=== PATIENT | female | born 1970 | race Caucasian/White ===

== ENCOUNTER 2020-10-28 11:47 | Emergency (ER) | payer BC, SELFPAY ==
[2020-10-28] VITALS (7 sets, daily range): BP systolic 128–194; BP diastolic 73–100; PULSE 72–96; RESP 16–22; TEMP 37.6; O2SAT 97–100
--- NOTE | ~2020-10-28 | XR_ITS ---
XR chest 2V DATE: 10/28/2020 13:37 INDICATION: Right-sided chest pain. Nausea. TECHNIQUE: PA and lateral views COMPARISON: 07/07/2019 AP chest FINDINGS: Normal heart size. No hilar or mediastinal enlargement. No pulmonary infiltrate or consolidation, pleural effusion or pulmonary vascular congestion or pneumo thorax. Right-sided ventricular atrial shunt. Included skeletal structures are unremarkable. IMPRESSION: No active cardiopulmonary disease Reviewed, dictated and finalized at location A.
[2020-10-28 12:19] LABS: Basophils Percent Auto 0.2 % (0.2-1.2); Eosinophils Absolute Auto 0.1 K/mm3 (0-0.3); Eosinophils Percent Auto 0.6 % (0-4.4); Hematocrit 46.3 % (37.0-47.0); Hemoglobin 15.3 g/dL (12.0-15.0); Immature Granulocyte Absolute 0.03 K/mm3 (0.00-0.031); Immature Granulocyte Percent A 0.2 % (0-0.5); Lymphocytes Absolute Auto 1.46 K/mm3 (0.9-3.2); Lymphocytes Percent Auto 11.8 % (18.3-44.2); Mean Corpuscular Hemoglobin 31.7 pg (26-34); Mean Corpuscular Volume 96.1 fl (80-100); Mean Platelet Volume 9.7 fl (7.4-10.4); Monocytes Absolute Auto 0.7 K/mm3 (0.1-0.6); Monocytes Percent Auto 5.6 % (2.6-8.5); Neutrophils Absolute Auto 10.1 K/mm3 (1.3-6.7); Neutrophils Percent Auto 81.6 % (45.5-73.1); Platelet Count Result 298 k/mm3 (150-375); Red Blood Count 4.82 M/mm3 (4.2-5.4); Red Cell Distribution Width 12.8 % (11.5-14.5); White Blood Count 12.4 K/mm3 (4.5-10.0)
--- NOTE | 2020-10-28 13:02 | ED.ABDPAIN ---
HPI - Abdominal Pain General Chief Complaint: Abdominal Pain Stated Complaint: rt flank pain Time Seen by Provider: 10/28/20 12:17 Source: patient Mode of arrival: ambulatory Limitations: no limitations History of Present Illness HPI narrative: 50-year-old female History of hypertension, hysterectomy, and a shunt She complains of pain in her right side which began this morning Pain is located more laterally versus anteriorly or posteriorly She cannot think of anything that made the pain worse, she had a small breakfast and does not really think that is what triggered things off She reports it feels better if she lies on her right side She has a little nausea but has not vomited and has no diarrhea or constipation She thought that her urine was a little dark a couple days ago, but does not have blood in it, and has no dysuria or urinary frequency She has allergies and a bit of a chronic cough which is not changed Related Data Allergies Allergy/AdvReac Type Severity Reaction Status Date / Time ibuprofen Allergy Severe shunt Verified 10/17/20 14:23 Sulfa (Sulfonamide Allergy Intermediate general Verified 10/17/20 14:23 Antibiotics) pain KETOROLAC TROMETHAMINE Allergy Intermediate JOINT PAIN Uncoded 10/17/20 14:23 Review of Systems Review of Systems: All systems reviewed & are unremarkable except as noted in HPI and below Constitutional: Constitutional: Reports no additional constitutional complaints, Denies chills, Denies fever(s) and Denies headache(s) ENT: Denies headache(s), Reports nasal congestion and Denies sore throat Cardiovascular: Cardiovascular: Denies chest pain and Denies dyspnea Respiratory: Respiratory: Reports cough and Denies dyspnea Gastrointestinal: Gastrointestinal: Denies diarrhea, Reports nausea and Denies vomiting Genitourinary: Genitourinary: Denies urinary frequency, Denies nocturia, Denies dysuria and Reports flank pain Musculoskeletal: Musculoskeletal: Denies deformity, Reports arthralgias and Denies numbness Integumentary/Breasts: Skin/Breast: Denies rash and Denies wounds Neurologic: Denies headache(s), Denies focal weakness and Denies numbness Psychiatric: Psychiatric: Reports no additional psychiatric complaints Endocrine: Endocrine: Reports no additional endocrine complaints Hematologic/Lymphatic: Hematologic/Lymphatic: Reports no additional hematologic/lymphatic complaints Allergic/Immunologic: Allergic/Immunologic: Reports no additional allergic/immunologic complaints PMFSH Past Medical History Medical History Anemia Anxiety Asthma Depression HTN (hypertension) Migraine Surgical History Surgical History H/O dilation and curettage H/O tubal ligation H/O: hysterectomy Family History Family History Father Hypertension Mother Hypertension Sibling Hypertension Social History Social History Smoking packs per day: 1.5 Smoking cigarettes per day: 30.0 Years smoked: 7 Smoking pack-years: 10.50 Smoking status: Former smoker Second hand tobacco smoke exposure: No Smoking end date: 07/27/92 Alcohol intake: current Substance use: current Substance use type: marijuana Gender identity (if verbalized by the patient): Female Exam Const: General: cooperative, no acute distress and alert Orientation/consciousness: patient oriented x3 (alert) HENMT: Head: normal to inspection, normocephalic and atraumatic Ears: external ears normal General nose exam: no epistaxis Eyes: Conjunctivae: conjunctivae normal EOM: EOMs intact bilaterally Neck: Neck: normal visual inspection, supple and no JVD Resp: Effort & Inspection: normal respiratory effort and not labored Auscultation: clear to auscultation bilaterally and other
[2020-10-28 13:06] LABS: Alanine Aminotransferase 24 U/L (4-35); Albumin Level 4.6 g/dL (3.5-5.1); Alkaline Phosphatase 66 U/L (38-126); Anion Gap 4 mmol/L (8-16); Aspartate Amino Transferase 28 U/L (14-36); Bilirubin,Total 0.5 mg/dL (0.2-1.3); Blood Urea Nitrogen 10 mg/dL (7-17); Calcium 9.2 mg/dL (8.4-10.2); Carbon Dioxide 31 mmol/L (22-30); Chloride 104 mmol/L (98-107); Estimated Glomerular Filt Rate > 60; Glucose 90 mg/dL (65-105); Lipase 35 U/L (23-300); Potassium 3.8 mmol/L (3.4-5.0); Sodium 139 mmol/L (137-145)
[2020-10-28 14:08] LABS: Add Urine Microscopic? NO; Appearance Urine Clear (Clear); Bilirubin Urine Negative (Negative); Blood Urine Negative (Negative); Color Urine Straw (Yellow); Glucose Urine UA Negative (Negative); Ketones Urine Negative (Negative); Leukocyte Esterase Ur Negative LEU/UL (Negative); Nitrate Urine Negative (Negative); Protein Urine Negative (Negative); Specific Grav Ur 1.009 (1.001-1.035); Urobilinogen Urine Negative mg/dL (<2.0)
--- NOTE | 2020-10-28 14:13 | ECG_ITS ---
Measurements Intervals [place] Rate: 81 P: 48 [place]: 175 QRS: 45 QRSD: 98 T: 52 QT: 374 QTc: 435 Interpretive Statements SINUS RHYTHM DELAYED PRECORDIAL R/S TRANSITION BORDERLINE ECG Electronically Signed On 10-28-2020 17:18:01 CDT by Pravin Orozco D.O.
--- NOTE | 2020-10-28 14:14 | PC.NURSE ---
called lab, Paige, added on Trop I Baseline [id number]
[2020-10-28] MEDS: HYDROcodone/acetaminophen (*CRX) 5-325 MG TABLET 1 TAB PO (14:25)
[2020-10-28 14:31] LABS: D Dimer 0.33 ug/mL (<0.48)
[2020-10-28 14:39] LABS: Troponin I < 0.012 ng/mL (0.000-0.034)
== END 2020-10-28 16:11 | disposition home or self-care (01) ==
PROVIDERS: Family Medicine; Emergency Provider Emergency Medicine; PCP Physician Assistant
DX: R10.11 Right upper quadrant pain (principal); I10 Essential (primary) hypertension; J45.909 Unspecified asthma, uncomplicated; F41.9 Anxiety disorder, unspecified; F32.9 Major depressive disorder, single episode, unspecified; Z87.891 Personal history of nicotine dependence; Z86.2 Personal history of diseases of the blood and blood-forming organs and certain disorders involving the immune mechanism; R94.31 Abnormal electrocardiogram [ECG] [EKG]
CPT/HCPCS: 36415; 71046; 80053; 81003; 81025; 83690; 84484; 85025; 85380; 93005; 99284; A9270

== ENCOUNTER 2020-10-29 07:33 | Outpatient (CLI) | payer BC, SELFPAY ==
--- NOTE | ~2020-10-29 | US_ITS ---
EXAMINATION: US right upper quadrant DATE: 10/29/2020 08:02 INDICATION: Right upper quadrant abdominal pain. TECHNIQUE: Multiple grayscale and Doppler ultrasound images of the abdomen were obtained. COMPARISON: Ultrasound 07/07/2019 FINDINGS: The visualized portions of the head of the pancreas are normal. The liver is normal without focal lesion. There is normal flow in main portal vein. The gallbladder is normal in size. No gallst ones or gallbladder wall thickening. There was no sonographic Aldridge sign. The common duct is normal and measures 4 mm. IMPRESSION: 1. Normal right upper quadrant ultrasound. Reviewed, dictated and finalized at location A.
== END 2020-10-29 07:34 | disposition home or self-care (01) ==
LOC: ANHIMG 07:37
PROVIDERS: PCP Physician Assistant; Visit Provider Physician Assistant
DX: R10.31 Right lower quadrant pain (principal)
CPT/HCPCS: 76705

== ENCOUNTER 2020-11-02 09:58 | Outpatient (CLI) | payer BC, SELFPAY ==
--- NOTE | ~2020-11-02 | NM_ITS ---
EXAMINATION: NM hepatobiliary w pharm DATE: 11/02/2020 12:38 INDICATION: Right upper quadrant abdominal pain. COMPARISON: Ultrasound 10/29/2020 TECHNIQUE: 4.8 mCi Tc-99m mebrofenin (Choletec) was administered intravenously. Scintigraphic images of the abdomen were obtained for one hour. Then, 2.0 mcg sincalide (Kinevac) IV was administered, an d imaging was continued for 30 minutes. FINDINGS: There is normal clearance of radiotracer from the blood pool. There is homogeneous tracer u ptake by the liver. Activity progresses to the bowel and gallbladder. Gallbladder ejection fraction (GBEF) was 93%. Note that most patients with gallbladder dysfunction have GBEF < 35%, which overlaps with the broad normal range of 10-90%. IMPRESSION: 1. Normal hepatobiliary scintigraphy. Reviewed, dictated and finalized at location A.
== END 2020-11-02 09:59 | disposition home or self-care (01) ==
PROVIDERS: PCP Physician Assistant; Visit Provider Physician Assistant
DX: R10.11 Right upper quadrant pain (principal)
CPT/HCPCS: 78227; A9537; J2805

== ENCOUNTER 2021-03-25 13:23 | Outpatient (CLI) | payer BC, SELFPAY ==
--- NOTE | 2021-03-25 13:31 | ECHO_ITS ---
Patient Info Name: Malissa Weeks Age: 50 years : 1970 Gender: Female Ht: 65 in Wt: 230 lbs BSA: 2.24 m2 HR: 80 bpm BP: 151 / 95 mmHg Heart Rhythm: Sinus Rhythm Technical Quality: Fair Exam Date: 03/25/2021 2:15 PM Exam Location: [facility] Patient Status: Outpatient Admit Date: 03/25/2021 Staff Ordering Physician: Malik España PA-C [employer]: Anat Lainez RDCS Attending Provider: Malik España PA-C Referring Physician: Patria AGUIRRE; Exam Type: CA echo doppler color flow Study Info Indications I42.9 - Cardiomyopathy, unspecified Complete two-dimensional, color flow and Doppler transthoracic echocardiogram is performed. Summary 1. Complete two-dimensional, color flow and Doppler transthoracic echocardiogram is performed. 2. Left ventricular chamber dimension is normal. 3. Left ventricular systolic function is normal, estimated at 60-65%. 4. The left ventricular diastolic function is grade I diastolic dysfunction. 5. E/e' 8 is minimally elevated. 6. Left atrial chamber dimension is mildly enlarged. 7. No pulmonary hypertension, estimated pulmonary arterial systolic pressure is 23 mmHg. Left Ventricle E/e' 8 is minimally elevated. Left ventricular chamber dimension is normal. Left ventricular systolic function is normal, estimated at 60-65%. The left ventricular diastolic function is grade I diastolic dysfunction. Right Ventricle Right ventricular chamber dimension is normal. Right ventricular systolic function is normal. Left Atria Left atrial chamber dimension is mildly enlarged. Right Atria Right atrial chamber dimension is normal. Aortic Valve The aortic valve is trileaflet. There is no aortic valve stenosis. There is no aortic valve regurgitation. Pulmonic Valve There is no pulmonic regurgitation. Mitral Valve There is no mitral valve stenosis. There is no mitral valve regurgitation. Tricuspid Valve There is no tricuspid valve regurgitation. No pulmonary hypertension, estimated pulmonary arterial systolic pressure is 23 mmHg. Pericardium/Pleural There is no pericardial effusion. Inferior Vena Cava Normal inferior vena cava with >50% collapse upon inspiration consistent with normal right atrial pressure, 5 mmHg. Aorta The aortic root size at the sinus of Valsalva is normal. Left Ventricular Outflow Tract Name Value Normal LVOT 2D LVOT Diameter 2.1 cm LVOT Doppler LVOT Peak Gradient 4 mmHg LVOT Mean Gradient 2 mmHg LVOT VTI 22 cm LVOT VTI/AV VTI Ratio 0.9 LVOT Stroke Volume 77 ml LVOT CO 5.5 l/min LVOT CI 2.4 l/min/m2 Pulmonic Valve Name Value Normal RVOT Doppler
== END 2021-03-25 13:24 | disposition home or self-care (01) ==
PROVIDERS: PCP Physician Assistant; Visit Provider Physician Assistant
DX: I51.7 Cardiomegaly (principal)
CPT/HCPCS: 93306

== ENCOUNTER 2021-06-27 15:57 | Emergency (ER) | payer BC, SELFPAY ==
[2021-06-27 16:14] VITALS: BP 129/86; PULSE 86; RESP 16; TEMP 36.8; O2SAT 97
--- NOTE | 2021-06-27 17:01 | ED.WOUNDLAC ---
HPI - Wound/Laceration General Chief Complaint: Wound/Laceration Stated Complaint: cat scratch Time Seen by Provider: 06/27/21 17:01 Source: patient and RN notes reviewed Mode of arrival: ambulatory Limitations: no limitations History of Present Illness HPI narrative: 51-year-old female presents with concern for wound on her right anterior lower leg. Reports she was either bitten or scratched by a cat a week ago. Reports over the last several days it has become red, raised, tender and is draining purulent drainage. She denies fever, body aches, chills, sweats. She reports healing scabs on the back of her legs from a cat scratch with no concerns. Related Data Home Medications Medication Instructions Recorded Confirmed aripiprazole mg 06/27/21 bupropion HCl mg PO 06/27/21 Allergies Allergy/AdvReac Type Severity Reaction Status Date / Time ibuprofen Allergy Severe shunt Verified 06/27/21 16:18 Sulfa (Sulfonamide Allergy Intermediate general Verified 06/27/21 16:18 Antibiotics) pain KETOROLAC TROMETHAMINE Allergy Intermediate JOINT PAIN Uncoded 06/27/21 16:18 Review of Systems Review of Systems: CONSTITUTIONAL: Denies malaise, chills, sweats, or fever. SKIN: Reports tender, red, raised wound with purulent drainage on the anterior aspect of the right lower leg MUSCULOSKELETAL: Denies muscle skeletal pain or myalgia. All systems reviewed & are unremarkable except as noted in HPI and below PMFSH Past Medical History Medical History Anemia Anxiety Asthma Depression HTN (hypertension) Marijuana use Migraine Surgical History Surgical History H/O dilation and curettage H/O tubal ligation H/O: hysterectomy Family History Family History Father Hypertension Depression Heart disease Alcohol abuse Mother Hypertension Depression Alcohol abuse Sibling Hypertension Alcohol abuse Depression Grandparent Alcohol abuse Hypertension Heart disease Son Alcohol abuse Depression Heart disease Social History Social History Smoking packs per day: 1.5 Smoking cigarettes per day: 30.0 Years smoked: 7 Smoking pack-years: 10.50 Smoking status: Former smoker Second hand tobacco smoke exposure: No Smoking end date: 07/27/92 Alcohol intake: current Substance use: current Substance use type: marijuana Gender identity (if verbalized by the patient): Female Comments At time of signature, agree with nursing past medical, surgical, social and family history. There is no relevant family history pertinent to the presenting complaint Exam Narrative: GENERAL: Well-appearing, well-nourished, and in no acute distress. HEAD: Normocephalic, atraumatic. EYES: PERRLA, conjunctivae clear ENT: Mucous membranes moist. NECK: Supple. No lymphadenopathy CHEST: Clear to auscultation. No respiratory distress. HEART: Regular rate and rhythm. SKIN: Warm, dry. Approximately 8 cm in diameter erythematous slightly raised, indurated area with serous drainage noted from a central scab, no fluctuation noted NEURO: Alert and oriented x3. PSYCH: Normal mood and affect Course Course Emergency Course: Patient is aware of diagnosis, understands and agrees to treatment plan. Anticipatory guidance given. Patient agrees to follow-up as directed and is aware of reasons to seek care at the emergency department. Portions of this record may have been created with voice recognition software Vital Signs Vital signs: Vital Signs Temperature 98.3 F 06/27/21 16:14 Pulse Rate 86 06/27/21 16:14 Respiratory Rate 16 06/27/21 16:14 Blood Pressure 129/86 06/27/21 16:14 Pulse Oximetry 97 06/27/21 16:14 Temperature 98.3 F 06/27/21 16:14 Pulse Rate 86 06/27/21 16:14
== END 2021-06-27 17:10 | disposition home or self-care (01) ==
PROVIDERS: Emergency Provider Nurse Practitioner; PCP Physician Assistant
DX: S81.851A Open bite, right lower leg, initial encounter (principal); I10 Essential (primary) hypertension; Z87.891 Personal history of nicotine dependence; W55.01XA Bitten by cat, initial encounter
CPT/HCPCS: 99213; G0463

== ENCOUNTER 2021-12-09 15:24 | Emergency (ER) | payer BC, SELFPAY ==
--- NOTE | ~2021-12-09 | XR_ITS ---
EXAMINATION: XR facial bones min 3V DATE: 12/09/2021 16:02 INDICATION: Pain of the nose, mouth, and chin. Fall over one week ago. TECHNIQUE: 4 views of the facial bones were obtained. COMPARISON: Head CT 07/07/2019 FINDINGS: There is a right-sided ventriculoperitoneal shunt. No break of the radiopaque portions. The re is leftward deviation of the nasal septum. No fracture. There is mucosal thickening in left maxill de sinus. IMPRESSION: 1. No fracture. 2. Ventriculoperitoneal shunt without break in the radiopaque portions. Reviewed, dictated and finalized at location B.
--- NOTE | 2021-12-09 15:31 | ED.FALL ---
HPI - Fall General Chief Complaint: Fall Stated Complaint: fall Time Seen by Provider: 12/09/21 15:47 Source: patient, RN notes reviewed and old records reviewed Mode of arrival: ambulatory Limitations: no limitations History of Present Illness HPI Narrative: 51 year of female who presents to [facility] care with complaints of experiencing fall on sidewalk on December 01 while walking dog. She states that she tripped on uneven sidewalk and face planted on sidewalk with abrasions noted to area below left side of nose, and on chin, with laceration to her left bottom and top lip and 3 chipped teeth with no loss of consciousness.. Patient reports that she has already seen her dentist and is scheduled for further repair of her teeth. Patient concerned of possible fracture to face since she seems to be snoring more has deviated septum already. 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 MD complaint: fall Onset (ago): week(s) Fall from: standing Place fall occurred: other (outdoors walking dog) Loss of consciousness: none Prolonged down time: no Symptoms prior to fall: none Context: other (tripped on uneven sidewalk) Location of injury: face, mouth and other (abrasions to left 5th finger and dorsal right wrist.) Associated symptoms (after fall): headache and other (facial pain) Related Data Home Medications Medication Instructions Recorded Confirmed aripiprazole 2 mg PO DAILY 06/27/21 12/09/21 atomoxetine 100 mg PO DIRECTED 12/09/21 12/09/21 bupropion HCl 300 mg PO DIRECTED 12/09/21 12/09/21 duloxetine 60 mg PO DIRECTED 12/09/21 12/09/21 Allergies Allergy/AdvReac Type Severity Reaction Status Date / Time ibuprofen Allergy Severe shunt Verified 10/10/21 09:06 Sulfa (Sulfonamide Allergy Intermediate general Verified 10/10/21 09:06 Antibiotics) pain KETOROLAC TROMETHAMINE Allergy Intermediate JOINT PAIN Uncoded 10/10/21 09:06 Review of Systems Review of Systems: CONSTITUTIONAL: Denies fever, chills, or sweats. EYES: Denies visual changes, redness, or discharge. ENT: Denies rhinorrhea, congestion, sore throat, or otalgia. CARDIOVASCULAR: Denies chest pain, palpitations, or edema. RESPIRATORY: Denies cough or dyspnea. GASTROINTESTINAL: Denies abdominal pain, nausea, vomiting, or diarrhea. GENITOURINARY: Denies dysuria or hematuria. SKIN: Denies rash or itching, positive for abrasions to face, left 5th finger and right wrist, lacerations to upper and lower left sides lips, chipped three teeth. MUSCULOSKELETAL: Denies back pain, joint pain, or myalgia. NEUROLOGIC: Positive temporal headache, no numbness, or weakness. PSYCHIATRIC: Positive for history of anxiety or depression. All systems reviewed & are unremarkable except as noted in HPI and below [facility] Past Medical History Medical History (Updated 12/09/21 @ 16:33 by Emerald Mantilla NP) ADHD (attention deficit hyperactivity disorder) Anemia Anxiety Asthma Chiari malformation surgical decompression and shunt Depression HTN (hypertension) Marijuana use Migraine Surgical History Surgical History H/O dilation and curettage H/O tubal ligation H/O: hysterectomy Family History Family History Father Hypertension Depression Heart disease Alcohol abuse Mother Hypertension Depression Alcohol abuse Sibling Hypertension Alcohol abuse Depression Grandparent Alcohol abuse Hypertension Heart disease Son Alcohol abuse Depression Heart disease Social History Social History Smoking packs per day: 1.5 Smoking cigarettes per day: 30.0 Years smoked: 7 Smoking pack-years: 10.50 Smoking status: Former smoker Second hand tobacco smoke exposure: No S
[2021-12-09 15:34] VITALS: BP 125/86; PULSE 80; RESP 16; TEMP 36.4; O2SAT 99
== END 2021-12-09 16:42 | disposition home or self-care (01) ==
PROVIDERS: Emergency Provider Registered Nurse; PCP Physician Assistant
DX: R51.9 Headache, unspecified (principal); K13.79 Other lesions of oral mucosa; Z87.891 Personal history of nicotine dependence; J45.909 Unspecified asthma, uncomplicated; I10 Essential (primary) hypertension; F41.9 Anxiety disorder, unspecified; F90.9 Attention-deficit hyperactivity disorder, unspecified type; F12.90 Cannabis use, unspecified, uncomplicated
CPT/HCPCS: 70150; 99213; G0463

== ENCOUNTER 2022-02-10 11:47 | Inpatient (IN) | payer BC, SELFPAY ==
[2022-02-10] VITALS (8 sets, daily range): BP systolic 122–178; BP diastolic 71–120; PULSE 82–140; RESP 16–26; TEMP 36.9–37; O2SAT 80–100
--- NOTE | ~2022-02-10 | XR_ITS ---
XR chest 2V DATE: 02/10/2022 12:24 INDICATION: Chest pain, cough TECHNIQUE: AP and lateral views COMPARISON: 10/28/2020 PA and lateral chest FINDINGS: Heart size is normal. No hilar or mediastinal enlargement. No pulmonary infiltrate or conso lidation, pleural effusion or pulmonary vascular congestion or pneumothorax. Right sided ventricular shunt catheter terminates in the superior vena cava. IMPRESSION: No active cardiopulmonary disease or significant change since October 28, 2020 Reviewed, dictated and finalized at location B.
--- NOTE | ~2022-02-10 | US_ITS ---
EXAMINATION: US abdomen limited DATE: 02/12/2022 14:33 INDICATION: Elevated LFTs TECHNIQUE: Multiple grayscale and Doppler ultrasound images of limited portions of the the abdomen we re obtained. COMPARISON: CT abdomen and pelvis 02/10/2022 FINDINGS: Visualized portions of the pancreas are normal. Increased liver parenchymal echogenicity. N o surface nodularity. Normal hepatopetal flow in the main portal vein. The gallbladder is normal with no abnormal wall thickening, pericholecystic fluid or stones. The normal common bile duct measures 2 mm. There was no sonographic Aldridge sign. IMPRESSION: 1. Echogenic liver as can be seen with steatosis, fibrosis and hepatitis. 2. Otherwise normal sonographic findings. Reviewed, dictated and finalized at location K.
--- NOTE | ~2022-02-10 | CT_ITS ---
EXAMINATION: CTA chest PE protocol DATE: 02/10/2022 15:09 INDICATION: Shortness of breath TECHNIQUE: Computed tomography angiography (CTA) of the chest was performed with 100 mL Omnipaque-350 intravenous contrast timed to evaluate the pulmonary arteries. Coronal maximum intensity projection 3D-reconstructions were created by the technologist. Automated exposure control and iterative reconst ruction technique were employed. Exam dose: 430.54 mGy-cm total exam DLP. COMPARISON: 02/10/2022 AP and lateral chest FINDINGS: There is diagnostic contrast enhancement of the pulmonary arteries and no evidence of centr al pulmonary embolism. There is suboptimal demonstration of the peripheral pulmonary arteries due to motion, but there is embolism identified within a subsegmental artery in the lower posterior medial r ight lower lobe. No thoracic aortic aneurysm or dissection. No hilar or mediastinal mass lesion or lymphadenopathy. Trace pericardial fluid. Heart size is within normal limits. No pleural effusion. Normal morphology of the adrenal glands. Soft tissue thickening of the wall of the lower esophagus, which may be due to esophagitis. No suspicious osteolytic or osteosclerotic lesions. IMPRESSION: Limited focal minimal infiltrate involving lower lobe posteromedial subsegmental pulmona ry artery Reviewed, dictated and finalized at Location A. Reviewed, dictated and finalized at location B. IMPRESSION: Limited focal minimal infiltrate involving lower lobe posteromedia l subsegmental pulmonary artery
--- NOTE | ~2022-02-10 | CT_ITS ---
EXAMINATION: CT abdomen pelvis w con DATE: 02/10/2022 13:44 INDICATION: Upper abdominal pain. Vomiting. TECHNIQUE: Computed tomography (CT) of the abdomen and pelvis was performed with 100 mL Omnipaque 300 intravenous contrast. Automated exposure control and iterative reconstruction technique were employe d. The dose-length product was 1191.80 mGy-cm. COMPARISON: None. FINDINGS: The visualized portions of the lung bases are clear without pneumonia or pleural effusion. The heart size is normal. No pericardial effusion. The liver, gallbladder, spleen, pancreas, adrenal glands, and kidneys are normal. There are no dilated loops of bowel. The appendix is normal. There is wall thickening of the distal esophagus. There are no pathologically enlarged lymph nodes. There is no free intraperitoneal fluid. There are bilateral tubal ligation clips. There is mild thoracolumbar spondylosis. IMPRESSION: 1. Wall thickening of the esophagus, consistent with esophagitis. Reviewed, dictated and finalized at location A.
--- NOTE | ~2022-02-10 | CT_ITS ---
EXAMINATION: CT brain wo con DATE: 02/10/2022 13:44 INDICATION: Head trauma TECHNIQUE: Computed tomography (CT) of the head was performed without intravenous contrast. Sagittal and coronal reconstructions were performed. The mA was adjusted according to patient size. Iterative reconstruction technique was employed. The dose-length product was 605.33 mGy-cm. COMPARISON: head CT dated 07/07/2019 FINDINGS: No fracture. Significant decrease in size of a now 3.4 x 2.5 x 0.5 cm seroma at the site of a prior m idline occipital craniectomy for treatment of a prior Chiari I malformation. Previously this measured at least 6.1 x 3.1 x 3.9 cm . Right frontal ventricular shunt in unchanged position extending into t he anterior horn of the right lateral ventricle with distal tip near the foramen of Grimm. The third and left and right lateral ventricles remain slitlike. Fourth ventricle is normal. No acute intracra nial hemorrhage, acute infarction or abnormal extra axial fluid collection. No mass/mass effect. The orbits, paranasal sinuses and mastoid air cells are normal. IMPRESSION: 1. No fracture or acute intracranial process. 2. Unchanged right frontal ventricular drainage catheter with tip near the foramen of Grimm with no change in third and left and right lateral ventricles. 3. Significant decrease in size of a small seroma at the site of a midline occipital craniectomy pres umably treatment for a Chiari I malformation. Reviewed, dictated and finalized at location A. IMPRESSION: 1. No fracture or acute intracranial process. 2. Unchanged right frontal ventricular drainage catheter with tip near the fora men of Grimm with no change in third and left and right lateral ventricles. 3. Significant decrease in size of a small seroma at the site of a midline occi pital craniectomy presumably treatment for a Chiari I malformation.
--- NOTE | ~2022-02-10 | US_ITS ---
EXAMINATION: US venous doppler [facility] DATE: 02/11/2022 09:26 INDICATION: Pulmonary embolus. Upper abdominal pain. TECHNIQUE: Grayscale ultrasound images without and with compression and Doppler ultrasound images of the bilateral lower extremity veins were obtained. COMPARISON: None. FINDINGS: The visualized portions of right common femoral vein, profunda (deep) femoral vein, femoral vein, pop liteal vein, peroneal veins, posterior tibial veins, and greater saphenous vein outflow are patent. The visualized portions of left common femoral vein, profunda femoral vein, femoral vein, popliteal v ein, peroneal veins, posterior tibial veins, and greater saphenous vein outflow are patent. IMPRESSION: 1. No deep venous thrombosis. Reviewed, dictated and finalized at location A.
--- NOTE | 2022-02-10 11:55 | ECG_ITS ---
Measurements Intervals [place] Rate: 134 P: 54 [place]: 150 QRS: 66 QRSD: 87 T: 40 QT: 300 QTc: 449 Interpretive Statements SINUS TACHYCARDIA DELAYED PRECORDIAL R/S TRANSITION BASELINE ARTIFACT- I, II, III, AVR, AVL, AVF, V1 ABNORMAL ECG Electronically Signed On 02-10-2022 18:36:33 CDT by Pravin Orozco D.O.
[2022-02-10 12:14] LABS: Basophils Absolute Auto 0.1 K/mm3 (0.0-0.1); Basophils Percent Auto 0.3 % (0.2-1.2); Eosinophils Absolute Auto 9.6 K/mm3 (0-0.3); Eosinophils Percent Auto 42.1 % (0-4.4); Hemoglobin 16.8 g/dL (12.0-15.0); Immature Granulocyte Absolute 0.06 K/mm3 (0.00-0.031); Immature Granulocyte Percent A 0.3 % (0-0.5); Lymphocytes Absolute Auto 1.12 K/mm3 (0.9-3.2); Lymphocytes Percent Auto 4.9 % (18.3-44.2); Mean Corpuscular HGB Conc 32.9 g/dl (32-36); Mean Corpuscular Hemoglobin 32.6 pg (26-34); Mean Corpuscular Volume 98.8 fl (80-100); Mean Platelet Volume 9.5 fl (7.4-10.4); Monocytes Absolute Auto 1.1 K/mm3 (0.1-0.6); Neutrophils Absolute Auto 10.8 K/mm3 (1.3-6.7); Neutrophils Percent Auto 47.4 % (45.5-73.1); Platelet Count Result 423 k/mm3 (150-375); Red Blood Count 5.16 M/mm3 (4.2-5.4); Red Cell Distribution Width 14.6 % (11.5-14.5); White Blood Count 22.7 K/mm3 (4.5-10.0)
--- NOTE | 2022-02-10 12:17 | PC.NURSE ---
pt states all of her symptoms started after she fell and hit her head about 4 days ago.
[2022-02-10 12:23] LABS: Alanine Aminotransferase 62 U/L (6-35); Albumin Level 5.3 g/dL (3.5-5.1); Alkaline Phosphatase 83 U/L (38-126); Anion Gap 12 mmol/L (8-16); Aspartate Amino Transferase 60 U/L (14-36); Bilirubin,Total 0.8 mg/dL (0.2-1.3); Blood Urea Nitrogen 19 mg/dL (7-17); Calcium 10.3 mg/dL (8.4-10.2); Carbon Dioxide 37 mmol/L (22-30); Chloride 85 mmol/L (98-107); Estimated CRCL calculation 65 ml/min; Estimated Glomerular Filt Rate 59; Glucose 140 mg/dL (65-110); Lipase 154 U/L (23-300); Potassium 3.6 mmol/L (3.4-5.0); Sodium 134 mmol/L (137-145)
[2022-02-10 12:33] LABS: INR 0.9; Prothrombin Time 11.8 Seconds (11.1-14.7)
[2022-02-10 12:34] LABS: Partial Thromboplastin Time 26.8 SECONDS (22.3-36.8); Troponin I 0.032 ng/mL (0.000-0.034)
--- NOTE | 2022-02-10 13:06 | ED.GENADULT ---
HPI - General Adult General Chief complaint: Nausea/Vomiting/Diarrhea Stated complaint: n/v and cold chills - hit head Time Seen by Provider: 02/10/22 13:06 Source: patient, family and RN notes reviewed Mode of arrival: ambulatory Limitations: no limitations History of Present Illness HPI narrative: Patient is 51 years old white female dropped off by her mother to the ED, complaining of nausea, vomiting for the last 4 days patient unable to keep anything down for the last 4 days. Diarrhea for 2 days, resolved in the last 2 days because she is not eating. Patient also coughing with body aches and sore throat. Patient fell and struck her head on the wall 4 days ago concerned about concussion. Related Data Home Medications Medication Instructions Recorded Confirmed aripiprazole 2 mg tablet 2 mg PO DAILY 06/27/21 12/09/21 atomoxetine 100 mg capsule 100 mg PO DIRECTED 12/09/21 12/09/21 bupropion HCl 300 mg 24 hr tablet, 300 mg PO DIRECTED 12/09/21 12/09/21 extended release duloxetine 60 mg capsule,delayed 60 mg PO DIRECTED 12/09/21 12/09/21 release Allergies Allergy/AdvReac Type Severity Reaction Status Date / Time ibuprofen Allergy Severe shunt Verified 01/02/22 11:27 Sulfa (Sulfonamide Allergy Intermediate general Verified 01/02/22 11:27 Antibiotics) pain KETOROLAC TROMETHAMINE Allergy Intermediate JOINT PAIN Uncoded 01/02/22 11:27 Review of Systems Review of Systems: All systems reviewed & are unremarkable except as noted in HPI and below PMFSH Past Medical History Medical History ADHD (attention deficit hyperactivity disorder) Anemia Anxiety Asthma Chiari malformation surgical decompression and shunt Depression HTN (hypertension) Marijuana use Migraine Surgical History Surgical History H/O dilation and curettage H/O tubal ligation H/O: hysterectomy Family History Family History Father Hypertension Depression Heart disease Alcohol abuse Mother Hypertension Depression Alcohol abuse Sibling Hypertension Alcohol abuse Depression Grandparent Alcohol abuse Hypertension Heart disease Son Alcohol abuse Depression Heart disease Social History Social History Smoking packs per day: 1.5 Smoking cigarettes per day: 30.0 Years smoked: 7 Smoking pack-years: 10.50 Smoking status: Former smoker Second hand tobacco smoke exposure: No Smoking end date: 07/27/92 Alcohol intake: current Substance use: current Substance use type: marijuana Gender identity (if verbalized by the patient): Female Exam Narrative: General appearance: Well-developed, well-nourished, restless, anxious, in tears, holding a vomiting bag and hands with a strong severe dry heaves Skin: Normal color Head: Normocephalic, nontraumatic Eyes: Clear conjunctiva ENT: Oropharyngeal erythema Neck: Supple, nontender Chest and respiratory: Airway patent, no respiratory distress, no accessory muscle use Heart: Tachycardia Abdomen: Soft, moderate tenderness epigastric area no organomegaly, quiet bowel sounds Vascular: Normal peripheral pulses, normal capillary refill. Musculoskeletal: Normal range of motion, nontender back Neurologic: Alert and oriented ?3, CABIN CLEANER is normal as tested, no gross motor deficit Course Vital Signs Vital signs: Vital Signs Temperature 36.9 C 02/10/22 11:51 Pulse Rate 140 H 02/10/22 11:51 Respiratory Rate 18 02/10/22 11:51 Blood Pressure 122/93 H 02/10/22 11:51
[2022-02-10 13:27] LABS: Alveolar/Arterial O2 Gradient 40.7 mmHg; Base Excess ABG 12.6 mEq/l (+/-2.0); Fractional Inspired Oxygen 21 %; HCO3 ABG 34.6 mEq/l (22.0-26.0); PCO2 ABG 35.3 mmHg (35.0-45.0); PO2 ABG 66.8 mmHg (80.0-100.0); PO2 FiO2 Ratio Arterial Blood 3.18 %; Total Hemoglobin 15.9 g/dL (12.0-18.0)
[2022-02-10 13:31] LABS: Device ROOM AIR; Modified Allen's Test Pass; Site Drawn LEFT RADIAL; pH ABG 7.609 (7.350-7.450)
[2022-02-10] MEDS: SODIUM CHLORIDE 0.9% IV 1,000 ML 999 ML IV CONT (13:44)
[2022-02-10] MEDS: diphenhydrAMINE HCl INJ 50 MG/ML VIAL IV PUSH (13:45)
[2022-02-10] MEDS: METOCLOPRAMIDE HCL INJ 10 MG/2 ML VIAL IV PUSH (13:47)
[2022-02-10] MEDS: LORazepam INJ (*CRX) 2 MG/ML VIAL 1 MG IV PUSH (13:50)
[2022-02-10 14:04] LABS: SARS-CoV-2 RNA PCR Negative
[2022-02-10 14:11] LABS: D Dimer 2.16 ug/mL (<0.48)
[2022-02-10 15:46] LABS: Troponin I 0.024 ng/mL (0.000-0.034)
[2022-02-10] MEDS: ENOXAPARIN 80 MG/0.8 ML SYRINGE 90 MG SUB-Q (16:02)
[2022-02-10] MEDS: LABETALOL HCL INJ 100 MG/20 ML VIAL 20 MG IV PUSH (16:16)
--- NOTE | 2022-02-10 17:13 | PC.NURSE ---
This patient, Malissa Weeks, was admitted to [facility] Surg Room 321-01 at 1714. Patient/family oriented to hospital policies and general routines including ID bracelet, bed and alarms, visiting hours, pain management, procedures, bathroom and other care routines, personal items, smoking policy, room service/diet, and visiting hours. Information on how to activate the Rapid Response Team has been discussed. Patient/Family are encouraged to report perceived risks to care and to ask questions if they do not understand what they are told or what they should do.
--- NOTE | 2022-02-10 17:15 | PM.IMHP ---
H&P: HPI History of Present Illness Date/Time: 02/10/22 17:15 <Charu Sargent PA-C - Last Filed: 02/10/22 23:02> Chief Complaint: Multiple complaints. <Charu Sargent PA-C - Last Filed: 02/10/22 23:02> Narrative: This is a 51-year-old female with hypertension and anxiety who presented to the emergency department for evaluation of multiple complaints. She has not felt well since Thursday with multiple symptoms including intractable nausea and vomiting to the point she is now having dry heaves, diarrhea, hot and cold sweats, decreased urine output, lightheadedness/dizziness and generalized weakness. One of her friends had similar symptoms last week and her mother had COVID last week and she was worried that she may to have COVID and thus she came in for evaluation. SARS-CoV-2 by PCR was negative but she did have several laboratory abnormalities including some electrolyte derangements and evidence of significant dehydration and she is being admitted in this setting. CT of the abdomen and pelvis showed no acute findings but did remark on some wall thickening of the esophagus which is likely related to esophagitis. With further questioning she reported that she drank about a pint of Bacardi rum on evening which she has not done for quite a while. Late that night or early Thursday morning she got up to use the restroom at which time she lost her balance and fell into the coffee table, sustaining an abrasion to the bridge of her nose. She denies other injuries in the fall and states there was no loss of consciousness. Chest CTA was done due to an elevated D-dimer and she was found to have a small subsegmental PE which seems to be an incidental finding. She has not had shortness of breath, chest pain, pleuritic pain, or palpitations and she has not had any significant lower extremity edema or calf pain. At the time my evaluation she is feeling a bit better with IV fluids. She denies documented fever, sinus congestion, sore throat, hematemesis, melena, hematochezia, and dysuria. <Charu Sargent PA-C - Last Filed: 02/10/22 23:02> Review of Systems Review of Systems: Twelve systems were reviewed and are negative except for as per HPI. <Charu Sargent PA-C - Last Filed: 02/10/22 23:02> [facility] Past Medical History Medical History: Medical History (Updated 02/10/22 @ 17:01 by Charu Sargent PA-C) Anemia Anxiety Asthma Attention deficit hyperactivity disorder Chiari malformation Status post surgical decompression and shunt insertion. Depression Hypertension Marijuana use Migraine <Charu Sargent PA-C - Last Filed: 02/10/22 23:02> Surgical History Surgical History: Surgical History (Updated 02/10/22 @ 22:45 by Charu Sargent PA-C) History of craniotomy Surgical decompression and shunt placement for Chiari malformation. History of dilatation and curettage History of tubal ligation <Charu Sargent PA-C - Last Filed: 02/10/22 23:02> Family History Family History: Family History Father Hypertension Depression Heart disease Alcohol abuse Mother Hypertension Depression Alcohol abuse Sibling Hypertension Alcohol abuse Depression Grandparent Alcohol abuse Hypertension Heart disease Son Alcohol abuse Depression Heart disease <Charu Sargent PA-C - Last Filed: 02/10/22 23:02> Social History Social History: Social History (Updated 02/10/22 @ 22:46 by Charu Sargent PA-C) Social History: Surrogate medical decision maker: Marta Dorie, mother. Code status: Full code. Smoking packs per day: 1 Smoking cigarettes per day: 20.0 Years smoked: 3 Smoking pack-years: 3.00 Smoking status: Former smoker Second hand tobacco smoke exposure: Yes (smokes weed) Smoking end date: 02/06/22 Alcohol intake: current Alcohol use details: Drink heavily in the past. [place]
[2022-02-10] MEDS: SODIUM CHLORIDE 0.9% IV 1,000 ML 150 ML IV CONT (17:37)
[2022-02-10] MEDS: PANTOPRAZOLE SODIUM IV 40 MG VIAL IV PUSH (17:40)
--- NOTE | 2022-02-10 17:55 | PC.NURSE ---
pt psych medication qelbree 200 mg Er capsules, vilazodone 40 mg , rexulti 1 mg all in am dailyl
--- NOTE | 2022-02-10 18:15 | PC.NURSE ---
pt states she takes Viibryd daily, unsure dosage.
--- NOTE | 2022-02-10 18:16 | PC.NURSE ---
MD Eduardo concepcion psych, called office for current medication list [phone], office closed at this time. Message left. Pt unsure medications, states they were changed and hasn't picked up medications.
[2022-02-10 18:24] LABS: Troponin I 0.021 ng/mL (0.000-0.034)
[2022-02-10 22:24] LABS: Blood Urea Nitrogen 17 mg/dL (7-17); Calcium 7.9 mg/dL (8.4-10.2); Carbon Dioxide > 40 mmol/L (22-30); Chloride 90 mmol/L (98-107); Estimated CRCL calculation 72 ml/min; Estimated Glomerular Filt Rate > 60; Glucose 116 mg/dL (65-110); Magnesium 1.6 mg/dL (1.6-2.3); Potassium 2.8 mmol/L (3.4-5.0); Sodium 132 mmol/L (137-145)
[2022-02-10 22:34] LABS: CRP 13.2 mg/dL (<1.0)
[2022-02-10] MEDS: POTASSIUM CHLORIDE 20 MEQ TABLET 40 MEQ PO (23:31)
[2022-02-10] MEDS: MAGNESIUM SULF 2 GM/WATER 50ML 2 GM/50 ML BAG IVPB (23:31)
[2022-02-10 23:48] LABS: Hepatitis B Surface Antigen Negative (Negative)
[2022-02-10 23:53] LABS: HAV RESULT Negative (Negative); Hepatitis B Core IgM Result Negative (Negative)
[2022-02-11] VITALS (15 sets, daily range): BP systolic 120–159; BP diastolic 69–99; PULSE 69–92; RESP 18–20; TEMP 36.1–36.7; O2SAT 97–100
[2022-02-11 00:05] LABS: Hepatitis C Virus Antibody Negative (Negative)
[2022-02-11] MEDS: POTASSIUM CHLORIDE INJ 40 MEQ in SODIUM CHLORIDE 0.9% IV 500 ML 130 MEQ IVPB (01:12)
[2022-02-11] MEDS: SODIUM CHLORIDE 0.9% IV 1,000 ML 100 ML IV CONT ×3 (01:14→20:53)
[2022-02-11 06:29] LABS: Basophils Percent Auto 0.2 % (0.2-1.2); Hematocrit 36.9 % (37.0-47.0); Immature Granulocyte Absolute 0.04 K/mm3 (0.00-0.031); Immature Granulocyte Percent A 0.4 % (0-0.5); Lymphocytes Absolute Auto 1.59 K/mm3 (0.9-3.2); Lymphocytes Percent Auto 17.7 % (18.3-44.2); Mean Corpuscular HGB Conc 32.5 g/dl (32-36); Mean Corpuscular Hemoglobin 32.5 pg (26-34); Mean Platelet Volume 9.6 fl (7.4-10.4); Monocytes Absolute Auto 0.7 K/mm3 (0.1-0.6); Monocytes Percent Auto 7.6 % (2.6-8.5); Neutrophils Absolute Auto 6.6 K/mm3 (1.3-6.7); Neutrophils Percent Auto 74.1 % (45.5-73.1); Platelet Count Result 246 k/mm3 (150-375); Red Blood Count 3.69 M/mm3 (4.2-5.4); Red Cell Distribution Width 14.6 % (11.5-14.5)
[2022-02-11 06:43] LABS: Alanine Aminotransferase 23 U/L (6-35); Albumin Level 3.4 g/dL (3.5-5.1); Alkaline Phosphatase 47 U/L (38-126); Anion Gap 0 mmol/L (8-16); Aspartate Amino Transferase 32 U/L (14-36); Bilirubin,Total 0.7 mg/dL (0.2-1.3); Blood Urea Nitrogen 12 mg/dL (7-17); Calcium 7.6 mg/dL (8.4-10.2); Carbon Dioxide 35 mmol/L (22-30); Chloride 97 mmol/L (98-107); Estimated CRCL calculation 93 ml/min; Estimated Glomerular Filt Rate > 60; Glucose 85 mg/dL (65-110); Magnesium 2.2 mg/dL (1.6-2.3); Potassium 3.9 mmol/L (3.4-5.0); Sodium 132 mmol/L (137-145)
--- NOTE | 2022-02-11 06:49 | PC.NURSE ---
Pt called to nurse station that she needed her nurse. When I arrived she reported having some sort of seiure. She said she was shaking and seeing starbursts for a few seconds. I tried to call the hospitalist at [phone], and did not get an answer. VM said to retry in 15 minutes.
--- NOTE | 2022-02-11 07:48 | PM.IMPN ---
Progress Note: A&P Assessment and Plan (1) Intractable nausea and vomiting: Code(s): R11.2 - Nausea with vomiting, unspecified Status: Acute Assessment and Plan: WBC 22,000 on admission and is resolved this morning. CT of the abdomen and pelvis shows findings consistent with esophagitis and she has been started on IV pantoprazole 40 mg b.i.d. Clinically improved this morning. -Continue hydration (2) Esophagitis: Code(s): K20.90 - Esophagitis, unspecified without bleeding Status: Acute Assessment and Plan: Plan is as detailed above. (3) Dehydration: Code(s): E86.0 - Dehydration Status: Acute Assessment and Plan: Continue IV fluid rehydration. (4) Single subsegmental pulmonary embolism without acute cor pulmonale: Code(s): I26.93 - Single subsegmental pulmonary embolism without acute cor pulmonale Status: Acute Assessment and Plan: Incidental finding. No hx venous thromboembolism, denies recent travel, family history clotting disorders, and she gives no history to suggest underlying malignancy. LE venous doppler negative for DVT. -Continue enoxaparin for today -Will transition to apixaban for discharge (5) Hypertension: Code(s): I10 - Essential (primary) hypertension Status: Acute Assessment and Plan: Blood pressures were reviewed and they have been running high though she admits that she admits she has not taken any of her medications for the last 4 days due to intractable vomiting. Continue home medications. Will monitor. (6) Elevated LFTs: Code(s): R79.89 - Other specified abnormal findings of blood chemistry Status: Acute Assessment and Plan: AST and ALT are mildly elevated. Her abdominal exam is benign and CT of the abdomen and pelvis showed no acute findings aside from possible esophagitis. HAV, HBV, HCV negative. Is overweight and likely has some hepatic steatosis. -Liver US Subjective Date/time seen: 02/11/22 07:48 Patient says she feels better. Says she has nausea because of postnasal drainage. Says she has sore throat from vomiting so much. Says she had an episode she woke up shaking all over. Says she has not been diagnosed with a seizure disorder. Review of Systems ENT: Denies nasal discharge Gastrointestinal: Gastrointestinal: Reports nausea and Denies vomiting Exam Narrative: GENERAL: NAD, cooperative HEENT: Normocephalic, atraumatic, anicteric NECK: Supple CV: Normal S1, S2, RRR, No MRG RESP: CTAB, Normal work of breathing. EXTREMITIES: Warm and well perfused, no clubbing, cyanosis, or edema. SKIN: warm, dry and intact. NEURO:CN 2-12 grossly Objective Data Vital Signs Vital Signs: Vital Signs - 24 hr 02/10/22 11:51 02/10/22 13:00 02/10/22 14:18 Temperature 98.4 F Pulse Rate 140 H 126 H 114 H Respiratory Rate 18 16 26 H Blood Pressure 122/93 H 175/120 H 154/99 H Pulse Oximetry 95 99 98 Oxygen Delivery Room Air Oxygen Flow Rate 02/10/22 15:48 02/10/22 15:56 02/10/22 15:56 Temperature Pulse Rate 110 H Respiratory Rate 24 H Blood Pressure 178/99 H Pulse Oximetry 94 80 L 99 Oxygen Delivery Room Air Nasal Cannula Oxygen Flow Rate 2 02/10/22 16:42 02/11/22 01:35 02/10/22 20:25 Temperature 98.0 F 98.6 F Pulse Rate 88 79 90 Respiratory Rate 22 H 18 18 Blood Pressure 141/99 H 120/72 124/71 Pulse Oximetry 100 98 100 Oxygen Delivery Oxygen Flow Rate 02/10/22 20:00 02/11/22 00:00 02/11/22 04:00 Temperature Pulse Rate 82 77 83 Respiratory Rate Blood Pressure Pulse Oximetry Oxygen Delivery Oxygen Flow Rate 02/11/22 05:35 Temperature 97.6 F Pulse Rate 87 Respiratory Rate 18 Blood Pressure 141/82 H Pulse Oximetry 100 Oxygen Delivery Oxygen Flow Rate Intake/Output Intake/Output: Intake & Output 02/08/22 02/09/22 02/10/22 02/11/22 23:59 23:59 23:59
--- NOTE | 2022-02-11 08:04 | PC.NURSE ---
pt reporting unwitnessed sz this morning, pt has psych hx unsure of medication. Positive for hallucination visual and audible, MD Soriano informed, 1 mg ativan ordered.
[2022-02-11] MEDS: LOSARTAN POTASSIUM 100 MG TABLET PO (08:09)
[2022-02-11] MEDS: LORazepam (*CRX) 1 MG TABLET PO (08:09)
[2022-02-11] MEDS: amLODIPine BESYLATE 5 MG TABLET PO (08:09)
[2022-02-11] MEDS: ENOXAPARIN 100 MG/ML SYRINGE 85 MG SUB-Q ×2 (08:10→17:23)
--- NOTE | 2022-02-11 09:26 | PC.NURSE ---
MD Eduardo Soto office called, office to fax medication list
--- NOTE | 2022-02-11 09:56 | PC.NURSE ---
NF medication qelbree 200 mg Er capsules, vilazodone 40 mg , rexulti 1 mg all in am daily, pt informed to bring in from home
[2022-02-11] MEDS: PANTOPRAZOLE SODIUM IV 40 MG VIAL IV PUSH ×2 (10:19→21:25)
[2022-02-11] MEDS: PHENYLEPHRINE 1% NA SPR (*BKC) 15 ML BTL 1 SPRAY NASAL ×2 (12:18→15:52)
[2022-02-11] MEDS: FLUTICASONE PROPIONATE 0.05% NA SPR 16 GM BTL (*BKC) 1 SPRAY NASAL ×2 (12:18→15:52)
--- NOTE | 2022-02-11 14:31 | PHAR ---
Home medications seen in pharmacy Rexulti 1mg, Vilazodone 40mg tablets, Qelbree ER 200mg capsules
[2022-02-11 15:18] LABS: Appearance Urine Cloudy (Clear); Bilirubin Urine Negative (Negative); Color Urine Yellow (Yellow); Glucose Urine UA Negative (Negative); Ketones Urine Negative (Negative); Leukocyte Esterase Ur Negative LEU/UL (Negative); Nitrate Urine Positive (Negative); Protein Urine Trace mg/dL (Negative); Specific Grav Ur 1.015 (1.001-1.035)
[2022-02-11 15:29] LABS: Bacteria Urine Trace /hpf; Mucus Urine Rare /lpf; RBC Urine 0-2 /hpf (0-2); Squamous Epithelial Cell Urine Moderate /hpf (Few); WBC Urine 0-3 /hpf
[2022-02-11 15:37] LABS: Add Urine Microscopic? YES; Blood Urine Trace-Intact (Negative)
--- NOTE | 2022-02-11 15:38 | PC.NURSE ---
UA sent to lab for analysis
[2022-02-11] MEDS: BENZOCAINE/MENTHOL (*BKC) 18 EA LOZENGE 1 LOZENGE PO (18:31)
[2022-02-12] VITALS (8 sets, daily range): BP systolic 131–155; BP diastolic 90–97; PULSE 66–98; RESP 18–20; TEMP 35.8–36.2; O2SAT 98–100
[2022-02-12] MEDS: SODIUM CHLORIDE 0.9% IV 1,000 ML 100 ML IV CONT (05:50)
[2022-02-12 07:17] LABS: Alanine Aminotransferase 26 U/L (6-35); Albumin Level 3.4 g/dL (3.5-5.1); Alkaline Phosphatase 47 U/L (38-126); Anion Gap 3 mmol/L (8-16); Aspartate Amino Transferase 38 U/L (14-36); Bilirubin,Total 0.8 mg/dL (0.2-1.3); Blood Urea Nitrogen 5 mg/dL (7-17); Calcium 7.9 mg/dL (8.4-10.2); Carbon Dioxide 32 mmol/L (22-30); Chloride 100 mmol/L (98-107); Estimated CRCL calculation 127 ml/min; Estimated Glomerular Filt Rate > 60; Glucose 84 mg/dL (65-110); Potassium 3.5 mmol/L (3.4-5.0); Sodium 135 mmol/L (137-145)
--- NOTE | 2022-02-12 07:46 | PM.DS ---
DS: Admitting Diagnosis Discharge Date 02/12/22 Admitting Diagnosis Dehydration DS: Discharge Diagnosis Discharge Diagnosis (1) Intractable nausea and vomiting: Code(s): R11.2 - Nausea with vomiting, unspecified Status: Acute Assessment and Plan: Suspected viral illness though her white blood cell count is quite elevated at 22,000 which may be a stress response. Her symptoms have improved with IV fluid rehydration and antiemetics, which will be continued overnight. CT of the abdomen and pelvis shows findings consistent with esophagitis. This illness has resolved as the patient reports feeling much better and the leukocytosis resolved. (2) Esophagitis: Code(s): K20.90 - Esophagitis, unspecified without bleeding Status: Acute Assessment and Plan: Patient will need to follow up with primary care physician as she may need repeat imaging to ensure resolution versus referral to Gastroenterology. This was discussed with the patient. All questions were answered and the patient verbalized understanding of the plan. (3) Dehydration: Code(s): E86.0 - Dehydration Status: Acute Assessment and Plan: This resolved with hydration. (4) Single subsegmental pulmonary embolism without acute cor pulmonale: Code(s): I26.93 - Single subsegmental pulmonary embolism without acute cor pulmonale Status: Acute Assessment and Plan: Incidental finding. No hx venous thromboembolism, denies recent travel, family history clotting disorders, and she gives no history to suggest underlying malignancy. LE venous doppler negative for DVT.?She has no history of venous thromboembolism, denies recent travel, family history clotting disorders, and she gives no history to suggest underlying malignancy. -Patient discharged with apixaban -Patient will need to follow outpatient with PCP for hypercoagulability and if necessary cancer workup. (5) Hypertension: Code(s): I10 - Essential (primary) hypertension Status: Acute Assessment and Plan: Blood pressures were reviewed and they have been running high though she admits that she admits she has not taken any of her medications for the last 4 days due to intractable vomiting. Now that she is tolerating p.o., we will resume her antihypertensives, aside from diuretics given her electrolyte abnormalities, and monitor closely. (6) Elevated LFTs: Code(s): R79.89 - Other specified abnormal findings of blood chemistry Status: Acute Assessment and Plan: AST and ALT are mildly elevated. Her abdominal exam is benign and CT of the abdomen and pelvis showed no acute findings aside from possible esophagitis. HAV, HBV, HCV negative.? Is overweight and likely has some hepatic steatosis.? Liver ultrasound showed echogenic liver as can be seen with steatosis, fibrosis and hepatitis. This morning patient reporting significant family history of alcohol abuse and that she too has had difficulty with alcohol abuse throughout her life. -Patient will need to follow up outpatient. DS: Summary Hospital Course Reason for hospitalization: Dehydration Hospital Course: 51F with a past medical history of Chiari malformation s/p [employer] shunt, hypertension, anxiety, alcohol abuse who presented to the emergency department with nausea, vomiting and abdominal pain. Patient had CT abdomen pelvis, which was otherwise normal except thickening of her esophagus suggestive of esophagitis. Patient noted to have an elevated d dimer in the emergency room. CTA showed a small subsegmental pulmonary embolism. Therapeutic enoxaparin was stared. Patient was started on intravenous fluids and pantoprazole twice a day. Patient improved with intravenous fluid hydration. Also the patient had mildly elevated liver function test, so a liver ultrasound was ordered. Liver ultrasound showed echogenic liver as can be seen with steatosis, fibrosis a
--- NOTE | 2022-02-12 07:49 | PC.NURSE ---
pt npo for testing US abd.
[2022-02-12] MEDS: APIXABAN 5 MG TABLET 10 MG PO (07:51)
[2022-02-12] MEDS: amLODIPine BESYLATE 5 MG TABLET PO (07:53)
[2022-02-12] MEDS: PHENYLEPHRINE 1% NA SPR (*BKC) 15 ML BTL 1 SPRAY NASAL (07:54)
[2022-02-12] MEDS: FLUTICASONE PROPIONATE 0.05% NA SPR 16 GM BTL (*BKC) 1 SPRAY NASAL (07:54)
[2022-02-12] MEDS: PANTOPRAZOLE SODIUM IV 40 MG VIAL IV PUSH (07:54)
[2022-02-12] MEDS: LOSARTAN POTASSIUM 100 MG TABLET PO (07:54)
--- NOTE | 2022-02-12 13:59 | PC.NURSE ---
pt weaned to ra this shift
--- NOTE | 2022-02-12 15:42 | PC.NURSE ---
IV removed, home medication returned, and discharge paperwork explained.
== END 2022-02-12 16:15 | disposition home or self-care (01) | DRG 391 ==
LOC: ANHED 16:17 → ANH3MEDSUR 02-12 09:22
PROVIDERS: Emergency Medicine; Physician Assistant; Admitting Provider Family Medicine; Emergency Provider Emergency Medicine; PCP Physician Assistant; Visit Provider Family Medicine
DX: K20.90 Esophagitis, unspecified without bleeding (principal); I26.93 Single subsegmental thrombotic pulmonary embolism without acute cor pulmonale; E86.0 Dehydration; D72.829 Elevated white blood cell count, unspecified; K76.0 Fatty (change of) liver, not elsewhere classified; Z20.822 Contact with and (suspected) exposure to COVID-19; I10 Essential (primary) hypertension; F90.9 Attention-deficit hyperactivity disorder, unspecified type; D64.9 Anemia, unspecified; F41.9 Anxiety disorder, unspecified; F32.A Depression, unspecified; Z87.798 Personal history of other (corrected) congenital malformations; Z87.891 Personal history of nicotine dependence
CPT/HCPCS: 36415; 36600; 70450; 71046; 71275; 74177; 76705; 80048; 80053; 80074; 80076; 81001; 82805; 83690; 83735; 84443; 84484; 85025; 85380; 85610; 85730; 86140; 87081; 87880; 93005; 93970; 96361; 96365; 96372; 96375; 99285; A9270; C9113; C9803; G0378; J0131; J1200; J1650; J2060; J2765; J3475; J3480; J7030; J7040; Q9967; U0003; U0005

== ENCOUNTER 2023-04-01 08:53 | Emergency (ER) | payer BC, SELFPAY ==
[2023-04-01 09:01] VITALS: BP 152/115; PULSE 90; RESP 16; TEMP 36.6; O2SAT 99
--- NOTE | 2023-04-01 09:02 | ED.BACK ---
HPI - Back Pain/Injury General Chief Complaint: Back Pain/Injury Stated Complaint: BACK PAIN DOWN LEGS Time Seen by Provider: 04/01/23 09:40 Source: patient and RN notes reviewed Mode of arrival: ambulatory Limitations: no limitations History of Present Illness HPI Narrative: 52-year-old female presents concern for acute low back pain. She reports pain for about a week that is worsened over last 3 days. She reports stinging zapping burning pain that radiates down both legs to her ankles. She reports she has also had urinary incontinence. She reports pain is severe, she called her doctor who was post color and pain medicines, they did not so she presented for care. She reports she has been taking Tylenol without relief. She denies perianal anesthesia, loss of bowel function, reports loose stool. She reports at the end of November she had a fall but did not have this pain at that time MD elicited complaint: back pain Related Data Home Medications Medication Instructions Recorded Confirmed brexpiprazole 1 mg tablet (Rexulti) 1 mg PO DAILY 02/10/22 04/01/23 vilazodone 40 mg tablet 40 mg PO DAILY 02/10/22 04/01/23 Allergies Allergy/AdvReac Type Severity Reaction Status Date / Time ibuprofen Allergy Severe shunt Verified 04/01/23 09:22 ketorolac Allergy Intermediate Joint Pain Verified 04/01/23 09:22 Sulfa (Sulfonamide Allergy Intermediate general Verified 04/01/23 09:22 Antibiotics) pain Review of Systems Review of Systems: CONSTITUTIONAL: Denies malaise, chills, sweats, or fever. CARDIOVASCULAR: Denies chest pain, palpitations, or edema. RESPIRATORY: Denies cough or dyspnea. GASTROINTESTINAL: Denies abdominal pain, vomiting, diarrhea, loss of bowel function. Reports nausea GENITOURINARY: Denies dysuria, hematuria, frequency. Reports urinary incontinence SKIN: Denies rash or itching. MUSCULOSKELETAL: Reports bilateral low back pain that radiates to both legs down her ankles NEUROLOGIC: Denies numbness, weakness, or headache. All systems reviewed & are unremarkable except as noted in HPI and below PMFSH Past Medical History Medical History Anemia Anxiety Asthma Attention deficit hyperactivity disorder Chiari malformation Status post surgical decompression and shunt insertion. Depression Hypertension Marijuana use Migraine Surgical History Surgical History History of craniotomy Surgical decompression and shunt placement for Chiari malformation. History of dilatation and curettage History of tubal ligation Family History Family History Father Hypertension Depression Heart disease Alcohol abuse Mother Hypertension Depression Alcohol abuse Sibling Hypertension Alcohol abuse Depression Grandparent Alcohol abuse Hypertension Heart disease Son Alcohol abuse Depression Heart disease Social History Social History Social History: Surrogate medical decision maker: Marta Oshea, mother. Code status: Full code. Smoking packs per day: 1 Smoking cigarettes per day: 20.0 Years smoked: 3 Smoking pack-years: 3.00 Smoking status: Former smoker Second hand tobacco smoke exposure: Yes (smokes weed) Smoking end date: 02/06/22 Alcohol intake: current Alcohol use details: Drink heavily in the past. Substance use: current Substance use type: marijuana Comments At time of signature, agree with nursing past medical, surgical, social and family history. There is no relevant family history pertinent to the presenting complaint Exam Narrative: GENERAL: Well-appearing, well-nourished, and in no acute distress. HEAD: Normocephalic, atraumatic. EYES: PERRLA and EOMI. NECK: Supple. No lymphadenopathy. CHEST: Clear to auscultation. No respirat
--- NOTE | 2023-04-01 09:54 | PC.NURSE ---
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 PT THEN ADVISES RN THAT SHE MAY HAVE HAD A MINOR INJURY, REPORTING SHE WAS WRESTLING AROUND WITH HER FRIEND 2 DAYS AGO, STATING SHE WAS CLOTHES-LINED AND TAKEN TO THE GROUND GENTLY . PT TO BE TRANSFERRED TO [facility] PER POV.
== END 2023-04-01 09:50 | disposition short-term general hospital (02) ==
PROVIDERS: Emergency Provider Nurse Practitioner; PCP Physician Assistant
DX: M54.50 Low back pain, unspecified (principal); Z87.891 Personal history of nicotine dependence; F12.90 Cannabis use, unspecified, uncomplicated; J45.909 Unspecified asthma, uncomplicated; I10 Essential (primary) hypertension; F32.A Depression, unspecified; F41.9 Anxiety disorder, unspecified; Z98.2 Presence of cerebrospinal fluid drainage device
CPT/HCPCS: 99212; G0463

== ENCOUNTER 2023-04-01 10:10 | Emergency (ER) | payer BC, SELFPAY ==
--- NOTE | ~2023-04-01 | CT_ITS ---
EXAMINATION: CT pelvis wo con, CT lumbar spine wo con DATE: 04/01/2023 13:42 INDICATION: Low back and pelvic pain TECHNIQUE: 1. Computed tomography (CT) of the lumbar spine was performed without intravenous contrast. Automated exposure control and iterative reconstruction technique were employed. The dose-length product was 1 290.75 mGy-cm. 2. CT of the pelvis was performed without intravenous contrast. Automated exposure control and iterat clayton reconstruction technique were employed. The dose-length product was 770.45 mGy-cm. COMPARISON: None FINDINGS: Lumbar spine: 4 degree lower lumbar dextrocurvature. Sagittal alignment is normal. Vertebral body heights are tawny l. No fracture. Mild disc height loss at L3-L4 and L4-L5. Paravertebral soft tissues are unremarkable . Normal appendix. The following disc levels are specifically discussed: T11-T12: The disc does not extend beyond the endplate margin. There is moderate bilateral facet joint osteoarthritis. There is no neural foraminal stenosis. There is no central canal stenosis. T12-L1: The disc does not extend beyond the endplate margin. There is mild left and severe right face t joint osteoarthritis. There is no neural foraminal stenosis. There is no central canal stenosis. L1-L2: The disc does not extend beyond the endplate margin. There is severe bilateral facet joint ost eoarthritis. There is no neural foraminal stenosis. There is no central canal stenosis. L2-L3: Disc is bulging. There is severe bilateral facet joint osteoarthritis. There is mild right and mild to moderate left neural foraminal stenosis. There is mild central canal stenosis. L3-L4: Disc is bulging. There is severe bilateral facet joint osteoarthritis. There is mild to modera te bilateral neural foraminal stenosis. There is moderate central canal stenosis. L4-L5: Disc is bulging. There is severe bilateral facet joint osteoarthritis. There is moderate right and mild to moderate left neural foraminal stenosis. There is mild central canal stenosis. L5-S1: Disc is bulging. There is severe bilateral facet joint osteoarthritis. There is mild bilateral neural foraminal stenosis. There is mild central canal stenosis. Pelvis: Bone alignment is normal. No fracture or suspected osteonecrosis. Mild to moderate bilateral sacroili ac osteoarthritis. Mild bilateral hip osteoarthritis without hip joint effusion. There is decreased f emoral head neck offset on the right, borderline on the left. Musculature of the pelvis and proximal thighs appears normal and symmetric. Bladder and anteverted uterus are unremarkable. Bilateral tubal ligation clips. There are a couple approximately 1.5 cm right adnexal cysts. No pathologically enlarg ed pelvic or inguinal lymphadenopathy. IMPRESSION: 1. Mild lumbar spondylosis with multilevel severe facet osteoarthritis. 2. Mild to moderate bilateral sacroiliac and mild bilateral hip osteoarthritis.. Reviewed, dictated and finalized at location A. IMPRESSION: 1. Mild lumbar spondylosis with multilevel severe facet osteoarthritis. 2. Mild to moderate bilateral sacroiliac and mild bilateral hip osteoarthritis. .
[2023-04-01 10:56] VITALS: BP 148/88; PULSE 97; RESP 17; TEMP 36.3; O2SAT 96
[2023-04-01 11:54] VITALS: BP 146/93; PULSE 106; RESP 22; TEMP 36.2; O2SAT 98
--- NOTE | 2023-04-01 13:26 | ED.BACK ---
HPI - Back Pain/Injury General Chief Complaint: Back Pain/Injury Stated Complaint: back pain Time Seen by Provider: 04/01/23 12:04 History of Present Illness HPI Narrative: 52-year-old female history of chronic back pain presented to the emergency department for evaluation of lower back and pelvic pain. Patient does have history of chronic pain. Patient was told to stop taking her meloxicam is been taking Tylenol for pain control but states this has not been adequate. Patient initially presented to [facility] outpatient services and was deferred to the emergency department for CT evaluation. Upon arrival to ED patient is tearful due to her pain complaining of lower back and pelvic pain/hip pain. Related Data Home Medications Medication Instructions Recorded Confirmed brexpiprazole 1 mg tablet (Rexulti) 1 mg PO DAILY 02/10/22 04/01/23 vilazodone 40 mg tablet 40 mg PO DAILY 02/10/22 04/01/23 Allergies Allergy/AdvReac Type Severity Reaction Status Date / Time ibuprofen Allergy Severe shunt Verified 04/01/23 09:22 ketorolac Allergy Intermediate Joint Pain Verified 04/01/23 09:22 Sulfa (Sulfonamide Allergy Intermediate general Verified 04/01/23 09:22 Antibiotics) pain Review of Systems Review of Systems: All systems reviewed & are unremarkable except as noted in HPI and below PMFSH Past Medical History Medical History Anemia Anxiety Asthma Attention deficit hyperactivity disorder Chiari malformation Status post surgical decompression and shunt insertion. Depression Hypertension Marijuana use Migraine Surgical History Surgical History History of craniotomy Surgical decompression and shunt placement for Chiari malformation. History of dilatation and curettage History of tubal ligation Family History Family History Father Hypertension Depression Heart disease Alcohol abuse Mother Hypertension Depression Alcohol abuse Sibling Hypertension Alcohol abuse Depression Grandparent Alcohol abuse Hypertension Heart disease Son Alcohol abuse Depression Heart disease Social History Social History Social History: Surrogate medical decision maker: Marta Oshea, mother. Code status: Full code. Smoking packs per day: 1 Smoking cigarettes per day: 20.0 Years smoked: 3 Smoking pack-years: 3.00 Smoking status: Former smoker Second hand tobacco smoke exposure: Yes (smokes weed) Smoking end date: 02/06/22 Alcohol intake: current Alcohol use details: Drink heavily in the past. Substance use: current Substance use type: marijuana Exam Narrative: APPEARANCE: Well appearing, no pain, no distress, well-nourished. HEAD: normocephalic, atraumatic. EYES: PERRLA/EOMI, conjunctivae clear. NOSE: Normal no drainage NECK: Supple. No adenopathy, no masses. RESPIRATORY: Airway patent, respirations nonlabored. Clear to auscultation bilaterally, no rales, rhonchi, wheezing. CARDIOVASCULAR: Regular rate and rhythm without murmurs rubs or gallops. ABDOMINAL: Soft, nontender, nondistended, normal bowel sounds MUSCULOSKELETAL: Tenderness to midline lumbar spine and bilateral hips. NEURO: Alert. Cranial nerves II through XII intact. Good gait. Good coordination SKIN: Warm, dry. Normal Color Course Course Emergency Course: 52-year-old female presented to ED for evaluation of acute on chronic back and pelvic pain. CTs were negative for acute fracture or dislocations. Patient was updated results of the imaging. Patient was provided a small prescription for additional pain control. Patient was encouraged of close follow-up with her primary care physician for additional pain control. Patient was also educated on reasons to return to the emergency
[2023-04-01] MEDS: HYDROmorphone HCL INJ (*CRX) 1 MG/ML SYR IM (13:52)
[2023-04-01 14:26] VITALS: BP 160/92; PULSE 87; RESP 17; TEMP 36.9; O2SAT 99
== END 2023-04-01 14:25 | disposition home or self-care (01) ==
PROVIDERS: Emergency Provider Emergency Medicine; PCP Physician Assistant
DX: M54.50 Low back pain, unspecified (principal); G89.29 Other chronic pain; J45.909 Unspecified asthma, uncomplicated; I10 Essential (primary) hypertension; F41.9 Anxiety disorder, unspecified; F90.9 Attention-deficit hyperactivity disorder, unspecified type; Z98.2 Presence of cerebrospinal fluid drainage device; Z86.2 Personal history of diseases of the blood and blood-forming organs and certain disorders involving the immune mechanism; Z87.891 Personal history of nicotine dependence; Z79.01 Long term (current) use of anticoagulants; M47.816 Spondylosis without myelopathy or radiculopathy, lumbar region; M46.1 Sacroiliitis, not elsewhere classified; M16.0 Bilateral primary osteoarthritis of hip
CPT/HCPCS: 72131; 72192; 96372; 99284; J1170

== ENCOUNTER 2023-09-03 11:53 | Emergency (ER) | payer OTHER, SELFPAY ==
[2023-09-03 12:16] VITALS: BP 139/101; PULSE 82; RESP 16; TEMP 36.8; O2SAT 99
--- NOTE | 2023-09-03 12:17 | ED.GENADULT ---
HPI - General Adult General Chief complaint: Skin/Abscess/Foreign Body Stated complaint: Rash on face;Headache Source: patient, RN notes reviewed and old records reviewed Mode of arrival: ambulatory Limitations: no limitations History of Present Illness HPI narrative: 53-year-old female presents to [facility] with complaints of burning, itchy rash to face this started 2-3 days ago. Patient denies any product changes. Patient states son to get Hernandez's recently. Patient has not taken anything for symptoms. MD complaint: rash Onset (ago): day(s) (2-3) Related Data Home Medications Medication Instructions Recorded Confirmed brexpiprazole 1 mg tablet (Rexulti) 1 mg PO DAILY 02/10/22 09/03/23 vilazodone 40 mg tablet 40 mg PO DAILY 02/10/22 04/01/23 Allergies Allergy/AdvReac Type Severity Reaction Status Date / Time ibuprofen Allergy Severe shunt Verified 09/03/23 12:09 ketorolac Allergy Intermediate Joint Pain Verified 09/03/23 12:09 Sulfa (Sulfonamide Allergy Intermediate general Verified 09/03/23 12:09 Antibiotics) pain Review of Systems Constitutional: Constitutional: Reports no additional constitutional complaints, Denies body ache(s), Denies chills, Denies fatigue, Denies fever(s) and Denies headache(s) Eyes: Eyes: Reports no additional eye complaints and Denies blurry vision ENT: Reports system reviewed and no additional complaints, except as documented, Denies vertigo, Denies dizziness, Denies ear discharge, Denies otalgia, Denies facial pain, Denies headache(s), Denies nasal congestion, Denies nasal discharge, Denies sinus pain, Denies sinus pressure and Denies sore throat Cardiovascular: Cardiovascular: Reports no additional cardiovascular complaints, Denies chest pain, Denies chest pain at rest, Denies rapid heart rate and Denies dyspnea Respiratory: Respiratory: Reports no additional respiratory complaints, Denies chest congestion, Denies cough, Denies pain on inspiration, Denies pain with cough and Denies dyspnea Gastrointestinal: Gastrointestinal: Denies abdominal pain, Denies diarrhea, Denies nausea and Denies vomiting Integumentary/Breasts: Skin/Breast: Reports rash Neurologic: Reports system reviewed and no additional complaints, except as documented, Denies vertigo, Denies dizziness and Denies headache(s) Endocrine: Endocrine: Denies fatigue PMFSH Past Medical History Medical History Anemia Anxiety Asthma Attention deficit hyperactivity disorder Chiari malformation Status post surgical decompression and shunt insertion. Depression Hypertension Marijuana use Migraine Surgical History Surgical History History of craniotomy Surgical decompression and shunt placement for Chiari malformation. History of dilatation and curettage History of tubal ligation Family History Family History Father Hypertension Depression Heart disease Alcohol abuse Mother Hypertension Depression Alcohol abuse Sibling Hypertension Alcohol abuse Depression Grandparent Alcohol abuse Hypertension Heart disease Son Alcohol abuse Depression Heart disease Social History Social History Social History: Surrogate medical decision maker: Marta Oshea, mother. Code status: Full code. Smoking packs per day: 1 Smoking cigarettes per day: 20.0 Years smoked: 3 Smoking pack-years: 3.00 Smoking status: Former smoker Second hand tobacco smoke exposure: Yes (smokes weed) Smoking end date: 02/06/22 Alcohol intake: current Alcohol use details: Drink heavily in the past. Substance use: current Substance use type: marijuana Comments At the time of my signature, I reviewed and agree with the nursing past medical, surgical, social, and family history.
== END 2023-09-03 12:31 | disposition home or self-care (01) ==
PROVIDERS: Emergency Provider Registered Nurse; PCP Physician Assistant
DX: L30.9 Dermatitis, unspecified (principal); I10 Essential (primary) hypertension; Z87.891 Personal history of nicotine dependence
CPT/HCPCS: 99213; G0463

== ENCOUNTER 2023-11-05 15:29 | Emergency (ER) | payer OTHER, SELFPAY ==
--- NOTE | ~2023-11-05 | CT_ITS ---
EXAMINATION: CTA chest PE protocol DATE: 11/05/2023 17:31 CDT INDICATION: Shortness of breath TECHNIQUE: Computed tomographic angiography (CTA) of the chest was performed with 100 mL Omnipaque-35 0 intravenous contrast. The dose-length product was 657.56 mGy-cm. Maximum intensity projection 3D-re constructions of the aorta and other arteries were constructed by the technologist on a separate work station. Automated exposure control and iterative reconstruction technique were employed. COMPARISON: None. FINDINGS: Borderline heart size. No significant pleural or pericardial effusion. Study is technically adequate without evidence for pulmonary embolism. No significant vascular abnormality. No lymphadeno luis antonio. No endobronchial lesions. No focal airspace disease. No pneumothorax. There is a 2 mm left low er lobe nodule, likely benign. Mild thoracic spondylosis. IMPRESSION: 1. No evidence for pulmonary embolism. No acute cardiopulmonary disease. Reviewed, dictated and finalized at location A.
--- NOTE | ~2023-11-05 | XR_ITS ---
EXAMINATION: XR chest 2V DATE: 11/05/2023 16:12 INDICATION: Chest pain. TECHNIQUE: Frontal and lateral views of the chest were obtained. COMPARISON: None. FINDINGS: There is no pneumonia, pleural effusion, or pneumothorax. The heart size is normal. There i s a right ventriculoatrial shunt with tip at superior cavoatrial junction. IMPRESSION: 1. No acute cardiopulmonary disease. Reviewed, dictated and finalized at location A.
--- NOTE | 2023-11-05 15:30 | ECG_ITS ---
SEE SCANNED COPY FOR CONFIRMED REPORT MTDD
[2023-11-05 15:37] VITALS: BP 150/110; PULSE 87; RESP 16; TEMP 36.5; O2SAT 100
[2023-11-05 15:56] LABS: Basophils Percent Auto 0.4 % (0.2-1.2); Eosinophils Absolute Auto 0.1 K/mm3 (0-0.3); Eosinophils Percent Auto 1.4 % (0-4.4); Hematocrit 42.7 % (37.0-47.0); Immature Granulocyte Absolute 0.01 K/mm3 (0.00-0.031); Immature Granulocyte Percent A 0.2 % (0-0.5); Lymphocytes Absolute Auto 1.39 K/mm3 (0.9-3.2); Lymphocytes Percent Auto 28.7 % (18.3-44.2); Mean Corpuscular HGB Conc 32.8 g/dl (32-36); Mean Corpuscular Hemoglobin 30.5 pg (26-34); Mean Platelet Volume 9.6 fl (7.4-10.4); Monocytes Absolute Auto 0.3 K/mm3 (0.1-0.6); Neutrophils Percent Auto 62.3 % (45.5-73.1); Platelet Count Result 316 k/mm3 (150-375); Red Blood Count 4.59 M/mm3 (4.2-5.4); Red Cell Distribution Width 12.8 % (11.5-14.5); White Blood Count 4.9 K/mm3 (4.5-10.0)
[2023-11-05 16:08] LABS: Alanine Aminotransferase 17 U/L (6-35); Albumin Level 4.6 g/dL (3.5-5.1); Alkaline Phosphatase 76 U/L (38-126); Anion Gap 6 mmol/L (4-12); Aspartate Amino Transferase 21 U/L (14-36); Bilirubin,Total 0.6 mg/dL (0.2-1.3); Blood Urea Nitrogen 11 mg/dL (7-17); Calcium 9.7 mg/dL (8.4-10.2); Carbon Dioxide 27 mmol/L (22-30); Chloride 104 mmol/L (98-107); Estimated CRCL calculation 105 ml/min; Estimated Glomerular Filt Rate > 60; Glucose 91 mg/dL (65-110); Lipase 40 U/L (23-300); Potassium 4.1 mmol/L (3.4-5.0); Sodium 137 mmol/L (137-145)
[2023-11-05 16:14] LABS: INR 0.9; Prothrombin Time 12.5 Seconds (11.1-14.7)
[2023-11-05 16:15] LABS: Partial Thromboplastin Time 28.3 Seconds (22.3-36.8)
[2023-11-05 16:19] LABS: Troponin I < 0.012 ng/mL (0.000-0.034)
--- NOTE | 2023-11-05 16:51 | ED.CHESTPAIN ---
HPI - Chest Pain General Chief Complaint: Chest Pain Stated Complaint: chest pain Time Seen by Provider: 11/05/23 16:37 Source: patient Mode of arrival: ambulatory Limitations: no limitations History of Present Illness HPI narrative: 53-year-old female presenting for chest pain ongoing for the last 2 days now. Also feels some shortness of breath with exertion. Has a history of hypertension and takes medicine for it but denies any other heart problems. Related Data Home Medications Medication Instructions Recorded Confirmed brexpiprazole 1 mg tablet (Rexulti) 1 mg PO DAILY 02/10/22 09/03/23 Allergies Allergy/AdvReac Type Severity Reaction Status Date / Time ibuprofen Allergy Severe shunt Verified 09/03/23 12:09 ketorolac Allergy Intermediate Joint Pain Verified 09/03/23 12:09 Sulfa (Sulfonamide Allergy Intermediate general Verified 09/03/23 12:09 Antibiotics) pain Review of Systems Review of Systems: All systems reviewed & are unremarkable except as noted in HPI and below PMFSH Past Medical History Medical History Anemia Anxiety Asthma Attention deficit hyperactivity disorder Chiari malformation Status post surgical decompression and shunt insertion. Depression Hypertension Marijuana use Migraine Surgical History Surgical History History of craniotomy Surgical decompression and shunt placement for Chiari malformation. History of dilatation and curettage History of tubal ligation Family History Family History Father Hypertension Depression Heart disease Alcohol abuse Mother Hypertension Depression Alcohol abuse Sibling Hypertension Alcohol abuse Depression Grandparent Alcohol abuse Hypertension Heart disease Son Alcohol abuse Depression Heart disease Social History Social History Social History: Surrogate medical decision maker: Marta Oshea, mother. Code status: Full code. Smoking packs per day: 1 Smoking cigarettes per day: 20.0 Years smoked: 3 Smoking pack-years: 3.00 Smoking status: Former smoker Second hand tobacco smoke exposure: Yes (smokes weed) Smoking end date: 02/06/22 Alcohol intake: current Alcohol use details: Drink heavily in the past. Substance use: current Substance use type: marijuana Exam Narrative: Constitutional: Generally well appearing, no acute distress, anxious Head: Atraumatic, no deformities. Eyes: Pupils equal, round, and reactive to light. Neck: Supple, no tracheal deviation, no JVD. ENMT: Mucous membranes moist Cardiovascular: S1, S2 auscultated. No murmurs, rubs, or gallops. No S3/S4. Normal Distal pulses. No peripheral edema. Respiratory: Lung sounds equal. No wheezes, rales, or rhonchi. Gastrointestinal: Abdomen was soft and non-tender. Non-distended. No rebound or guarding. Genitourinary: Deferred Musculoskeletal: Normal muscle tone and bulk. No obvious deformities or tenderness over extremities. Skin: No rashes. Neurological: Strength 5/5 in extremities. Cranial nerves I-XII grossly intact. Distal sensation intact. Mental Status: Awake, alert and oriented x3. Follows commands Course Vital Signs Vital signs: Vital Signs Temperature 36.5 C 11/05/23 15:37 Pulse Rate 87 11/05/23 15:37 Respiratory Rate 16 11/05/23 15:37 Blood Pressure 150/110 H 11/05/23 15:37 Pulse Oximetry 100 11/05/23 15:37 Oxygen Delivery Room Air 11/05/23 15:37 Temperature 36.5 C 11/05/23 15:37 Pulse Rate 87 11/05/23 15:37 Respiratory Rate 16 11/05/23 15:37 Blood Pressure 150/110 H 11/05/23 15:37 Pulse Oximetry 100 11/05/23 15:37 Oxygen Delivery Room Air 11/05/23 15:37 MDM - Chest Pain MDM Narrative Medical decision making narrative: 53-year-
[2023-11-05 16:57] VITALS: PULSE 77; RESP 17; O2SAT 92
--- NOTE | 2023-11-05 17:01 | PC.NURSE ---
Evonne in main lab called regarding add on BNP.
[2023-11-05 17:24] VITALS: PULSE 76; RESP 20; O2SAT 100
[2023-11-05 17:30] LABS: NT Pro B Type Natriuretic Pept 623 pg/mL (19.9-100)
[2023-11-05 17:31] VITALS: BP 179/95; PULSE 72; RESP 12; O2SAT 95
[2023-11-05 17:45] VITALS: PULSE 75; RESP 20; O2SAT 95
== END 2023-11-05 18:45 | disposition home or self-care (01) ==
PROVIDERS: Emergency Medicine; Emergency Provider Emergency Medicine; PCP Physician Assistant
DX: R07.9 Chest pain, unspecified (principal); I10 Essential (primary) hypertension; J45.909 Unspecified asthma, uncomplicated; F41.9 Anxiety disorder, unspecified; F32.A Depression, unspecified; Z98.2 Presence of cerebrospinal fluid drainage device; Z86.2 Personal history of diseases of the blood and blood-forming organs and certain disorders involving the immune mechanism; Z87.891 Personal history of nicotine dependence; Z79.01 Long term (current) use of anticoagulants; R94.31 Abnormal electrocardiogram [ECG] [EKG]
CPT/HCPCS: 36415; 71046; 71275; 80053; 83690; 83880; 84484; 85025; 85610; 85730; 93005; 99284; Q9967

== ENCOUNTER 2024-04-11 10:14 | Emergency (ER) | payer OTHER, SELFPAY ==
--- NOTE | ~2024-04-11 | XR_ITS ---
3 VIEWS LUMBAR SPINE Ordering provider: Guille Melendez MD History: . left sciatica, RADIATES DOWN LT LEG . Comparison: January 16, 2017 FINDINGS: VERTEBRAL BODIES: No visible fracture or subluxation. Degenerative changes of the spine. DISK SPACES: Normal. Multilevel degenerative disc disease. SOFT TISSUES: Normal. IMPRESSION: No acute osseous abnormality lumbar spine. Reviewed, dictated and finalized at location A.
[2024-04-11 10:32] VITALS: BP 132/85; PULSE 62; RESP 17; TEMP 36.7; O2SAT 95
[2024-04-11] MEDS: diazePAM INJ (*CRX) 10 MG/2 ML SYRINGE 5 MG IV PUSH (12:37)
[2024-04-11] MEDS: SODIUM CHLORIDE 0.9% IV 1,000 ML 999 ML IV CONT (12:37)
[2024-04-11] MEDS: CELECOXIB 200 MG CAPSULE PO (12:37)
--- NOTE | 2024-04-11 13:17 | ED.LOWEXIN ---
HPI - Extremity Injury (Lower) General Chief Complaint: Extremity Injury, Lower Stated Complaint: SCIATICA Time Seen by Provider: 04/11/24 11:56 History of Present Illness HPI Narrative: Patient is a 53-year-old female who presents ER with left-sided sciatic over the last week. She has not been taking her Celebrex last 2 days. No recent trauma. Denies fevers or chills or sweats. She does have follow-up scheduled with her PCP. She is able to urinate and defecate without issues. No saddle anesthesia. No lower extremity a numbness or weakness just pain with weight-bearing and bending. Related Data Home Medications Medication Instructions Recorded Confirmed dextroamphetamine-amphetamine 20 20 mg PO BID 12/01/23 12/01/23 mg tablet (Adderall) ketoconazole 2 % topical cream 1 applic topical DAILY 12/01/23 12/01/23 sertraline 100 mg tablet 100 mg PO DAILY 12/01/23 12/01/23 tacrolimus 0.1 % topical ointment 1 applic topical BID 12/01/23 12/01/23 Allergies Allergy/AdvReac Type Severity Reaction Status Date / Time ibuprofen Allergy Severe shunt Verified 04/11/24 11:08 ketorolac Allergy Intermediate Joint Pain Verified 04/11/24 11:08 Sulfa (Sulfonamide Allergy Intermediate general Verified 04/11/24 11:08 Antibiotics) pain Review of Systems Constitutional: Constitutional: Reports no additional constitutional complaints Cardiovascular: Cardiovascular: Reports no additional cardiovascular complaints Respiratory: Respiratory: Reports no additional respiratory complaints Musculoskeletal: Musculoskeletal: Reports back pain, Denies arthralgias, Denies joint swelling and Denies muscle cramps Integumentary/Breasts: Skin/Breast: Reports system reviewed and no additional complaints, except as docu PMFSH Past Medical History Medical History Anemia Anxiety Asthma Attention deficit hyperactivity disorder Chiari malformation Status post surgical decompression and shunt insertion. Depression Hypertension Marijuana use Migraine Surgical History Surgical History History of craniotomy Surgical decompression and shunt placement for Chiari malformation. History of dilatation and curettage History of tubal ligation Family History Family History Father Hypertension Depression Heart disease Alcohol abuse Mother Hypertension Depression Alcohol abuse Sibling Hypertension Alcohol abuse Depression Grandparent Alcohol abuse Hypertension Heart disease Son Alcohol abuse Depression Heart disease Social History Social History Social History: Surrogate medical decision maker: Marta Oshea, mother. Code status: Full code. Smoking packs per day: 1 Smoking cigarettes per day: 20.0 Years smoked: 3 Smoking pack-years: 3.00 Smoking status: Former smoker Second hand tobacco smoke exposure: Yes (smokes weed) Smoking end date: 02/06/22 Alcohol intake: current Alcohol use details: Drink heavily in the past. Substance use: current Substance use type: marijuana Exam Narrative: GENERAL: Well-appearing, well-nourished, and in no acute distress. HEAD: Normocephalic, atraumatic. ENT: Mucous membranes moist. EXTREMITIES: Normal range of motion. No edema. Back: Only area of significant tenderness is the left sacroiliac region there is no palpable spasm. SKIN: Warm, dry, no rash. NEURO: No focal deficits. Alert and oriented x3. PSYCH: Normal mood and affect. Course Course Emergency Course: Patient informed of imaging results. Will treat conservatively with Flexeril and Medrol Dosepak for home. Vital Signs Vital signs: Vital Signs Temperature 98.0 F 04/11/24 10:32 Pulse Rate 62 04/11/24 10:32 Respiratory Rate 17 04/11/24 10:32 Blood Pr
[2024-04-11 14:46] VITALS: BP 133/78; PULSE 76; RESP 18; O2SAT 99
== END 2024-04-11 14:47 | disposition home or self-care (01) ==
PROVIDERS: Emergency Provider Emergency Medicine; PCP Internal Medicine
DX: M54.32 Sciatica, left side (principal); I10 Essential (primary) hypertension; F41.9 Anxiety disorder, unspecified; F32.A Depression, unspecified; F90.9 Attention-deficit hyperactivity disorder, unspecified type; Z86.2 Personal history of diseases of the blood and blood-forming organs and certain disorders involving the immune mechanism; Z87.891 Personal history of nicotine dependence; Z79.899 Other long term (current) drug therapy
CPT/HCPCS: 72100; 96361; 96374; 99284; A9270; J3360; J7030

== ENCOUNTER 2024-04-17 08:40 | Emergency (ER) | payer OTHER, SELFPAY ==
[2024-04-17 08:44] VITALS: BP 124/83; PULSE 90; RESP 17; TEMP 36.6; O2SAT 98
--- NOTE | 2024-04-17 09:21 | ED.GENADULT ---
HPI - General Adult General Chief complaint: Back Pain/Injury Stated complaint: back pain Time Seen by Provider: 04/17/24 08:55 History of Present Illness HPI narrative: This is a 53-year-old female presenting ED chief complaint sciatica. Patient has a pain in her left lower back that radiates the back foot. Now she has started developed pain in right that she up which is likely a compensation injury. She has had this many times in past. She was seen her earlier in week was treated with muscle relaxers and steroids and has had improvement. She was given tramadol from her primary care physician which has been more helpful. She has appointments here primary care physician tomorrow morning. She is requesting Neurontin which is help with her neuropathy in the past. Patient does not have any weakness to her legs, saddle anesthesia, urinary retention or bowel incontinence. No history of cancer fevers IV drug abuse or trauma. Related Data Home Medications Medication Instructions Recorded Confirmed dextroamphetamine-amphetamine 20 20 mg PO BID 12/01/23 04/12/24 mg tablet (Adderall) ketoconazole 2 % topical cream 1 applic topical DAILY 12/01/23 04/12/24 sertraline 100 mg tablet 100 mg PO DAILY 12/01/23 04/12/24 tacrolimus 0.1 % topical ointment 1 applic topical BID 12/01/23 04/12/24 Allergies Allergy/AdvReac Type Severity Reaction Status Date / Time ibuprofen Allergy Severe shunt Verified 04/12/24 07:36 ketorolac Allergy Intermediate Joint Pain Verified 04/12/24 07:36 Sulfa (Sulfonamide Allergy Intermediate general Verified 04/12/24 07:36 Antibiotics) pain PMFSH Past Medical History Medical History Anemia Anxiety Asthma Attention deficit hyperactivity disorder Chiari malformation Status post surgical decompression and shunt insertion. Depression Hypertension Marijuana use Migraine Surgical History Surgical History History of craniotomy Surgical decompression and shunt placement for Chiari malformation. History of dilatation and curettage History of tubal ligation Family History Family History Father Hypertension Depression Heart disease Alcohol abuse Mother Hypertension Depression Alcohol abuse Sibling Hypertension Alcohol abuse Depression Grandparent Alcohol abuse Hypertension Heart disease Son Alcohol abuse Depression Heart disease Social History Social History Social History: Surrogate medical decision maker: Marta Oshea, mother. Code status: Full code. Smoking packs per day: 1 Smoking cigarettes per day: 20.0 Years smoked: 3 Smoking pack-years: 3.00 Smoking status: Former smoker Second hand tobacco smoke exposure: Yes (smokes weed) Smoking end date: 02/06/22 Alcohol intake: current Alcohol use details: Drink heavily in the past. Substance use: current Substance use type: marijuana Exam Narrative: APPEARANCE: No apparent distress. Head: atraumatic. EYES: EOMI, NOSE: Atraumatic NECK: Trachea midline RESPIRATORY: No increased rate of breathing CARDIOVASCULAR: RRR, ABDOMINAL: Non-distended MUSCULOSKELETAl: No obvious deformities, straight leg positive on the left, negative the right NEURO: Alert. Cranial nerves 2-12 grossly intact. Sensation light touch, motor function cerebellar function intact for 4 extremities. Gait exam was normal. SKIN:: Warm, dry. Normal color PSYCHIATRIC: Normal affect Course Vital Signs Vital signs: Vital Signs Temperature 97.8 F 04/17/24 08:44 Pulse Rate 90 04/17/24 08:44 Respiratory Rate 17 04/17/24 08:44 Blood Pressure 124/83 04/17/24 08:44 Pulse Oximetry 98 04/17/24 08:44 Oxygen Delivery Room Air 04/17/24 08:44 Temperature 97.8 F 04/17/24 08:44 Pulse
[2024-04-17] MEDS: LIDOCAINE 5% PATCH 1 PATCH TRANSDERM (10:07)
[2024-04-17] MEDS: diazePAM INJ (*CRX) 10 MG/2 ML SYRINGE 5 MG IM (10:07)
[2024-04-17] MEDS: GABAPENTIN 300 MG CAPSULE 600 MG PO (10:07)
[2024-04-17] MEDS: ACETAMINOPHEN 500 MG TABLET 1000 MG PO (10:07)
== END 2024-04-17 10:43 | disposition home or self-care (01) ==
PROVIDERS: Emergency Provider Emergency Medicine; PCP Internal Medicine
DX: M54.42 Lumbago with sciatica, left side (principal); J45.909 Unspecified asthma, uncomplicated; F41.8 Other specified anxiety disorders; I10 Essential (primary) hypertension; Z87.891 Personal history of nicotine dependence
CPT/HCPCS: 96372; 99283; A9270; J3360

== ENCOUNTER 2024-07-12 06:53 | Outpatient (CLI) | payer OTHER, SELFPAY ==
--- NOTE | ~2024-07-12 | CT_ITS ---
EXAMINATION: CT lumbar spine wo con DATE: 07/12/2024 07:09 INDICATION: Radiculopathy, lumbar region. TECHNIQUE: Computed tomography (CT) of the lumbar spine was performed without intravenous contrast. A utomated exposure control and iterative reconstruction technique were employed. The dose-length produ ct was 1181.60 mGy-cm. COMPARISON: CT lumbar spine 04/01/23 FINDINGS: Alignment is normal. Vertebral body heights are normal. There is mildly decreased disc heig ht at L4-L5. The following disc levels are specifically discussed: L1-L2: The disc does not extend beyond the endplate margin. There is severe bilateral facet joint ost eoarthritis. There is no neural foraminal stenosis. There is no central canal stenosis. L2-L3: The disc is bulging. There is severe bilateral facet joint osteoarthritis. There is mild bilat eral neural foraminal stenosis. There is mild central canal stenosis. L3-L4: The disc is bulging. There is severe bilateral facet joint osteoarthritis. There is mild bilat eral neural foraminal stenosis. There is mild central canal stenosis. L4-L5: The disc is bulging. There is severe bilateral facet joint osteoarthritis. There is moderate b ilateral neural foraminal stenosis. There is moderate central canal stenosis. L5-S1: The disc is bulging. There is severe bilateral facet joint osteoarthritis. There is mild bilat eral neural foraminal stenosis. There is mild central canal stenosis. IMPRESSION: 1. Moderate lumbar spondylosis, stable from 04/01/2023. Reviewed, dictated and finalized at location A. SPECIALIST
== END 2024-07-12 06:54 | disposition home or self-care (01) ==
PROVIDERS: PCP Internal Medicine; Visit Provider Internal Medicine
DX: M47.816 Spondylosis without myelopathy or radiculopathy, lumbar region (principal)
CPT/HCPCS: 72131

== ENCOUNTER 2024-09-04 14:26 | Emergency (ER) | payer OTHER, SELFPAY ==
--- NOTE | ~2024-09-04 | CT_ITS ---
History: Migraine headache with right lower jaw swelling PROCEDURE: CT head without contrast. COMPARISON: 02/10/2022 TECHNIQUE: Axial imaging of the head performed from the skull base to the vertex without IV contrast. Sagittal a nd coronal reformations obtained. DLP: 605 mGy-cm FINDINGS: The ventricles are normal in size, shape and position. Right frontal ventricular drainage catheter with its tip near the foramen of [place]ro. There is no mass, mass effect or midline shift. There is no abnormal extra-axial fluid collection or intracranial hemorrhage. Visualized paranasal sinuses are clear. The mastoid air cells are well aerated. No acute displaced fractures within the overlying cranium. Impression: No acute intracranial hemorrhage or suspicious mass effect. Reviewed, dictated and finalized at location A. HANDLER Impression: No acute intracranial hemorrhage or suspicious mass effect.
--- NOTE | ~2024-09-04 | CT_ITS ---
CT soft tissue neck w con Ordering provider: Susana Nelson PA-C History: 54 years Female with . right mandibular pain and swelling. Comparison: None. Technique: CT soft tissues neck was performed with contrast. . The dose-length product was 464.32 mGy -cm. Findings: LOWER HEAD: The visualized brain parenchyma, optic globes/orbits and mastoids are unremarkable The v isualized paranasal sinuses are well aerated. SALIVARY GLANDS: Symmetric. THYROID: Unremarkable. SUPRAHYOID DEEP SPACES: Unremarkable. CAROTID ARTERIES: Unremarkable JUGULAR VEINS: Patent TONSILS: Symmetric ORAL CAVITY: Partially obscured by dental amalgam. PHARYNX, LARYNX AND TRACHEA: Patent and normal. No prevertebral soft tissue swelling. SUPERFICIAL SOFT TISSUES: Multiple enlarged lymph nodes within the cervical chains bilaterally. Asymm etry projecting over the soft tissues of the right mandible with induration, hyperemia and inflammato ry change. No rim-enhancing fluid collection is identified. THORACIC INLET/VISUALIZED UPPER CHEST: Unremarkable SKELETAL: No acute or subacute fracture. Age advanced degenerative disease IMPRESSION: Induration and hyperemia of the soft tissues overlying the right mandible, without a rim-enhancing fl uid collection, as detailed above. Multiple bilateral enlarged lymph nodes within the cervical chains, likely reactive. Reviewed, dictated and finalized at location A. Y SEPARATOR ENROBING IMPRESSION: Induration and hyperemia of the soft tissues overlying the right mandible, with out a rim-enhancing fluid collection, as detailed above. Multiple bilateral enlarged lymph nodes within the cervical chains, likely reac tive.
--- OUTSIDE RECORDS SUMMARY | 2024-09-04 14:29 | XMS_ITS | Clinical Summary ---
Author Organization [facility] Address [address] [place] [id number] Care Team Providers Care Paver Installer Name Role Phone Dex Mitchell MD Primary Care Provider Allergies Active Allergy Reactions Criticality Noted Date Comments Bee Pollen Other (See comments) Low 01/13/2018 Seasonal itchy eyes, runny nose, sneezing Codeine Other (See comments) Low 02/24/2018 extra pain makes me fill like I'm going out of my head Ketorolac Other (See comments) Reaction: pain, Oxycodone-Acetaminoph en Vision changes Medium 03/02/2018 Hallucinations Sulfa (Sulfonamide Antibiotics) Other (See comments),Nausea And Vomiting Low 05/07/2017 Reaction: Unknown, , , Reaction: pain, Medications multivitamin tablet tablet take 1 tablet by oral route every day with food 0 09/29/2012 Active naproxen sodium (ALEVE) 220 mg capsule take 1 by Oral route every day 0 09/29/2012 Active omeprazole OTC (PriLOSEC OTC) 20 mg EC tablet as needed 0 09/29/2012 Act clayton amLODIPine (NORVASC) 2.5 mg tablet take 1 tablet by oral route every day 30 4 11/24/2013 Active SUMAtriptan (IMITREX) 100 mg tablet take 1 tablet (100MG) by ORAL route once with fluids as early as possible after the onset of a migraine attack;may repeat after 2 hours if headache returns, not to exceed 200mg in 24hrs 9 4 09/29/2012 Active FLUoxetine (PROzac) 20 mg capsule take 1 capsule by oral route every day in the morning 0 0 01/23/2015 Active hydrOXYzine (VISTARIL) 25 mg capsule take 1 capsule by oral route 2 times every day 0 0 01/23/2015 Active losartan-hydroc hlorothiazide (HYZAAR) 100-25 mg per tablet TAKE 1 TABLET BY MOUTH EVERY DAY 30 2 02/14/2013 Active Active Problems Problem Noted Date Diagnosed Date Obstructive sleep apnea syndrome 01/23/2015 Overview (10/31/2016): Obstructive sleep apnea syndrome Asthma 09/29/2012 Overview (10/29/2016): ASTHMA NOS Anxiety 09/29/2012 Overview (10/30/2016): Anxiety Migraine 09/29/2012 Overview (10/30/2016): Migraines Adiposity 09/29/2012 Overview (10/30/2016): Obesity Hypertension 09/29/2012 Overview (10/31/2016): HYPERTENSION NOS Encounters Date Type Department Care Team Description 06/16/2024 6:15 PM KENNEL WORKER Office Visit [facility] [address] [phone] Yahaira Milton NP Closed fracture of tooth, initial encounter (Primary Dx); Pain, dental from Last 3 Months Immunizations Name Administration Dates Next Due Hep A / Hep B 07/27/2013 Influenza, Trivalent, IM (MDV) 05/01/2012 Tdap 07/27/2011 Surgical History Surgery Date Site/Laterality Comments OTHER SURGICAL HISTORY 1989 D&C TUBAL LIGATION 2007 Bilateral tubal ligation OTHER SURGICAL HISTORY 1993 erythromalelgia/neuropathy: nerve biopsy Medical History Medical History Date Comments Hx Other Medical erythromalelgia /neuropathy Hypertension Hypertension Hx Other Medical Headache, migra ine Tension headache Headache, tensi on Hx Other Medical Drug alcohol ab use Hx Other Medical Erythromelalgia Family History Medical History Relation Name Comments Hypertension Father 2 Hypertension; Other Father 2 Alcoholism, HTN , paralyzed, pneumonia; Hypertension Mother 2 Hypertension; Other Mother 2 HTN, gallstones , alcoholism; Hypertension Other Hypertension; Other Other Headaches, migr aines; Relation Name Status Comments Father 1 Alive Father 2 Mother 1 Alive Mother 2 Other Social History Tobacco Use Types Packs/Day Years Used Date Smoking Tobacco: Never Alcohol Use Standard Drinks/Week Comments Yes 0 (1 standard drink = 0.6 oz pur e alcohol) Comments Unknown Sex and Gender Information Value Date Recorded Sex Assigned at Not on file Legal Sex Female 11:04 AM KENNEL WORKER Gender Identity Not on file Sexual Orientation Not on file Obstetrics History Last Filed Vital Signs Vital Sign Reading Time Taken Comments Blood Pressure 164/98 06/16/2024 6:21 PM KENNEL WORKER Pulse 100 06/16/2024 6:25 PM KENNEL WORKER Temperature 36.6 C (97.9 F) 06/16/2024 6:21 PM KENNEL WORKER Respiratory Rate 20 06/16/2024 6:21 PM KENNEL WORKER Oxygen Saturation 99% 06/16/2024 6:21 PM KENNEL WORKER Inhaled Oxygen Concentration - - Weight 90.7 kg (200 lb) 06/16/2024 6:21 PM KENNEL WORKER Height 165.1 cm (5' 5 ) 06/16/2024 6:21 PM KENNEL WORKER Body Mass Index 33.28 06/16/2024 6:21 PM KENNEL WORKER Plan of Treatment Health Maintenance Due Date Last Done Comments Breast Cancer Screening-Mammogram 1972 Cervical Cancer Screening 1972 Colon Cancer Screening-Colonoscopy 1972 Depression Screening 1972 Pneumococcal vaccine <65 (1 of 2 - PCV) 1978 Regular Well Visit/Exam 18-64 1990 DTaP/Tdap/Td Vaccine (2 - Td or Tdap) 07/27/202107/2011 Zoster Vaccine (1 of 2) 2022 Influenza Vaccine (#1) 2024 05/01/2012 Hepatitis C Screening Completed 09/29/2012 Hepatitis B Screening Completed 07/27/2013 Procedures Procedure Name Priority Date/Time Associated Diagnosis Comments SERUM HEPATITIS C AB Routine 09/29/2012 3:29 PM KENNEL WORKER from Last 3 Months or Most Recently Relevant to Health Maintenance Results * Serum Hepatitis C ab (09/29/2012 3:29 PM KENNEL WORKER) HCV ab Non-Reacti ve Non-Reacti ve HISTORICAL RESULTS Serum 09/29/2012 3:29 PM KENNEL WORKER Dex Mitchell MD LAB BLOOD ORDERABLES Final Result HISTORICAL RESULTS from Last 3 Months or Most Recently Relevant to Health Maintenance Insurance [facility] Care Teams Paver Installer Relationship Specialty Start Date End Date Dex Mitchell MD PCP - General 01/23/15
--- OUTSIDE RECORDS SUMMARY | 2024-09-04 14:29 | XMS_ITS | Clinical Summary ---
Author Organization [facility] [employer] Address [address] [place] [address] Care Team Providers Care Fixed Assets Accountant Name Role Phone Malik España PA-C Primary Care Provide r Source Comments [facility] [employer],non-owned Affiliates and Associated Physician Practices is amultiple site organization consisting of ambulatory clinics and hospital sitesin [place], [place], [place] and [place]. This disclosure is being madepursuant to the Care Everywhere program and may not contain all information available regarding this patient. Last updated 18.[facility] [employer] Allergies Active Allergy Reactions Criticality Noted Date Comments Codeine Other 02/24/2018 extra pain makes me fill like I'm going out of my head Ketorolac Tromethamine Nausea and/or Vomiting Low 05/07/2017 also cause physical pain commonly known as toradol Oxycodone-Acetaminophen Vision Changes Medium 03/02/20 18 Hallucinations Pollen Extract Other 01/13/2018 Seasonal itchy eyes, runny nose, sneezing Sulfa Drugs Nausea and/or Vomiting Low 05/07/2017 Medications * Be aware that medications may not be up to date on this document. Alwaysverify current medications with the patient. Medication Sig Dispensed Refills Start Date End Date Status citalopram (CELEXA) 40 MG tablet Take 40 mg by mouth once daily Active LORazepam (ATIVAN) 0.5 MG tablet Take 0.5 mg by mouth 2 times daily as needed Active nystatin (MYCOSTATIN) 057544 UNIT/GM creamIndications:unde r breast prn Apply to affected area as needed under breast prn rash Reasons: under breast prn Active amLODIPine (NORVASC) 5 MG tablet Take 1 (one) tablet by mouth once daily Active calcium carbonate (TUMS EXTRA STRENGTH 750) 750 MG chew tablet Take 1 (one) tablet by mouth as needed for Heartburn (acid reflux) Active losartan-hydroCHLOROt hiazide (HYZAAR) 100-25 MG tablet Take 1 (one) tablet by mouth once daily Active vilazodone (Viibryd) 40 MG tablet Take 1 (one) tablet by mouth once daily 03/03/2023 Active celecoxib (CeleBREX) 200 MG capsule Take 1 (one) capsule by mouth once daily 04/03/2023 Active Auvelity 45-105 MG TBCR 02/04/2023 Active Rexulti 1 MG tablet 02/04/2023 Activ e Eliquis 5 MG tablet Take 1 (one) tablet by mouth 2 times daily 01/25/2023 Active HYDROcodone-acetamino phen (Carson) 5-325 MG tablet Take 1 (one) tablet by mouth every 12 hours as needed FOR PAIN 04/01/2023 Active Active Problems Problem Noted Date Diagnosed Date Dizziness 02/21/2021 SPONGE MAKER (ventriculoperitoneal) shunt status 8 Nausea & vomiting 03/24/2018 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 Syncope and collapse 03/20/2018 S/P ventriculoperitoneal shunt 03/03/2018 Overview (02/21/2021): 03/01/18 SPONGE MAKER shunt placed, Strata II @ 1.5 03/20/18 Strata II valve set to 1.0 03/22/18 Distal revision, strata II @ 1.0 04/12/18 revised to V-atrial shunt 04/13/18 strata II adjusted to 1.5 JU 04/16/18 stata II adjusted to 1.0 02/21/21 1.0 lesley 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 Acute intractable headache 02/24/2018 Headache, unspecified headache type 01/23/2018 Arnold-Chiari malformation 01/19/2018 Resolved Problems Problem Noted Date Diagnosed Date Resolved Date S/P SPONGE MAKER shunt 03/20/2018 04/16/2018 Family History Relation Name Status Comments Father Mother Alive Social History Tobacco Use Types Packs/Day Years Used Date Smoking Tobacco: Former Cigarettes S tarted: 1994 Smokeless Tobacco: Never Tobacco Cessation:Counseling Given: No Alcohol Use Standard Drinks/Week Comments No 0 (1 standard drink = 0.6 oz pur e alcohol) Sex and Gender Information Value Date Recorded Sex Assigned at Not on file Gender Identity Not on file Sexual Orientation Not on file Last Filed Vital Signs Vital Sign Reading Time Taken Comments Blood Pressure 139/93 04/09/2023 10:07 AM CDT Pulse 70 04/09/2023 10:07 AM CDT Temperature 36.9 C (98.4 F) 04/09/2023 10:07 AM CDT Respiratory Rate 18 04/09/2023 10:07 AM CDT Oxygen Saturation 95% 04/09/2023 10:07 AM CDT Inhaled Oxygen Concentration 28% 03/22/2018 1 0:00 AM CDT Weight 95.3 kg (210 lb) 04/09/2023 10:07 AM CDT Height 165.1 cm (5' 5 ) 04/09/2023 10:07 AM CDT Body Mass Index 34.95 04/09/2023 10:07 AM CDT Plan of Treatment Health Maintenance Due Date Last Done Comments COLOGUARD (AGES 45-75) - COLON CA SCREENING 1972 COLON MONITORING 1972 COLONOSCOPY - COLON CA SCREENING 1972 CT COLONOGRAPHY - COLON CA SCREENING 1972 Colorectal Cancer Screening 1972 FIT - COLON CA SCREENING 1972 FLEX SIG - COLON CA SCREENING 1972 LIPID TESTING 1972 MAMMOGRAM 1972 PAP SMEAR 1972 DTAP/TDAP/TD VACCINES (1 - Tdap) 1991 HEPATITIS B VACCINE (1 of 3 - 19+ 3-dose series) 1991 PNEUMOCOCCAL VACCINE 50+ (1 of 1 - PCV) 2022 ZOSTER VACCINE (1 of 2) 2022 SCREENING FOR DIABETES 02/22/2024 , 04/15/2018, 04/13/2018, Additional history exists COVID-19 VACCINE (3 - season) 2024 11/06/2020, 10/16/2020 INFLUENZA VACCINE (#1) 2024 05/01/2012 DEPRESSION SCREENING 07/27/2024 HEPATITIS C SCREENING Completed 04/08/2018 HIV SCREENING Completed 04/08/2018 HIB VACCINE Aged Out No longer eligi ble based on patient's age to complete this topic HPV VACCINE Aged Out No longer eligi ble based on patient's age to complete this topic MENINGOCOCCAL (Group B) VACCINE Aged Out No longer eligible based on patient's age to complete this topic MENINGOCOCCAL VACCINE Aged Out No freddie avery eligible based on patient's age to complete this topic PNEUMOCOCCAL VACCINE Aged Out No long er eligible based on patient's age to complete this topic Medical Devices Implanted Type Area Assistant Chief Train Dispatcher Device Identifier Shelf Expiration Date Model / Serial / Lot Graft Tissue Intgr Bvn Pricrd Rsrb Dura Implanted:Qty: 1 on 01/19/2018 by Pooja Alanis MD at [facility] N/A: Brain Integra [employer] Robi 12/24/2021 [id number] / / [id number] Slnt Dura Duraseal Pg Trilysine Amine 5 Implanted:Qty: 1 on 01/19/2018 by Pooja Alanis MD at [facility] N/A: Brain [employer] Robi 12/24/2018 [id number] / / [id number] Slnt Dura Duraseal Pg Trilysine Amine 5 Implanted:Qty: 1 on 02/24/2018 by Pooja Alanis MD at [facility] N/A: Other (See Descriptio n) Inte[employer] Robi 12/24/2018 [id number] / / [id number] Description:suboccipital spa ce Clip Srg Std Rt Ang Implanted:Qty: 1 on 03/01/2018 by Pooja Alanis MD at [facility] [employer] Medical 09/23/2022 [id number] / / [id number] Valve Shnt Strt2 Reg Csf Prgm Flw Cntrl Implanted:Qty: 1 on 03/01/2018 by Pooja Alanis MD at [facility] [employer] Ps Medical 07/26/2020 [id number] / / [id number] Kit Yeni Ba Bctsl Hkm Cath Shnt Strl Implanted:Qty: 1 on 03/01/2018 by Pooja Alanis MD at [facility] [employer] 10/24/2018 [id number] / / [id number] Cath Drn 120cm Prtnl Cdmn Bctsl Ba Yeni Implanted:Qty: 1 on 04/12/2018 by John Howard MD at [facility] 07/26/2018 [id number] / / [id number] Procedures Procedure Name Priority Date/Time Associated Diagnosis Comments BASIC METABOLIC PANEL (CALCIUM TOTAL) STAT 02/21/2021 9:40 AM CDT HEPATITIS C AB SCREEN RFLX NAAT QUANT STAT 04/08/2018 3:24 PM CDT HIV-1 HIV-2 ANTIGEN/ANTIBODY STAT 04/08/2018 3:24 PM CDT from Last 3 Months or Most Recently Relevant to Health Maintenance Results * (ABNORMAL) BASIC METABOLIC PANEL (CALCIUM TOTAL) (02/21/2021 9:40 AM CDT) BUN 11 7 - 26 mg/dL 02/21/2021 10:18 AM [facility] Creatinine 0.76 0.56 - 0.96 mg/dL 02/21/2021 10:18 AM [facility] Sodium 140 136 - 145 mmol/L 02/21/2021 10:18 AM [facility] Potassium 4.7(H) 3.5 - 4.5 mmol/L 02/21/2021 10:18 AM [facility] Chloride 103 98 - 107 mmol/L 02/21/2021 10:18 AM [facility] CO2 28 22 - 29 mmol/L 02/21/2021 10:18 AM [facility] Glucose 92 70 - 115 mg/dL 02/21/2021 10:18 AM [facility] Calcium 9.9 8.4 - 10.2 mg/dL 02/21/2021 10:18 AM [facility] Anion Gap 14 8 - 18 02/21/2021 10:18 AM [facility] BUN/Creatinine Ratio 14 7 - 23 02/21/2021 10:18 AM [facility] Osmolality Calculated 289 270 - 300 mOsm/kg 02/21/2021 10:18 AM CDT [facility] eGFR by CKD-EPI >90 >=90 mL/min/1.7 3 m2 02/21/2021 10:18 AM CDT [facility] Blood BLOOD SPECIMEN / Unknown Venipuncture / Unknown 02/21/2021 9:40 AM CDT 02/21/2021 9:53 AM CDT Acosta Ma MD LAB - CHEMISTRY ORDE [facility] [address] [place] [address], [facility] [phone] * HIV-1 HIV-2 ANTIGEN/ANTIBODY (04/08/2018 3:24 PM CDT) HIV Antigen/Antibod y 1 & 2 Non-reacti ve Non-react clayton 04/08/2018 4:14 PM CDT [facility] Comment: Neither HIV-1 p24 Antigen nor HIV-1/HIV-2 Antibodies are detected. Blood BLOOD SPECIMEN / Unknown Venipuncture / Unknown 04/08/2018 3:24 PM CDT 04/08/2018 3:30 PM CDT Simon Saldana MD LAB - HEMATOLOGY ORDERABLES Performing Organization Address City/[facility]/ZIP Co de Phone Number [facility] [address] [place] [address], [facility] [phone] * HEPATITIS C AB SCREEN RFLX NAAT QUANT (04/08/2018 3:24 PM CDT) Hepatitis C Antibody Non-react clayton Non-reac tive 04/08/2018 4:21 PM CDT [facility] Comment: Hepatitis C Antibody screen indicates no serologic evidence of past or current infection with Hepatitis C Virus. Patients with unexplained liver disease who are immunocompromised or suspected of having acute Hepatitis C infection may benefit from Nucleic Acid Test (TERESA) for Hepatitis C Viral RNA to confirm Hepatitis C status. Blood BLOOD SPECIMEN / Unknown Venipuncture / Unknown 04/08/2018 3:24 PM CDT 04/08/2018 3:30 PM CDT Simon Saldana MD LAB - CHEMISTRY ORDERABLES [place] [id number] [address] [phone] from Last 3 Months or Most Recently Relevant to Health Maintenance Advance Directives Documents on File Type Date Recorded Patient Budget Clerk Expl anation Adv Directive/Living Will/POA 01/25/2018 8:39 AM * Full Code (Latest Code Status on File) Date Activated Date Inactivated Comments 04/14/2018 2:21 PM 04/17/2018 1:08 PM * Full Code Date Activated Date Inactivated Comments 04/09/2018 12:31 AM 04/12/2018 5:44 PM * Full Code Date Activated Date Inactivated Comments 04/08/2018 10:20 PM 04/09/2018 12:31 AM * Full Code Date Activated Date Inactivated Comments 04/08/2018 8:56 PM 04/08/2018 10:20 PM * Full Code Date Activated Date Inactivated Comments 03/20/2018 8:56 AM 03/24/2018 6:24 PM Care Teams Fixed Assets Accountant Relationship Specialty Start Date End Date Malik España PA-C [address] [place] [address] PCP - General Physician Fan Blade Aligner 01/14/18
--- OUTSIDE RECORDS SUMMARY | 2024-09-04 14:29 | XMS_ITS | Referral Summary ---
Author Organization [facility] Address [address] [facility] [place] [address] Care Team Providers Care Instructor Correspondence [employer] Name Role Phone Malik España PA-C Primary Care Provide r Source Comments [facility],non-owned Affiliates and Associated Physician Practices is amultiple site organization consisting of ambulatory clinics and hospital sitesin [place], [place], [place] and [place]. This disclosure is being madepursuant to the Care Everywhere program and may not contain all information available regarding this patient. Last updated 18.[facility] Allergies Active Allergy Reactions Criticality Noted Date [...] times daily as needed Active nystatin (MYCOSTATIN) 895297 UNIT/GM creamIndications:unde r breast prn Apply to [...] 2 times daily 01/25/2023 Active HYDROcodone-acetamino phen ([place]) 5-325 MG tablet Take 1 (one) tablet by mouth every 12 hours as needed FOR PAIN 04/01/2023 Active Active Problems Problem Noted Date Diagnosed Date Dizziness 02/21/2021 EQUIPMENT SERVICES ASSOCIATE (ventriculoperitoneal) shunt status 8 Nausea & vomiting 03/24/2018 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 Syncope and collapse 03/20/2018 S/P ventriculoperitoneal shunt 03/03/2018 Overview (02/21/2021): 03/01/18 EQUIPMENT SERVICES ASSOCIATE shunt placed, Strata II @ 1.5 03/20/18 Strata II valve set to 1.0 03/22/18 Distal revision, strata II @ 1.0 04/12/18 revised to V-atrial shunt 04/13/18 strata II adjusted to 1.5 04/16/18 stata II adjusted to 1.0 02/21/21 1.0 lesley 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 No 04/17/2018 Is person blind or have serious difficulty seein g? No 04/17/2018 Does person have serious dif ficulty walking/climbing stairs? No 04/17/2018 Does person have difficulty dressing/bathing? No 04/17/2018 Does person have difficulty doing errands alone? No 04/17/2018 Cognitive Status Response Date of Assessm ent Does person have difficulty concentrating/remembering/making decisions? No 04/17/2018 Plan of Treatment Not on file Medical Devices Implanted Type Area Speech Language Pathologist Assistant Device Identifier Shelf Expiration Date Model / Serial / Lot Graft Tissue Intgr Bvn Pricrd Rsrb Dura Implanted:Qty: 1 on 01/19/2018 by Pooja Alanis MD at [facility] N/A: Brain Inte[employer] Robi 12/24/2021 [id number] / / [id number] Slnt Dura Duraseal Pg Trilysine Amine 5 Implanted:Qty: 1 on 01/19/2018 by Pooja Alanis MD at [facility] N/A: Brain [employer] Robi 12/24/2018 [id number] / / [id number] Slnt Dura Duraseal Pg Trilysine Amine 5 Implanted:Qty: 1 on 02/24/2018 by Pooja Alanis MD at [facility] N/A: Other (See Descriptio n) [employer] Robi 12/24/2018 [id number] / / [id number] Description:suboccipital spa ce Clip Srg Std Rt Ang Implanted:Qty: 1 on 03/01/2018 by Pooja Alanis MD at [facility] [employer] 09/23/2022 [id number] / / [id number] Valve Shnt Strt2 Reg Csf Prgm Flw Cntrl Implanted:Qty: 1 on 03/01/2018 by Pooja Alanis MD at [facility] [employer] 07/26/2020 [id number] / / [id number] Kit Yeni Ba Bctsl Hkm Cath Shnt Strl Implanted:Qty: 1 on 03/01/2018 by Pooja Alanis MD at [facility] [employer] 10/24/2018 [id number] / / [id number] Cath Drn 120cm Prtnl Cdmn Bctsl Ba Yeni Implanted:Qty: 1 on 04/12/2018 [facility] 07/26/2018 [id number] / / [id number] Procedures Procedure Name Priority Date/Time Associated Diagnosis [...] 7 - 26 mg/dL 02/21/2021 10:18 AM CDT [facility] Creatinine 0.76 0.56 - 0.96 mg/dL 02/21/2021 10:18 AM [facility] Sodium 140 136 - 145 mmol/L 02/21/2021 10:18 AM [facility] Potassium 4.7(H) 3.5 - 4.5 mmol/L 02/21/2021 10:18 AM [facility] Chloride 103 98 - 107 mmol/L 02/21/2021 10:18 AM [facility] CO2 28 22 - 29 mmol/L 02/21/2021 10:18 AM [facility] Glucose 92 70 - 115 mg/dL 02/21/2021 10:18 AM [facility] Calcium 9.9 8.4 - 10.2 mg/dL 02/21/2021 10:18 AM [facility] Anion Gap 14 8 - 18 02/21/2021 10:18 AM [facility] BUN/Creatinine Ratio 14 7 - 23 02/21/2021 10:18 AM [facility] Osmolality Calculated 289 270 - 300 mOsm/kg 02/21/2021 10:18 AM [facility] eGFR by CKD-EPI >90 >=90 mL/min/1.7 3 m2 02/21/2021 10:18 AM [facility] Blood BLOOD SPECIMEN / Unknown Venipuncture / Unknown 02/21/2021 9:40 AM CDT 02/21/2021 9:53 AM T Acosta Ma MD LAB - CHEMISTRY [facility] Organization Address City/State/[facility] Co de Phone Number [facility] [address] [place] [address], [facility] [phone] * HIV-1 HIV-2 ANTIGEN/ANTIBODY (04/08/2018 3:24 PM CDT) HIV Antigen/Antibod y 1 & 2 Non-reacti ve Non-react [place] 04/08/2018 4:14 PM [facility] Comment: Neither HIV-1 p24 Antigen nor HIV-1/HIV-2 Antibodies are detected. Blood BLOOD SPECIMEN / Unknown Venipuncture / Unknown 04/08/2018 3:24 PM CDT 04/08/2018 3:30 PM CDT Simon Saldana MD LAB - HEMATOLOGY ORDERABLES [address] [phone] * HEPATITIS C AB SCREEN RFLX NAAT QUANT (04/08/2018 3:24 PM CDT) Hepatitis C Antibody Non-react [place] Non-reac tive 04/08/2018 4:21 PM CDT [facility] Comment: Hepatitis C Antibody screen indicates [...] Simon Saldana MD LAB - CHEMISTRY ORDERABLES [address] [phone] from Last 3 Months or Most Recently Relevant to Health Maintenance Advance Directives Documents on File Type Date Recorded Patient Filler In Expl anation Adv Directive/Living Will/POA 01/25/2018 8:39 [...] 8:56 AM 03/24/2018 6:24 PM Care Teams Instructor Correspondence School Relationship Specialty Start Date End Date Malik España PA-C [address] [place], [place] [id number] PCP - General Physician Manufacturer 01/14/18
--- OUTSIDE RECORDS SUMMARY | 2024-09-04 14:29 | XMS_ITS | Referral Summary ---
Author Organization [address] [address] Care Team Providers Care Bottling Line Operator Name Role Phone Dex Mitchell MD Primary Care Provider [phone] Encounters Date Type Department Care Team Description 06/16/2024 6:15 PM MANAGER METAL Office Visit [facility] at [address] [address] Yahaira Milton NP Closed fracture of tooth, initial encounter (Primary Dx); Pain, dental from Last 3 Months Allergies Active Allergy Reactions Criticality Noted Date [...] Obesity Hypertension 09/29/2012 Overview (10/31/2016): HYPERTENSION NOS Immunizations Name Administration Dates Next Due Hep A / Hep B 07/27/2013 Influenza, Trivalent, IM (MDV) 05/01/2012 Tdap 07/27/2011 Social History Tobacco Use Types Packs/Day Years Used Date Smoking Tobacco: Never Alcohol Use Standard Drinks/Week Comments Yes 0 (1 standard drink = 0.6 oz pur e alcohol) Comments Unknown Sex and Gender Information Value Date Recorded Sex Assigned at Not on file Legal Sex Female 11:04 AM MANAGER METAL Gender Identity Not on file Sexual Orientation Not on file Last Filed Vital Signs Vital Sign Reading Time Taken Comments Blood Pressure 164/98 06/16/2024 6:21 PM MANAGER METAL Pulse 100 06/16/2024 6:25 PM MANAGER METAL Temperature 36.6 C (97.9 F) 06/16/2024 6:21 PM MANAGER METAL Respiratory Rate 20 06/16/2024 6:21 PM MANAGER METAL Oxygen Saturation 99% 06/16/2024 6:21 PM MANAGER METAL Inhaled Oxygen Concentration - - Weight 90.7 kg (200 lb) 06/16/2024 6:21 PM MANAGER METAL Height 165.1 cm (5' 5 ) 06/16/2024 6:21 PM MANAGER METAL Body Mass Index 33.28 06/16/2024 6:21 PM MANAGER METAL Plan of Treatment Not on file Procedures Procedure Name Priority Date/Time Associated Diagnosis Comments SERUM HEPATITIS C AB Routine 09/29/2012 3:29 PM MANAGER METAL from Last 3 Months or Most Recently Relevant to Health Maintenance Results * Serum Hepatitis C ab (09/29/2012 3:29 PM MANAGER METAL) HCV ab Non-Reacti ve Non-Reacti ve HISTORICAL RESULTS Serum 09/29/2012 3:29 PM MANAGER METAL us Dex Mitchell MD LAB BLOOD ORDERABLES Final Result Performing Organization Address City/State/[facility] Co de Phone Number HISTORICAL RESULTS from Last 3 Months or Most Recently Relevant to Health Maintenance [place] [place] [address] [place] [address] Care Teams Bottling Line Operator Relationship Specialty Start Date End Date Dex Mitchell MD PCP - General 01/23/15
--- OUTSIDE RECORDS SUMMARY | 2024-09-04 14:29 | XMS_ITS | Patient Health Summary ---
Author Organization [facility] [employer] Address [address] [place] [address] Care Team Providers Care Office Analyst Name Role Phone Malik España PA-C Primary Care Provide r Note from [facility],non-owned Affiliates and Associated Physician Practices is amultiple site organization consisting of ambulatory clinics and hospital sitesin [place], [place], [place] and [place]. This disclosure is being madepursuant to the Care Everywhere program and may not contain all information available regarding this patient. Last updated 18.[facility] Allergies * Codeine(Other) * Ketorolac Tromethamine(Nausea and/or Vomiting) -Low Criticality * Oxycodone-Acetaminophen(Vision Changes) -Medium Criticality * Pollen Extract(Other) * Sulfa Drugs(Nausea and/or Vomiting) -Low Criticality * Ketorolac,Inactive Medications * Be aware that medications may not be up to date on this document. Alwaysverify current medications with the patient. * citalopram (CELEXA) 40 MG tablet Take 40 mg by mouth once daily * LORazepam (ATIVAN) 0.5 MG tablet Take 0.5 mg by mouth 2 times daily as needed * nystatin (MYCOSTATIN) [id number] UNIT/GM cream Apply to affected area as needed under breast prn rash Reasons: under breast prn * amLODIPine (NORVASC) 5 MG tablet Take 1 (one) tablet by mouth once daily * calcium carbonate (TUMS EXTRA STRENGTH 750) 750 MG chew tablet Take 1 (one) tablet by mouth as needed for Heartburn (acid reflux) * losartan-hydroCHLOROthiazide (HYZAAR) 100-25 MG tablet Take 1 (one) tablet by mouth once daily * vilazodone (Viibryd) 40 MG tablet(Started 03/03/2023) Take 1 (one) tablet by mouth once daily * celecoxib (CeleBREX) 200 MG capsule(Started 04/03/2023) Take 1 (one) capsule by mouth once daily * Auvelity 45-105 MG TBCR(Started 02/04/2023) * Rexulti 1 MG tablet(Started 02/04/2023) * Eliquis 5 MG tablet(Started 01/25/2023) Take 1 (one) tablet by mouth 2 times daily * HYDROcodone-acetaminophen ([place]) 5-325 MG tablet(Started 04/01/2023) Take 1 (one) tablet by mouth every 12 hours as needed FOR PAIN Active Problems Problem Noted Date Diagnosed Date Dizziness 02/21/2021 FELLER HAND (ventriculoperitoneal) shunt status 8 Nausea & vomiting 03/24/2018 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 Syncope and collapse 03/20/2018 S/P ventriculoperitoneal shunt 03/03/2018 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 Acute intractable headache 02/24/2018 Headache, unspecified headache type 01/23/2018 Arnold-Chiari malformation 01/19/2018 Resolved Problems Problem Noted Date Diagnosed Date Resolved Date S/P FELLER HAND shunt 03/20/2018 04/16/2018 Social History Tobacco Use [...] Mass Index 34.95 04/09/2023 10:07 AM CDT Medical Devices Implanted Type 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 Superintendent Oil Field Drilling Device Identifier Shelf Expiration Date Model / Serial / Lot Graft Tissue Intgr Bvn Pricrd Rsrb Dura Implanted:Qty: 1 on 01/19/2018 by Pooja Alanis MD at [facility] N/A: Brain Integra [employer] Robi 12/24/2021 [id number] / / [id number] Slnt Dura Duraseal Pg Trilysine Amine 5 Implanted:Qty: 1 on 01/19/2018 by Pooja Alanis MD at [facility] N/A: Brain [employer] Robi 12/24/2018 [id number] / / [id number] Slnt Dura Duraseal Pg Trilysine Amine 5 Implanted:Qty: 1 on 02/24/2018 by Pooja Alanis MD at [facility] N/A: Other (See Descriptio n) [employer] Robi 12/24/2018 [id number] / / [id number] Description:suboccipital spa ce Clip Srg Std Rt Ang Implanted:Qty: 1 on 03/01/2018 by Pooja Alanis MD at [facility] [employer] Ps Medical 09/23/2022 [id number] / / [id number] Valve Shnt Strt2 Reg Csf Prgm Flw Cntrl Implanted:Qty: 1 on 03/01/2018 by Pooja Alanis MD at [facility] [employer] 07/26/2020 [id number] / / [id number] Kit Yeni Ba Bctsl Hkm Cath Shnt Strl Implanted:Qty: 1 on 03/01/2018 by Pooja Alanis MD at [facility] [employer] 10/24/2018 [id number] / / [id number] Cath Drn 120cm Prtnl Cdmn Bctsl Ba Yeni Implanted:Qty: 1 on 04/12/2018 by John Howard MD at [facility] [employer] 07/26/2018 [id number] / / [id number] Procedures * CARDIAC EKG ORDER(Performed 02/23/2021) * XR SHUNT SERIES(Performed 02/21/2021) Performed for Dizziness, Near syncope, Non-intractable vomiting with nausea, unspecified vomiting type * XR CHEST 1VW PORTABLE(Performed 02/21/2021) Performed for Near syncope * TROPONIN I(Performed 02/21/2021) * HCG URINE QUALITATIVE(Performed 02/21/2021) * BASIC METABOLIC PANEL (CALCIUM TOTAL)(Performed 02/21/2021) * CBC W AUTO DIFFERENTIAL(Performed 02/21/2021) * EKG 12-LEAD(Performed 02/21/2021) Performed for Dizziness * MRI BRAIN WO CONTRAST(Performed 02/21/2021) Performed for Chiari I malformation (HCC), S/P FELLER HAND shunt * MRI BRAIN WO CONTRAST(Performed 02/23/2020) Performed for Chiari malformation type I (HCC) * CARDIAC EKG ORDER(Performed 11/25/2018) * MRI BRAIN WO CONTRAST(Performed 11/18/2018) Performed for FELLER HAND (ventriculoperitoneal) shunt status, Chiari malformation type I (HCC) * XR SHUNT SERIES(Performed 11/18/2018) Performed for FELLER HAND (ventriculoperitoneal) shunt status * CARDIAC PROCEDURE ORDER(Performed 06/12/2018) * CARDIAC EKG ORDER(Performed 05/21/2018) * BASIC METABOLIC PANEL (CALCIUM TOTAL)(Performed 04/15/2018) * GRAM STAIN (LAB ORDERED)(Performed 04/14/2018) * CULTURE CSF+GRAM STAIN(Performed 04/14/2018) * CULTURE CSF+GRAM STAIN (BEAKER)(Performed 04/14/2018) * OT EVAL AND TREAT(Performed 04/14/2018) * CT HEAD WO CONTRAST(Performed 04/13/2018) Performed for FELLER HAND (ventriculoperitoneal) shunt status * BASIC METABOLIC PANEL (CALCIUM TOTAL)(Performed 04/13/2018) * OT EVAL AND TREAT(Performed 04/13/2018) * XR CHEST 1VW(Performed 04/12/2018) Performed for FELLER HAND (ventriculoperitoneal) shunt status * XR SKULL 3VW OR LESS(Performed 04/12/2018) Performed for FELLER HAND (ventriculoperitoneal) shunt status * FL KEN SURGERY(Performed 04/12/2018) Performed for FELLER HAND (ventriculoperitoneal) shunt status * INSERTION VENTRICULO-ATRIAL SHUNT(Performed 04/12/2018) Performed for Diagnosis unknown * REVISION / REPLACEMENT VENTRICULO PERITONEAL SHUNT(Performed 04/12/2018) Performed for Diagnosis unknown * ENDOTRACHEAL TUBE NOTE(Performed 04/12/2018) * TYPE + SCREEN PANEL(Performed 04/12/2018) * BASIC METABOLIC PANEL (CALCIUM TOTAL)(Performed 04/12/2018) * BASIC METABOLIC PANEL (CALCIUM TOTAL)(Performed 04/11/2018) * BASIC METABOLIC PANEL (CALCIUM TOTAL)(Performed 04/10/2018) * C-REACTIVE PROTEIN(Performed 04/09/2018) * ERYTHROCYTE SEDIMENTATION RATE(Performed 04/09/2018) * CBC W/O DIFFERENTIAL(Performed 04/09/2018) * CULTURE BLOOD(Performed 04/08/2018) * PTT SLH(Performed 04/08/2018) * PT-INR SLH(Performed 04/08/2018) * CBC W AUTO DIFFERENTIAL(Performed 04/08/2018) * BASIC METABOLIC PANEL (CALCIUM TOTAL)(Performed 04/08/2018) * CULTURE BLOOD(Performed 04/08/2018) * CULTURE CATH TIP(Performed 04/08/2018) * DIFFERENTIAL MANUAL FLUID(Performed 04/08/2018) * CELL COUNT W DIFFERENTIAL CSF(Performed 04/08/2018) * PROTEIN CSF(Performed 04/08/2018) * GLUCOSE CSF(Performed 04/08/2018) * GRAM STAIN (LAB ORDERED)(Performed 04/08/2018) * CULTURE CSF+GRAM STAIN(Performed 04/08/2018) * CULTURE CSF+GRAM STAIN (BEAKER)(Performed 04/08/2018) * COMPREHENSIVE METABOLIC PANEL(Performed 04/08/2018) * PT-INR SLH(Performed 04/08/2018) * PTT SLH(Performed 04/08/2018) * CBC W AUTO DIFFERENTIAL(Performed 04/08/2018) * TYPE + SCREEN PANEL(Performed 04/08/2018) * HEPATITIS C AB SCREEN RFLX NAAT QUANT(Performed 04/08/2018) * HIV-1 HIV-2 ANTIGEN/ANTIBODY(Performed 04/08/2018) * CT HEAD WO CONTRAST(Performed 04/08/2018) Performed for FELLER HAND (ventriculoperitoneal) shunt status * XR SHUNT SERIES(Performed 04/08/2018) Performed for FELLER HAND (ventriculoperitoneal) shunt status * CARDIAC EKG ORDER(Performed 03/27/2018) * ENDOTRACHEAL TUBE NOTE(Performed 03/26/2018) * RENAL FUNCTION PANEL(Performed 03/24/2018) * MAGNESIUM BLOOD(Performed 03/24/2018) * RENAL FUNCTION PANEL(Performed 03/24/2018) * CBC W/O DIFFERENTIAL(Performed 03/24/2018) * RENAL FUNCTION PANEL(Performed 03/23/2018) * RENAL FUNCTION PANEL(Performed 03/23/2018) * CBC W/O DIFFERENTIAL(Performed 03/23/2018) * RENAL FUNCTION PANEL(Performed 03/22/2018) * ECHO COMPLETE(Performed 03/22/2018) Performed for Syncope, unspecified syncope type * XR SHUNT SERIES(Performed 03/22/2018) Performed for S/P FELLER HAND shunt * LAPAROSCOPY DIAGNOSTIC(Performed 03/22/2018) Performed for Obstructed ventriculoperitoneal shunt, initial encounter (HCC) * TYPE + SCREEN PANEL(Performed 03/22/2018) * RENAL FUNCTION PANEL(Performed 03/22/2018) * CBC W/O DIFFERENTIAL(Performed 03/22/2018) * RENAL FUNCTION PANEL(Performed 03/21/2018) * US RETROPERITONEAL COMPLETE(Performed 03/21/2018) Performed for [place] (acute kidney injury) ([facility]) * EKG 12-LEAD(Performed 03/21/2018) Performed for Syncope and collapse * URINALYSIS REFLEX TO MICROSCOPIC NO CULTURE(Performed 03/21/2018) * EOSINOPHIL URINE SMEAR(Performed 03/21/2018) * UREA NITROGEN URINE RANDOM(Performed 03/21/2018) * SODIUM URINE RANDOM(Performed 03/21/2018) * CREATININE URINE RANDOM(Performed 03/21/2018) * PROTEIN URINE RANDOM QUANTITATIVE(Performed 03/21/2018) * TSH(Performed 03/21/2018) * PHOSPHORUS BLOOD(Performed 03/21/2018) * MAGNESIUM BLOOD(Performed 03/21/2018) * COMPREHENSIVE METABOLIC PANEL(Performed 03/21/2018) * CBC W/O DIFFERENTIAL(Performed 03/21/2018) * CT ABDOMEN WO CONTRAST(Performed 03/20/2018) Performed for S/P FELLER HAND shunt * CULTURE WOUND+GRAM STAIN(Performed 03/20/2018) * CULTURE CSF+GRAM STAIN(Performed 03/20/2018) * DIFFERENTIAL MANUAL FLUID(Performed 03/20/2018) * CELL COUNT W DIFFERENTIAL CSF(Performed 03/20/2018) * PROTEIN CSF(Performed 03/20/2018) * GLUCOSE CSF(Performed 03/20/2018) * GRAM STAIN (LAB ORDERED)(Performed 03/20/2018) * CULTURE CSF+GRAM STAIN (BEAKER)(Performed 03/20/2018) * CT CERVICAL SPINE WO CONTRAST(Performed 03/20/2018) Performed for Syncope and collapse, Headache, unspecified headache type * CT HEAD WO CONTRAST(Performed 03/20/2018) Performed for Syncope and collapse * XR SHUNT SERIES(Performed 03/20/2018) Performed for Syncope and collapse * URINE DRUG SCREEN IMMUNOASSAY(Performed 03/20/2018) * URINALYSIS REFLEX TO MICROSCOPIC NO CULTURE(Performed 03/20/2018) * HCG URINE QUALITATIVE - POINT OF CARE(Performed 03/20/2018) * PT-INR SLH(Performed 03/20/2018) * COMPREHENSIVE METABOLIC PANEL(Performed 03/20/2018) * CBC W AUTO DIFFERENTIAL(Performed 03/20/2018) * XR CHEST 1VW PORTABLE(Performed 03/20/2018) Performed for Syncope and collapse * CT HEAD WO CONTRAST(Performed 03/02/2018) Performed for Arnold-Chiari malformation (HCC) * XR SHUNT SERIES(Performed 03/01/2018) Performed for Arnold-Chiari malformation (HCC) * INSERTION VENTRICULO-PERITONEAL SHUNT(Performed 03/01/2018) Performed for Diagnosis unknown * ENDOTRACHEAL TUBE NOTE(Performed 03/01/2018) * CT GUIDED STEREO LOCALIZATION(Performed 03/01/2018) Performed for Arnold-Chiari malformation (HCC), Postprocedural pseudomeningocele * TYPE + SCREEN PANEL(Performed 02/28/2018) * PT-INR SLH(Performed 02/28/2018) * BASIC METABOLIC PANEL (CALCIUM TOTAL)(Performed 02/28/2018) * CBC W AUTO DIFFERENTIAL(Performed 02/28/2018) * CT HEAD WO CONTRAST(Performed 02/26/2018) Performed for Postprocedural pseudomeningocele, Arnold-Chiari malformation (HCC) * PT EVAL AND TREAT(Performed 02/25/2018) * OT EVAL AND TREAT(Performed 02/25/2018) * PUNCTURE SPINAL / PLACEMENT DRAIN (THERAPEUTIC)(Performed 02/24/2018) Performed for Chiari I malformation (HCC) * CRANIOTOMY POSTERIOR FOSSA FOR ARNOLD-CHIARI MALFORMATION(Performed 02/24/2018) Performed for Chiari I malformation (HCC) * ENDOTRACHEAL TUBE NOTE(Performed 02/24/2018) * PTT SLH(Performed 02/24/2018) Performed for Arnold-Chiari malformation (HCC) * PT-INR SLH(Performed 02/24/2018) Performed for Arnold-Chiari malformation (HCC) * TYPE + SCREEN PANEL(Performed 02/24/2018) * CT HEAD WO CONTRAST(Performed 02/24/2018) Performed for Acute intractable headache, unspecified headache type * ERYTHROCYTE SEDIMENTATION RATE(Performed 02/24/2018) * C-REACTIVE PROTEIN(Performed 02/24/2018) * COMPREHENSIVE METABOLIC PANEL(Performed 02/24/2018) * CBC W AUTO DIFFERENTIAL(Performed 02/24/2018) * CARDIAC EKG ORDER(Performed 01/25/2018) * CARDIAC EKG ORDER(Performed 01/25/2018) * POTASSIUM BLOOD(Performed 01/24/2018) Performed for Hypokalemia * BASIC METABOLIC PANEL (CALCIUM TOTAL)(Performed 01/24/2018) Performed for Headache, unspecified headache type * CBC W AUTO DIFFERENTIAL(Performed 01/24/2018) Performed for Headache, unspecified headache type * COMPREHENSIVE METABOLIC PANEL(Performed 01/23/2018) * XR CHEST 2VW(Performed 01/23/2018) Performed for SOB (shortness of breath) * EKG 12-LEAD(Performed 01/23/2018) Performed for SOB (shortness of breath) * TROPONIN I(Performed 01/23/2018) * CBC W AUTO DIFFERENTIAL(Performed 01/23/2018) * CT HEAD WO CONTRAST(Performed 01/23/2018) Performed for Headache, unspecified headache type * COMPREHENSIVE METABOLIC PANEL(Performed 01/21/2018) * PT EVAL AND TREAT(Performed 01/20/2018) * OT EVAL AND TREAT(Performed 01/20/2018) * CT HEAD WO CONTRAST(Performed 01/20/2018) Performed for Arnold-Chiari malformation (HCC) * CBC W AUTO DIFFERENTIAL(Performed 01/20/2018) * COMPREHENSIVE METABOLIC PANEL(Performed 01/20/2018) * CRANIOTOMY POSTERIOR FOSSA FOR ARNOLD-CHIARI MALFORMATION(Performed 01/19/2018) Performed for Chiari malformation type II (HCC) * ENDOTRACHEAL TUBE NOTE(Performed 01/19/2018) * TYPE + SCREEN PANEL(Performed 01/19/2018) * XR CHEST 2VW(Performed 01/13/2018) Performed for Pre-op testing * TYPE + SCREEN PANEL(Performed 01/13/2018) Performed for Preop examination * PTT SLH(Performed 01/13/2018) Performed for Preop examination * PT-INR SLH(Performed 01/13/2018) Performed for Preop examination * BASIC METABOLIC PANEL (CALCIUM TOTAL)(Performed 01/13/2018) Performed for Chiari malformation type I (HCC), Pre-op testing * CBC W AUTO DIFFERENTIAL(Performed 01/13/2018) Performed for Pre-op testing * MRI CERVICAL SPINE WO CONTRAST(Performed 06/04/2017) Results * CARDIAC EKG ORDER (02/23/2021 1:43 PM CDT) Only the most recent of6 resultswithin the time period is included. Narrative 02/23/2021 1:43 PM CDT Ordered by an unspecified provider. Scanned Document CARDIAC SERVICES ORD ERABLES * XR SHUNT SERIES (02/21/2021 12:03 PM CDT) Only the most recent of6 resultswithin the time period is included. Anatomical Region Laterality Modality Abdomen, Pelvis Radiographic Celina ging 02/21/2021 12:1 6 PM CDT Impressions 02/21/2021 12:24 PM CDT IMPRESSION: Intact shunt. This report was electronically signed by KAMI STRONG M.D. on 02/21/2021 12:24 PM . Narrative 02/21/2021 12:24 PM CDT Exam: XR SHUNT SERIES Date: 02/21/2021 12:03 PM History: R42: Dizziness R55: Near syncope R11.2: Non-intractable vomiting with nausea, unspecified vomiting type Evaluate shunt integrity. COMPARISON: 03/22/2018 FINDINGS: A right frontoparietal approach shunt has its intracranial tip terminating in the region of the right lateral ventricle. The shunt exits through a kacey hole and courses through the right neck. The distal tip of the shunt overlies the region of the cavoatrial junction. No shunt discontinuity is seen. A radiolucent valve is again noted at the proximal portion just external to the calvarium. Procedure Note Kami Strong MD - 02/21/2021 Exam: XR SHUNT SERIES Date: 02/21/2021 12:03 PM History: R42: Dizziness R55: Near syncope R11.2: Non-intractable vomiting with nausea, unspecified vomiting type Evaluate shunt integrity. COMPARISON: 03/22/2018 FINDINGS: A right frontoparietal approach shunt has its intracranial tipterminating in the region of the right lateral ventricle. The shunt exits through a kacey hole and courses through the right neck. The distal tip of theshunt overlies the region of the cavoatrial junction. No shunt discontinuityis seen. A radiolucent valve is again noted at the proximal portion just external to the calvarium. IMPRESSION: Intact shunt. This report was electronically signed by KAMI STRONG M.D. on 02/21/2021 12:24 PM . Blanca Galvin [employer] TREASURER-SENIOR OPERATIONS ANALYST DIAGNOSTIC I MAGING ORDERABLES * XR CHEST 1VW PORTABLE (02/21/2021 11:31 AM CDT) Only the most recent of2 resultswithin the time period is included. Anatomical Region Laterality Modality Chest Radiographic Celina ging 02/21/2021 10:5 5 AM CDT Impressions 02/21/2021 11:10 AM CDT FINDINGS/IMPRESSION: The tip of the right IJ central venous catheter is in the superior vena cava. There is no focal consolidation, pleural effusion, or pneumothorax. The cardiomediastinal silhouette is normal. The visible bony thorax is intact. Dictated by Samia Santana MD (vice president pharmacy). IDr. KAMI M.D. have personally reviewed and interpreted this examination/study. This report was electronically signed by KAMI STRONG M.D. on 02/21/2021 11:10 AM . Narrative 02/21/2021 11:10 AM CDT EXAMINATION: XR CHEST 1VW PORTABLE HISTORY: R55: Near syncope COMPARISON: Chest x-ray dated 04/12/2018 Procedure Note Kami Strong MD - 02/21/2021 EXAMINATION: XR CHEST 1VW PORTABLE HISTORY: R55: Near syncope COMPARISON: Chest x-ray dated 04/12/2018 FINDINGS/IMPRESSION: The tip of the right IJ central venous catheter is in the superior vena cava. There is no focal consolidation, pleural effusion, or pneumothorax. The cardiomediastinal silhouette is normal. The visible bony thorax isintact. Dictated by Samia Santana MD (vice president pharmacy). I, Dr. KAMI STRONG M.D. have personally reviewed and interpreted this examination/study. This report was electronically signed by KAMI STRONG M.D. on 02/21/2021 11:10 AM . Blanca [facility]AUHAN DIAGNOSTIC I MAGING ORDERABLES * TROPONIN I (02/21/2021 11:10 AM CDT) Only the most recent of2 resultswithin the time period is included. [facility] Troponin I <0.010 <0.032 ng/mL 02/21/2021 12:07 PM CDT [facility] Blood BLOOD SPECIMEN / Unknown Venipuncture / Unknown 02/21/2021 11:10 AM CDT 02/21/2021 11:35 AM CDT Blanca [facility] LAB - CHEMIS TRY ORDERABLES [address] [address], [facility] [phone] * HCG URINE QUALITATIVE (02/21/2021 9:46 AM CDT) [facility] Test Urine Negative Negative 02/21/2021 10:42 AM CDT [facility] Urine URINE / Unknown Collection / Unknown 02/21/2021 9:46 AM CDT 02/21/2021 9:56 AM CDT Acosta Ma MD LAB - URINALYSIS ORD ERABLES [address] [address], [facility] [phone] * (ABNORMAL) CBC W AUTO DIFFERENTIAL (02/21/2021 9:40 AM CDT) Only the most recent of10 resultswithin the time period is included. WBC 8.3 3.5 - 10.5 10 3/uL 02/21/2021 10:03 AM [facility] RBC 4.84 3.80 - 5.20 10 6/uL 02/21/2021 10:03 AM [facility] Hemoglobin 15.3 12.0 - 15.6 g/dL 02/21/2021 10:03 AM [facility] Hematocrit 46.5(H) 35.0 - 45.0 % 02/21/2021 10:03 AM [facility] MCV 96.1 80.7 - 98.3 fL 02/21/2021 10:03 AM [facility] MCH 31.6 26.7 - 34.0 pg 02/21/2021 10:03 AM [facility] MCHC 32.9 30.8 - 35.9 g/dL 02/21/2021 10:03 AM [facility] Platelet Count 338 150 - 400 10 3/uL 02/21/2021 10:03 AM [facility] RDW-SD 47.7 36.0 - 50.0 fL 02/21/2021 10:03 AM [facility] RDW-CV 13.5 11.2 - 14.8 % 02/21/2021 10:03 AM [facility] MPV 9.2(L) 9.4 - 12.9 fL 02/21/2021 10:03 AM [facility] nRBC Absolute 0.00 0 10 3/uL 02/21/2021 10:03 AM [facility] nRBC Auto 0.0 0 /100 WBC 02/21/2021 10:03 AM [facility] Neutrophils % 77.1(H) 35.0 - 70.0 % 02/21/2021 10:03 AM [facility] Lymphocytes % 15.6(L) 20.0 - 43.0 % 02/21/2021 10:03 AM [facility] Monocytes % 5.4 5.0 - 13.0 % 02/21/2021 10:03 AM [facility] Eosinophils % 1.2 0.0 - 6.0 % 02/21/2021 10:03 AM [facility] Basophil % 0.5 0.0 - 2.0 % 02/21/2021 10:03 AM [facility] Neutrophils Absolute 6.4 1.6 - 7.0 10 3/uL 02/21/2021 10:03 AM [facility] Lymphocyte Absolute 1.3 1.1 - 3.9 10 3/uL 02/21/2021 10:03 AM [facility] Monocytes Absolute 0.45 0.26 - 1.07 10 3/uL 02/21/2021 10:03 AM [facility] Eosinophils Absolute 0.10 0.00 - 0.47 10 3/uL 02/21/2021 10:03 AM [facility] Basophils Absolute 0.04 0.00 - 0.08 10 3/uL 02/21/2021 10:03 AM [facility] Immature Granulocytes % 0.2 0.0 - 1.0 % 02/21/2021 10:03 AM [facility] Immature Granulocytes Absolute 0.02 02/21/2021 10:03 AM [facility] Blood BLOOD SPECIMEN / Unknown Venipuncture / Unknown 02/21/2021 9:40 AM CDT 02/21/2021 9:53 AM CDT Acosta Ma MD LAB - HEMATOLOGY ORD ERABLES [address] [address] [phone] * (ABNORMAL) BASIC METABOLIC PANEL (CALCIUM TOTAL) (02/21/2021 9:40 AM CDT) Only the most recent of10 resultswithin the time period is included. BUN 11 7 - 26 mg/dL 02/21/2021 10:18 AM [facility] Creatinine 0.76 0.56 - 0.96 mg/dL 02/21/2021 10:18 AM [facility] Sodium 140 136 - 145 mmol/L 02/21/2021 10:18 AM [facility] Potassium 4.7(H) 3.5 - 4.5 mmol/L 02/21/2021 10:18 AM [facility] Chloride 103 98 - 107 mmol/L 02/21/2021 10:18 AM [facility] CO2 28 22 - 29 mmol/L 02/21/2021 10:18 AM [facility] Glucose 92 70 - 115 mg/dL 02/21/2021 10:18 AM [facility] Calcium 9.9 8.4 - 10.2 mg/dL 02/21/2021 10:18 AM [facility] Anion Gap 14 8 - 18 02/21/2021 10:18 AM [facility] BUN/Creatinine Ratio 14 7 - 23 02/21/2021 10:18 AM [facility] Osmolality Calculated 289 270 - 300 mOsm/kg 02/21/2021 10:18 AM [facility] eGFR by CKD-EPI >90 >=90 mL/min/1.7 3 m2 02/21/2021 10:18 AM [facility] Blood BLOOD SPECIMEN / Unknown Venipuncture / Unknown 02/21/2021 9:40 AM CDT 02/21/2021 9:53 AM CDT Acosta Ma MD LAB - CHEMISTRY [facility] Organization Address City/State/ZIP Co de Phone Number [facility] [address] [place] [phone], [facility] [phone] * EKG 12-LEAD (02/21/2021 8:56 AM CDT) Only the most recent of3 resultswithin the time period is included. Ventricular Rate 100 BPM [facility] MUSE Atrial Rate 100 BPM [facility]USE P-R Interval 172 ms [facility] QRS Duration ms 76 ms [facility] Q-T Interval ms 328 ms [facility]USE QTC Calculation (Bezet) 423 ms [facility]USE Calculated P Apex 63 degrees [facility] MUSE Calculated R Apex 52 degrees [facility] MUSE Calculated T Apex 61 degrees [facility] MUSE Interpretation EKG NORMAL SINUS RHYTHM RIGHT ATRIAL ENLARGEMENT CANNOT RULE OUT ANTERIOR INFARCT (CITED ON OR BEFORE 21-MAR-2018) ABNORMAL ECG WHEN COMPARED WITH ECG OF 21-MAR-2018 13:23, T WAVE INVERSION NO LONGER EVIDENT IN INFERIOR LEADS RIGHT ATRIAL ENLARGEMENT IS NOW PRESENT Confirmed by fellow Maude Moyer ([id number]) on 02/22/2021 3:15:12 PM Confirmed by Logan Patel ([id number]) on 02/23/2021 12:26:46 PM [facility] MUSE 02/21/2021 8:56 AM CDT 02/23/2021 12:26 PM CDT Acosta Ma MD ECG ORDERABLES [facility] MUSE * MRI BRAIN WO CONTRAST (02/21/2021 8:40 AM CDT) Only the most recent of3 resultswithin the time period is included. Anatomical Region Laterality Modality Head Magnetic Resonan ce 02/22/2021 5:35 PM CDT Impressions 02/22/2021 5:46 PM CDT IMPRESSION: Since prior MRI of the brain from 02/23/2020: 1.Stable position of the right frontal approach ventricular catheter with decompressed ventricles. 2.Expected interval evolution of the postoperative findings of suboccipital craniectomy and resection of the posterior arch of C1 for Chiari I decompression. 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 This report was electronically signed by HARVEY DUDLEY on 02/22/2021 5:46 PM . Narrative 02/22/2021 5:46 PM CDT MRI BRAIN WO CONTRAST DATE: 02/21/2021 8:41 AM EXAMINATION: Magnetic resonance imaging (MRI) of the brain without contrast HISTORY: G93.5: Chiari I malformation. Z98.2: S/P FELLER HAND shunt TECHNIQUE: MRI of the brain was performed without contrast according to standard protocol. COMPARISON: MRI of the brain from 02/23/2020. FINDINGS: Redemonstration of a right frontal approach ventricular catheter terminating along the midline near the foramen of Monro. Artifacts from the reservoir limits local evaluation of portions of the underlying left cerebral hemisphere. The ventricles are decompressed. No evidence of acute or chronic hemorrhage is identified. No evidence of acute cerebral infarction is seen. The ventricles are of stable size, shape, and morphology. There is a small cavum septum pellucidum. No mass effect or midline shift is seen. Redemonstration of postoperative findings of suboccipital craniectomy and partial resection of the posterior arch of C1 for Chiari decompression. Redemonstration of crowding at the level of the foramen magnum and cerebellar tonsillar ectopia compatible with Chiari I malformation, grossly unchanged from prior. 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 The corpus callosum and sella appear are grossly stable. The brainstem, and craniocervical junction are otherwise grossly stable in appearance. Other than mild paranasal sinus disease, the visualized portions of the orbits, paranasal sinuses, and mastoids appear normal. Normal flow voids are demonstrated in the carotid arteries and basilar artery. The calvarium and visualized cervical spine appear normal. Procedure Note Harvey Dudley MD - 02/22/2021 MRI BRAIN WO CONTRAST DATE: 02/21/2021 8:41 AM EXAMINATION: Magnetic resonance imaging (MRI) of the brain withoutcontrast HISTORY: G93.5: Chiari I malformation. Z98.2: S/P FELLER HAND shunt TECHNIQUE: MRI of the brain was performed without contrast according to standard protocol. COMPARISON: MRI of the brain from 02/23/2020. FINDINGS: Redemonstration of a right frontal approach ventricular catheter terminating along the midline near the foramen of Monro. Artifacts from the reservoir limits local evaluation of portions of the underlying left cerebral hemisphere. The ventricles are decompressed. No evidence of acute or chronic hemorrhage is identified. No evidence of acute cerebral infarction is seen. The ventricles are of stable size, shape, and morphology. There is a small cavum septum pellucidum. No mass effect or midline shift is seen. Redemonstration of postoperative findings of suboccipital craniectomyand partial resection of the posterior arch of C1 for Chiari decompression. Redemonstration of crowding at the level of the foramen magnum and cerebellar tonsillar ectopia compatible with Chiari I malformation, grossly unchanged from prior. 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 The corpus callosum and sella appear are grossly stable. The brainstem, and craniocervical junction are otherwise grossly stable in appearance. Other than mild paranasal sinus disease, the visualized portions of the orbits, paranasal sinuses, and mastoids appear normal. Normal flow voids are demonstrated in the carotid arteries and basilar artery. Thecalvarium and visualized cervical spine appear normal. IMPRESSION: Since prior MRI of the brain from 02/23/2020: 1.Stable position of the right frontal approach ventricular catheterwith decompressed ventricles. 2.Expected interval evolution of the postoperative findings of suboccipital craniectomy and resection of the posterior arch of C1 for Chiari I decompression. 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 This report was electronically signed by HARVEY DUDLEY on02/22/2021 5:46 PM . Pooja Alanis MD MR ORDERABLES * CARDIAC PROCEDURE ORDER (06/12/2018 11:24 AM DEHYDRATOR) Narrative 06/12/2018 11:24 AM DEHYDRATOR Ordered by an unspecified provider. Scanned Document CARDIAC SERVICES ORD ERABLES * GRAM STAIN (LAB ORDERED) (04/14/2018 1:20 PM CDT) Only the most recent of3 resultswithin the time period is included. Gram Stain Moderate White blood cells 04/14/2018 5:00 PM CDT [facility] Gram Stain No organisms seen 04/14/2018 5:00 PM CDT [facility] Microbiology CEREBROSPINAL FLUID SPECIMEN / Unknown Collection / Unknown 04/14/2018 1:20 PM CDT 04/14/2018 1:25 PM CDT Hayely Loving APRN-SENIOR OPERATIONS ANALYST LAB - MICROBIOLOGY O RDERABLES [facility] [address] [place] [address] * CULTURE CSF+GRAM STAIN (04/14/2018 1:20 PM CDT) Only the most recent of3 resultswithin the time period is included. Culture No growth JENI 04/21/2018 3:34 AM CDT [facility] Gram Stain No organisms seen 04/21/2018 3:34 AM CDT [facility] Gram Stain Light White blood cells 04/21/2018 3:34 AM CDT [facility] Cerebral spinal fluid CEREBROSPINAL FLUID SPECIMEN / Unknown Collection / Unknown 04/14/2018 1:20 PM CDT 04/14/2018 1:25 PM CDT Hayley Loving APRN-SENIOR OPERATIONS ANALYST LAB - MICROBIOLOGY O RDERABLES [facility] [address] [place] [address], [facility] [phone] * CT HEAD WO CONTRAST (04/13/2018 9:55 AM CDT) Only the most recent of8 resultswithin the time period is included. Anatomical Region Laterality Modality Head Computed Tomogra phy 04/13/2018 12:3 4 PM CDT Impressions 04/13/2018 12:40 PM CDT IMPRESSION: Compared to prior scan dated 04/08/2018: FELLER HAND shunt in place, with mild decrease in size of the lateral and third ventricles. Ventricles have very small size, with no hydrocephalus. Similar size of pseudomeningocele centered at site of suboccipital craniectomy/C1 laminectomy. This report was electronically signed by TOMMIE TSE on 04/13/2018 12:40 PM . Narrative 04/13/2018 12:40 PM CDT EXAM: CT HEAD WO CONTRAST CLINICAL INDICATION: Post FELLER HAND shunt COMPARISON: CT head without contrast 04/08/2018 TECHNIQUE: CT of the head was performed without contrast according to standard protocol. Automated dose reduction techniques were employed. FINDINGS: Redemonstrated C1 laminectomy and suboccipital craniectomy. Redemonstrated pseudomeningocele centered at craniectomy site extending into the suboccipital soft tissues space. Comparing true axial sequences, pseudomeningocele measures 7.1 x 5.1 cm on the current study, compared to 6.8 x 5.3 cm on prior. FELLER HAND shunt courses through the right frontal lobe, right lateral ventricle, with tip in expected region of collapsed third ventricle. Interval decrease in now very small size lateral ventricles, decrease in now collapsed third ventricle, and no change in normal size fourth ventricle. Cerebral sulci rightly patent. Basal cisterns are widely patent. No midline shift. Quick-white matter differentiation appears preserved. No acute intracranial hemorrhage. The bony calvarium appears unremarkable. The visualized paranasal sinuses are well-aerated. Mucosal thickening in region of left frontal recess, bilateral maxillary antra, and sphenoid sinus bilaterally. Poor dentition, with periapical lucencies of maxillary left-sided teeth. Procedure Note Tommie Tse MD - 04/13/2018 EXAM: CT HEAD WO CONTRAST CLINICAL INDICATION: Post FELLER HAND shunt COMPARISON: CT head without contrast 04/08/2018 TECHNIQUE: CT of the head was performed without contrast according to standard protocol. Automated dose reduction techniques were employed. FINDINGS: Redemonstrated C1 laminectomy and suboccipital craniectomy. Redemonstrated pseudomeningocele centered at craniectomy site extending into the suboccipital soft tissues space. Comparing true axial sequences, pseudomeningocele measures 7.1 x 5.1 cm on the current study, compared to 6.8 x 5.3 cm on prior. FELLER HAND shunt courses through the right frontal lobe, right lateralventricle, with tip in expected region of collapsed third ventricle. Interval decrease in now very small size lateral ventricles, decrease in now collapsed third ventricle, and no change in normal size fourth ventricle. Cerebral sulci rightly patent. Basal cisterns are widely patent. No midline shift. Quick-white matter differentiation appears preserved. No acuteintracranial hemorrhage. The bony calvarium appears unremarkable. The visualized paranasalsinuses are well-aerated. Mucosal thickening in region of left frontal recess, bilateral maxillary antra, and sphenoid sinus bilaterally. Poor dentition, with periapical lucencies of maxillary left-sided teeth. IMPRESSION: Compared to prior scan dated 04/08/2018: FELLER HAND shunt in place, with mild decrease in size of the lateral and third ventricles. Ventricles have very small size, with no hydrocephalus. Similar size of pseudomeningocele centered at site of suboccipital craniectomy/C1 laminectomy. This report was electronically signed by TOMMIE TSE on 04/13/201812:40 PM . Logan Damon MD CT ORDERABLES * XR CHEST 1VW (04/12/2018 4:50 PM CDT) Anatomical Region Laterality Modality Chest Radiographic Celina ging 04/13/2018 7:32 AM CDT Impressions 04/13/2018 7:55 AM CDT IMPRESSION: Mild bibasilar atelectasis in the setting of hypoinflated lungs. Ventriculoatrial shunt catheter tip at the superior cavoatrial junction. Dictated by Clovis Murphy DO (vice president pharmacy). Dr. RUMA Barger have personally reviewed and interpreted this examination/study. This report was electronically signed by RUMA JARA on 04/13/2018 7:55 AM . Narrative 04/13/2018 7:55 AM CDT EXAMINATION: XR CHEST 1VW HISTORY: Shunt revision. COMPARISON: Comparison is made with a study from March 20, 2018 FINDINGS: A right sided shunt catheter courses from the base of the right neck to the right internal jugular vein, terminating in the superior cavoatrial junction. The lungs are hypoinflated resulting vascular crowding. There is mild bibasilar opacities representing atelectasis. There is no pleural effusion or pneumothorax. The cardiomediastinal silhouette is normal. The visible bony thorax is intact. Procedure Note Ruma Jara DO - 04/13/2018 EXAMINATION: XR CHEST 1VW HISTORY: Shunt revision. COMPARISON: Comparison is made with a study from March 20, 2018 FINDINGS: A right sided shunt catheter courses from the base of the right neck to the right internal jugular vein, terminating in the superior cavoatrial junction. The lungs are hypoinflated resulting vascular crowding. There is mild bibasilar opacities representing atelectasis. There is no pleuraleffusion or pneumothorax. The cardiomediastinal silhouette is normal. The visible bony thorax is intact. IMPRESSION: Mild bibasilar atelectasis in the setting of hypoinflated lungs. Ventriculoatrial shunt catheter tip at the superior cavoatrial junction. Dictated by Clovis Murphy DO (vice president pharmacy). Dr. RUMA Barger have personally reviewed and interpreted this examination/study. This report was electronically signed by RUMA JARA on 04/13/2018 7:55 AM . Isidro Gutierrez MD DIAGNOSTIC IMAGING O RDPELON * XR SKULL 3VW OR LESS (04/12/2018 4:50 PM CDT) Anatomical Region Laterality Modality Head Radiographic Celina ging 04/13/2018 7:30 AM CDT Impressions 04/13/2018 7:54 AM CDT IMPRESSION: Right frontal approach shunt revision. Dictated by Clovis Murphy DO (vice president pharmacy). Dr. RUMA Barger have personally reviewed and interpreted this examination/study. This report was electronically signed by RUMA JARA on 04/13/2018 7:54 AM . Narrative 04/13/2018 7:54 AM CDT EXAMINATION: XR SKULL 3VW OR LESS HISTORY: Shunt revision. COMPARISON: Comparison is made with a study from April 08, 2018. FINDINGS: The patient has undergone revision of a right frontal approach ventricular catheter. The intracranial portion of the catheter courses near the midline of the frontal horn of the right lateral ventricle. Radiolucent valve is seen along the extracranial right frontoparietal scalp. Tubing is intact to the base of the right neck. Procedure Note Ruma Jara DO - 04/13/2018 EXAMINATION: XR SKULL 3VW OR LESS HISTORY: Shunt revision. COMPARISON: Comparison is made with a study from April 08, 2018. FINDINGS: The patient has undergone revision of a right frontal approachventricular catheter. The intracranial portion of the catheter courses near the midline of the frontal horn of the right lateral ventricle. Radiolucent valve is seen along the extracranial right frontoparietal scalp. Tubingis intact to the base of the right neck. IMPRESSION: Right frontal approach shunt revision. Dictated by Clovis Murphy DO (vice president pharmacy). Dr. RUMA Barger have personally reviewed and interpreted this examination/study. This report was electronically signed by RUMA JARA on 04/13/2018 7:54 AM . Isidro Gutierrez MD DIAGNOSTIC IMAGING O RDERABLES * FL KEN SURGERY (04/12/2018 4:33 PM CDT) Narrative [facility] - 04/12/2018 4:33 PM CDT Fluoroscopy was used for this exam in the OR. Please see the Operative report. Pooja Alanis MD FLUOROSCOPY ORDERABL ES Performing Organization Address [facility] Co de Phone Number [facility] * TYPE + SCREEN PANEL (04/12/2018 5:18 AM CDT) Only the most recent of7 resultswithin the time period is included. Antibody Screen NEG 8 6:25 AM CDT [facility] ABO Rh A POS 04/12/2018 6:25 AM CDT [facility] Blood Bank BLOOD SPECIMEN / Unknown Venipuncture / Unknown 04/12/2018 5:18 AM CDT 04/12/2018 5:27 AM CDT Yuri Arias MD LAB - BLOOD BANK ORD ERABLES Performing Organization Address [facility] Co de Phone Number [facility] [address] [place] [address] * (ABNORMAL) C-REACTIVE PROTEIN (04/09/2018 9:53 AM CDT) Only the most recent of2 resultswithin the time period is included. C-Reactive Protein 0.7(H) <=0.5 mg/dL 04/09/2018 10:28 AM CDT [facility] Blood BLOOD SPECIMEN / Unknown Venipuncture / Unknown 04/09/2018 9:53 AM CDT 04/09/2018 10:07 AM CDT Logan Damon MD LAB - JEWEL STAKER RY ORDERABLES Performing Organization Address [facility] Co de Phone Number [facility] [address] [place] [address] * (ABNORMAL) ERYTHROCYTE SEDIMENTATION RATE (04/09/2018 9:53 AM CDT) Only the most recent of2 resultswithin the time period is included. Pathologist [facility] [place] Erythrocyte Sedimentation Rate Westergren 37(H) 0 - 20 MM/HR 04/09/2018 10:28 AM [facility] Blood BLOOD SPECIMEN / Unknown Venipuncture / Unknown 04/09/2018 9:53 AM CDT 04/09/2018 10:07 AM CDT Logan Damon MD LAB - HEMATOL OGY ORDERABLES [facility] [address] [place] [address] * (ABNORMAL) CBC W/O DIFFERENTIAL (04/09/2018 3:42 AM CDT) Only the most recent of5 resultswithin the time period is included. [facility] WBC 5.8 3.5 - 10.5 10 3/uL 04/09/2018 3:57 AM [facility] RBC 3.55(L) 3.90 - 5.00 10 6/uL 04/09/2018 3:57 AM [facility] Hemoglobin 11.0(L) 12.0 - 15.5 g/dL 04/09/2018 3:57 AM [facility] Hematocrit 34.1(L) 35.0 - 45.0 % 04/09/2018 3:57 AM [facility] MCV 96.1 81.0 - 97.0 fL 04/09/2018 3:57 AM [facility] MCH 31.0 28.0 - 34.0 pg 04/09/2018 3:57 AM [facility] MCHC 32.3 32.0 - 36.0 g/dL 04/09/2018 3:57 AM [facility] Platelet Count 268 150 - 400 10 3/uL 04/09/2018 3:57 AM [facility] RDW-SD 45.5 36.0 - 50.0 fL 04/09/2018 3:57 AM [facility] RDW-CV 13.0 11.2 - 14.8 % 04/09/2018 3:57 AM [facility] MPV 10.3 9.3 - 12.8 fL 04/09/2018 3:57 AM CDT [facility] Blood BLOOD SPECIMEN / Unknown Venipuncture / Unknown 04/09/2018 3:42 AM CDT 04/09/2018 3:46 AM CDT Yuri Arias MD LAB - HEMATOLOGY ORD ERABLES Performing Organization Address City/[facility]/ZIP Co de Phone Number [address] [phone] * CULTURE BLOOD (04/08/2018 11:03 PM CDT) Only the most recent of2 resultswithin the time period is included. Culture No growth day 5 JENI 04/14/2018 2:45 AM CDT [facility] Blood PERIPHERAL BLOOD / Unknown Lab Venipuncture / Unknown 04/08/2018 11:03 PM CDT 04/08/2018 11:08 PM CDT Yuri Arias MD LAB - MICROBIOLOGY O RDERABLES Performing Organization Address City/[facility]/ZIP Co de Phone Number [facility] [address] [place] [address], [facility] [phone] * PTT [facility] (04/08/2018 10:57 PM CDT) Only the most recent of4 resultswithin the time period is included. APTT 27.0 23.0 - 38.4 Seconds 04/08/2018 11:23 PM CDT [facility] Comment: Suggested therapeutic range for full dose I.V. heparin therapy for venous thromboembolism is 66.0-91.0 seconds. Blood BLOOD SPECIMEN / Unknown Lab Venipuncture / Unknown 04/08/2018 10:57 PM CDT 04/08/2018 11:08 PM CDT Yuri Arias MD LAB - COAGULATION OR DERABLES Performing Organization Address City/[facility]/ZIP Co de Phone Number [address] [address], [facility] [phone] * PT-INR [facility] (04/08/2018 10:57 PM CDT) Only the most recent of6 resultswithin the time period is included. Pathologist [facility] [place] PT 13.3 12.1 - 14.8 Seconds 04/08/2018 11:22 PM CDT [facility] INR 1.0 See Comment 04/08/2018 11:22 PM CDT [facility] Comment: The suggested therapeutic range for standard coumadin (warfarin) therapy is an INR of 2.0-3.0. For high-risk patients (Mechanical Mitral Valve Prosthesis, etc.), the suggested prophylactic therapeutic range is an INR of 2.5-3.5. Blood BLOOD SPECIMEN / Unknown Lab Venipuncture / Unknown 04/08/2018 10:57 PM CDT 04/08/2018 11:08 PM CDT Yuri Arias MD LAB - COAGULATION OR DERABLES Performing Organization Address City/[facility]/ZIP Co de Phone Number [facility] [address] [phone] * CULTURE CATH TIP (04/08/2018 9:15 PM CDT) [facility] Culture No growth JENI 04/16/2018 7:04 PM CDT [facility] Microbiology CEREBROSPINAL FLUID SHUNT TUBING / Unknown Collection / Unknown 04/08/2018 9:15 PM CDT 04/08/2018 9:15 PM CDT Ambrose Lopez MD LAB - MICROBIOLO GY ORDERABLES [facility] [address] [phone] * DIFFERENTIAL MANUAL FLUID (04/08/2018 9:12 PM CDT) Only the most recent of2 resultswithin the time period is included. Pathologist [facility] [place] Segs % Fluid 8 % 04/08/2018 9:51 PM CDT [facility] Lymphocytes % Fluid 70 % 04/08/2018 9:51 PM CDT [facility] Monocytes % Fluid 12 % 04/[facility]2018 [facility] Eosinophils % Fluid 7 % 04/08/2018 9:51 PM [facility] Macrophages % Fluid 3 % 04/08/2018 9:51 PM [facility] Cerebral spinal fluid CEREBROSPINAL FLUID SPECIMEN FROM VENTRICLE OF BRAIN / Unknown Collection / Unknown 04/08/2018 9:12 PM CDT 04/08/2018 9:12 PM CDT Ambrose Lopez MD LAB - BODY FLUID ORDERABLES Performing Organization Address City/[facility] Co de Phone Number [address] [phone] * CELL COUNT W DIFFERENTIAL CSF (04/08/2018 9:12 PM CDT) Only the most recent of2 resultswithin the time period is included. Color Fluid Colorless Colorless, Straw 04/08/2018 9:45 PM [facility] Clarity Fluid Clear Clear 04/08/2018 9:45 PM [facility] Volume Fluid 6.0 mL 04/08/2018 9:45 PM [facility] WBC Calculation Fluid 43 /uL 04/08/2018 9:45 PM [facility] RBC Calculation 62 /uL 8 9:45 PM [facility] Xanthochromia Fluid Negative Negative 04/08/2018 9:45 PM [facility] Differential Manual Differential to follow. 04/08/2018 9:45 PM [facility] Cerebral spinal fluid CEREBROSPINAL FLUID SPECIMEN FROM VENTRICLE OF BRAIN / Unknown Collection / Unknown 04/08/2018 9:12 PM CDT 04/08/2018 9:12 PM CDT Ambrose Lopez MD LAB - BODY FLUID ORDERABLES Performing Organization Address [facility] [place] [address], [facility] [phone] * (ABNORMAL) PROTEIN CSF (04/08/2018 9:12 PM CDT) Only the most recent of2 resultswithin the time period is included. Protein CSF 114(H) 15 - 45 mg/dL 04/08/2018 9:33 PM CDT [facility] Cerebral spinal fluid CEREBROSPINAL FLUID SPECIMEN / Unknown Collection / Unknown 04/08/2018 9:12 PM CDT 04/08/2018 9:12 PM CDT Ambrose Lopez MD LAB - BODY FLUID ORDERABLES Performing Organization Address City/[facility]/ZIP Co de Phone Number [address] [phone] * GLUCOSE CSF (04/08/2018 9:12 PM CDT) Only the most recent of2 resultswithin the time period is included. Glucose CSF 54 40 - 70 mg/dL 04/08/2018 9:33 PM CDT [facility] Cerebral spinal fluid COLLECTION OF CEREBROSPINAL FLUID VIA VENTRICULOPERITONEAL SHUNT / Unknown Collection / Unknown 04/08/2018 9:12 PM CDT 04/08/2018 9:12 PM CDT Ambrose Lopez MD LAB - BODY FLUID ORDERABLES Performing Organization Address City/[facility] Co de Phone Number [address] [phone] * (ABNORMAL) COMPREHENSIVE METABOLIC PANEL (04/08/2018 5:05 PM CDT) Only the most recent of7 resultswithin the time period is included. BUN 14 7 - 26 mg/dL 04/08/2018 5:34 PM CDT [facility] Creatinine 1.2 0.6 - 1.2 mg/dL 04/08/2018 5:34 PM [facility] Sodium 136 136 - 145 mmol/L 04/08/2018 5:34 PM [facility] Potassium 3.6 3.5 - 4.5 mmol/L 04/08/2018 5:34 PM [facility] Chloride 94(L) 98 - 107 mmol/L 04/08/2018 5:34 PM [facility] CO2 33(H) 22 - 29 mmol/L 04/08/2018 5:34 PM [facility] Glucose 87 70 - 115 mg/dL 04/08/2018 5:34 PM [facility] Calcium 10.2 8.4 - 10.2 mg/dL 04/08/2018 5:34 PM [facility] Protein Total 7.1 6.0 - 8.3 g/dL 04/08/2018 5:34 PM [facility] Albumin 3.6 3.4 - 5.0 g/dL 04/08/2018 5:34 PM [facility] Bilirubin Total 1.1 0.2 - 1.2 mg/dL 04/08/2018 5:34 PM [facility] Alkaline Phosphatase 49 40 - 150 Units/L 04/08/2018 5:34 PM [facility] ALT 88(H) 0 - 55 Units/L 04/08/2018 5:34 PM [facility] AST 39(H) 5 - 34 Units/L 04/08/2018 5:34 PM [facility] Anion Gap 13 8 - 18 04/08/2018 5:34 PM [facility] BUN/Creatinine Ratio 12 7 - 23 04/08/2018 5:34 PM [facility] Osmolality Calculated 282 270 - 300 mOsm/kg 04/08/2018 5:34 PM [facility] Albumin/Globulin Ratio 1.0(L) 1.1 - 2.3 04/08/2018 5:34 PM [facility] eGFR 49(L) >60 mL/min/1.7 3 m2 04/08/2018 5:34 PM [facility] Blood BLOOD SPECIMEN / Unknown Venipuncture / Unknown 04/08/2018 5:05 PM CDT 04/08/2018 5:08 PM T Balwinder Dominguez MD LAB - CHEMISTRY [facility] [facility] Organization Address City/State/ZIP Co de Phone Number [facility] [address] [phone] * HIV-1 HIV-2 ANTIGEN/ANTIBODY (04/08/2018 3:24 PM CDT) HIV Antigen/Antibod y 1 & 2 Non-reacti ve Non-react [place] 04/08/2018 4:14 PM CDT [facility] Comment: Neither HIV-1 p24 Antigen nor HIV-1/HIV-2 Antibodies are detected. Blood BLOOD SPECIMEN / Unknown Venipuncture / Unknown 04/08/2018 3:24 PM CDT 04/08/2018 3:30 PM CDT Simon Saldana MD LAB - HEMATOLOGY ORDERABLES Performing Organization Address [facility] Co de Phone Number [address] [phone] * HEPATITIS C AB SCREEN RFLX NAAT QUANT (04/08/2018 3:24 PM CDT) Hepatitis C Antibody Non-react [place] Non-reac tive 04/08/2018 4:21 PM CDT [facility] Comment: Hepatitis C Antibody screen indicates [...] Simon Saldana MD LAB - CHEMISTRY ORDERABLES Performing Organization Address [facility] Co de Phone Number [address] [phone] * ENDOTRACHEAL TUBE NOTE (03/26/2018 3:48 PM CDT) Narrative Isaias Vincent MD - 03/26/2018 3:48 PM CDT Patricio Swartz DO 03/22/2018 8:16 AM Endotracheal Tube Placement: Patient Location: OR. Intubation Event Date/Time: 03/22/2018 7:53 AM Procedure: intubation ([id number]). Procedure Section: Sedation: under general anesthesia. Indications for Airway Management: anesthesia Pretreatment: 100% O2. Induction: standard IV Patient Position: sniffing and supine Mask Ventilation: easy. Blade Type: Sotero Blade Size: 3 Laryngoscopy View: grade 1 (full cords) Device: endotracheal tube Placement: oral Tube type: cuff - inflated Tube Size (MM): 7 Depth of Insertion (CM): 22 Measured From: lips Cuff Inflated With: air Number of Attempts: 1. Placement Verified By: direct visualization, bilateral breath sounds, chest auscultation and CO2 monitor Tube secured with: adhesive tape. Difficult Airway? No. Procedure Start Time: 03/22/2018 7:53 AM. Staff Section Anesthesia Provider: PATRICIO SWARTZ Performed Provider #1: ISAIAS VINCENT Isaias Vincent MD GENERAL ANESTHESIA O RDERABLES * (ABNORMAL) RENAL FUNCTION PANEL (03/24/2018 3:14 PM T) Only the most recent of7 resultswithin the time period is included. BUN 8 7 - 26 mg/dL 03/24/2018 3:57 PM [facility] Creatinine 0.8 0.6 - 1.2 mg/dL 03/24/2018 3:57 PM [facility] Sodium 139 136 - 145 mmol/L 03/24/2018 3:57 PM [facility] Potassium 3.5 3.5 - 4.5 mmol/L 03/24/2018 3:57 PM [facility] Chloride 98 98 - 107 mmol/L 03/24/2018 3:57 PM [facility] CO2 33(H) 22 - 29 mmol/L 03/24/2018 3:57 PM [facility] Glucose 111 70 - 115 mg/dL 03/24/2018 3:57 PM [facility] Albumin 2.8(L) 3.4 - 5.0 g/dL 03/24/2018 3:57 PM [facility] Calcium 9.0 8.4 - 10.2 mg/dL 03/24/2018 3:57 PM [facility] Phosphorus 3.4 2.3 - 4.7 mg/dL 03/24/2018 3:57 PM [facility] Anion Gap 12 8 - 18 03/24/2018 3:57 PM [facility] BUN/Creatinine Ratio 10 7 - 23 03/24/2018 3:57 PM [facility] Osmolality Calculated 287 270 - 300 mOsm/kg 03/24/2018 3:57 PM CDT [facility] eGFR >60 >60 mL/min/1.7 3 m2 03/24/2018 3:57 PM CDT [facility] Blood BLOOD SPECIMEN / Unknown 03/24/2018 3:14 PM CDT 03/24/2018 3:38 PM CDT Alverto Johnson DO LAB - CHEMISTRY [place] Performing Organization Address [facility]/ZIP Co de Phone Number [address] [phone] * (ABNORMAL) MAGNESIUM BLOOD (03/24/2018 3:18 AM CDT) Only the most recent of2 resultswithin the time period is included. Magnesium 1.0(L) 1.6 - 2.6 mg/dL 03/24/2018 6:53 AM CDT [facility] Blood BLOOD SPECIMEN / Unknown Venipuncture / Unknown 03/24/2018 3:18 AM CDT 03/24/2018 3:42 AM CDT dAama Diaz MD LAB - CHEMISTRY [place] Performing Organization Address [facility] de Phone Number [address] [phone] * ECHO COMPLETE (03/22/2018 11:47 AM CDT) Anatomical Region Laterality Modality Chest Ultrasound Alverto Johnson DO ECHOCARDIOGRAPHY RAD IANT * US RETROPERITONEAL COMPLETE (03/21/2018 4:30 PM CDT) Anatomical Region Laterality Modality Abdomen Ultrasound 03/22/2018 10:0 8 AM CDT Impressions 03/22/2018 12:08 PM CDT IMPRESSION: Normal renal size. No evidence of nephrolithiasis, hydronephrosis, or solid renal mass. Dictated by Jose Francisco Norman MD (vice president pharmacy). I, Dr. KAMI STRONG M.D. have personally reviewed and interpreted this examination/study. This report was electronically signed by KAMI STRONG M.D. on 03/22/2018 12:08 PM . Narrative 03/22/2018 12:08 PM CDT EXAMINATION: Complete retroperitoneal sonogram HISTORY: Acute kidney injury COMPARISON: CT abdomen dated 03/20/2018 FINDINGS: Right kidney: 10.3 x 6.2 x 6.2 cm Left kidney: 11.1 x 5.1 x 5.3 cm Renal parenchymal echogenicity is normal. There is no evidence of a solid renal mass, renal calculi, or hydronephrosis. Blood flow is seen within the renal arteries and veins. The bladder is distended and appears normal. Procedure Note Kami Strong MD - 03/22/2018 EXAMINATION: Complete retroperitoneal sonogram HISTORY: Acute kidney injury COMPARISON: CT abdomen dated 03/20/2018 FINDINGS: Right kidney: 10.3 x 6.2 x 6.2 cm Left kidney: 11.1 x 5.1 x 5.3 cm Renal parenchymal echogenicity is normal. There is no evidence of asolid renal mass, renal calculi, or hydronephrosis. Blood flow is seen within the renal arteries and veins. The bladder is distended and appearsnormal. IMPRESSION: Normal renal size. No evidence of nephrolithiasis, hydronephrosis, or solid renal mass. Dictated by Jose Francisco Norman MD (vice president pharmacy). I, Dr. KAMI STRONG M.D. have personally reviewed and interpreted this examination/study. This report was electronically signed by KAMI STRONG M.D. on 03/22/2018 12:08 PM . Alverto Johnson US ORDERABLES * (ABNORMAL) URINALYSIS REFLEX TO MICROSCOPIC NO CULTURE (03/21/2018 11:42 AM CDT) Only the most recent of2 resultswithin the time period is included. Color UA Yellow Straw, Yellow, Colorless, Light Yellow 03/21/2018 12:26 PM CDT [facility] Clarity UA Hazy(A) Clear 03/21/2018 12:26 PM CDT [facility] Specific [place] UA 1.010 1.001 - 1.030 03/21/2018 12:26 PM [facility] pH UA 5.0 5.0 - 8.0 03/21/2018 12:26 PM [facility] Protein UA Trace(A) <=20 mg/dL 03/21/2018 12:26 PM [facility] Comment:Confirmed by repeat analysis. Glucose UA Negative Negative mg/dL 03/21/2018 12:26 PM [facility] Ketone UA Trace(A) Negative mg/dL 03/21/2018 12:26 PM [facility] Bilirubin UA Negative Negative mg/dL 03/21/2018 12:26 PM [facility] Blood UA Negative Negative 03/21/2018 12:26 PM [facility] Nitrite UA Positive(A) Negative 03/21/2018 12:26 PM [facility] Leukocyte Esterase Small(A) Negative 03/21/2018 12:26 PM [facility] Urobilinogen UA <2.0 <2.0 mg/dL 8 12:26 PM [facility] WBC UA 6(H) 0 - 2 /HPF 03/21/2018 12:26 PM [facility] Bacteria UA Moderate(A) Rare, Occasional, None /HPF 03/21/2018 12:26 PM [facility] Squamous Epithelial Cells UA 5(H) 0 - 1 /HPF 03/21/2018 12:26 PM [facility] Mucus UA Rare(A) None /LPF 03/21/2018 12:26 PM [facility] Hyaline Casts UA 13(H) 0 - 2 /LPF 03/21/20 18 12:26 PM [facility] Urine URINE SPECIMEN OBTAINED BY CLEAN CATCH PROCEDURE / Unknown Collection / Unknown 03/21/2018 11:42 AM CDT 03/21/2018 11:46 AM CDT Alverto Johnson DO LAB - URINALYSIS ORD ERABLES [address] [phone] * EOSINOPHIL URINE SMEAR (03/21/2018 11:42 AM CDT) Eosin Stain Urine None None 03/21/2018 1:40 PM CDT [facility] Urine URINE SPECIMEN OBTAINED BY CLEAN CATCH PROCEDURE / Unknown Collection / Unknown 03/21/2018 11:42 AM CDT 03/21/2018 11:46 AM CDT Alverto Elizabeth DO LAB - URINE CHEMISTR Y ORDERABLES Performing Organization Address [facility]/ZIP Co de Phone Number [address] [phone] * PROTEIN URINE RANDOM QUANTITATIVE (03/21/2018 11:42 AM CDT) Protein Urine 21 Not Established mg/dL 03/21/2018 12:32 PM CDT [facility] Urine URINE SPECIMEN OBTAINED BY CLEAN CATCH PROCEDURE / Unknown Collection / Unknown 03/21/2018 11:42 AM CDT 03/21/2018 11:46 AM CDT Alverto Elizabeth DO LAB - URINE CHEMISTR Y ORDERABLES Performing Organization Address [facility] Co de Phone Number [address] [phone] * SODIUM URINE RANDOM (03/21/2018 11:42 AM CDT) Sodium Urine 39 Not Established mmol/L 03/21/2018 12:24 PM CDT [facility] Urine URINE SPECIMEN OBTAINED BY CLEAN CATCH PROCEDURE / Unknown Collection / Unknown 03/21/2018 11:42 AM CDT 03/21/2018 11:46 AM CDT Alverto Elizabeth DO LAB - URINE CHEMISTR Y ORDERABLES Performing Organization Address [facility] Co de Phone Number [address] [phone] * UREA NITROGEN URINE RANDOM (03/21/2018 11:42 AM CDT) Urea Nitrogen Random Urine 401 Not Established mg/dL 03/21/2018 12:24 PM CDT [facility] Urine URINE SPECIMEN OBTAINED BY CLEAN CATCH PROCEDURE / Unknown Collection / Unknown 03/21/2018 11:42 AM CDT 03/21/2018 11:46 AM CDT Alverto Johnson DO LAB - URINE CHEMISTR Y ORDERABLES Performing Organization Address [facility] Co de Phone Number [address] [phone] * CREATININE URINE RANDOM (03/21/2018 11:42 AM CDT) Creatinine Urine 162 Not Established mg/dL 03/21/2018 12:32 PM CDT [facility] Comment: Result obtained by dilution. Urine URINE SPECIMEN OBTAINED BY CLEAN CATCH PROCEDURE / Unknown Collection / Unknown 03/21/2018 11:42 AM CDT 03/21/2018 11:46 AM CDT Alverto Johnson DO LAB - URINE CHEMISTR Y ORDERABLES Performing Organization Address [facility]/ZIP Co de Phone Number [address] [phone] * PHOSPHORUS BLOOD (03/21/2018 3:22 AM CDT) Phosphorus 4.4 2.3 - 4.7 mg/dL 03/21/2018 4:24 AM T [facility] Blood BLOOD SPECIMEN / Unknown Lab Venipuncture / Unknown 03/21/2018 3:22 AM CDT 03/21/2018 3:54 AM CDT Adrianne Guan MD LAB - CHEMISTRY O RDERABLES Performing Organization Address City/[facility]/ZIP Co de Phone Number [address] [phone] * TSH (03/21/2018 3:22 AM CDT) TSH 2.574 0.350 - 4.940 uIU/mL 03/21/2018 4:53 AM T [facility] Blood BLOOD SPECIMEN / Unknown Lab Venipuncture / Unknown 03/21/2018 3:22 AM CDT 03/21/2018 3:54 AM CDT Adrianne Guan MD LAB - [place] [address], [facility] [phone] * CT ABDOMEN WO CONTRAST (03/20/2018 4:43 PM CDT) Anatomical Region Laterality Modality Abdomen Computed Tomogra phy 03/20/2018 5:13 PM CDT Impressions 03/20/2018 6:06 PM CDT IMPRESSION: 1. Ventriculoperitoneal catheter partially imaged coiling in the right anterior abdominal wall subcutaneous tissues, and entering the peritoneal cavity through the right rectus muscle with the tip in the anterior abdomen. 2. No acute process identified in the abdomen or pelvis. Dictated by Carmelo Cornell MD (vice president pharmacy). I, Dr. HUAN MORILLO MD have personally reviewed and interpreted this examination/study. This report was electronically signed by HUAN MORILLO MD on 03/20/2018 6:06 PM . Narrative 03/20/2018 6:06 PM CDT EXAMINATION: Computed tomography (CT) of the abdomen and pelvis without contrast HISTORY: s/p FELLER HAND shunt, distal catheter appears extraperitoneal on plain XRs, check positioning TECHNIQUE: CT of the abdomen and pelvis was performed without contrast according to standard protocol. COMPARISON: No prior study is available for comparison. FINDINGS: Evaluation of visceral and vascular structures is degraded due to lack of intravenous contrast administration. Mild bilateral dependent atelectasis is present. Otherwise no focal consolidation is seen in the visible lung bases. The heart size is normal without pericardial effusion. The liver appears normal. The gallbladder is normal without evidence of wall thickening, pericholecystic fluid, or gallstones. The intrahepatic and extrahepatic bile ducts are nondilated. The spleen, pancreas, and adrenal glands appear normal. The kidneys appear normal in size and configuration. No renal, ureteral, or bladder calculi are visible. There is no evidence of hydronephrosis or hydroureter. The distal esophagus and stomach appear normal. There is colonic diverticulosis without evidence of diverticulitis in the visible portions of the large bowel. The visible portions of the small bowel and large bowel are normal in caliber without evidence of wall thickening or obstruction. No free air or free fluid is identified within the abdomen. There is no abdominal lymphadenopathy. The aorta is normal in course and caliber. Bone windows demonstrate no suspicious lytic or blastic lesions. The visible osseous structures are intact. A ventriculoperitoneal catheter is partially imaged coiling in the right anterior abdominal wall subcutaneous tissues and entering the peritoneal cavity through the right rectus muscle, with the tip within the anterior abdomen. Procedure Note Huan Morillo MD - 03/20/2018 EXAMINATION: Computed tomography (CT) of the abdomen and pelvis without contrast HISTORY: s/p FELLER HAND shunt, distal catheter appears extraperitoneal on plain XRs, check positioning TECHNIQUE: CT of the abdomen and pelvis was performed without contrast according to standard protocol. COMPARISON: No prior study is available for comparison. FINDINGS: Evaluation of visceral and vascular structures is degraded due to lackof intravenous contrast administration. Mild bilateral dependent atelectasis is present. Otherwise no focal consolidation is seen in the visible lung bases. The heart size isnormal without pericardial effusion. The liver appears normal. The gallbladder is normal without evidence of wall thickening, pericholecystic fluid, or gallstones. The intrahepatic and extrahepatic bile ducts are nondilated. The spleen, pancreas, and adrenal glands appear normal. The kidneys appear normal in size and configuration. No renal, ureteral, or bladder calculi are visible. There is no evidence of hydronephrosis or hydroureter. The distal esophagus and stomach appear normal. There is colonic diverticulosis without evidence of diverticulitis in the visibleportions of the large bowel. The visible portions of the small bowel and large bowel are normal in caliber without evidence of wall thickening or obstruction. No free air or free fluid is identified within the abdomen. There is no abdominal lymphadenopathy. The aorta is normal in course and caliber. Bone windows demonstrate no suspicious lytic or blastic lesions. The visible osseous structures are intact. A ventriculoperitoneal catheter is partially imaged coiling in the right anterior abdominal wall subcutaneous tissues and entering theperitoneal cavity through the right rectus muscle, with the tip within the anterior abdomen. IMPRESSION: 1. Ventriculoperitoneal catheter partially imaged coiling in the right anterior abdominal wall subcutaneous tissues, and entering theperitoneal cavity through the right rectus muscle with the tip in the anterior abdomen. 2. No acute process identified in the abdomen or pelvis. Dictated by Carmelo Cornell MD (vice president pharmacy). I, Dr. HUAN MORILLO MD have personally reviewed and interpreted this examination/study. This report was electronically signed by HUAN MORILLO MD on03/20/2018 6:06 PM . Ambrose Lopez MD CT ORDERABLES * (ABNORMAL) CULTURE WOUND+GRAM STAIN (03/20/2018 3:19 PM CDT) Culture Heavy Staphylococcus aureus(A) JENI 03/22/2018 9:15 AM CDT [facility] Gram Stain Light Red blood cells 03/22/2018 9:15 AM CDT [facility] Gram Stain Light White blood cells 03/22/2018 9:15 AM CDT [facility] Gram Stain No organisms seen 018 9:15 AM CDT [facility] Microbiology STRUCTURE OF SKULL AND/OR SPINE AND/OR BONES AND/OR JOINTS / Unknown Collection / Unknown 03/20/2018 3:19 PM CDT 03/20/2018 3:19 PM CDT Narrative Organism Antibiotic Method Susceptibility Staphylococcus aureus Ciprofloxacin JENI <=0.5 ug/mL: Susceptible Staphylococcus aureus Clindamycin JENI 0.25 ug/mL: Resistant Staphylococcus aureus Doxycycline JENI <=0.5 ug/mL: Susceptible Staphylococcus aureus Erythromycin JENI >=8 ug/mL: Resistant Staphylococcus aureus Gentamicin JENI <=0.5 ug/mL: Susceptible Staphylococcus aureus Inducible Clindamy yoel Resistance JENI POS ug/mL: Pos Staphylococcus aureus Levofloxacin JENI <=0.12 ug/mL: Susceptible Staphylococcus aureus Linezolid JENI 2 ug/mL: Susceptible Staphylococcus aureus Oxacillin JENI 1 ug/mL: Susceptible Staphylococcus aureus Tetracycline JENI <=1 ug/mL: Susceptible Staphylococcus aureus Trimethoprim-sulfa methoxa zole JENI <=10 ug/mL: Susceptible Staphylococcus aureus Vancomycin JENI <=0.5 ug/mL: Susceptible Comment: Methicillin-susceptible Staphylococci are susceptible to oxacillin, nafcillin, cloxacillin,dicloxacillin, beta lactam/betalactamase inhibitor combinations, cephalosporins including cefazolin and carbapenems. This isolate is presumed to be resistant to clindamycin on the basis of detection of inducible clindamycin resistance. Salazar Valdivia MD LAB - MICROBIOLOGY O RDERABLES [facility] MICROBIOLOG[facility] [address] [place], [place] [address], [facility] [phone] * CT CERVICAL SPINE WO CONTRAST (03/20/2018 3:17 AM CDT) Anatomical Region Laterality Modality Spine Computed Tomogra phy 03/20/2018 3:29 AM CDT Impressions 03/20/2018 12:27 PM CDT IMPRESSION: 1. Right frontal approach ventricular drainage catheter unchanged in position. Ventricles are nondilated. Postoperative changes of suboccipital craniectomy and C1 laminectomy. The adjacent fluid collection, either a pseudomeningocele or seroma, has increased in size measuring 5.6 x 5.7 cm previously 4.3 x 4.4 cm. Otherwise, no acute intracranial process. 2. No evidence of acute fracture in the cervical spine. Report dictated by Jose Francisco Norman MD (vice president pharmacy). I, Dr. CLEMENT MANCERA have personally reviewed and interpreted this examination/study. This report was electronically signed by CLEMENT MANCERA on 03/20/2018 12:27 PM . Narrative 03/20/2018 12:27 PM CDT EXAMINATION: 1. Computed tomography (CT) of the head without contrast 2. CT of the cervical spine without contrast HISTORY: Syncope TECHNIQUE: CT of the head and cervical spine were performed without contrast according to standard protocol. FINDINGS: Comparison is made with a CT head dated 03/02/2018 HEAD: Right frontal approach ventricular drainage catheter traversing the anterior horn of right lateral ventricle and terminates near the foramen of Monro. Postoperative changes of suboccipital craniotomy, C1 laminectomy with adjacent fluid collection is again seen. The lower portion of the fluid collection is not fully imaged, but on axial plane apparently it has slightly increased in size measuring 5.6 x 5.7 cm, previously 4.3 x 4.4 cm. No acute intra- or extra-axial hemorrhage is identified. The ventricles are of normal size, shape, and morphology. The basilar cisterns are patent. No mass effect or midline shift is seen. The quick-white matter differentiation is normal. The visualized portions of the orbits, paranasal sinuses, and mastoids appear normal. No acute fracture is identified. CERVICAL SPINE: Suboccipital craniotomy and C1 laminectomy with adjacent fluid collection is again seen. The cephalocaudal height of the fluid collection is 6.6 cm. There is a straightening of the cervical spine. Vertebral bodies are normal in height without evidence of acute fracture. Other than mild middle atlantoaxial joint osteoarthritis, the craniocervical junction appears normal. The intervertebral disc space heights appear normal with borderline shortening of the C4-C5 disc space. No posterior disc herniation or central canal stenosis is seen. The facets appear normal. The uncovertebral joints appear normal. No neural foraminal stenosis is seen. No soft tissue abnormality is identified. Procedure Note Clement Mancera MD - 03/20/2018 EXAMINATION: 1. Computed tomography (CT) of the head without contrast 2. CT of the cervical spine without contrast HISTORY: Syncope TECHNIQUE: CT of the head and cervical spine were performed without contrast according to standard protocol. FINDINGS: Comparison is made with a CT head dated 03/02/2018 HEAD: Right frontal approach ventricular drainage catheter traversing the anterior horn of right lateral ventricle and terminates near the foramen of Monro. Postoperative changes of suboccipital craniotomy, [id number] with adjacent fluid collection is again seen. The lower portion of the fluid collection is not fully imaged, but on axial plane apparently ithas slightly increased in size measuring 5.6 x 5.7 cm, previously 4.3 x 4.4 cm. No acute intra- or extra-axial hemorrhage is identified. The ventricles are of normal size, shape, and morphology. The basilarcisterns are patent. No mass effect or midline shift is seen. The quick-whitematter differentiation is normal. The visualized portions of the orbits, paranasal sinuses, and mastoids appear normal. No acute fracture is identified. CERVICAL SPINE: Suboccipital craniotomy and C1 laminectomy with adjacent fluidcollection is again seen. The cephalocaudal height of the fluid collection is 6.6cm. There is a straightening of the cervical spine. Vertebral bodies are normal in height without evidence of acute fracture. Other than mild middle atlantoaxial joint osteoarthritis, the craniocervical junction appears normal. The intervertebral disc space heights appear normal with borderline shortening of the C4-C5 disc space. No posterior disc herniation or central canal stenosis is seen. The facets appear normal. The uncovertebral joints appear normal. No neural foraminal stenosis is seen. No soft tissue abnormality is identified. IMPRESSION: 1. Right frontal approach ventricular drainage catheter unchanged in position. Ventricles are nondilated. Postoperative changes ofsuboccipital craniectomy and C1 laminectomy. The adjacent fluid collection, either a pseudomeningocele or seroma, has increased in size measuring 5.6 x 5.7cm previously 4.3 x 4.4 cm. Otherwise, no acute intracranial process. 2. No evidence of acute fracture in the cervical spine. Report dictated by Jose Francisco Norman MD (vice president pharmacy). I, Dr. CLEMENT MANCERA have personally reviewed and interpreted this examination/study. This report was electronically signed by CLEMENT MANCERA on 03/20/201812:27 PM . Nimo Almazan MD CT ORDERABLES * (ABNORMAL) DRUG SCREEN TOX URINE PANEL (03/20/2018 1:54 AM CDT) Amphetamines Screen Urine Negative Negative : < 1000 ng/mL 03/20/2018 2:13 AM [facility] Barbiturates Screen Urine Negative Negative : < 200 ng/mL 03/20/2018 2:13 AM [facility] Benzodiazepine Screen Urine Positive(A) Negative : < 200 ng/mL 03/20/2018 2:13 AM [facility] Comment: Positive urine benzodiazepine screening results should be confirmed by another generally accepted non-immunological method such as gas chromatography or mass spectrometry. Opiates Urine Negative Negative : < 300 ng/mL 03/20/2018 2:13 AM [facility] Cocaine Metabolites Urine Negative Negative : < 300 ng/mL 03/20/2018 2:13 AM [facility] Phencyclidine Screen Urine Negative Negative : < 25 ng/ml 03/20/2018 2:13 AM [facility] Cannabinoids Screen Urine Positive(A) Negative : <50 ng/mL 03/20/2018 2:13 AM CDT [facility] Comment: Positive urine cannabinoids (THC) screening results should be confirmed by another generally accepted non-immunological method such as gas chromatography or mass spectrometry. Methadone Screen Urine Negative Negative : < 300 ng/mL 03/20/2018 2:13 AM CDT [facility] Urine URINE / Unknown Collection / Unknown 03/20/2018 1:54 AM CDT 03/20/2018 1:54 AM CDT Narrative [facility] - 03/20/2018 2:13 AM CDT The Urine Toxicology Screening Panel does not screen for Propoxyphene, Meprobamate, Carisoprodol, Trazodone, gmdt-fqm-rybfhtv medications and/or volatiles (Acetone, Isopropanol, Methanol or Ethylene Glycol). Ethanol, Salicylate, Acetaminophen, Tricyclic Antidepressants and several therapeutic drugs may be individually assayed in serum or plasma specimen. Toxicology testing by the [facility] is an aid to medical diagnosis and treatment of patients. No documented chain of custody was maintained. Results are intended to be used for clinical purposes only. Nimo Almazan MD LAB - URINE CHEMIS TRY ORDERABLES [address] [phone] * HCG URINE QUALITATIVE - POINT OF CARE (03/20/2018 1:40 AM CDT) HCG Qual Urine Negative Negative [facility] P OCT TESTING QC Verified Yes Yes [facility] POCT TESTING Urine URINE / Unknown 03/20/2018 1 :40 AM CDT Nimo Almazan MD LAB - POINT OF CAR E ORDERABLES Performing Organization Address [facility]/ZIP Co de Phone Number [facility] POCT TESTING [address] [place] [address] * CT BRAIN STEREOTACTIC (03/01/2018 5:16 AM CDT) Anatomical Region Laterality Modality Breast Computed Tomogra phy 03/01/2018 7:52 AM CDT Impressions 03/01/2018 8:07 AM CDT IMPRESSION: 1.Stereotactic preoperative planning examination. 2.Interval resolution of the pneumocephalus. Otherwise, stable postoperative findings related to Chiari 1 decompression. 3.No acute intracranial hemorrhage. This report was electronically signed by Harvey Dudley on 03/01/2018 8:07 AM . Narrative 03/01/2018 8:[address] GUIDED STEREO LOCALIZATION HISTORY: 38-tk[age]ntc old female with a history of Chiari I Malformation status post Chiari decompression on 01/19. Lumbar drain clamped yesterday. Patient denies any discomfort or pressure sensation at back of head. 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 Stereotactic Preoperative planning examination. COMPARISON: CT of the head 02/26/2018. TECHNIQUE: Routine CT of the brain without IV contrast. CT Dose Reduction Employed. FINDINGS: The examination is performed for the purpose of preoperative planning. Allowing for slight differences in the imaging plans, there is little change in the dimensions of the occipital pseudomeningocele since prior study from 02/26/2018, which measures approximately 5.2 x 4.2 cm, previously 4.1 x 5.4 cm. There has been interval resolution of the previously seen pneumocephalus. Otherwise, stable postoperative findings related to Chiari 1 decompression similar to prior. Otherwise, the brain is stable with no mass effect or midline shift seen. The quick-white matter differentiation is normal. The visualized portions of the orbits and mastoids appear normal. There is mild mucosal thickening of the left maxillary sinus. No acute fracture is identified. The ventricles are nondilated. Procedure Note Harvey Dudley MD - 03/01/2018 CT GUIDED STEREO LOCALIZATION HISTORY: 52-rb[age]vfnx[age]f old female with a history of Chiari I Malformation status post Chiari decompression on 01/19. Lumbar drain clamped yesterday. Patient denies any discomfort or pressure sensationat back of head. 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 Stereotactic Preoperative planning examination. COMPARISON: CT of the head 02/26/2018. TECHNIQUE: Routine CT of the brain without IV contrast. CT DoseReduction Employed. FINDINGS: The examination is performed for the purpose of preoperative planning. Allowing for slight differences in the imaging plans, there is little change in the dimensions of the occipital pseudomeningocele since prior study from 02/26/2018, which measures approximately 5.2 x 4.2 cm,previously 4.1 x 5.4 cm. There has been interval resolution of the previously seen pneumocephalus. Otherwise, stable postoperative findings related toChiari 1 decompression similar to prior. Otherwise, the brain is stable with no mass effect or midline shiftseen. The quick-white matter differentiation is normal. The visualized portions of the orbits and mastoids appear normal. There is mild mucosal thickening of the left maxillary sinus. No acute fracture is identified. The ventricles are nondilated. IMPRESSION: 1.Stereotactic preoperative planning examination. 2.Interval resolution of the pneumocephalus. Otherwise, stable postoperative findings related to Chiari 1 decompression. 3.No acute intracranial hemorrhage. This report was electronically signed by Harvey Dudley on03/01/2018 8:07 AM . Ambrose Lopez MD CT ORDERABLES * POTASSIUM BLOOD (01/24/2018 4:02 PM CDT) Potassium 3.6 3.5 - 4.5 mmol/L 01/24/2018 4:21 PM CDT [facility] Blood BLOOD SPECIMEN / Unknown Venipuncture / Unknown 01/24/2018 4:02 PM CDT 01/24/2018 4:09 PM CDT Nhung Carlson CITY TREASURER-SENIOR OPERATIONS ANALYST LAB - CHEMISTR Y ORDERABLES [address] [phone] * XR CHEST PA AND LATERAL (01/23/2018 7:54 PM CDT) Only the most recent of2 resultswithin the time period is included. Anatomical Region Laterality Modality Chest Radiographic Celina ging 01/23/2018 8:22 PM CDT Impressions 01/24/2018 11:31 AM CDT FINDINGS/IMPRESSION: The lung volumes are low with vascular crowding. There is no focal consolidation, pleural effusion, or pneumothorax. The cardiomediastinal silhouette is normal. Dictated by Sidney Lovell MD (vice president pharmacy). Dr. HUAN Barger MD have personally reviewed and interpreted this examination/study. This report was electronically signed by HUAN MORILLO MD on 01/24/2018 11:31 AM . Narrative 01/24/2018 11:31 AM CDT EXAMINATION: XR CHEST 2VW HISTORY: shortness of breath COMPARISON: Comparison is made with a study from 01/13/2018. Procedure Note Huan Morillo MD - 01/24/2018 EXAMINATION: XR CHEST 2VW HISTORY: shortness of breath COMPARISON: Comparison is made with a study from 01/13/2018. FINDINGS/IMPRESSION: The lung volumes are low with vascular crowding. There is no focal consolidation, pleural effusion, or pneumothorax. The cardiomediastinal silhouette is normal. Dictated by Sidney Lovell MD (vice president pharmacy). Dr. HUAN Barger MD have personally reviewed and interpreted this examination/study. This report was electronically signed by HUAN MORILLO MD on01/24/2018 11:31 AM . Mela Joseph MD DIAGNOSTIC IMAGING O RDERABLES * MRI CERVICAL SPINE WO CONTRAST (06/04/2017 3:57 PM DEHYDRATOR) Anatomical Region Laterality Modality Pelvis Other Impressions 06/04/2017 4:02 PM DEHYDRATOR IMPRESSION: 1. Chiari I malformation with normal CSF flow across foramen magnum. No evidence of syrinx formation. This report was electronically signed by HAO OLEA M.D. on 06/04/2017 4:02 PM . Narrative 06/04/2017 4:02 PM DEHYDRATOR This is a summary report. The complete report is available in the patient's medical record. If you cannot access the medical record, please contact the sending organization for a detailed fax or copy. EXAMINATION: Magnetic resonance imaging (MRI) of the cervical spine without contrast HISTORY: Chiari I malformation TECHNIQUE: MRI of the cervical spine was performed without contrast according to a cerebrospinal fluid (CSF) flow protocol. FINDINGS: No prior study is available for comparison at the time of this dictation. The alignment is normal. Vertebral bodies are normal in height without evidence of compression fractures. Marrow signal intensity is normal. There is 6 mm of descending cerebellar tonsillar ectopia below the level of foramen magnum consistent with a Chiari I malformation without compression of the cervicomedullary junction. There is normal CSF flow across foramen magnum both anterior and posterior to the cervicomedullary junction. The spinal cord appears normal without evidence of syrinx formation. There is mild disc bulge from the level of C2-3 to the level of C5-6. No central canal stenosis is seen. The facets appear normal. The uncovertebral joints appear normal. No neural foraminal stenosis is seen. No soft tissue abnormality is identified. Normal flow voids are identified in the vertebral arteries. Procedure Note Hao lOea MD - 10/23/2017 This is a summary report. The complete report is available in thepatient's medical record. If you cannot access the medical record, pleasecontact the sending organization for a detailed fax or copy. EXAMINATION: Magnetic resonance imaging (MRI) of the cervical spinewithout contrast HISTORY: Chiari I malformation TECHNIQUE: MRI of the cervical spine was performed without contrastaccording to a cerebrospinal fluid (CSF) flow protocol. FINDINGS: No prior study is available for comparison at the time of thisdictation. The alignment is normal. Vertebral bodies are normal in height withoutevidence of compression fractures. Marrow signal intensity is normal.There is 6 mm of descending cerebellar tonsillar ectopia below the levelof foramen magnum consistent with a Chiari I malformation without compression of the cervicomedullaryjunction. There is normal CSF flow across foramen magnum both anterior andposterior to the cervicomedullary junction. The spinal cord appears normalwithout evidence of syrinx formation. There is mild disc bulge from the level of C2-3 to the level of C5-6. Nocentral canal stenosis is seen. The facets appear normal. Theuncovertebral joints appear normal. No neural foraminal stenosis is seen.No soft tissue abnormality is identified. Normal flow voids are identified in the vertebral arteries. IMPRESSION IMPRESSION: 1. Chiari I malformation with normal CSF flow across foramen magnum. Noevidence of syrinx formation. This report was electronically signed by HAO OLEA M.D. on 06/04/20174:02 PM . Pooja Alanis MD MR ORDERABLES Care Teams Office Analyst Relationship Specialty Start Date End Date Malik España PA-C [address] [place] [address] PCP - General Physician Sales Representative Livestock 01/14/18
[2024-09-04 14:37] VITALS: BP 151/96; PULSE 130; RESP 19; TEMP 36.9; O2SAT 100
--- NOTE | 2024-09-04 14:44 | ECG_ITS ---
Test Date: 2024-09-04 14:47:55 Measurements Intervals Adrian Rate: 112 P: 26 HI: 144 QRS: 39 QRSD: 90 T: 42 QT: 319 QTc: 436 Interpretive Statements SINUS TACHYCARDIA POSSIBLE ANTERIOR MYOCARDIAL INFARCTION , PROBABLY OLD CONSIDER INFERIOR INFARCT, AGE INDETERMINATE BASELINE WANDER- V4 ABNORMAL ECG No previous ECG available for comparison Electronically Signed On 09-04-2024 19:45:16 ELECTROTYPE CASTER by Pravin Orozco D.O.
--- OUTSIDE RECORDS SUMMARY | 2024-09-04 15:16 | XMS_ITS | Clinical Summary ---
Author Organization [facility] Address [address] [place] [address] Care Team Providers Care Learn To Swim Instructor Name Role Phone Malik España PA-C Primary Care Provide r Source Comments [facility],non-owned Affiliates and Associated Physician Practices is amultiple site organization consisting of ambulatory clinics and hospital sitesin [place], [place], [place] and [place]. This disclosure is being madepursuant to the Care Everywhere program and may not contain all information available regarding this patient. 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 Syncope and collapse 03/20/2018 S/P ventriculoperitoneal shunt 03/03/2018 Overview (02/21/2021): 03/01/18 SALES PROMOTION DIRECTOR shunt placed, Strata II @ 1.5 03/20/18 [...] Noted Date Diagnosed Date Resolved Date S/P SALES PROMOTION DIRECTOR shunt 03/20/2018 04/16/2018 Family History Relation Name [...] this topic Medical Devices Implanted Type Area Bung Driver Device Identifier Shelf Expiration Date Model / Serial / Lot Graft Tissue Intgr Bvn Pricrd Rsrb Dura Implanted:Qty: 1 on 01/19/2018 by Pooja Alanis MD at [facility] N/A: Brain Integra [employer] Robi 12/24/2021 [id number] / / [id number] Slnt Dura Duraseal Pg Trilysine Amine 5 Implanted:Qty: 1 on 01/19/2018 by Pooja Alanis MD at [facility] N/A: Brain [employer] Robi 12/24/2018 [id number] / / [id number] Slnt Dura Duraseal Pg Trilysine Amine 5 Implanted:Qty: 1 on 02/24/2018 by Pooja Alanis MD at [facility] N/A: Other (See Descriptio n) [employer] Robi 12/24/2018 [id number] / / [id number] Description:suboccipital spa ce Clip Srg Std Rt Ang Implanted:Qty: 1 on 03/01/2018 by Pooja Alanis MD at [facility] [employer] 09/23/2022 [id number] / / [id number] Valve Shnt Strt2 Reg Csf Prgm Flw Cntrl Implanted:Qty: 1 on 03/01/2018 by Pooja Alanis MD at [facility] [employer] Ps Medical 07/26/2020 [id number] / / [id number] Kit Yeni Ba Bctsl Hkm Cath Shnt Strl Implanted:Qty: 1 on 03/01/2018 by Pooja Alanis MD at [facility] [employer] 10/24/2018 [id number] / / [id number] Cath Drn 120cm Prtnl Cdmn Bctsl Ba Yeni Implanted:Qty: 1 on 04/12/2018 by John Howard MD at [facility] 07/26/2018 [id number] / / [id number] Procedures Procedure Name Priority Date/Time Associated Diagnosis [...] 7 - 26 mg/dL 02/21/2021 10:18 AM [facility] Creatinine 0.76 0.56 - 0.96 mg/dL 02/21/2021 10:18 AM [facility] Sodium 140 136 - 145 mmol/L 02/21/2021 10:18 AM [facility] Potassium 4.7(H) 3.5 - 4.5 mmol/L 02/21/2021 10:18 AM [facility] Chloride 103 98 - 107 mmol/L 02/21/2021 10:18 AM [facility] CO2 28 22 - 29 mmol/L 02/21/2021 10:18 AM [facility] Glucose 92 70 - 115 mg/dL 02/21/2021 10:18 AM [facility] Calcium 9.9 8.4 - 10.2 mg/dL 02/21/2021 10:18 AM [facility] Anion Gap 14 8 - 18 02/21/2021 10:18 AM [facility] BUN/Creatinine Ratio 14 7 - 23 02/21/2021 10:18 AM [facility] Osmolality Calculated 289 270 - 300 mOsm/kg 02/21/2021 10:18 AM CDT [facility] eGFR by CKD-EPI >90 >=90 mL/min/1.7 3 m2 02/21/2021 10:18 AM CDT [facility] Blood BLOOD SPECIMEN / Unknown Venipuncture / Unknown 02/21/2021 9:40 AM CDT 02/21/2021 9:53 AM CDT Acosta Ma MD LAB - CHEMISTRY [place] [facility] [address] [place] [address], [facility] [phone] * HIV-1 HIV-2 ANTIGEN/ANTIBODY (04/08/2018 3:24 PM CDT) HIV Antigen/Antibod y 1 & 2 Non-reacti ve Non-react [place] 04/08/2018 4:14 PM CDT [facility] Comment: Neither HIV-1 p24 Antigen nor HIV-1/HIV-2 Antibodies are detected. Blood BLOOD SPECIMEN / Unknown Venipuncture / Unknown 04/08/2018 3:24 PM CDT 04/08/2018 3:30 PM CDT Simon Saldana MD LAB - HEMATOLOGY ORDERABLES Performing Organization Address City/[facility]/ZIP Co de Phone Number [facility] [address] [place] [address], [facility] [phone] * HEPATITIS C AB SCREEN RFLX NAAT QUANT (04/08/2018 3:24 PM CDT) Hepatitis C Antibody Non-react [place]ton Non-reac tive 04/08/2018 4:21 PM CDT [facility] Comment: Hepatitis C Antibody screen indicates [...] Simon Saldana MD LAB - CHEMISTRY ORDERABLES [place] [id number] [address] [phone] from Last 3 Months or Most Recently Relevant to Health Maintenance Advance Directives Documents on File Type Date Recorded Patient Lumber Straightened Expl anation Adv Directive/Living Will/POA 01/25/2018 8:39 [...] 8:56 AM 03/24/2018 6:24 PM Care Teams Learn To Swim Instructor Relationship Specialty Start Date End Date Malik España PA-C [address] [place] [address] PCP - General Physician Activity Manager 01/14/18
--- OUTSIDE RECORDS SUMMARY | 2024-09-04 15:16 | XMS_ITS | Referral Summary ---
Author Organization [facility] [employer] Address [address] [place] [address] Care Team Providers Care Cattle Trader Name Role Phone Malik España PA-C Primary Care Provide r Source Comments [facility],non-owned Affiliates and Associated Physician Practices is amultiple site organization consisting of ambulatory clinics and hospital sitesin [place], [place], [place]. This disclosure is being madepursuant to the Care Everywhere program and may not contain all information available regarding this patient. 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 Syncope and collapse 03/20/2018 S/P ventriculoperitoneal shunt 03/03/2018 Overview (02/21/2021): 03/01/18 MANAGER INTERVENTIONAL shunt placed, Strata II @ 1.5 03/20/18 [...] Noted Date Diagnosed Date Resolved Date S/P MANAGER INTERVENTIONAL shunt 03/20/2018 04/16/2018 Social History Tobacco Use [...] on file Medical Devices Implanted Type Area Film Cutter Device Identifier Shelf Expiration Date Model / Serial / Lot Graft Tissue Intgr Bvn Pricrd Rsrb Dura Implanted:Qty: 1 on 01/19/2018 by Pooja Alanis MD at [facility] N/A: Brain [employer] Robi 12/24/2021 [id number] / / [id number] Slnt Dura Duraseal Pg Trilysine Amine 5 Implanted:Qty: 1 on 01/19/2018 by Pooja Alanis MD at [facility] N/A: Brain [employer] Robi 12/24/2018 [id number] / / [id number] Slnt Dura Duraseal Pg Trilysine Amine 5 Implanted:Qty: 1 on 02/24/2018 by Pooja Alanis MD at [facility] N/A: Other (See Descriptio n) [employer] Robi 12/24/2018 [id number] / / [id number] Description:suboccipital spa ce Clip Srg Std Rt Ang Implanted:Qty: 1 on 03/01/2018 by Pooja Alanis MD at [facility] [employer] 09/23/2022 [id number] / / [id number] Valve Shnt Strt2 Reg Csf Prgm Flw Cntrl Implanted:Qty: 1 on 03/01/2018 by Pooja Alanis MD at [facility] [employer] 07/26/2020 [id number] / / [id number] Kit Yeni Ba Bctsl Hkm Cath Shnt Strl Implanted:Qty: 1 on 03/01/2018 by Pooja Alanis MD at [facility] [employer] 10/24/2018 [id number] / / [id number] Cath Drn 120cm Prtnl Cdmn Bctsl Ba Yeni Implanted:Qty: 1 on 04/12/2018 [facility] 07/26/2018 [id number] / / [id number] Procedures Procedure Name Priority Date/Time Associated Diagnosis [...] - 26 mg/dL 02/21/2021 10:18 AM CDT [facility] Creatinine 0.76 0.56 - 0.96 mg/dL 02/21/2021 10:18 AM [facility] Sodium 140 136 - 145 mmol/L 02/21/2021 10:18 AM [facility] Potassium 4.7(H) 3.5 - 4.5 mmol/L 02/21/2021 10:18 AM [facility] Chloride 103 98 - 107 mmol/L 02/21/2021 10:18 AM [facility] CO2 28 22 - 29 mmol/L 02/21/2021 10:18 AM [facility] Glucose 92 70 - 115 mg/dL 02/21/2021 10:18 AM [facility] Calcium 9.9 8.4 - 10.2 mg/dL 02/21/2021 10:18 AM [facility] Anion Gap 14 8 - 18 02/21/2021 10:18 AM [facility] BUN/Creatinine Ratio 14 7 - 23 02/21/2021 10:18 AM [facility] Osmolality Calculated 289 270 - 300 mOsm/kg 02/21/2021 10:18 AM [facility] eGFR by CKD-EPI >90 >=90 mL/min/1.7 3 m2 02/21/2021 10:18 AM [facility] Blood BLOOD SPECIMEN / Unknown Venipuncture / Unknown 02/21/2021 9:40 AM CDT 02/21/2021 9:53 AM T Acosta Ma MD LAB - CHEMISTRY [facility] Organization Address City/State/[facility] Co de Phone Number [facility] [address] [place] [address], [facility] [phone] * HIV-1 HIV-2 ANTIGEN/ANTIBODY (04/08/2018 3:24 PM CDT) HIV Antigen/Antibod y 1 & 2 Non-reacti ve Non-react clay[place] 04/08/2018 4:14 PM [facility] Comment: Neither HIV-1 p24 Antigen nor HIV-1/HIV-2 Antibodies are detected. Blood BLOOD SPECIMEN / Unknown Venipuncture / Unknown 04/08/2018 3:24 PM CDT 04/08/2018 3:30 PM CDT Simon Saldana MD LAB - HEMATOLOGY ORDERABLES [address] [phone] * HEPATITIS C AB SCREEN RFLX NAAT QUANT (04/08/2018 3:24 PM CDT) Hepatitis C Antibody Non-react [place] Non-reac tive 04/08/2018 4:21 PM CDT [facility] Comment: Hepatitis C Antibody screen indicates no [...] Simon Saldana MD LAB - CHEMISTRY ORDERABLES [address] [phone] from Last 3 Months or Most Recently Relevant to Health Maintenance Advance Directives Documents on File Type Date Recorded Patient Fructose Loader Expl anation Adv Directive/Living Will/POA 01/25/2018 8:39 [...] 8:56 AM 03/24/2018 6:24 PM Care Teams Cattle Trader Relationship Specialty Start Date End Date Malik España PA-C [address] [place], [place] [id number] PCP - General Physician Machine Shop Specialist 01/14/18
--- OUTSIDE RECORDS SUMMARY | 2024-09-04 15:17 | XMS_ITS | Clinical Summary ---
Author Organization [facility] [address] Address [address] [place] [address] Care Team Providers Care Outside Plant Supervisor Name Role Phone Dex Mitchell MD Primary [...] Department Care Team Description 06/16/2024 6:15 PM WASH HOUSE SUPERVISOR Office Visit [facility] Care at [address] [address] Yahaira Milton NP Closed fracture [...] on file Legal Sex Female 11:04 AM WASH HOUSE SUPERVISOR Gender Identity Not on file Sexual Orientation Not on file Obstetrics History Last Filed Vital Signs Vital Sign Reading Time Taken Comments Blood Pressure 164/98 06/16/2024 6:21 PM WASH HOUSE SUPERVISOR Pulse 100 06/16/2024 6:25 PM WASH HOUSE SUPERVISOR Temperature 36.6 C (97.9 F) 06/16/2024 6:21 PM WASH HOUSE SUPERVISOR Respiratory Rate 20 06/16/2024 6:21 PM WASH HOUSE SUPERVISOR Oxygen Saturation 99% 06/16/2024 6:21 PM WASH HOUSE SUPERVISOR Inhaled Oxygen Concentration - - Weight 90.7 kg (200 lb) 06/16/2024 6:21 PM WASH HOUSE SUPERVISOR Height 165.1 cm (5' 5 ) 06/16/2024 6:21 PM WASH HOUSE SUPERVISOR Body Mass Index 33.28 06/16/2024 6:21 PM WASH HOUSE SUPERVISOR Plan of Treatment Health Maintenance Due Date [...] HEPATITIS C AB Routine 09/29/2012 3:29 PM WASH HOUSE SUPERVISOR from Last 3 Months or Most Recently Relevant to Health Maintenance Results * Serum Hepatitis C ab (09/29/2012 3:29 PM WASH HOUSE SUPERVISOR) HCV ab Non-Reacti ve Non-Reacti ve HISTORICAL RESULTS Serum 09/29/2012 3:29 PM WASH HOUSE SUPERVISOR Dex Mitchell MD LAB BLOOD ORDERABLES Final Result HISTORICAL RESULTS from Last 3 Months or Most Recently Relevant to Health Maintenance Insurance [facility] CHOICE PLUS [facility] HMO/PPO Address: [facility] [id number] [place] [address] Care Teams Outside Plant Supervisor Relationship Specialty Start Date End Date Dex Mitchell MD PCP - General 01/23/15
--- OUTSIDE RECORDS SUMMARY | 2024-09-04 15:17 | XMS_ITS | Referral Summary ---
Author Organization [address] [address] Care Team Providers Care Bioinformatics Associate Name Role Phone Dex Mitchell MD Primary Care Provider Encounters Date Type Department Care Team Description 06/16/2024 6:15 PM GROCERY CASHIER Office Visit [facility] at [address] [address] Yahaira Milton NP Closed fracture [...] on file Legal Sex Female 11:04 AM GROCERY CASHIER Gender Identity Not on file Sexual Orientation Not on file Last Filed Vital Signs Vital Sign Reading Time Taken Comments Blood Pressure 164/98 06/16/2024 6:21 PM GROCERY CASHIER Pulse 100 06/16/2024 6:25 PM GROCERY CASHIER Temperature 36.6 C (97.9 F) 06/16/2024 6:21 PM GROCERY CASHIER Respiratory Rate 20 06/16/2024 6:21 PM GROCERY CASHIER Oxygen Saturation 99% 06/16/2024 6:21 PM GROCERY CASHIER Inhaled Oxygen Concentration - - Weight 90.7 kg (200 lb) 06/16/2024 6:21 PM GROCERY CASHIER Height 165.1 cm (5' 5 ) 06/16/2024 6:21 PM GROCERY CASHIER Body Mass Index 33.28 06/16/2024 6:21 PM GROCERY CASHIER Plan of Treatment Not on file Procedures Procedure Name Priority Date/Time Associated Diagnosis Comments SERUM HEPATITIS C AB Routine 09/29/2012 3:29 PM GROCERY CASHIER from Last 3 Months or Most Recently Relevant to Health Maintenance Results * Serum Hepatitis C ab (09/29/2012 3:29 PM GROCERY CASHIER) HCV ab Non-Reacti ve Non-Reacti ve HISTORICAL RESULTS Serum 09/29/2012 3:29 PM GROCERY CASHIER us Dex Mitchell MD LAB BLOOD ORDERABLES Final Result Performing Organization Address City/State/[facility] Co de Phone Number HISTORICAL RESULTS from Last 3 Months or Most Recently Relevant to Health Maintenance [place] [address] [facility] H[facility]/PPO Address: [facility] [address] [place] [address] Care Teams Bioinformatics Associate Relationship Specialty Start Date End Date Dex Mitchell MD PCP - General 01/23/15
--- OUTSIDE RECORDS SUMMARY | 2024-09-04 15:17 | XMS_ITS | Patient Health Summary ---
Author Organization [facility] Digital Fuel Address [address] [place] [address] Care Team Providers Care Travel Guide Name Role Phone Malik España PA-C Primary Care Provide r Note from [facility],non-owned Affiliates and Associated Physician Practices is amultiple site organization consisting of ambulatory clinics and hospital sitesin [place], [place], [place] and [place]. This disclosure is being madepursuant to the Care Everywhere program and may not contain all information available regarding this patient. 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 Syncope and collapse 03/20/2018 S/P ventriculoperitoneal shunt 03/03/2018 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 Acute intractable headache 02/24/2018 Headache, unspecified headache type 01/23/2018 Arnold-Chiari malformation 01/19/2018 Resolved Problems Problem Noted Date Diagnosed Date Resolved Date S/P HEALTH EDUCATION ASSISTANT shunt 03/20/2018 04/16/2018 Social History Tobacco Use [...] AM CDT Medical Devices Implanted Type Area Sex Therapist Device Identifier Shelf Expiration Date Model / Serial / Lot Graft Tissue Intgr Bvn Pricrd Rsrb Dura Implanted:Qty: 1 on 01/19/2018 by Pooja Alanis MD at [facility] N/A: Brain [employer] Robi 12/24/2021 [id number] / / [id number] Slnt Dura Duraseal Pg Trilysine Amine 5 Implanted:Qty: 1 on 01/19/2018 by Pooja Alanis MD at [facility] N/A: Brain [employer] Robi 12/24/2018 [id number] / / [id number] Slnt Dura Duraseal Pg Trilysine Amine 5 Implanted:Qty: 1 on 02/24/2018 by Pooja Alanis MD at [facility] N/A: Other (See Descriptio n) [employer] Robi 12/24/2018 [id number] / / [id number] Description:suboccipital spa ce Clip Srg Std Rt Ang Implanted:Qty: 1 on 03/01/2018 by Pooja Alanis MD at [facility] [employer] 09/23/2022 [id number] / / [id number] Valve Shnt Strt2 Reg Csf Prgm Flw Cntrl Implanted:Qty: 1 on 03/01/2018 by Pooja Alanis MD at [facility] [employer] 07/26/2020 [id number] / / [id number] Kit Yeni Ba Bctsl Hkm Cath Shnt Strl Implanted:Qty: 1 on 03/01/2018 by Pooja Alanis MD at [facility] [employer] 10/24/2018 [id number] / / [id number] Cath Drn 120cm Prtnl Cdmn Bctsl Ba Yeni Implanted:Qty: 1 on 04/12/2018 by John Howard MD at [facility] [employer] 07/26/2018 [id number] / / [id number] Procedures * CARDIAC EKG ORDER(Performed 02/23/2021) * [...] Performed for Chiari I malformation (HCC), S/P HEALTH EDUCATION ASSISTANT shunt * MRI BRAIN WO CONTRAST(Performed 02/23/2020) Performed for Chiari malformation type I (HCC) * CARDIAC EKG ORDER(Performed 11/25/2018) * MRI BRAIN WO CONTRAST(Performed 11/18/2018) Performed for HEALTH EDUCATION ASSISTANT (ventriculoperitoneal) shunt status, Chiari malformation type I (HCC) * XR SHUNT SERIES(Performed 11/18/2018) Performed for HEALTH EDUCATION ASSISTANT (ventriculoperitoneal) shunt status * CARDIAC PROCEDURE ORDER(Performed 06/12/2018) * CARDIAC EKG ORDER(Performed 05/21/2018) * BASIC METABOLIC PANEL (CALCIUM TOTAL)(Performed 04/15/2018) * GRAM STAIN (LAB ORDERED)(Performed 04/14/2018) * CULTURE CSF+GRAM STAIN(Performed 04/14/2018) * CULTURE CSF+GRAM STAIN (BEAKER)(Performed 04/14/2018) * OT EVAL AND TREAT(Performed 04/14/2018) * CT HEAD WO CONTRAST(Performed 04/13/2018) Performed for HEALTH EDUCATION ASSISTANT (ventriculoperitoneal) shunt status * BASIC METABOLIC PANEL (CALCIUM TOTAL)(Performed 04/13/2018) * OT EVAL AND TREAT(Performed 04/13/2018) * XR CHEST 1VW(Performed 04/12/2018) Performed for HEALTH EDUCATION ASSISTANT (ventriculoperitoneal) shunt status * XR SKULL 3VW OR LESS(Performed 04/12/2018) Performed for HEALTH EDUCATION ASSISTANT (ventriculoperitoneal) shunt status * FL KEN SURGERY(Performed 04/12/2018) Performed for HEALTH EDUCATION ASSISTANT (ventriculoperitoneal) shunt status * INSERTION VENTRICULO-ATRIAL SHUNT(Performed [...] CT HEAD WO CONTRAST(Performed 04/08/2018) Performed for HEALTH EDUCATION ASSISTANT (ventriculoperitoneal) shunt status * XR SHUNT SERIES(Performed 04/08/2018) Performed for HEALTH EDUCATION ASSISTANT (ventriculoperitoneal) shunt status * CARDIAC EKG ORDER(Performed [...] XR SHUNT SERIES(Performed 03/22/2018) Performed for S/P HEALTH EDUCATION ASSISTANT shunt * LAPAROSCOPY DIAGNOSTIC(Performed 03/22/2018) Performed for [...] ABDOMEN WO CONTRAST(Performed 03/20/2018) Performed for S/P HEALTH EDUCATION ASSISTANT shunt * CULTURE WOUND+GRAM STAIN(Performed 03/20/2018) * [...] on 02/21/2021 12:24 PM . Blanca Galvin ZIG ZAG STITCHER-FIRE SYSTEMS INSPECTOR DIAGNOSTIC I MAGING ORDERABLES * XR CHEST [...] is intact. Dictated by Samia Santana MD (residential installer). IDr. KAMI M.D. have personally reviewed and [...] thorax isintact. Dictated by Samia Santana MD (residential installer). I, Dr. KAMI STRONG M.D. have personally reviewed and interpreted this examination/study. This report was electronically signed by KAMI STRONG M.D. on 02/21/2021 11:10 AM . Blanca CHAUHAN DIAGNOSTIC I MAGING ORDERABLES * TROPONIN I (02/21/2021 11:10 AM CDT) Only the most recent of2 resultswithin the time period is included. [facility] Troponin I <0.010 <0.032 ng/mL 02/21/2021 12:07 PM CDT [facility] Blood BLOOD SPECIMEN / Unknown Venipuncture / Unknown 02/21/2021 11:10 AM CDT 02/21/2021 11:35 AM CDT Blanca CHAUHAN LAB - CHEMIS TRY ORDERABLES [address] [address], [facility] [phone] * HCG URINE QUALITATIVE (02/21/2021 9:46 AM CDT) [facility] Test Urine Negative Negative 02/21/2021 10:42 AM CDT [facility] Urine URINE / Unknown Collection / Unknown 02/21/2021 9:46 AM CDT 02/21/2021 9:56 AM CDT Acosta Ma MD LAB - URINALYSIS ORD ERABLES [address] [address], [facility] [phone] * (ABNORMAL) CBC W AUTO DIFFERENTIAL (02/21/2021 9:40 AM CDT) Only the most recent of10 resultswithin the time period is included. WBC 8.3 3.5 - 10.5 10 3/uL 02/21/2021 10:03 AM [facility] RBC 4.84 3.80 - 5.20 10 6/uL 02/21/2021 10:03 AM [facility] Hemoglobin 15.3 12.0 - 15.6 g/dL 02/21/2021 10:03 AM [facility] Hematocrit 46.5(H) 35.0 - 45.0 % 02/21/2021 10:03 AM [facility] MCV 96.1 80.7 - 98.3 fL 02/21/2021 10:03 AM [facility] MCH 31.6 26.7 - 34.0 pg 02/21/2021 10:03 AM [facility] MCHC 32.9 30.8 - 35.9 g/dL 02/21/2021 10:03 AM [facility] Platelet Count 338 150 - 400 10 3/uL 02/21/2021 10:03 AM [facility] RDW-SD 47.7 36.0 - 50.0 fL 02/21/2021 10:03 AM [facility] RDW-CV 13.5 11.2 - 14.8 % 02/21/2021 10:03 AM [facility] MPV 9.2(L) 9.4 - 12.9 fL 02/21/2021 10:03 AM [facility] nRBC Absolute 0.00 0 10 3/uL 02/21/2021 10:03 AM [facility] nRBC Auto 0.0 0 /100 WBC 02/21/2021 10:03 AM [facility] Neutrophils % 77.1(H) 35.0 - 70.0 % 02/21/2021 10:03 AM [facility] Lymphocytes % 15.6(L) 20.0 - 43.0 % 02/21/2021 10:03 AM [facility] Monocytes % 5.4 5.0 - 13.0 % 02/21/2021 10:03 AM [facility] Eosinophils % 1.2 0.0 - 6.0 % 02/21/2021 10:03 AM [facility] Basophil % 0.5 0.0 - 2.0 % 02/21/2021 10:03 AM [facility] Neutrophils Absolute 6.4 1.6 - 7.0 10 3/uL 02/21/2021 10:03 AM [facility] Lymphocyte Absolute 1.3 1.1 - 3.9 10 3/uL 02/21/2021 10:03 AM [facility] Monocytes Absolute 0.45 0.26 - 1.07 10 3/uL 02/21/2021 10:03 AM [facility] Eosinophils Absolute 0.10 0.00 - 0.47 10 3/uL 02/21/2021 10:03 AM [facility] Basophils Absolute 0.04 0.00 - 0.08 10 3/uL 02/21/2021 10:03 AM [facility] Immature Granulocytes % 0.2 0.0 - 1.0 % 02/21/2021 10:03 AM [facility] Immature Granulocytes Absolute 0.02 02/21/2021 10:03 AM [facility] Blood BLOOD SPECIMEN / Unknown Venipuncture / Unknown 02/21/2021 9:40 AM CDT 02/21/2021 9:53 AM CDT Acosta Ma MD LAB - HEMATOLOGY ORD ERABLES [address] [id number] [phone] * (ABNORMAL) BASIC METABOLIC PANEL (CALCIUM TOTAL) (02/21/2021 9:40 AM CDT) Only the most recent of10 resultswithin the time period is included. BUN 11 7 - 26 mg/dL 02/21/2021 10:18 AM [facility] Creatinine 0.76 0.56 - 0.96 mg/dL 02/21/2021 10:18 AM [facility] Sodium 140 136 - 145 mmol/L 02/21/2021 10:18 AM [facility] Potassium 4.7(H) 3.5 - 4.5 mmol/L 02/21/2021 10:18 AM [facility] Chloride 103 98 - 107 mmol/L 02/21/2021 10:18 AM [facility] CO2 28 22 - 29 mmol/L 02/21/2021 10:18 AM [facility] Glucose 92 70 - 115 mg/dL 02/21/2021 10:18 AM [facility] Calcium 9.9 8.4 - 10.2 mg/dL 02/21/2021 10:18 AM [facility] Anion Gap 14 8 - 18 02/21/2021 10:18 AM [facility] BUN/Creatinine Ratio 14 7 - 23 02/21/2021 10:18 AM [facility] Osmolality Calculated 289 270 - 300 mOsm/kg 02/21/2021 10:18 AM [facility] eGFR by CKD-EPI >90 >=90 mL/min/1.7 3 m2 02/21/2021 10:18 AM [facility] Blood BLOOD SPECIMEN / Unknown Venipuncture / Unknown 02/21/2021 9:40 AM CDT 02/21/2021 9:53 AM CDT Acosta Ma MD LAB - CHEMISTRY [facility] Organization Address City/State/ZIP Co de Phone Number [facility] [address] [place] [phone], [facility] [phone] * EKG 12-LEAD (02/21/2021 8:56 AM CDT) Only the most recent of3 resultswithin the time period is included. Ventricular Rate 100 BPM [facility] MUSE Atrial Rate 100 BPM [facility] MUSE P-R Interval 172 ms [facility] MUSE QRS Duration ms 76 ms [facility] MUSE Q-T Interval ms 328 ms [facility] MUSE QTC Calculation (Bezet) 423 ms [facility] MUSE Calculated P [place] 63 degrees [facility] MUSE Calculated R [place] 52 degrees [facility] MUSE Calculated T [place] 61 degrees [facility] MUSE Interpretation EKG NORMAL SINUS RHYTHM RIGHT ATRIAL ENLARGEMENT CANNOT RULE OUT ANTERIOR INFARCT (CITED ON OR BEFORE 21-MAR-2018) ABNORMAL ECG WHEN COMPARED WITH ECG OF 21-MAR-2018 13:23, T WAVE INVERSION NO LONGER EVIDENT IN INFERIOR LEADS RIGHT ATRIAL ENLARGEMENT IS NOW PRESENT Confirmed by fellow Maude Moyer ([id number]) on 02/22/2021 3:15:12 PM Confirmed by Logan Patel ([id number]) on 02/23/2021 12:26:46 PM [facility] MUSE 02/21/2021 8:56 AM CDT 02/23/2021 12:26 PM CDT Acosta Ma MD ECG ORDERABLES [facility] MUSE * MRI BRAIN WO CONTRAST (02/21/2021 [...] HISTORY: G93.5: Chiari I malformation. Z98.2: S/P HEALTH EDUCATION ASSISTANT shunt TECHNIQUE: MRI of the brain was [...] HISTORY: G93.5: Chiari I malformation. Z98.2: S/P HEALTH EDUCATION ASSISTANT shunt TECHNIQUE: MRI of the brain was [...] * CARDIAC PROCEDURE ORDER (06/12/2018 11:24 AM DIE CAST TECHNICIAN) Narrative 06/12/2018 11:24 AM DIE CAST TECHNICIAN Ordered by an unspecified provider. Scanned Document CARDIAC SERVICES ORD ERABLES * GRAM STAIN (LAB ORDERED) (04/14/2018 1:20 PM CDT) Only the most recent of3 resultswithin the time period is included. Gram Stain Moderate White blood cells 04/14/2018 5:00 PM CDT [facility] LABORATORY [facility] Gram Stain No organisms seen 04/14/2018 5:00 PM CDT [facility] Microbiology CEREBROSPINAL FLUID SPECIMEN / Unknown Collection / Unknown 04/14/2018 1:20 PM CDT 04/14/2018 1:25 PM CDT Hayley Loving APRN-FIRE SYSTEMS INSPECTOR LAB - MICROBIOLOGY O RDERABLES [facility] [address] [place] [address] * CULTURE CSF+GRAM STAIN (04/14/2018 1:20 PM CDT) Only the most recent of3 resultswithin the time period is included. Culture No growth JENI 04/21/2018 3:34 AM CDT [facility] MICROBIOLOGY Gram Stain No organisms seen 04/21/2018 3:34 AM CDT [facility] MICROBIOLOG[facility] Gram Stain Light White blood cells 04/21/2018 3:34 AM CDT [facility] MICROBIOLOGY Cerebral spinal fluid CEREBROSPINAL FLUID SPECIMEN / Unknown Collection / Unknown 04/14/2018 1:20 PM CDT 04/14/2018 1:25 PM CDT Hayley Loving APRN-FIRE SYSTEMS INSPECTOR LAB - MICROBIOLOGY O RDERABLES [facility] MICROBIOLOGY [address] [place] [address], [facility] [phone] * CT HEAD WO CONTRAST (04/13/2018 9:55 AM CDT) Only the most recent of8 resultswithin the time period is included. Anatomical Region Laterality Modality Head Computed Tomogra phy 04/13/2018 12:3 4 PM CDT Impressions 04/13/2018 12:40 PM CDT IMPRESSION: Compared to prior scan dated 04/08/2018: HEALTH EDUCATION ASSISTANT shunt in place, with mild decrease in size of the lateral and third ventricles. Ventricles have very small size, with no hydrocephalus. Similar size of pseudomeningocele centered at site of suboccipital craniectomy/C1 laminectomy. This report was electronically signed by TOMMIE TSE on 04/13/2018 12:40 PM . Narrative 04/13/2018 12:40 PM CDT EXAM: CT HEAD WO CONTRAST CLINICAL INDICATION: Post HEALTH EDUCATION ASSISTANT shunt COMPARISON: CT head without contrast 04/08/2018 [...] to 6.8 x 5.3 cm on prior. HEALTH EDUCATION ASSISTANT shunt courses through the right frontal lobe, [...] CT HEAD WO CONTRAST CLINICAL INDICATION: Post HEALTH EDUCATION ASSISTANT shunt COMPARISON: CT head without contrast 04/08/2018 [...] to 6.8 x 5.3 cm on prior. HEALTH EDUCATION ASSISTANT shunt courses through the right frontal lobe, [...] IMPRESSION: Compared to prior scan dated 04/08/2018: HEALTH EDUCATION ASSISTANT shunt in place, with mild decrease in [...] cavoatrial junction. Dictated by Clovis Murphy DO (residential installer). Dr. RUMA Barger have personally reviewed and [...] cavoatrial junction. Dictated by Clovis Murphy DO (residential installer). Dr. RUMA Barger have personally reviewed and [...] shunt revision. Dictated by Clovis Murphy DO (residential installer). Dr. RUMA Barger have personally reviewed and [...] shunt revision. Dictated by Clovis Murphy DO (residential installer). Dr. RUMA Barger have personally reviewed and interpreted this examination/study. This report was electronically signed by RUMA JARA on 04/13/2018 7:54 AM . Isidro Gutierrez MD DIAGNOSTIC IMAGING O RDERABLES * FL KEN SURGERY (04/12/2018 4:33 PM CDT) Narrative [facility] RADIOLOGY - 04/12/2018 4:33 PM CDT Fluoroscopy was used for this exam in the OR. Please see the Operative report. Pooja Alanis MD FLUOROSCOPY ORDERABL ES Performing Organization Address [facility] Co de Phone Number [facility] RADIOLOGY * TYPE + SCREEN PANEL (04/12/2018 5:18 AM CDT) Only the most recent of7 resultswithin the time period is included. Antibody Screen NEG 8 6:25 AM CDT [facility] BLOOD BANK LAB ABO Rh A POS 04/12/2018 6:25 AM CDT [facility] BLOOD BANK LAB Blood Bank BLOOD SPECIMEN / Unknown Venipuncture / Unknown 04/12/2018 5:18 AM CDT 04/12/2018 5:27 AM CDT Yuri Arias MD LAB - BLOOD BANK ORD ERABLES Performing Organization Address [facility] Co de Phone Number [facility] BLOOD BANK LAB [address] [place] [address] * (ABNORMAL) C-REACTIVE PROTEIN (04/09/2018 9:53 AM CDT) Only the most recent of2 resultswithin the time period is included. C-Reactive Protein 0.7(H) <=0.5 mg/dL 04/09/2018 10:28 AM CDT [facility] Blood BLOOD SPECIMEN / Unknown Venipuncture / Unknown 04/09/2018 9:53 AM CDT 04/09/2018 10:07 AM CDT Logan Damon MD LAB - MANAGER GROUP HOME RY ORDERABLES Performing Organization Address [facility] Co de Phone Number [facility] [address] [place] [address] * (ABNORMAL) ERYTHROCYTE SEDIMENTATION RATE (04/09/2018 9:53 AM CDT) Only the most recent of2 resultswithin the time period is included. Pathologist [facility] Erythrocyte Sedimentation Rate Westergren 37(H) 0 - 20 MM/HR 04/09/2018 10:28 AM [facility] Blood BLOOD SPECIMEN / Unknown Venipuncture / Unknown 04/09/2018 9:53 AM CDT 04/09/2018 10:07 AM CDT Logan Damon MD LAB - HEMATOL OGY ORDERABLES [facility] [address] [place] [address] * (ABNORMAL) CBC W/O DIFFERENTIAL (04/09/2018 3:42 AM CDT) Only the most recent of5 resultswithin the time period is included. [facility] WBC 5.8 3.5 - 10.5 10 3/uL 04/09/2018 3:57 AM [facility] RBC 3.55(L) 3.90 - 5.00 10 6/uL 04/09/2018 3:57 AM [facility] Hemoglobin 11.0(L) 12.0 - 15.5 g/dL 04/09/2018 3:57 AM [facility] Hematocrit 34.1(L) 35.0 - 45.0 % 04/09/2018 3:57 AM [facility] MCV 96.1 81.0 - 97.0 fL 04/09/2018 3:57 AM [facility] MCH 31.0 28.0 - 34.0 pg 04/09/2018 3:57 AM [facility] MCHC 32.3 32.0 - 36.0 g/dL 04/09/2018 3:57 AM [facility] Platelet Count 268 150 - 400 10 3/uL 04/09/2018 3:57 AM [facility] RDW-SD 45.5 36.0 - 50.0 fL 04/09/2018 3:57 AM [facility] RDW-CV 13.0 11.2 - 14.8 % 04/09/2018 3:57 AM [facility] MPV 10.3 9.3 - 12.8 fL 04/09/2018 3:57 AM CDT [facility] Blood BLOOD SPECIMEN / Unknown Venipuncture / Unknown 04/09/2018 3:42 AM CDT 04/09/2018 3:46 AM CDT Yuri Arias MD LAB - HEMATOLOGY ORD ERABLES Performing Organization Address City/[facility]/ZIP Co de Phone Number [address] [phone] * CULTURE BLOOD (04/08/2018 11:03 PM CDT) Only the most recent of2 resultswithin the time period is included. Culture No growth day 5 JENI 04/14/2018 2:45 AM CDT [facility] MICROBIOLOGY Blood PERIPHERAL BLOOD / Unknown Lab Venipuncture / Unknown 04/08/2018 11:03 PM CDT 04/08/2018 11:08 PM CDT Yuri Arias MD LAB - MICROBIOLOGY O RDERABLES Performing Organization Address City/[facility]/ZIP Co de Phone Number [facility] MICROBIOLOGY [address] [place] [address], [facility] [phone] * PTT [facility] (04/08/2018 10:57 PM CDT) Only the most recent of4 resultswithin the time period is included. APTT 27.0 23.0 - 38.4 Seconds 04/08/2018 11:23 PM CDT [facility] LABORATORY [facility] Comment: Suggested therapeutic range for full dose I.V. heparin therapy for venous thromboembolism is 66.0-91.0 seconds. Blood BLOOD SPECIMEN / Unknown Lab Venipuncture / Unknown 04/08/2018 10:57 PM CDT 04/08/2018 11:08 PM CDT Yuri Arias MD LAB - COAGULATION OR DERABLES Performing Organization Address City/[facility]/ZIP Co de Phone Number [address] [address], [facility] [phone] * PT-INR [facility] (04/08/2018 10:57 PM CDT) Only the most recent of6 resultswithin the time period is included. Pathologist [facility] PT 13.3 12.1 - 14.8 Seconds 04/08/2018 11:22 PM CDT [facility] INR 1.0 See Comment 04/08/2018 11:22 PM CDT [facility] Comment: The suggested therapeutic range for standard coumadin (warfarin) therapy is an INR of 2.0-3.0. For high-risk patients (Mechanical Mitral Valve Prosthesis, etc.), the suggested prophylactic therapeutic range is an INR of 2.5-3.5. Blood BLOOD SPECIMEN / Unknown Lab Venipuncture / Unknown 04/08/2018 10:57 PM CDT 04/08/2018 11:08 PM CDT Yuri Arias MD LAB - COAGULATION OR DERABLES Performing Organization Address City/[facility]/ZIP Co de Phone Number [facility] [address] [phone] * CULTURE CATH TIP (04/08/2018 9:15 PM CDT) [facility] Culture No growth JENI 04/16/2018 7:04 PM CDT [facility] MICROBIOLOGY Microbiology CEREBROSPINAL FLUID SHUNT TUBING / Unknown Collection / Unknown 04/08/2018 9:15 PM CDT 04/08/2018 9:15 PM CDT Ambrose Lopez MD LAB - MICROBIOLO GY ORDERABLES [facility] MICROBIOLOGY [address] [phone] * DIFFERENTIAL MANUAL FLUID (04/08/2018 9:12 PM CDT) Only the most recent of2 resultswithin the time period is included. Pathologist [facility] Segs % Fluid 8 % 04/08/2018 9:51 PM CDT [facility] LABORATORY [facility] Lymphocytes % Fluid 70 % 04/08/2018 9:51 PM CDT [facility] Monocytes % Fluid 12 % 04/08/2018 9:[facility] Eosinophils % Fluid 7 % 04/08/2018 9:51 PM [facility] Macrophages % Fluid 3 % 04/08/2018 9:51 PM [facility] Cerebral spinal fluid CEREBROSPINAL FLUID SPECIMEN FROM VENTRICLE OF BRAIN / Unknown Collection / Unknown 04/08/2018 9:12 PM CDT 04/08/2018 9:12 PM CDT Ambrose Lopez MD LAB - BODY FLUID ORDERABLES Performing Organization Address City/[facility] Co de Phone Number [address] [phone] * CELL COUNT W DIFFERENTIAL CSF (04/08/2018 9:12 PM CDT) Only the most recent of2 resultswithin the time period is included. Color Fluid Colorless Colorless, Straw 04/08/2018 9:45 PM [facility] Clarity Fluid Clear Clear 04/08/2018 9:45 PM [facility] Volume Fluid 6.0 mL 04/08/2018 9:45 PM [facility] WBC Calculation Fluid 43 /uL 04/08/2018 9:45 PM [facility] RBC Calculation 62 /uL 8 9:45 PM [facility] Xanthochromia Fluid Negative Negative 04/08/2018 9:45 PM [facility] Differential Manual Differential to follow. 04/08/2018 9:45 PM [facility] Cerebral spinal fluid CEREBROSPINAL FLUID SPECIMEN FROM VENTRICLE OF BRAIN / Unknown Collection / Unknown 04/08/2018 9:12 PM CDT 04/08/2018 9:12 PM CDT Ambrose Lopez MD LAB - BODY FLUID ORDERABLES Performing Organization Address [facility] [place] [address], [facility] [phone] * (ABNORMAL) PROTEIN CSF (04/08/2018 9:12 PM CDT) Only the most recent of2 resultswithin the time period is included. Protein CSF 114(H) 15 - 45 mg/dL 04/08/2018 9:33 PM CDT [facility] Cerebral spinal fluid CEREBROSPINAL FLUID SPECIMEN / Unknown Collection / Unknown 04/08/2018 9:12 PM CDT 04/08/2018 9:12 PM CDT Ambrose Lopez MD LAB - BODY FLUID ORDERABLES Performing Organization Address City/[facility]/ZIP Co de Phone Number [address] [phone] * GLUCOSE CSF (04/08/2018 9:12 PM CDT) Only the most recent of2 resultswithin the time period is included. Glucose CSF 54 40 - 70 mg/dL 04/08/2018 9:33 PM CDT [facility] Cerebral spinal fluid COLLECTION OF CEREBROSPINAL FLUID VIA VENTRICULOPERITONEAL SHUNT / Unknown Collection / Unknown 04/08/2018 9:12 PM CDT 04/08/2018 9:12 PM CDT Ambrose Lopez MD LAB - BODY FLUID ORDERABLES Performing Organization Address City/[facility] Co de Phone Number [address] [phone] * (ABNORMAL) COMPREHENSIVE METABOLIC PANEL (04/08/2018 5:05 PM CDT) Only the most recent of7 resultswithin the time period is included. BUN 14 7 - 26 mg/dL 04/08/2018 5:34 PM CDT [facility] Creatinine 1.2 0.6 - 1.2 mg/dL 04/08/2018 5:34 PM [facility] Sodium 136 136 - 145 mmol/L 04/08/2018 5:34 PM [facility] Potassium 3.6 3.5 - 4.5 mmol/L 04/08/2018 5:34 PM [facility] Chloride 94(L) 98 - 107 mmol/L 04/08/2018 5:34 PM [facility] CO2 33(H) 22 - 29 mmol/L 04/08/2018 5:34 PM [facility] Glucose 87 70 - 115 mg/dL 04/08/2018 5:34 PM [facility] Calcium 10.2 8.4 - 10.2 mg/dL 04/08/2018 5:34 PM [facility] Protein Total 7.1 6.0 - 8.3 g/dL 04/08/2018 5:34 PM [facility] Albumin 3.6 3.4 - 5.0 g/dL 04/08/2018 5:34 PM [facility] Bilirubin Total 1.1 0.2 - 1.2 mg/dL 04/08/2018 5:34 PM [facility] Alkaline Phosphatase 49 40 - 150 Units/L 04/08/2018 5:34 PM [facility] ALT 88(H) 0 - 55 Units/L 04/08/2018 5:34 PM [facility] AST 39(H) 5 - 34 Units/L 04/08/2018 5:34 PM [facility] Anion Gap 13 8 - 18 04/08/2018 5:34 PM [facility] BUN/Creatinine Ratio 12 7 - 23 04/08/2018 5:34 PM [facility] Osmolality Calculated 282 270 - 300 mOsm/kg 04/08/2018 5:34 PM [facility] Albumin/Globulin Ratio 1.0(L) 1.1 - 2.3 04/08/2018 5:34 PM [facility] eGFR 49(L) >60 mL/min/1.7 3 m2 04/08/2018 5:34 PM [facility] Blood BLOOD SPECIMEN / Unknown Venipuncture / Unknown 04/08/2018 5:05 PM CDT 04/08/2018 5:08 PM T Balwinder Dominguez MD LAB - CHEMISTRY [place] [facility] Organization Address City/State/ZIP Co de Phone Number [facility] [address] [phone] * HIV-1 HIV-2 ANTIGEN/ANTIBODY (04/08/2018 3:24 PM CDT) HIV Antigen/Antibod y 1 & 2 Non-reacti ve Non-react [place] 04/08/2018 4:14 PM CDT [facility] Comment: Neither HIV-1 p24 Antigen nor HIV-1/HIV-2 Antibodies are detected. Blood BLOOD SPECIMEN / Unknown Venipuncture / Unknown 04/08/2018 3:24 PM CDT 04/08/2018 3:30 PM CDT Simon Saldana MD LAB - HEMATOLOGY ORDERABLES Performing Organization Address [facility] Co de Phone Number [address] [phone] * HEPATITIS C AB SCREEN RFLX NAAT QUANT (04/08/2018 3:24 PM CDT) Hepatitis C Antibody Non-react [place] Non-reac tive 04/08/2018 4:21 PM CDT [facility] Comment: Hepatitis C Antibody screen indicates [...] LAB - CHEMISTRY ORDERABLES Performing Organization Address [facility] Co de Phone Number [address] [phone] * ENDOTRACHEAL TUBE NOTE (03/26/2018 3:48 PM CDT) Narrative Isaias Vincent MD - 03/26/2018 3:48 PM CDT Patricio Swartz DO 03/22/2018 8:16 AM Endotracheal Tube Placement: Patient Location: OR. Intubation Event Date/Time: 03/22/2018 7:53 AM Procedure: intubation ([id number]). Procedure Section: Sedation: under general anesthesia. Indications [...] 7 - 26 mg/dL 03/24/2018 3:57 PM [facility] Creatinine 0.8 0.6 - 1.2 mg/dL 03/24/2018 3:57 PM [facility] Sodium 139 136 - 145 mmol/L 03/24/2018 3:57 PM [facility] Potassium 3.5 3.5 - 4.5 mmol/L 03/24/2018 3:57 PM [facility] Chloride 98 98 - 107 mmol/L 03/24/2018 3:57 PM [facility] CO2 33(H) 22 - 29 mmol/L 03/24/2018 3:57 PM [facility] Glucose 111 70 - 115 mg/dL 03/24/2018 3:57 PM [facility] Albumin 2.8(L) 3.4 - 5.0 g/dL 03/24/2018 3:57 PM [facility] Calcium 9.0 8.4 - 10.2 mg/dL 03/24/2018 3:57 PM [facility] Phosphorus 3.4 2.3 - 4.7 mg/dL 03/24/2018 3:57 PM [facility] Anion Gap 12 8 - 18 03/24/2018 3:57 PM [facility] BUN/Creatinine Ratio 10 7 - 23 03/24/2018 3:57 PM [facility] Osmolality Calculated 287 270 - 300 mOsm/kg 03/24/2018 3:57 PM CDT [facility] eGFR >60 >60 mL/min/1.7 3 m2 03/24/2018 3:57 PM CDT [facility] Blood BLOOD SPECIMEN / Unknown 03/24/2018 3:14 PM CDT 03/24/2018 3:38 PM CDT Alverto Johnson DO LAB - CHEMISTRY [place] Performing Organization Address [facility]/ZIP Co de Phone Number [address] [phone] * (ABNORMAL) MAGNESIUM BLOOD (03/24/2018 3:18 AM CDT) Only the most recent of2 resultswithin the time period is included. Magnesium 1.0(L) 1.6 - 2.6 mg/dL 03/24/2018 6:53 AM CDT [facility] Blood BLOOD SPECIMEN / Unknown Venipuncture / Unknown 03/24/2018 3:18 AM CDT 03/24/2018 3:42 AM CDT Adama Diaz MD LAB - CHEMISTRY [place] Performing Organization Address [facility] de Phone Number [address] [phone] * ECHO COMPLETE (03/22/2018 11:47 AM CDT) Anatomical Region Laterality Modality Chest Ultrasound Alverto Johnson DO ECHOCARDIOGRAPHY RAD IANT * US RETROPERITONEAL COMPLETE (03/21/2018 4:30 PM CDT) Anatomical Region Laterality Modality Abdomen Ultrasound 03/22/2018 10:0 8 AM CDT Impressions 03/22/2018 12:08 PM CDT IMPRESSION: Normal renal size. No evidence of nephrolithiasis, hydronephrosis, or solid renal mass. Dictated by Jose Francisco Norman MD (residential installer). I, Dr. KAMI STRONG M.D. have personally [...] mass. Dictated by Jose Francisco Norman MD (residential installer). I, Dr. KAMI STRONG M.D. have personally [...] Colorless, Light Yellow 03/21/2018 12:26 PM CDT [facility] Clarity UA Hazy(A) Clear 03/21/2018 12:26 PM CDT [facility] Specific [place] UA 1.010 1.001 - 1.030 03/21/2018 12:26 PM [facility] pH UA 5.0 5.0 - 8.0 03/21/2018 12:26 PM [facility] Protein UA Trace(A) <=20 mg/dL 03/21/2018 12:26 PM [facility] Comment:Confirmed by repeat analysis. Glucose UA Negative Negative mg/dL 03/21/2018 12:26 PM [facility] Ketone UA Trace(A) Negative mg/dL 03/21/2018 12:26 PM [facility] Bilirubin UA Negative Negative mg/dL 03/21/2018 12:26 PM [facility] Blood UA Negative Negative 03/21/2018 12:26 PM [facility] Nitrite UA Positive(A) Negative 03/21/2018 12:26 PM [facility] Leukocyte Esterase Small(A) Negative 03/21/2018 12:26 PM [facility] Urobilinogen UA <2.0 <2.0 mg/dL 8 12:26 PM [facility] WBC UA 6(H) 0 - 2 /HPF 03/21/2018 12:26 PM [facility] Bacteria UA Moderate(A) Rare, Occasional, None /HPF 03/21/2018 12:26 PM [facility] Squamous Epithelial Cells UA 5(H) 0 - 1 /HPF 03/21/2018 12:26 PM [facility] Mucus UA Rare(A) None /LPF 03/21/2018 12:26 PM [facility] Hyaline Casts UA 13(H) 0 - 2 /LPF 03/21/20 18 12:26 PM [facility] Urine URINE SPECIMEN OBTAINED BY CLEAN CATCH PROCEDURE / Unknown Collection / Unknown 03/21/2018 11:42 AM CDT 03/21/2018 11:46 AM CDT Alverto Johnson DO LAB - URINALYSIS ORD ERABLES [address] [phone] * EOSINOPHIL URINE SMEAR (03/21/2018 11:42 AM CDT) Eosin Stain Urine None None 03/21/2018 1:40 PM CDT [facility] Urine URINE SPECIMEN OBTAINED BY CLEAN CATCH PROCEDURE / Unknown Collection / Unknown 03/21/2018 11:42 AM CDT 03/21/2018 11:46 AM CDT Alverto Elizabeth DO LAB - URINE CHEMISTR Y ORDERABLES Performing Organization Address [facility]/ZIP Co de Phone Number [address] [phone] * PROTEIN URINE RANDOM QUANTITATIVE (03/21/2018 11:42 AM CDT) Protein Urine 21 Not Established mg/dL 03/21/2018 12:32 PM CDT [facility] Urine URINE SPECIMEN OBTAINED BY CLEAN CATCH PROCEDURE / Unknown Collection / Unknown 03/21/2018 11:42 AM CDT 03/21/2018 11:46 AM CDT Alverto Elizabeth DO LAB - URINE CHEMISTR Y ORDERABLES Performing Organization Address [facility] Co de Phone Number [address] [phone] * SODIUM URINE RANDOM (03/21/2018 11:42 AM CDT) Sodium Urine 39 Not Established mmol/L 03/21/2018 12:24 PM CDT [facility] Urine URINE SPECIMEN OBTAINED BY CLEAN CATCH PROCEDURE / Unknown Collection / Unknown 03/21/2018 11:42 AM CDT 03/21/2018 11:46 AM CDT Alverto Elizabeth DO LAB - URINE CHEMISTR Y ORDERABLES Performing Organization Address [facility] Co de Phone Number [address] [phone] * UREA NITROGEN URINE RANDOM (03/21/2018 11:42 AM CDT) Urea Nitrogen Random Urine 401 Not Established mg/dL 03/21/2018 12:24 PM CDT [facility] Urine URINE SPECIMEN OBTAINED BY CLEAN CATCH PROCEDURE / Unknown Collection / Unknown 03/21/2018 11:42 AM CDT 03/21/2018 11:46 AM CDT Alverto Johnson DO LAB - URINE CHEMISTR Y ORDERABLES Performing Organization Address [facility] Co de Phone Number [address] [phone] * CREATININE URINE RANDOM (03/21/2018 11:42 AM CDT) Creatinine Urine 162 Not Established mg/dL 03/21/2018 12:32 PM CDT [facility] Comment: Result obtained by dilution. Urine URINE SPECIMEN OBTAINED BY CLEAN CATCH PROCEDURE / Unknown Collection / Unknown 03/21/2018 11:42 AM CDT 03/21/2018 11:46 AM CDT Alverto Johnson DO LAB - URINE CHEMISTR Y ORDERABLES Performing Organization Address [facility]/ZIP Co de Phone Number [address] [phone] * PHOSPHORUS BLOOD (03/21/2018 3:22 AM CDT) Phosphorus 4.4 2.3 - 4.7 mg/dL 03/21/2018 4:24 AM T [facility] Blood BLOOD SPECIMEN / Unknown Lab Venipuncture / Unknown 03/21/2018 3:22 AM CDT 03/21/2018 3:54 AM CDT Adrianne Guan MD LAB - CHEMISTRY O RDERABLES Performing Organization Address City/[facility]/ZIP Co de Phone Number [address] [phone] * TSH (03/21/2018 3:22 AM CDT) TSH 2.574 0.350 - 4.940 uIU/mL 03/21/2018 4:53 AM T [facility] Blood BLOOD SPECIMEN / Unknown Lab Venipuncture / Unknown 03/21/2018 3:22 AM CDT 03/21/2018 3:54 AM CDT Adrianne Guan MD LAB - [place] [address], [facility] [phone] * CT ABDOMEN WO CONTRAST (03/20/2018 4:43 [...] or pelvis. Dictated by Carmelo Cornell MD (residential installer). I, Dr. HUAN MORILLO MD have personally reviewed and interpreted this examination/study. This report was electronically signed by HUAN MORILLO MD on 03/20/2018 6:06 PM . Narrative 03/20/2018 6:06 PM CDT EXAMINATION: Computed tomography (CT) of the abdomen and pelvis without contrast HISTORY: s/p HEALTH EDUCATION ASSISTANT shunt, distal catheter appears extraperitoneal on plain [...] abdomen and pelvis without contrast HISTORY: s/p HEALTH EDUCATION ASSISTANT shunt, distal catheter appears extraperitoneal on plain [...] or pelvis. Dictated by Carmelo Cornell MD (residential installer). I, Dr. HUAN MORILLO MD have personally reviewed and interpreted this examination/study. This report was electronically signed by HUAN MORILLO MD on03/20/2018 6:06 PM . Ambrose Lopez MD CT ORDERABLES * (ABNORMAL) CULTURE WOUND+GRAM STAIN (03/20/2018 3:19 PM CDT) Culture Heavy Staphylococcus aureus(A) JENI 03/22/2018 9:15 AM CDT [facility] Gram Stain Light Red blood cells 03/22/2018 9:15 AM CDT [facility] Gram Stain Light White blood cells 03/22/2018 9:15 AM CDT [facility] Gram Stain No organisms seen 018 9:15 AM CDT [facility] Microbiology STRUCTURE OF SKULL AND/OR SPINE [...] Valdivia MD LAB - MICROBIOLOGY O RDERABLES [facility] [address] [place], [place] [address], [facility] [phone] * CT CERVICAL SPINE WO CONTRAST (03/20/2018 [...] Report dictated by Jose Francisco Norman MD (residential installer). I, Dr. CLEMENT MANCERA have personally reviewed [...] of [place]. Postoperative changes of suboccipital craniotomy, [id number] with adjacent fluid collection is again seen. [...] Report dictated by Jose Francisco Norman MD (residential installer). I, Dr. CLEMENT MANCERA have personally reviewed and interpreted this examination/study. This report was electronically signed by CLEMENT MANCERA on 03/20/201812:27 PM . Nimo Almazan MD CT ORDERABLES * (ABNORMAL) DRUG SCREEN TOX URINE PANEL (03/20/2018 1:54 AM CDT) Amphetamines Screen Urine Negative Negative : < 1000 ng/mL 03/20/2018 2:13 AM [facility] Barbiturates Screen Urine Negative Negative : < 200 ng/mL 03/20/2018 2:13 AM [facility] Benzodiazepine Screen Urine Positive(A) Negative : < 200 ng/mL 03/20/2018 2:13 AM [facility] Comment: Positive urine benzodiazepine screening results should be confirmed by another generally accepted non-immunological method such as gas chromatography or mass spectrometry. Opiates Urine Negative Negative : < 300 ng/mL 03/20/2018 2:13 AM [facility] Cocaine Metabolites Urine Negative Negative : < 300 ng/mL 03/20/2018 2:13 AM [facility] Phencyclidine Screen Urine Negative Negative : < 25 ng/ml 03/20/2018 2:13 AM [facility] Cannabinoids Screen Urine Positive(A) Negative : <50 ng/mL 03/20/2018 2:13 AM CDT [facility] Comment: Positive urine cannabinoids (THC) screening results should be confirmed by another generally accepted non-immunological method such as gas chromatography or mass spectrometry. Methadone Screen Urine Negative Negative : < 300 ng/mL 03/20/2018 2:13 AM CDT [facility] Urine URINE / Unknown Collection / Unknown 03/20/2018 1:54 AM CDT 03/20/2018 1:54 AM CDT Narrative [facility] - 03/20/2018 2:13 AM CDT The Urine Toxicology Screening Panel does not screen for Propoxyphene, Meprobamate, Carisoprodol, Trazodone, [id number] medications and/or volatiles (Acetone, Isopropanol, Methanol or Ethylene Glycol). Ethanol, Salicylate, Acetaminophen, Tricyclic Antidepressants and several therapeutic drugs may be individually assayed in serum or plasma specimen. Toxicology testing by the [facility] is an aid to medical diagnosis and treatment of patients. No documented chain of custody was maintained. Results are intended to be used for clinical purposes only. Nimo Almazan MD LAB - URINE CHEMIS TRY ORDERABLES [address] [phone] * HCG URINE QUALITATIVE - POINT OF CARE (03/20/2018 1:40 AM CDT) HCG Qual Urine Negative Negative [facility] P OCT TESTING QC Verified Yes Yes [facility] POCT TESTING Urine URINE / Unknown 03/20/2018 1 :40 AM CDT Nimo Almazan MD LAB - POINT OF CAR E ORDERABLES Performing Organization Address [facility]/ZIP Co de Phone Number [facility] POCT TESTING [address] [place] [address] * CT BRAIN STEREOTACTIC (03/01/2018 5:16 AM [...] AM CDT CT GUIDED STEREO LOCALIZATION HISTORY: [id number] old female with a history of Chiari [...] - 03/01/2018 CT GUIDED STEREO LOCALIZATION HISTORY: [id number] old female with a history of Chiari [...] - 4.5 mmol/L 01/24/2018 4:21 PM CDT [facility] Blood BLOOD SPECIMEN / Unknown Venipuncture / Unknown 01/24/2018 4:02 PM CDT 01/24/2018 4:09 PM CDT Nuhng Carlson [employer]FI[employer] SYSTEMS INSPECTOR LAB - CHEMISTR Y ORDERABLES [address] [phone] * XR CHEST PA AND LATERAL (01/23/2018 [...] is normal. Dictated by Sidney Lovell MD (residential installer). Dr. HUAN Barger MD have personally reviewed [...] is normal. Dictated by Sidney Lovell MD (residential installer). Dr. HUAN Barger MD have personally reviewed and interpreted this examination/study. This report was electronically signed by HUAN MORILLO MD on01/24/2018 11:31 AM . Mela Joseph MD DIAGNOSTIC IMAGING O RDERABLES * MRI CERVICAL SPINE WO CONTRAST (06/04/2017 3:57 PM DIE CAST TECHNICIAN) Anatomical Region Laterality Modality Pelvis Other Impressions 06/04/2017 4:02 PM DIE CAST TECHNICIAN IMPRESSION: 1. Chiari I malformation with normal CSF flow across foramen magnum. No evidence of syrinx formation. This report was electronically signed by HAO OLEA M.D. on 06/04/2017 4:02 PM . Narrative 06/04/2017 4:02 PM DIE CAST TECHNICIAN This is a summary report. The complete [...] in the vertebral arteries. Procedure Note Hao Olea MD - 10/23/2017 This is a summary [...] Pooja Alanis MD MR ORDERABLES Care Teams Travel Guide Relationship Specialty Start Date End Date Malik España PA-C [address] [place] [address] PCP - General Physician News Department Intern 01/14/18
--- NOTE | 2024-09-04 15:31 | ED_ITS ---
HPI - Headache General Chief Complaint: Headache Stated Complaint: n/v, migraine, hx hydrocephalus Time Seen by Provider: 09/04/24 15:04 History of Present Illness HPI Narrative: 54-year-old female with history of hypertension, hydrocephalus s/p shunt placement presents to the emergency department for dental pain and headache. Patient states about a week ago she broke the crown on her right lower molar since then has been experiencing pain. She noticed an abscess developed about 4 days ago and incised at home, reportedly expressed blood and pus. She states over the past day she has developed increased pain and swelling to the right mandible that radiates into the right ear and right side of her head causing a migraine. She went to an emergency dentist today and [place] and was advised to come to the ED. She has not noticed any draining since she incised the abscess about 4 days ago. She denies difficulty breathing or swelling but is endorsing a thick sensation in her throat. She states she had a fever last night of 99.6 but has not had any elevated temperatures today. She reports 5 episodes of vomiting with associated nausea. Patient follows with neurosurgeon at [facility]. Denies vision changes, focal numbness or weakness. Patient states she took an extra Strength Tylenol around 1:15 p.m. today. Related Data Home Medications ?Medication ?Instructions ?Recorded ?Confirmed ?Last Taken ?Type dextroamphetamine-amphetamine 20 20 mg PO BID 12/01/23 04/12/24 Unknown History mg tablet (Adderall) ketoconazole 2 % topical cream 1 applic topical DAILY 12/01/23 04/12/24 Unknown History sertraline 100 mg tablet 100 mg PO DAILY 12/01/23 04/12/24 Unknown History tacrolimus 0.1 % topical ointment 1 applic topical BID 12/01/23 04/12/24 Unknown History Allergies Allergy/AdvReac Type Severity Reaction Status Date / Time ibuprofen Allergy Severe shunt Verified 09/04/24 14:27 ketorolac Allergy Intermediate Joint Pain Verified 09/04/24 14:27 Sulfa (Sulfonamide Allergy Intermediate general Verified 09/04/24 14:27 Antibiotics) pain Review of Systems 2 Review of Systems: All systems reviewed & are unremarkable except as noted in HPI and below PMFSH Past Medical History Medical History Hypertension Attention deficit hyperactivity disorder Chiari malformation Status post surgical decompression and shunt insertion. Marijuana use Anemia Anxiety Depression Asthma Migraine Surgical History Surgical History History of craniotomy Surgical decompression and shunt placement for Chiari malformation. History of dilatation and curettage History of tubal ligation Family History Family History Father Hypertension Depression Heart disease Alcohol abuse Mother Hypertension Depression Alcohol abuse Sibling Hypertension Alcohol abuse Depression Grandparent Alcohol abuse Hypertension Heart disease Son Alcohol abuse Depression Heart disease Social History Social History Social History: Surrogate medical decision maker: Marta Oshea, . Code status: Full code. Smoking packs per day: 1 Smoking cigarettes per day: 20.0 Years smoked: 3 Smoking pack-years: 3.00 Smoking status: Former smoker Second hand tobacco smoke exposure: Yes (smokes weed) Smoking end date: 02/06/22 Alcohol intake: current Alcohol use details: Drink heavily in the past. Substance use: current Substance use type: marijuana Exam 2 Narrative: GENERAL: Well-appearing, well-nourished, and in no acute distress. HEAD: Normocephalic, atraumatic. palpable shunt to the right parietal lobe EYES: PERRLA and EOMI. ENT: Nares clear, no rhinorrhea or epistaxis. Mucous membranes moist. Poor dentition in with fracture to the right lower molar, superficial area of bleeding along the gum line with no purulence or palpable abscess. There is right mandibular edema with induration and tenderness, no fluctuance or overlying erythema, minimal extension submandibularly. floor mouth is soft without crepitus. Patient tolerating secretions. No drooling. No trismus. Bilateral TMs are clolins nonbulging with normal canals. no mastoid tenderness NECK: Supple. CHEST: Clear to auscultation. No respiratory distress. HEART: Regular rate and rhythm. No murmur heard. Normal peripheral pulses. ABDOMEN: Soft, nontender, nondistended, normal active bowel sounds. EXTREMITIES: Normal range of motion. No edema. SKIN: Warm, dry, no rash. NEURO: No focal deficits. Alert and oriented x3. Cranial nerves 2-12 intact. Strength 5/5 in BUE and BLE. Sensation intact throughout Course Vital Signs Vital signs: Vital Signs Temperature 98.5 F 09/04/24 14:37 Pulse Rate 130 H 09/04/24 14:37 Respiratory Rate 19 09/04/24 14:37 Blood Pressure 151/96 H 09/04/24 14:37 Pulse Oximetry 100 09/04/24 14:37 Oxygen Delivery Room Air 09/04/24 14:37 Temperature 98.5 F 09/04/24 14:37 Pulse Rate 91 09/04/24 15:54 Respiratory Rate 16 09/04/24 15:54 Blood Pressure 130/89 09/04/24 15:54 Pulse Oximetry 98 09/04/24 15:54 Oxygen Delivery Room Air 09/04/24 14:37 MDM - Headache MDM Narrative Medical decision making narrative: 54-year-old female with history of hydrocephalus and s/p states shunt placement presents to the emergency department for right lower molar dental pain and mandibular edema as well as right-sided migraines. The patient reporting associated vomiting and nausea. Triage vitals with tachycardia 130, however upon my evaluation patient's heart rate is 99. Remainder of vitals are unremarkable. She is afebrile upon arrival. Exam significant for the above. there is no airway compromise. Patient is tolerating secretions, no drooling or trismus. Right knee lab work obtained shows no leukocytosis. Chemistries are largely unremarkable. Lactic within normal limits. CT brain shows no acute intracranial process. CT soft tissue neck remarkable for induration hyperemia of the soft tissues overlying the right mandible without a rim enhancing fluid collection. There is also bilateral urgency vitals insert she is generally reactive. Patient updated on results. vital signs remained stable. Patient is reporting significant improvement after fluids, Zofran and morphine. Suspect her right-sided headaches are secondary to the dental pain / infection. She remains tolerating her secretions without airway compromise and is tolerating po intake. there is no fluid collection to drain at bedside. plan to start the patient on Augmentin, Zofran as needed for nausea, [place] as needed for pain (states unable to take NSAIDs dude to shunt), and advised close follow-up with her dentist. Discussed strict ED return precautions. She is agreeable with the plan verbalized understanding. Discharged in stable condition. Lab Data 09/04/24 15:48 09/04/24 15:48 Labs: Lab Results 09/04/24 Range/Units 15:48 WBC 9.5 (4.5-10.0) K/mm3 RBC 4.51 (4.2-5.4) M/mm3 Hgb 13.2 (12.0-15.0) g/dL Hct 39.7 (37.0-47.0) % MCV 88.0 (80-100) fl MCH 29.3 (26-34) pg MCHC 33.2 (32-36) g/dl RDW 13.7 (11.5-14.5) % Plt Count 288 (150-375) k/mm3 MPV 9.3 (7.4-10.4) fl Immature Gran % (Auto) 0.2 (0-0.5) % Neut % (Auto) 89.1 H (45.5-73.1) % Lymph % (Auto) 5.7 L (18.3-44.2) % [place] % (Auto) 4.6 (2.6-8.5) % Eos % (Auto) 0.2 (0-4.4) % Baso % (Auto) 0.2 (0.2-1.2) % Lymph # (Auto) 0.54 L (0.9-3.2) K/mm3 [place] # (Auto) 0.4 (0.1-0.6) K/mm3 Eos # (Auto) 0.0 (0-0.3) K/mm3 Baso # (Auto) 0.0 (0.0-0.1) K/mm3 Abs Immat Gran (auto) 0.02 (0.00-0.031) K/mm3 Absolute Neuts (auto) 8.5 H (1.3-6.7) K/mm3 Absolute Nucleated RBC 0.000 (0.0-0.012) K/mm3 Nucleated RBC % 0.0 (0.0-0.2) % Sodium 132 L (137-145) mmol/L Potassium 3.9 (3.4-5.0) mmol/L Chloride 94 L (98-107) mmol/L Carbon Dioxide 29 (22-30) mmol/L Anion Gap 9 (4-12) mmol/L BUN 9 (7-17) mg/dL Creatinine 0.66 L (0.7-1.0) mg/dL Estim Creat Clear Calc 97 ml/min Estimated GFR > 60 (59 - ) Glucose 104 (65-110) mg/dL Lactic Acid 0.9 (0.7-2.0) mmol/L Calcium 10.0 (8.4-10.2) mg/dL Total Bilirubin 0.8 (0.2-1.3) mg/dL AST 20 (14-36) U/L ALT 18 (6-35) U/L Alkaline Phosphatase 96 (38-126) U/L Total Protein 8.0 (6.3-8.2) g/dL Albumin 4.5 (3.5-5.1) g/dL Discharge Plan Discharge Clinical Impression: Dental infection Patient Disposition: Home, Self-Care Condition: Stable Instructions: Antibiotic Form, Dental Abscess (ED) Additional Instructions: Your evaluated in the emergency department for headaches and dental pain. Your lab work is reassuring. The CT of your head is unremarkable. The CT of your face shows the swelling, however there is no focal abscess to drain. Please take the antibiotics as directed, take ondansetron as needed for nausea and hydrocodone as needed for pain. Follow up very closely with her dentist. Return to the emergency department if you develop a fever of 100.4 or higher, you develop difficulty swallowing or breathing, or other concerning symptoms. Patient Language: Urdu Prescriptions: New amoxicillin-pot clavulanate 875-125 mg tablet 1 tablet PO Q12H Qty: 14 0RF ondansetron 4 mg tablet,disintegrating 4 mg PO Q8H Qty: 14 0RF hydrocodone-acetaminophen 5-325 mg tablet 1 tablet PO Q8H PRN (Reason: pain) Qty: 14 0RF No Action cetirizine 10 mg tablet 10 mg PO DAILY Qty: 10 0RF sertraline 100 mg tablet 100 mg PO DAILY dextroamphetamine-amphetamine [Adderall] 20 mg tablet 20 mg PO BID Rx Instructions: administer doses at least 4-6 hours apart ketoconazole 2 % cream 1 applic topical DAILY tacrolimus 0.1 % ointment 1 applic topical BID tramadol 50 mg tablet 50 mg PO Q8H PRN (Reason: pain) Qty: 30 1RF cyclobenzaprine 10 mg tablet 10 mg PO TID PRN (Reason: muscle spasm) Qty: 20 0RF acetaminophen 500 mg tablet 1,000 mg PO TID PRN (Reason: manuel) 7 Days Qty: 42 0RF methocarbamol 750 mg tablet 1,500 mg PO TID Qty: 35 0RF lidocaine 5 % adhesive patch,medicated 1 patch topical DAILY Qty: 15 0RF Rx Instructions: leave on most painful area for up to 12 hrs celecoxib 200 mg capsule 200 mg PO DAILY Qty: 90 1RF gabapentin 300 mg capsule 300 mg PO QHS Qty: 30 6RF losartan-hydrochlorothiazide 100-25 mg tablet 1 tablet PO DAILY Qty: 90 2RF amlodipine 5 mg tablet 5 mg PO DAILY Qty: 90 3RF Patient Comments: x4 days ago Follow-up/Referrals: Marco A Amador DO [Primary Care Provider] -
[2024-09-04 15:54] VITALS: BP 130/89; PULSE 91; RESP 16; O2SAT 98
[2024-09-04 15:55] LABS: Basophils Percent Auto 0.2 % (0.2-1.2); Eosinophils Percent Auto 0.2 % (0-4.4); Hematocrit 39.7 % (37.0-47.0); Hemoglobin 13.2 g/dL (12.0-15.0); Immature Granulocyte Absolute 0.02 K/mm3 (0.00-0.031); Immature Granulocyte Percent A 0.2 % (0-0.5); Lymphocytes Absolute Auto 0.54 K/mm3 (0.9-3.2); Lymphocytes Percent Auto 5.7 % (18.3-44.2); Mean Corpuscular HGB Conc 33.2 g/dl (32-36); Mean Corpuscular Hemoglobin 29.3 pg (26-34); Mean Platelet Volume 9.3 fl (7.4-10.4); Monocytes Absolute Auto 0.4 K/mm3 (0.1-0.6); Monocytes Percent Auto 4.6 % (2.6-8.5); Neutrophils Absolute Auto 8.5 K/mm3 (1.3-6.7); Neutrophils Percent Auto 89.1 % (45.5-73.1); Platelet Count Result 288 k/mm3 (150-375); Red Blood Count 4.51 M/mm3 (4.2-5.4); Red Cell Distribution Width 13.7 % (11.5-14.5); White Blood Count 9.5 K/mm3 (4.5-10.0)
[2024-09-04] MEDS: MORPHINE SULFATE (*CRX) 4 MG/ML INJ IV PUSH (15:55)
[2024-09-04] MEDS: SODIUM CHLORIDE 0.9% IV 1,000 ML 999 ML IV CONT (15:55)
[2024-09-04] MEDS: ONDANSETRON INJ 4 MG/2 ML VIAL IV PUSH (15:55)
[2024-09-04 16:06] LABS: Lactic Acid Reflex 0.9 mmol/L (0.7-2.0)
[2024-09-04 16:08] LABS: Alanine Aminotransferase 18 U/L (6-35); Albumin Level 4.5 g/dL (3.5-5.1); Alkaline Phosphatase 96 U/L (38-126); Anion Gap 9 mmol/L (4-12); Aspartate Amino Transferase 20 U/L (14-36); Bilirubin,Total 0.8 mg/dL (0.2-1.3); Blood Urea Nitrogen 9 mg/dL (7-17); Carbon Dioxide 29 mmol/L (22-30); Chloride 94 mmol/L (98-107); Estimated CRCL calculation 97 ml/min; Estimated Glomerular Filt Rate > 60; Glucose 104 mg/dL (65-110); Potassium 3.9 mmol/L (3.4-5.0); Sodium 132 mmol/L (137-145)
--- NOTE | 2024-09-04 18:55 | PC.NURSE ---
In room to d/c and pt crying and attempting to put clothes on with IV tubing attached and stretched across the room. Asked to sit down so tubing can be disconnected and SLN removed. Informed pt of dc instructions and RXs and pt crying and agitated with this RN and states the doctor told 45 minutes ago I was DC/d. Informed pt her nurse is was with critical pt and pt's are evaluated, d/c or assessed according to their emergency and needs. She turned her back to began getting dressed. Upon leaving she sought me out in the [facility] and aggressively stated I'm assuming I'm discharged now since you left my papers under my coat. Informed pt she was d/c that's what was being reviewed with her in her room.
== END 2024-09-04 19:04 | disposition home or self-care (01) ==
PROVIDERS: Emergency Provider Physician Assistant; PCP Internal Medicine
DX: K04.7 Periapical abscess without sinus (principal); I10 Essential (primary) hypertension; J45.909 Unspecified asthma, uncomplicated; F90.9 Attention-deficit hyperactivity disorder, unspecified type; F41.9 Anxiety disorder, unspecified; F32.A Depression, unspecified; Z98.2 Presence of cerebrospinal fluid drainage device; Z87.891 Personal history of nicotine dependence
CPT/HCPCS: 36415; 70450; 70491; 80053; 83605; 85025; 93005; 96361; 96374; 96375; 99284; J2270; J2405; J7030; Q9967

== ENCOUNTER 2024-10-17 07:42 | Outpatient (CLI) | payer OTHER, SELFPAY ==
--- OUTSIDE RECORDS SUMMARY | 2024-10-17 07:49 | XMS_ITS | Referral Summary ---
Author Organization [facility] Address [address] [place] [id number] Care Team Providers Care Leather Scraper Name Role Phone Dex Mitchell MD Primary [...] Hypertension 09/29/2012 Overview (10/31/2016): HYPERTENSION NOS Immunizations Immunization Administration Dates Next Due Hep A / [...] on file Legal Sex Female 11:04 AM CERTIFIED CODER Gender Identity Not on file Sexual Orientation Not on file Last Filed Vital Signs Vital Sign Reading Time Taken Comments Blood Pressure 164/98 06/16/2024 6:21 PM CERTIFIED CODER Pulse 100 06/16/2024 6:25 PM CERTIFIED CODER Temperature 36.6 C (97.9 F) 06/16/2024 6:21 PM CERTIFIED CODER Respiratory Rate 20 06/16/2024 6:21 PM CERTIFIED CODER Oxygen Saturation 99% 06/16/2024 6:21 PM CERTIFIED CODER Inhaled Oxygen Concentration - - Weight 90.7 kg (200 lb) 06/16/2024 6:21 PM CERTIFIED CODER Height 165.1 cm (5' 5 ) 06/16/2024 6:21 PM CERTIFIED CODER Body Mass Index 33.28 06/16/2024 6:21 PM CERTIFIED CODER Plan of Treatment Not on file Procedures Procedure Name Priority Date/Time Associated Diagnosis Comments SERUM HEPATITIS C AB Routine 09/29/2012 3:29 PM CERTIFIED CODER from Last 3 Months or Most Recently Relevant to Health Maintenance Results * Serum Hepatitis C ab (09/29/2012 3:29 PM CERTIFIED CODER) HCV ab Non-Reacti ve Non-Reacti ve HISTORICAL RESULTS Serum 09/29/2012 3:29 PM CERTIFIED CODER us Dex Mitchell MD LAB BLOOD ORDERABLES Final Result Performing Organization Address City/State/[facility] Co de Phone Number HISTORICAL RESULTS from Last 3 Months or Most Recently Relevant to Health Maintenance Insurance Care Teams Leather Scraper Relationship Specialty Start Date End Date Dex Mitchell MD PCP - General 01/23/15
--- OUTSIDE RECORDS SUMMARY | 2024-10-17 07:49 | XMS_ITS | Clinical Summary ---
Author Organization [facility] Address [address] [place] [address] Care Team Providers Care Talent Engineer Name Role Phone Malik España PA-C Primary Care Provide r Source Comments [facility],non-owned Affiliates and Associated Physician Practices is amultiple site organization consisting of ambulatory clinics and hospital sitesin [place], [place], [place] and [place]. This disclosure is being madepursuant to the Care Everywhere program and may not contain all information available regarding this patient. 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 Syncope and collapse 03/20/2018 S/P ventriculoperitoneal shunt 03/03/2018 Overview (02/21/2021): 03/01/18 DISTILLATION OPERATOR shunt placed, Strata II @ 1.5 03/20/18 [...] Noted Date Diagnosed Date Resolved Date S/P DISTILLATION OPERATOR shunt 03/20/2018 04/16/2018 Family History Relation Name [...] VACCINE (3 - season) 2024 11/06/2020, 10/16/2020 DEPRESSION SCREENING 07/27/2024 HEPATITIS C SCREENING Completed 04/08/2018 HIV SCREENING Completed 04/08/2018 INFLUENZA VACCINE Completed 08/09/2024, 05/01/2012 HIB VACCINE Aged Out No longer eligi ble based on patient's age to complete this topic HPV VACCINE Aged Out No longer eligi ble based on patient's age to complete this topic MENINGOCOCCAL (Group B) VACCINE SHARED DECISION-MAKING Aged Out No longer eligible based on patient's age to complete this topic MENINGOCOCCAL GROUPS A/C/Y/W VACCINE Aged Out No longer eligible based on patient's age to complete this topic Medical Devices Implanted Type Area Statistical Clerk Device Identifier Shelf Expiration Date Model / Serial / Lot Graft Tissue Intgr Bvn Pricrd Rsrb Dura Implanted:Qty: 1 on 01/19/2018 by Pooja Alanis MD at [facility] N/A: Brain [employer] Robi 12/24/2021 [id number] / / [id number] Slnt Dura Duraseal Pg Trilysine Amine 5 Implanted:Qty: 1 on 01/19/2018 by Pooja Alanis MD at [facility] N/A: Brain [employer] Robi 12/24/2018 [id number] / / [id number] Slnt Dura Duraseal Pg Trilysine Amine 5 Implanted:Qty: 1 on 02/24/2018 by Pooja Alanis MD at [facility] N/A: Other (See Descriptio n) [employer] Robi 12/24/2018 [id number] / / [id number] Description:suboccipital spa ce Clip Srg Std Rt Ang Implanted:Qty: 1 on 03/01/2018 by Pooja Alanis MD at [facility] 09/23/2022 [id number] / / [id number] Valve Shnt Strt2 Reg Csf Prgm Flw Cntrl Implanted:Qty: 1 on 03/01/2018 by Pooja Alanis MD at [facility] Medical 07/26/2020 [id number] / / [id number] Kit Yeni Ba Bctsl Hkm Cath Shnt Strl Implanted:Qty: 1 on 03/01/2018 by Pooja Alanis MD at [facility] [employer] 10/24/2018 [id number] / / [id number] Cath Drn 120cm Prtnl Cdmn Bctsl Ba Yeni Implanted:Qty: 1 on 04/12/2018 by John Howard MD at [facility]science 07/26/2018 [id number] / / [id number] Procedures Procedure Name Priority Date/Time Associated Diagnosis [...] 7 - 26 mg/dL 02/21/2021 10:[address] [facility] Creatinine 0.76 0.56 - 0.96 mg/dL 02/21/2021 10:[address] [facility] Sodium 140 136 - 145 mmol/L 02/21/2021 10:18 AM [facility] Potassium 4.7(H) 3.5 - 4.5 mmol/L 02/21/2021 10:[address] [facility] Chloride 103 98 - 107 mmol/L 02/21/2021 10:[address] [facility] CO2 28 22 - 29 mmol/L 02/21/2021 10:[address] [facility] Glucose 92 70 - 115 mg/dL 02/21/2021 10:[address] [facility] Calcium 9.9 8.4 - 10.2 mg/dL 02/21/2021 10:18 AM [facility] Anion Gap 14 8 - 18 02/21/2021 10:18 AM [facility] BUN/Creatinine Ratio 14 7 - 23 02/21/2021 10:[address] [facility] Osmolality Calculated 289 270 - 300 mOsm/kg 02/21/2021 10:18 AM CDT [facility] eGFR by CKD-EPI >90 >=90 mL/min/1.7 3 m2 02/21/2021 10:18 AM CDT [facility] Blood BLOOD SPECIMEN / Unknown Venipuncture / Unknown 02/21/2021 9:40 AM CDT 02/21/2021 9:53 AM CDT Acosta Ma MD LAB - CHEMISTRY [facility] [address] [place] [address], [facility] [phone] * HIV-1 HIV-2 ANTIGEN/ANTIBODY (04/08/2018 3:24 PM CDT) Pathologist [facility] HIV Antigen/Antibod y 1 & 2 Non-reacti ve Non-react [place] 04/08/2018 4:14 PM CDT [facility] Comment: Neither HIV-1 p24 Antigen nor HIV-1/HIV-2 Antibodies are detected. Blood BLOOD SPECIMEN / Unknown Venipuncture / Unknown 04/08/2018 3:24 PM CDT 04/08/2018 3:30 PM CDT Simon Saldana MD LAB - HEMATOLOGY ORDERABLES Performing Organization Address City/[facility]/ZIP Co de Phone Number [facility] [address] [place] [address], [facility] [phone] * HEPATITIS C AB SCREEN RFLX NAAT QUANT (04/08/2018 3:24 PM CDT) Hepatitis C Antibody Non-react [place] Non-reac tive 04/08/2018 4:21 PM CDT [facility] Comment: Hepatitis C Antibody screen indicates [...] Simon Saldana MD LAB - CHEMISTRY ORDERABLES [address] [phone] from Last 3 Months or Most Recently Relevant to Health Maintenance Advance Directives Documents on File Type Date Recorded Patient Program Director/Morning Show Host Expl anation Adv Directive/Living Will/POA 01/25/2018 8:39 [...] 8:56 AM 03/24/2018 6:24 PM Care Teams Talent Engineer Relationship Specialty Start Date End Date Malik España PA-C [address] [place] [address] PCP - General Physician Polisher Eyeglass Frames 01/14/18
--- OUTSIDE RECORDS SUMMARY | 2024-10-17 07:50 | XMS_ITS | Clinical Summary ---
Author Organization [address] Address [address] [place] [id number] Care Team Providers Care Body Component Engineer Name Role Phone Dex Mitchell MD Primary [...] on file Legal Sex Female 11:04 AM SECURITY ASSISTANT Gender Identity Not on file Sexual Orientation Not on file Obstetrics History Last Filed Vital Signs Vital Sign Reading Time Taken Comments Blood Pressure 164/98 06/16/2024 6:21 PM SECURITY ASSISTANT Pulse 100 06/16/2024 6:25 PM SECURITY ASSISTANT Temperature 36.6 C (97.9 F) 06/16/2024 6:21 PM SECURITY ASSISTANT Respiratory Rate 20 06/16/2024 6:21 PM SECURITY ASSISTANT Oxygen Saturation 99% 06/16/2024 6:21 PM SECURITY ASSISTANT Inhaled Oxygen Concentration - - Weight 90.7 kg (200 lb) 06/16/2024 6:21 PM SECURITY ASSISTANT Height 165.1 cm (5' 5 ) 06/16/2024 6:21 PM SECURITY ASSISTANT Body Mass Index 33.28 06/16/2024 6:21 PM SECURITY ASSISTANT Plan of Treatment Health Maintenance Due Date Last Done Comments Breast Cancer Screening-Mammogram 1972 Cervical Cancer Screening 1972 Colon Cancer Screening-Colonoscopy 1972 Depression Screening 1972 Regular Well Visit/Exam 18-64 1990 Pneumococcal vaccine <65 (1 of 2 - PCV) 1991 DTaP/Tdap/Td Vaccine (2 - Td or Tdap) 07/27/202107/2011 Zoster Vaccine (1 of 2) 2022 Influenza Vaccine (#1) 2024 05/01/2012 Hepatitis C Screening Completed 09/29/2012 Hepatitis B Screening Completed 07/27/2013 Procedures Procedure Name Priority Date/Time Associated Diagnosis Comments SERUM HEPATITIS C AB Routine 09/29/2012 3:29 PM SECURITY ASSISTANT from Last 3 Months or Most Recently Relevant to Health Maintenance Results * Serum Hepatitis C ab (09/29/2012 3:29 PM SECURITY ASSISTANT) HCV ab Non-Reacti ve Non-Reacti ve HISTORICAL RESULTS Serum 09/29/2012 3:29 PM SECURITY ASSISTANT Dex Mitchell MD LAB BLOOD ORDERABLES Final Result HISTORICAL RESULTS from Last 3 Months or Most Recently Relevant to Health Maintenance Insurance [facility] CHOICE PLUS [facility] HMO/PPO Address: [place] [address] Care Teams Body Component Engineer Relationship Specialty Start Date End Date Dex Mitchell MD PCP - General 01/23/15
--- NOTE | 2024-10-17 08:03 | ECHO_ITS ---
Patient Info Name: Malissa Weeks Age: 54 years : 1970 Gender: Female Ht: 66 in Wt: 210 lbs BSA: 2.14 m2 HR: 77 bpm BP: 156 / 108 mmHg Technical Quality: Good Exam Date: 10/17/2024 8:20 AM Exam Location: Echo Lab Patient Status: Outpatient Admit Date: 10/17/2024 Staff Ordering Physician: Marco A Amador DO Arch Pad Cementer: Celine Duckworth RDCS Attending Provider: Marco A Amador DO Referring Physician: Marjorie FLORES; Exam Type: CA echo doppler color flow Study Info Indications R06.09 - Other forms of dyspnea Complete two-dimensional, color flow and Doppler transthoracic echocardiogram is performed. Summary 1. Complete two-dimensional, color flow and Doppler transthoracic echocardiogram is performed. 2. Left ventricular chamber dimension is normal. 3. Left ventricular systolic function is normal, estimated at 60-65%. 4. The left ventricular diastolic function is abnormal. 5. E/e' 11 is mildly elevated. 6. There is trace mitral valve regurgitation. 7. There is trace tricuspid valve regurgitation. 8. No pulmonary hypertension, estimated pulmonary arterial systolic pressure is 29 mmHg. Left Ventricle E/e' 11 is mildly elevated. Left ventricular chamber dimension is normal. Left ventricular systolic function is normal, estimated at 60-65%. The left ventricular diastolic function is abnormal. Right Ventricle Right ventricular systolic function is normal and with normal TAPSE 2.0 cm. Right ventricular chamber dimension is normal. Left Atria Left atrial chamber dimension is normal. Right Atria Right atrial chamber dimension is normal. Aortic Valve The aortic valve is trileaflet. There is no aortic valve stenosis. There is no aortic valve regurgitation. Pulmonic Valve There is no pulmonic regurgitation. Mitral Valve There is no mitral valve stenosis. There is trace mitral valve regurgitation. Tricuspid Valve There is trace tricuspid valve regurgitation. No pulmonary hypertension, estimated pulmonary arterial systolic pressure is 29 mmHg. Pericardium/Pleural There is no pericardial effusion. Inferior Vena Cava Normal inferior vena cava with >50% collapse upon inspiration consistent with normal right atrial pressure, 5 mmHg. Aorta The aortic root size at the sinus of Valsalva is normal. Left Ventricular Outflow Tract Name Value Normal LVOT Doppler LVOT Peak Gradient 6 mmHg LVOT Mean Gradient 4 mmHg LVOT VTI 29 cm LVOT VTI/AV VTI Ratio 0.9 Pulmonic Valve Name Value Normal PV Doppler PV Peak Gradient 5 mmHg Mitral Valve Name Value Normal MV Doppler MV Decel Carbon 552 cm/s2 MV PHT 60 ms MV Area (PHT) 3.7 cm2 4.0-5.0 MV Diastolic Function MV E Peak Velocity 114 cm/s MV A Peak Velocity 106 cm/s MV E/A 1.1 MV Decel Time 207 ms MV Annular TDI MV E/e' (Septal) 11.6 <=8.0 MV E/e' (Lateral) 10.7 <=8.0 MV E/e' (Average) 11.2 Tricuspid Valve Name Value Normal TV Regurgitation Doppler TR Peak Velocity 243 cm/s TR Peak Gradient 24 mmHg Estimated PAP/RSVP RA Pressure 5 mmHg <=5 PA Systolic Pressure 29 mmHg <36 RV Systolic Pressure 29 mmHg <36 Aorta Name Value Normal Ascending Aorta Ao Root Diameter (MM) 3.4 cm Ao Root Diam Index (MM) 1.6 cm/m2 Aortic Valve Name Value Normal AV Doppler AV Peak Velocity 143 cm/s AV Peak Gradient 8 mmHg AV Mean Gradient 5 mmHg AV VTI 31 cm Ventricles Name Value Normal LV Dimensions 2D/MM IVS Diastolic Thickness (2D) 1.0 cm 0.6-1.0 LVID Diastole (2D) 4.4 cm 3.8-5.2 LVIW Diastolic Thickness (2D) 1.0 cm 0.6-0.9 LVID Systole (2D) 2.9 cm 2.2-3.5 LV Mass (2D Cubed) 149.72 g 67.00-162.00 LV Mass Index (2D Cubed) 70 g/m2 43-95 Relative Wall Thickness (2D) 0.45 LV Fractional Shortening/Ejection Fraction 2D/MM LV Fractional Shortening (2D) 36 % 27-45 LV EF (2D Teicholz) 65 % 54-74 LV Diastolic Volume (4C MOD) 104 ml LV EF (4C MOD) 66 % LV Diastolic Volume (2C MOD) 92 ml LV EF (2C MOD) 62 % LV Diastolic Volume (BP MOD) 98 ml 46-106 LV Diastolic Volume Index (BP MOD) 46 ml/m2 29-61 LV Systolic Volume (BP MOD) 36 ml 14-42 LV Systolic Volume Index (BP MOD) 17 ml/m2 8-24 LV EF (BP MOD) 63 % 54-74 LV Diastolic Length (4C) 8.0 cm LV Systolic Length (4C) 6.2 cm LV Stroke Volume (4C MOD) 68 ml Atria Name Value Normal LA Dimensions LA Dimension (MM) 3.9 cm 2.7-3.8 LA Volume (4C A-L) 42 ml LA Volume (BP A-L) 47 ml RA Dimensions RA Area (4C) 13.9 cm2 <=18.0 Report Signatures
== END 2024-10-17 07:43 | disposition home or self-care (01) ==
PROVIDERS: PCP Internal Medicine; Visit Provider Internal Medicine
DX: I50.30 Unspecified diastolic (congestive) heart failure (principal)
CPT/HCPCS: 93306

== ENCOUNTER 2024-11-22 00:01 | Emergency (ER) | payer SELFPAY ==
[2024-11-22] VITALS (24 sets, daily range): BP systolic 120–184; BP diastolic 86–132; PULSE 71–105; RESP 12–25; TEMP 36.5–36.8; O2SAT 90–100
--- NOTE | ~2024-11-22 | CT_ITS ---
Clinical Indication: Chest pain CT Scan of the Chest with Contrast: Technique: Contiguous sections were acquired throughout the chest after intravenous administration of 100 cc of Omnipaque 350. Dose reduction technique was used on this scan by utilizing automated expos ure control and iterative reconstruction technique. The dose-length product (DLP) was 610.00 mGy-cm. COMPARISON: 11/05/2023 Findings: There is no evidence of any significant mediastinal, hilar or axillary lymphadenopathy. There is no f illing defect in the pulmonary arterial tree to suggest pulmonary embolus. There is no evidence of ao rtic dissection or aneurysm. There is no evidence of pleural or pericardial effusion. The lungs are clear. No pulmonary nodules or infiltrates are noted. Images through the upper abdomen reveal no abnormalities. Impression: No evidence of pulmonary embolus, aortic dissection, or aortic aneurysm. Clear lungs. Reviewed, dictated and finalized at [facility]. Impression: No evidence of pulmonary embolus, aortic dissection, or aortic aneurysm. Clear lungs.
--- NOTE | ~2024-11-22 | XR_ITS ---
Clinical Indication: Chest pain PA and lateral views of the chest: Comparison: 11/05/2023 Findings: The lungs are clear, without evidence of focal consolidation or pleural effusion. Stable sh unt catheter. Cardiomediastinal silhouette is within normal limits. Bones and soft tissues are unrema rkable. Impression: Clear lungs. Stable shunt catheter. Reviewed, dictated and finalized at location . Impression: Clear lungs. Stable shunt catheter.
--- NOTE | 2024-11-22 00:04 | ECG_ITS ---
Test Date: 2024-11-22 00:16:44 Measurements Intervals [place] Rate: 88 P: 35 [place]: 167 QRS: 50 QRSD: 93 T: 37 QT: 366 QTc: 444 Interpretive Statements SINUS RHYTHM POSSIBLE ANTERIOR MYOCARDIAL INFARCTION , OF INDETERMINATE AGE CONSIDER INFERIOR INFARCT, AGE INDETERMINATE ABNORMAL ECG Compared to ECG 09/04/2024 14:47:55 HEART RATE HAS DECREASED Electronically Signed On 11-22-2024 06:19:59 CDT by Pravin Orozco D.O.
--- OUTSIDE RECORDS SUMMARY | 2024-11-22 00:04 | XMS_ITS | Referral Summary ---
Author Organization [address] Address [address] [place] [id number] Care Team Providers Care Lead Engineer Name Role Phone Dex Mitchell MD [...] on file Legal Sex Female 11:04 AM SKEIN SPOOLER Gender Identity Not on file Sexual Orientation Not on file Last Filed Vital Signs Vital Sign Reading Time Taken Comments Blood Pressure 164/98 06/16/2024 6:21 PM SKEIN SPOOLER Pulse 100 06/16/2024 6:25 PM SKEIN SPOOLER Temperature 36.6 C (97.9 F) 06/16/2024 6:21 PM SKEIN SPOOLER Respiratory Rate 20 06/16/2024 6:21 PM SKEIN SPOOLER Oxygen Saturation 99% 06/16/2024 6:21 PM SKEIN SPOOLER Inhaled Oxygen Concentration - - Weight 90.7 kg (200 lb) 06/16/2024 6:21 PM SKEIN SPOOLER Height 165.1 cm (5' 5 ) 06/16/2024 6:21 PM SKEIN SPOOLER Body Mass Index 33.28 06/16/2024 6:21 PM SKEIN SPOOLER Plan of Treatment Not on file Procedures Procedure Name Priority Date/Time Associated Diagnosis Comments SERUM HEPATITIS C AB Routine 09/29/2012 3:29 PM SKEIN SPOOLER from Last 3 Months or Most Recently Relevant to Health Maintenance Results * Serum Hepatitis C ab (09/29/2012 3:29 PM SKEIN SPOOLER) HCV ab Non-Reacti ve Non-Reacti ve HISTORICAL RESULTS Serum 09/29/2012 3:29 PM SKEIN SPOOLER us Dex Mitchell MD LAB BLOOD ORDERABLES Final Result Performing Organization Address City/State/[facility] Co de Phone Number HISTORICAL RESULTS from Last 3 Months or Most Recently Relevant to Health Maintenance Insurance Care Teams Lead Engineer Relationship Specialty Start Date End Date Dex Mitchell MD PCP - General 01/23/15
--- OUTSIDE RECORDS SUMMARY | 2024-11-22 00:04 | XMS_ITS | Clinical Summary ---
Author Organization [address] Address [address] [place] [phone] Care Team Providers Care Magician Helper Name Role Phone Dex Mitchell MD Primary Care Provider [phone] Allergies Active Allergy Reactions Criticality Noted Date [...] on file Legal Sex Female 11:04 AM OFFICE WORKER Gender Identity Not on file Sexual Orientation Not on file Obstetrics History Last Filed Vital Signs Vital Sign Reading Time Taken Comments Blood Pressure 164/98 06/16/2024 6:21 PM OFFICE WORKER Pulse 100 06/16/2024 6:25 PM OFFICE WORKER Temperature 36.6 C (97.9 F) 06/16/2024 6:21 PM OFFICE WORKER Respiratory Rate 20 06/16/2024 6:21 PM OFFICE WORKER Oxygen Saturation 99% 06/16/2024 6:21 PM OFFICE WORKER Inhaled Oxygen Concentration - - Weight 90.7 kg (200 lb) 06/16/2024 6:21 PM OFFICE WORKER Height 165.1 cm (5' 5 ) 06/16/2024 6:21 PM OFFICE WORKER Body Mass Index 33.28 06/16/2024 6:21 PM OFFICE WORKER Plan of Treatment Health Maintenance Due Date Last Done Comments Breast Cancer Screening-Mammogram 1972 Cervical Cancer Screening 1972 Colon Cancer Screening-Colonoscopy 1972 Depression Screening 1972 Regular Well Visit/Exam 18-64 1990 Pneumococcal vaccine <65 (1 of 2 - PCV) 1991 DTaP/Tdap/Td Vaccine (2 - Td or Tdap) 07/27/202107/2011 Zoster Vaccine (1 of 2) 2022 Influenza Vaccine (Season Ended) 2025 05/01/20 12 Hepatitis C Screening Completed 09/29/2012 Hepatitis B Screening Completed 07/27/2013 Procedures Procedure Name Priority Date/Time Associated Diagnosis Comments SERUM HEPATITIS C AB Routine 09/29/2012 3:29 PM OFFICE WORKER from Last 3 Months or Most Recently Relevant to Health Maintenance Results * Serum Hepatitis C ab (09/29/2012 3:29 PM OFFICE WORKER) HCV ab Non-Reacti ve Non-Reacti ve HISTORICAL RESULTS Serum 09/29/2012 3:29 PM OFFICE WORKER Dex Mitchell MD LAB BLOOD ORDERABLES Final Result HISTORICAL RESULTS from Last 3 Months or Most Recently Relevant to Health Maintenance Insurance [facility] CHOICE PLUS [facility] H[facility]/PPO Address: [place] [address] Care Teams Magician Helper Relationship Specialty Start Date End Date Dex Mitchell MD PCP - General 01/23/15
--- OUTSIDE RECORDS SUMMARY | 2024-11-22 00:04 | XMS_ITS | Clinical Summary ---
Author Organization [facility] Address [address] [place] [address] Care Team Providers Care Renderer Name Role Phone Malik España PA-C Primary Care Provide r Source Comments [facility],non-owned Affiliates and Associated Physician Practices is amultiple site organization consisting of ambulatory clinics and hospital sitesin [place], [place], [place] and [place]. This disclosure is being madepursuant to the Care Everywhere program and may not contain all information available regarding this patient. Last updated 18.[facility] Allergies Active Allergy Reactions Criticality Noted Date [...] document. Alwaysverify current medications with the patient. citalopram (CELEXA) 40 MG tablet Take 40 mg by mouth once daily Active LORazepam (ATIVAN) 0.5 MG tablet Take 0.5 mg by mouth 2 times daily as needed Active nystatin (MYCOSTATIN) [id number] UNIT/GM creamIndication s:under breast prn Apply to affected area as needed under breast prn rash Reasons: under breast prn Active amLODIPine (NORVASC) 5 MG tablet Take 1 (one) tablet by mouth once daily Active calcium carbonate (TUMS EXTRA STRENGTH 750) 750 MG chew tablet Take 1 (one) tablet by mouth as needed for Heartburn (acid reflux) Active losartan-hydroC HLOROthiazide (HYZAAR) 100-25 MG tablet Take 1 (one) tablet by mouth once daily Active vilazodone (Viibryd) 40 MG tablet Take 1 (one) tablet by mouth once daily 3 Active celecoxib (CeleBREX) 200 MG capsule Take 1 (one) capsule by mouth once daily 3 Active Auvelity 45-105 MG TBCR 3 Active Rexulti 1 MG tablet 3 Active Eliquis 5 MG tablet Take 1 (one) tablet by mouth 2 times daily 3 Active HYDROcodone-fior taminophen (Gilbert) 5-325 MG tablet Take 1 (one) tablet by mouth every 12 hours as needed FOR PAIN 3 Active Active Problems Problem Noted Date Diagnosed Date Dizziness 02/21/2021 HEATER HELPER FORGE (ventriculoperitoneal) shunt status 8 Nausea & vomiting 03/24/2018 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 Syncope and collapse 03/20/2018 S/P ventriculoperitoneal shunt 03/03/2018 Overview (02/21/2021): 03/01/18 HEATER HELPER FORGE shunt placed, Strata II @ 1.5 03/20/18 [...] Noted Date Diagnosed Date Resolved Date S/P HEATER HELPER FORGE shunt 03/20/2018 04/16/2018 Family History Relation Name Status Comments Father Mother Alive Social History Tobacco Use Types Packs/Day Years Used Date Smoking Tobacco: Former Cigarettes S tarted: 1994 Smokeless Tobacco: Never Tobacco Cessation:Counseling Given: No Alcohol Use Standard Drinks/Week Comments No 0 (1 standard drink = 0.6 oz pur e alcohol) Comments No Sex and Gender Information Value Date Recorded Sex Assigned at Not on file Legal Sex Female 5:19 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 DIRECTOR Gender Identity Not on file Sexual Orientation [...] this topic Medical Devices Implanted Type Area C Application Developer Device Identifier Shelf Expiration Date Model / Serial / Lot Graft Tissue Intgr Bvn Pricrd Rsrb Dura Implanted:Qty: 1 on 01/19/2018 by Pooja Alanis MD at [facility] N/A: Brain Integra AmedicaciTheFormTool Robi 12/24/2021 [id number] / / [id number] Slnt Dura Duraseal Pg Trilysine Amine 5 Implanted:Qty: 1 on 01/19/2018 by Pooja Alanis MD at [facility] N/A: Brain Integra Lifesciences Robi 12/24/2018 [id number] / / [id number] Slnt Dura Duraseal Pg Trilysine Amine 5 Implanted:Qty: 1 on 02/24/2018 by Pooja Alanis MD at [facility] N/A: Other (See Descriptio n) Integra Lifesciences Robi 12/24/2018 [id number] / / [id number] Description:suboccipital spa ce Clip Srg Std Rt Ang Implanted:Qty: 1 on 03/01/2018 by Pooja Alanis MD at [facility] Med[employer]onic Medical 09/23/2022 [id number] / / [id number] Valve Shnt Strt2 Reg Csf Prgm Flw Cntrl Implanted:Qty: 1 on 03/01/2018 by Pooja Alanis MD at [facility] Med[employer] Ps Medical 07/26/2020 [id number] / / [id number] Kit Yeni Ba Bctsl Hkm Cath Shnt Strl Implanted:Qty: 1 on 03/01/2018 by Pooja Alanis MD at [facility] [employer] 10/24/2018 [id number] / / [id number] Cath Drn 120cm Prtnl Cdmn Bctsl Ba Yeni Implanted:Qty: 1 on 04/12/2018 by John Howard MD at [facility] [employer] 07/26/2018 [id number] / / [id number] Procedures Procedure Name Priority Date/Time Associated Diagnosis [...] 7 - 26 mg/dL 02/21/2021 10:18 AM [facility] Creatinine 0.76 0.56 - 0.96 mg/dL 02/21/2021 10:18 AM [facility] Sodium 140 136 - 145 mmol/L 02/21/2021 10:18 AM [facility] Potassium 4.7(H) 3.5 - 4.5 mmol/L 02/21/2021 10:18 AM [facility] Chloride 103 98 - 107 mmol/L 02/21/2021 10:18 AM [facility] CO2 28 22 - 29 mmol/L 02/21/2021 10:18 AM [facility] Glucose 92 70 - 115 mg/dL 02/21/2021 10:18 AM [facility] Calcium 9.9 8.4 - 10.2 mg/dL 02/21/2021 10:18 AM [facility] Anion Gap 14 8 - 18 02/21/2021 10:18 AM [facility] BUN/Creatinine Ratio 14 7 - 23 02/21/2021 10:18 AM CDT [facility] Osmolality Calculated 289 270 - 300 mOsm/kg 02/21/2021 10:18 AM T [facility] eGFR by CKD-EPI >90 >=90 mL/min/1.7 3 m2 02/21/2021 10:18 AM CDT [facility] Blood BLOOD SPECIMEN / Unknown Venipuncture / Unknown 02/21/2021 9:40 AM CDT 02/21/2021 9:53 AM CDT us Acosta Ma MD LAB - CHEMISTRY ORDERABLES F inal Result [facility] [address] [place] [address], [facility] [phone] * HIV-1 HIV-2 ANTIGEN/ANTIBODY (04/08/2018 3:24 PM CDT) HIV Antigen/Antibod y 1 & 2 Non-reacti ve Non-react clayton 04/08/2018 4:14 PM CDT [facility] Comment: Neither HIV-1 p24 Antigen nor HIV-1/HIV-2 Antibodies are detected. Blood BLOOD SPECIMEN / Unknown Venipuncture / Unknown 04/08/2018 3:24 PM CDT 04/08/2018 3:30 PM CDT us Simon Saldana MD LAB - HEMATOLOGY ORDERAB LES Final Result Performing Organization Address [facility]/ZIP Co de Phone Number [facility] [address] [place] [address], [facility] [phone] * HEPATITIS C AB SCREEN RFLX NAAT QUANT (04/08/2018 3:24 PM CDT) Hepatitis C Antibody Non-react clayton Non-reac tive 04/08/2018 4:21 PM CDT [facility] Comment: Hepatitis C Antibody screen indicates [...] CDT Simon Saldana MD LAB - CHEMISTRY ORDERABL ES Final Result [address] [phone] from Last 3 Months or Most Recently Relevant to Health Maintenance Insurance [facility] Advance Directives Documents on File Type Date Recorded Patient 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
[2024-11-22 00:32] LABS: Basophils Percent Auto 0.5 % (0.2-1.2); Eosinophils Absolute Auto 0.1 K/mm3 (0-0.3); Eosinophils Percent Auto 0.8 % (0-4.4); Hematocrit 40.2 % (37.0-47.0); Hemoglobin 12.8 g/dL (12.0-15.0); Immature Granulocyte Absolute 0.03 K/mm3 (0.00-0.031); Immature Granulocyte Percent A 0.5 % (0-0.5); Lymphocytes Absolute Auto 0.96 K/mm3 (0.9-3.2); Lymphocytes Percent Auto 15.2 % (18.3-44.2); Mean Corpuscular HGB Conc 31.8 g/dl (32-36); Mean Corpuscular Hemoglobin 28.8 pg (26-34); Mean Corpuscular Volume 90.5 fl (80-100); Mean Platelet Volume 9.6 fl (7.4-10.4); Monocytes Absolute Auto 0.4 K/mm3 (0.1-0.6); Monocytes Percent Auto 6.6 % (2.6-8.5); Neutrophils Absolute Auto 4.8 K/mm3 (1.3-6.7); Neutrophils Percent Auto 76.4 % (45.5-73.1); Platelet Count Result 294 k/mm3 (150-375); Red Blood Count 4.44 M/mm3 (4.2-5.4); Red Cell Distribution Width 14.2 % (11.5-14.5); White Blood Count 6.3 K/mm3 (4.5-10.0)
[2024-11-22 00:41] LABS: Alanine Aminotransferase 17 U/L (6-35); Alkaline Phosphatase 84 U/L (38-126); Anion Gap 13 mmol/L (4-12); Aspartate Amino Transferase 27 U/L (14-36); Blood Urea Nitrogen 11 mg/dL (7-17); Calcium 10.3 mg/dL (8.4-10.2); Carbon Dioxide 29 mmol/L (22-30); Chloride 90 mmol/L (98-107); Estimated Glomerular Filt Rate > 60; Glucose 109 mg/dL (65-110); Lipase 37 U/L (23-300); Potassium 3.4 mmol/L (3.4-5.0); Sodium 132 mmol/L (137-145)
[2024-11-22 00:46] LABS: Prothrombin Time 13.2 Seconds (11.1-14.7)
[2024-11-22 00:53] LABS: Troponin I < 0.012 ng/mL (0.000-0.034)
--- NOTE | 2024-11-22 03:30 | ED_ITS ---
HPI - Chest Pain General Chief Complaint: Chest Pain Stated Complaint: think im having a heart attack Time Seen by Provider: 11/22/24 02:49 History of Present Illness HPI narrative: 54-year-old female with history of anxiety, hypertension, pulmonary embolism off anticoagulation. Patient presents to the emergency room with chest discomfort. States that has been going on for last 2-3 days associated with some intermittent paresthesias in left arm, nausea, vomiting and indigestion. Denies any shortness a breath. Was otherwise in her normal state of health. Knows that her blood pressures were elevated. Endorses a multitude of other complaints that seem unrelated. Patient is very anxious appearing and not able to give me a clear story but is very concerned about her chest pain. No back pain, abdominal pain, weakness or difficulty ambulating. Otherwise was in her normal state of health recently. Related Data Home Medications ?Medication ?Instructions ?Recorded ?Confirmed ?Last Taken ?Type dextroamphetamine-amphetamine 20 20 mg PO BID 12/01/23 09/28/24 Unknown History mg tablet (Adderall) sertraline 100 mg tablet 100 mg PO DAILY 12/01/23 09/28/24 Unknown History tacrolimus 0.1 % topical ointment 1 applic topical BID 12/01/23 09/28/24 Unknown History Allergies Allergy/AdvReac Type Severity Reaction Status Date / Time ibuprofen Allergy Severe shunt Verified 11/22/24 00:03 ketorolac Allergy Intermediate Joint Pain Verified 11/22/24 00:03 Sulfa (Sulfonamide Allergy Intermediate general Verified 11/22/24 00:03 Antibiotics) pain Review of Systems 2 Review of Systems: As reviewed above in HPI [facility] Past Medical History Medical History Hypertension Attention deficit hyperactivity disorder Chiari malformation Status post surgical decompression and shunt insertion. Marijuana use Anemia Anxiety Depression Asthma Migraine Surgical History Surgical History History of craniotomy Surgical decompression and shunt placement for Chiari malformation. History of dilatation and curettage History of tubal ligation Family History Family History Father Hypertension Depression Heart disease Alcohol abuse Mother Hypertension Depression Alcohol abuse Sibling Hypertension Alcohol abuse Depression Grandparent Alcohol abuse Hypertension Heart disease Son Alcohol abuse Depression Heart disease Social History Social History Social History: Surrogate medical decision maker: Marta Oshea, mother. Code status: Full code. Smoking packs per day: 1 Smoking cigarettes per day: 20.0 Years smoked: 3 Smoking pack-years: 3.00 Smoking status: Former smoker Second hand tobacco smoke exposure: Yes (smokes weed) Smoking end date: 02/06/22 Alcohol intake: former Alcohol use details: Drink heavily in the past. 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 Mucous membranes moist. NECK: Supple. CHEST: [Clear to auscultation. No respiratory distress.] HEART: [Regular rate and rhythm]. No murmur heard. [Normal peripheral pulses.] ABDOMEN: [Soft, nondistended], [nontender], [No rigidity or guarding] EXTREMITIES: Normal range of motion. [No edema.] SKIN: Warm, dry, no rash. NEURO: [No focal deficits]. Alert and oriented [x3.] PSYCH: Anxious appearing Course Vital Signs Vital signs: Vital Signs Temperature 36.8 C 11/22/24 00:08 Pulse Rate 83 11/22/24 00:08 Respiratory Rate 20 11/22/24 00:08 Blood Pressure 184/130 H 11/22/24 00:08 Pulse Oximetry 95 11/22/24 00:08 Oxygen Delivery Room Air 11/22/24 00:08 Temperature 36.8 C 11/22/24 00:08 Pulse Rate 83 11/22/24 04:21 Respiratory Rate 19 11/22/24 04:21 Blood Pressure 153/93 H 11/22/24 04:21 Pulse Oximetry 93 11/22/24 04:02 Oxygen Delivery Room Air 11/22/24 02:12 MDM - Chest Pain MDM Narrative Medical decision making narrative: 54-year-old female presenting to the emergency department with complaints of chest pain. She states she is feeling indigestion, nauseous, vomiting, intermittent paresthesias in the arms. Symptoms going on for 2-3 days. Endorses nausea presently. Vital signs show some elevated blood pressure readings but no significant tachycardia, hypoxia, fever or tachypnea. She is very anxious on appearance but otherwise has clear lung sounds, 2+ pulses, warm extremities. Suspicion presently is for potential musculoskeletal chest discomfort, indigestion from GERD, gastritis, less likely ACS or recurrence of a pulmonary embolism. Workup was ordered including serial troponin, EKG, chest x-ray, CT angiogram of the chest. She is given GI medications including Pepcid, Zofran and Maalox and re-evaluated. Patient did have some persistent retching and pain so she was provided Haldol and morphine which alleviated her symptoms. Vital signs are stable. Blood pressure 153/93. No tachycardia, hypoxia. Workup shows no leukocytosis or anemia. Normal platelet count. Normal coagulation panel. Electrolytes were largely unremarkable. Normal renal function, normal glucose, normal LFTs. Troponin is negative x2. Chest x-ray per my interpretation shows no pneumonia or pneumothorax. CT angiography shows no pulmonary embolism and otherwise negative CT angio. Patient re-evaluated and doing well. She is safe for discharge home at this time with PCP referral and follow-up outpatient. Patient given return precautions and discharged. Medical Records Data Attestation: I reviewed the patient's medical records. Lab Data Attestation: I reviewed the patient's lab results. 11/22/24 00:24 11/22/24 00:24 Labs: Lab Results 11/22/24 11/22/24 Range/Units 00:24 03:15 WBC 6.3 (4.5-10.0) K/mm3 RBC 4.44 (4.2-5.4) M/mm3 Hgb 12.8 (12.0-15.0) g/dL Hct 40.2 (37.0-47.0) % MCV 90.5 (80-100) fl MCH 28.8 (26-34) pg MCHC 31.8 L (32-36) g/dl RDW 14.2 (11.5-14.5) % Plt Count 294 (150-375) k/mm3 MPV 9.6 (7.4-10.4) fl Immature Gran % (Auto) 0.5 (0-0.5) % Neut % (Auto) 76.4 H (45.5-73.1) % Lymph % (Auto) 15.2 L (18.3-44.2) % [place] % (Auto) 6.6 (2.6-8.5) % Eos % (Auto) 0.8 (0-4.4) % Baso % (Auto) 0.5 (0.2-1.2) % Lymph # (Auto) 0.96 (0.9-3.2) K/mm3 [place] # (Auto) 0.4 (0.1-0.6) K/mm3 Eos # (Auto) 0.1 (0-0.3) K/mm3 Baso # (Auto) 0.0 (0.0-0.1) K/mm3 Abs Immat Gran (auto) 0.03 (0.00-0.031) K/mm3 Absolute Neuts (auto) 4.8 (1.3-6.7) K/mm3 Absolute Nucleated RBC 0.000 (0.0-0.012) K/mm3 Nucleated RBC % 0.0 (0.0-0.2) % PT 13.2 (11.1-14.7) Seconds INR 1.0 APTT 26.0 (22.3-36.8) Seconds Sodium 132 L (137-145) mmol/L Potassium 3.4 (3.4-5.0) mmol/L Chloride 90 L (98-107) mmol/L Carbon Dioxide 29 (22-30) mmol/L Anion Gap 13 H (4-12) mmol/L BUN 11 (7-17) mg/dL Creatinine 0.77 (0.7-1.0) mg/dL Estim Creat Clear Calc Not Reportable Estimated GFR > 60 (59 - ) Glucose 109 (65-110) mg/dL Calcium 10.3 H (8.4-10.2) mg/dL Total Bilirubin 1.0 (0.2-1.3) mg/dL AST 27 (14-36) U/L ALT 17 (6-35) U/L Alkaline Phosphatase 84 (38-126) U/L Troponin I < 0.012 < 0.012 (0.000-0.034) ng/mL Total Protein 8.0 (6.3-8.2) g/dL Albumin 5.0 (3.5-5.1) g/dL Lipase 37 (23-300) U/L Imaging Data Attestation: I personally reviewed and interpreted this imaging study as follows: My impression: Negative CT angio. No pulmonary embolism. No pneumothorax pneumonia. ECG Data EKG #1: Attestation: I personally reviewed and interpreted this ECG as follows: ECG completion date: 11/22/24 ECG completion time: 00:16 Prior ECG tracings: available for review Interpretation: Sinus rhythm, no ST segment elevations, depressions or acute inversions. QTC 444, QRS 93, MA interval 167. No significant interval change compared to prior. Overall final interpretation of normal sinus rhythm. Discharge Plan Discharge Clinical Impression: Chest pain, Hx of pulmonary embolus Patient Disposition: Home Condition: Stable Instructions: Antibiotic Form, Chest Pain (ED) Additional Instructions: Your cardiac markers are negative, your CT scan showed no blood clot, no pulmonary embolism, no pneumonia or collapsed lung. All your laboratory studies are otherwise normal. Follow-up with your regular doctor. Return with any emergent concerns. Patient Language: New Zealander Prescriptions: No Action cetirizine 10 mg tablet 10 mg PO DAILY Qty: 10 0RF sertraline 100 mg tablet 100 mg PO DAILY dextroamphetamine-amphetamine [Adderall] 20 mg tablet 20 mg PO BID Rx Instructions: administer doses at least 4-6 hours apart tacrolimus 0.1 % ointment 1 applic topical BID cyclobenzaprine 10 mg tablet 10 mg PO TID PRN (Reason: muscle spasm) Qty: 20 0RF acetaminophen 500 mg tablet 1,000 mg PO TID PRN (Reason: manuel) 7 Days Qty: 42 0RF celecoxib 200 mg capsule 200 mg PO DAILY Qty: 90 1RF gabapentin 300 mg capsule 300 mg PO QHS Qty: 30 6RF losartan-hydrochlorothiazide 100-25 mg tablet 1 tablet PO DAILY Qty: 90 2RF amlodipine 5 mg tablet 5 mg PO DAILY Qty: 90 3RF Patient Comments: x4 days ago potassium chloride [Klor-Con 10] 10 mEq tablet extended release 10 meq PO DAILY Qty: 90 1RF Rx Instructions: Take with food Follow-up/Referrals: Marco A Amador DO [Primary Care Provider] - Time of Disposition: 04:56
[2024-11-22 03:43] LABS: Troponin I < 0.012 ng/mL (0.000-0.034)
[2024-11-22] MEDS: MAG HYDROX/AL HYDROX/SIMETH 30 ML UDC PO (03:46)
[2024-11-22] MEDS: ONDANSETRON INJ 4 MG/2 ML VIAL IV PUSH (03:47)
[2024-11-22] MEDS: FAMOTIDINE 20 MG/2 ML VIAL IV PUSH (03:47)
[2024-11-22] MEDS: HALOPERIDOL LACTATE 5 MG/ML VIAL 2.5 MG IV PUSH (03:54)
[2024-11-22] MEDS: MORPHINE SULFATE (*CRX) 4 MG/ML INJ IV PUSH (03:55)
--- OUTSIDE RECORDS SUMMARY | 2024-11-22 03:58 | XMS_ITS | Referral Summary ---
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 Gender Identity Not on file Sexual Orientation Not on file Last Filed Vital Signs Vital Sign Reading Time Taken Comments Blood Pressure 164/98 06/16/2024 6:21 PM [employer]ARCH [employer] INTER[employer] Pulse 100 06/16/2024 6:25 PM [employer] Temperature 36.6 C (97.9 F) 06/16/2024 6:21 PM [employer] Respiratory Rate 20 06/16/2024 6:21 PM [employer] Oxygen Saturation 99% 06/16/2024 6:21 PM [employer] Inhaled Oxygen Concentration - - Weight 90.7 kg (200 lb) 06/16/2024 6:21 PM [employer] Height 165.1 cm (5' 5 ) 06/16/2024 6:21 PM [employer] Body Mass Index 33.28 06/16/2024 6:21 PM [employer] Plan of Treatment Not on file Procedures Procedure Name Priority Date/Time Associated Diagnosis Comments SERUM HEPATITIS C AB Routine 09/29/2012 3:29 PM [employer] from Last 3 Months or Most Recently Relevant to Health Maintenance Results * Serum Hepatitis C ab (09/29/2012 3:29 PM [employer]) HCV ab Non-Reacti ve Non-Reacti ve HISTORICAL RESULTS Serum 09/29/2012 3:29 PM [employer] us Dex Mitchell MD LAB BLOOD ORDERABLES Final Result Performing Organization Address City/State/[facility] Co de Phone Number HISTORICAL RESULTS from Last 3 Months or Most Recently Relevant to Health Maintenance Insurance Care Teams Coil Winder Strap Relationship Specialty Start Date End Date Dex Mitchell MD PCP - General 01/23/15
--- OUTSIDE RECORDS SUMMARY | 2024-11-22 03:58 | XMS_ITS | Clinical Summary ---
Author Organization [facility] Address [address] [place] [address] Care Team Providers Care Lead Printer Name Role Phone Malik España PA-C Primary Care Provide r Source Comments [facility],non-owned Affiliates and Associated Physician Practices is amultiple site organization consisting of ambulatory clinics and hospital sitesin [place], [place], [place] and [place]. This disclosure is being madepursuant to the Care Everywhere program and may not contain all information available regarding this patient. Last updated 18.[facility] Allergies Active Allergy Reactions Criticality Noted Date [...] times daily as needed Active nystatin (MYCOSTATIN) 107183 UNIT/GM creamIndication s:under breast prn Apply to [...] 2 times daily 3 Active HYDROcodone-fior taminophen ([place]) 5-325 MG tablet Take 1 (one) tablet by mouth every 12 hours as needed FOR PAIN 3 Active Active Problems Problem Noted Date Diagnosed Date Dizziness 02/21/2021 DESIGN TECHNOLOGY TEACHER (ventriculoperitoneal) shunt status 8 Nausea & vomiting 03/24/2018 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 Syncope and collapse 03/20/2018 S/P ventriculoperitoneal shunt 03/03/2018 Overview (02/21/2021): 03/01/18 DESIGN TECHNOLOGY TEACHER shunt placed, Strata II @ 1.5 03/20/18 [...] Noted Date Diagnosed Date Resolved Date S/P DESIGN TECHNOLOGY TEACHER shunt 03/20/2018 04/16/2018 Family History Relation Name [...] on file 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 Gender Identity Not on file Sexual [...] this topic Medical Devices Implanted Type Area Recorder Helper Gravity Prospecting Device Identifier Shelf Expiration Date Model / Serial / Lot Graft Tissue Intgr Bvn Pricrd Rsrb Dura Implanted:Qty: 1 on 01/19/2018 by Pooja Alanis MD at [facility] N/A: Brain Integra Dragon Security ServicesciAras Robi 12/24/2021 [id number] / / [id number] Slnt Dura Duraseal Pg Trilysine Amine 5 Implanted:Qty: 1 on 01/19/2018 by Pooja Alanis MD at [facility] N/A: Brain Integra Lifesciences Robi 12/24/2018 [id number] / / [id number] Slnt Dura Duraseal Pg Trilysine Amine 5 Implanted:Qty: 1 on 02/24/2018 by Pooja Alanis MD at [facility] N/A: Other (See Descriptio n) Integra Lifesciences Robi 12/24/2018 [id number] / / [id number] Description:suboccipital spa ce Clip Srg Std Rt Ang Implanted:Qty: 1 on 03/01/2018 by Pooja Alanis MD at [facility] Medtronic Medical 09/23/2022 [id number] / / [id number] Valve Shnt Strt2 Reg Csf Prgm Flw Cntrl Implanted:Qty: 1 on 03/01/2018 by Pooja Alanis MD at [facility] Medtronic Ps Medical 07/26/2020 [id number] / / [id number] Kit Yeni Ba Bctsl Hkm Cath Shnt Strl Implanted:Qty: 1 on 03/01/2018 by Pooja Alanis MD at [facility] [employer]science 10/24/2018 [id number] / / [id number] Cath Drn 120cm Prtnl Cdmn Bctsl Ba Yeni Implanted:Qty: 1 on 04/12/2018 by John Howard MD at [facility] [employer] 07/26/2018 [id number] / / [id number] Procedures Procedure Name Priority Date/Time Associated Diagnosis [...] 7 - 26 mg/dL 02/21/2021 10:18 AM [facility] Creatinine 0.76 0.56 - 0.96 mg/dL 02/21/2021 10:18 AM [facility] Sodium 140 136 - 145 mmol/L 02/21/2021 10:18 AM [facility] Potassium 4.7(H) 3.5 - 4.5 mmol/L 02/21/2021 10:18 AM [facility] Chloride 103 98 - 107 mmol/L 02/21/2021 10:18 AM [facility] CO2 28 22 - 29 mmol/L 02/21/2021 10:18 AM [facility] Glucose 92 70 - 115 mg/dL 02/21/2021 10:18 AM [facility] Calcium 9.9 8.4 - 10.2 mg/dL 02/21/2021 10:18 AM [facility] Anion Gap 14 8 - 18 02/21/2021 10:18 AM [facility] BUN/Creatinine Ratio 14 7 - 23 02/21/2021 10:18 AM CDT [facility] Osmolality Calculated 289 270 - 300 mOsm/kg 02/21/2021 10:18 AM T [facility] eGFR by CKD-EPI >90 >=90 mL/min/1.7 3 m2 02/21/2021 10:18 AM CDT [facility] Blood BLOOD SPECIMEN / Unknown Venipuncture / Unknown 02/21/2021 9:40 AM CDT 02/21/2021 9:53 AM CDT us Acosta Ma MD LAB - CHEMISTRY ORDERABLES F inal Result [facility] [address] [place] [address], [facility] [phone] * HIV-1 HIV-2 ANTIGEN/ANTIBODY (04/08/2018 3:24 PM CDT) HIV Antigen/Antibod y 1 & 2 Non-reacti ve Non-react [place] 04/08/2018 4:14 PM CDT [facility] Comment: Neither HIV-1 p24 Antigen nor HIV-1/HIV-2 Antibodies are detected. Blood BLOOD SPECIMEN / Unknown Venipuncture / Unknown 04/08/2018 3:24 PM CDT 04/08/2018 3:30 PM CDT us Simon Saldana MD LAB - HEMATOLOGY ORDERAB LES Final Result Performing Organization Address [facility]/ZIP Co de Phone Number [facility] [address] [place] [address], [facility] [phone] * HEPATITIS C AB SCREEN RFLX NAAT QUANT (04/08/2018 3:24 PM CDT) Hepatitis C Antibody Non-react [place] Non-reac tive 04/08/2018 4:21 PM CDT [facility] Comment: Hepatitis C Antibody screen indicates [...] LAB - CHEMISTRY ORDERABL ES Final Result [address] [phone] from Last 3 Months or Most Recently Relevant to Health Maintenance Insurance [facility] Advance Directives Documents on File Type Date Recorded Patient Talent Director Expl anation Adv Directive/Living Will/POA 01/25/2018 8:39 [...] 8:56 AM 03/24/2018 6:24 PM Care Teams Lead Printer Relationship Specialty Start Date End Date Malik España PA-C [address] [place] [address] PCP - General Physician Crisis Specialist 01/14/18
--- OUTSIDE RECORDS SUMMARY | 2024-11-22 03:58 | XMS_ITS | Clinical Summary ---
Author Organization [facility] Address [address] [place] [id number] Care Team Providers Care Clinical Tech Name Role Phone Dex Mitchell MD Primary [...] on file Legal Sex Female 11:04 AM PATIENT COORDINATOR Gender Identity Not on file Sexual Orientation Not on file Obstetrics History Last Filed Vital Signs Vital Sign Reading Time Taken Comments Blood Pressure 164/98 06/16/2024 6:21 PM PATIENT COORDINATOR Pulse 100 06/16/2024 6:25 PM PATIENT COORDINATOR Temperature 36.6 C (97.9 F) 06/16/2024 6:21 PM PATIENT COORDINATOR Respiratory Rate 20 06/16/2024 6:21 PM PATIENT COORDINATOR Oxygen Saturation 99% 06/16/2024 6:21 PM PATIENT COORDINATOR Inhaled Oxygen Concentration - - Weight 90.7 kg (200 lb) 06/16/2024 6:21 PM PATIENT COORDINATOR Height 165.1 cm (5' 5 ) 06/16/2024 6:21 PM PATIENT COORDINATOR Body Mass Index 33.28 06/16/2024 6:21 PM PATIENT COORDINATOR Plan of Treatment Health Maintenance Due Date [...] HEPATITIS C AB Routine 09/29/2012 3:29 PM PATIENT COORDINATOR from Last 3 Months or Most Recently Relevant to Health Maintenance Results * Serum Hepatitis C ab (09/29/2012 3:29 PM PATIENT COORDINATOR) HCV ab Non-Reacti ve Non-Reacti ve HISTORICAL RESULTS Serum 09/29/2012 3:29 PM PATIENT COORDINATOR Dex Mitchell MD LAB BLOOD ORDERABLES Final Result HISTORICAL RESULTS from Last 3 Months or Most Recently Relevant to Health Maintenance Insurance [facility] Care Teams Clinical Tech Relationship Specialty Start Date End Date Dex Mitchell MD PCP - General 01/23/15
== END 2024-11-22 05:15 | disposition home or self-care (01) ==
PROVIDERS: Emergency Medicine; Emergency Provider Student in an Organized Health Care Education/Training Program; PCP Internal Medicine
DX: R07.9 Chest pain, unspecified (principal); Z86.711 Personal history of pulmonary embolism; R94.31 Abnormal electrocardiogram [ECG] [EKG]; I10 Essential (primary) hypertension; F90.9 Attention-deficit hyperactivity disorder, unspecified type; D64.9 Anemia, unspecified; F41.9 Anxiety disorder, unspecified; F32.A Depression, unspecified; J45.909 Unspecified asthma, uncomplicated
CPT/HCPCS: 36415; 71046; 71275; 80053; 83690; 84484; 85025; 85610; 85730; 93005; 96374; 96375; 99284; A9270; J1630; J2270; J2405; Q9967

== ENCOUNTER 2025-03-28 09:05 | Emergency (ER) | payer SELFPAY ==
--- NOTE | ~2025-03-28 | CT_ITS ---
EXAMINATION: CT abd pelvis lumbar wo con DATE: 03/28/2025 10:04 INDICATION: Low back pain radiating to the buttocks TECHNIQUE: Computed tomography (CT) of the abdomen, pelvis and lumbar spine was performed without intravenous contrast. Automated exposure control and iterative reconstruction technique were employed. The dose-length product was 1242.28 mGy-cm. COMPARISON: Lumbar spine CT dated 07/12/[address] abdomen and pelvis dated 02/10/2022 FINDINGS: Abdomen and pelvis: Lung bases are clear. Heart size is normal. No pericardial or pleural effusion. Liver, gallbladder, spleen, pancreas, bilateral adrenal glands and kidneys are normal. No urolithiasis. Bladder, uterus and bilateral adnexa are unremarkable. Likely tubal ligation clips in expected position bowels including the appendix are normal. No free intraperitoneal gas or fluid. No pathologically enlarged abdominal or pelvic lymphadenopathy. Along the left and right sides of the uterus. Mild bilateral hip and sacroiliac osteoarthritis. Lumbar spine: Alignment is normal. Vertebral body heights are normal. Interval progression of now mild to moderate disc height loss at L4-L5. Mild disc height loss at L3-L4 and L5-S1. The following disc levels are specifically discussed: T11-T12: The disc does not extend beyond the endplate margin. There is severe bilateral facet joint osteoarthritis. There is no neural foraminal stenosis. There is no central canal stenosis. T12-L1: The disc does not extend beyond the endplate margin. There is moderate left and severe right bilateral facet joint osteoarthritis. There is no neural foraminal stenosis. There is no central canal stenosis. L1-L2: The disc does not extend beyond the endplate margin. There is severe bilateral facet joint osteoarthritis. There is no neural foraminal stenosis. There is no central canal stenosis. L2-L3: The disc is bulging. There is severe bilateral facet joint osteoarthritis. There is mild bilateral neural foraminal stenosis. There is mild central canal stenosis. L3-L4: The disc is bulging. There is severe bilateral facet joint osteoarthritis. There is moderate bilateral neural foraminal stenosis. There is moderate central canal stenosis. L4-L5: The disc is bulging. There is severe bilateral facet joint osteoarthritis. There is moderate bilateral neural foraminal stenosis. There is moderate to severe central canal stenosis. L5-S1: The disc is bulging. There is severe bilateral facet joint osteoarthritis. There is mild bilateral neural foraminal stenosis. There is mild central canal stenosis. IMPRESSION: 1. No acute intra-abdominal/pelvic process. 2. Interval progression of moderate lower lumbar predominant spondylosis. Reviewed, dictated and finalized at location A.
[2025-03-28 09:12] VITALS: BP 200/97; PULSE 82; RESP 24; TEMP 36.6; O2SAT 98
--- OUTSIDE RECORDS SUMMARY | 2025-03-28 09:16 | XMS_ITS | Patient Health Record ---
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 Name Role Phone Pooja Webster Unavailable [phone] Reason For Referral No Information Medications Medication SIG (Take, Route, Frequency, Duration) Notes Start Date End Date Status Atomoxetine HCl 80 MG Capsule Oral 03/25/2023 Active Rexulti 0.5 MG Tablet Oral 03/25/2023 Active buPROPion HCl ER (XL) 150 MG Tablet Extended Release 24 Hour Oral 03/25/2023 Active Pantoprazole Sodium 40 MG Tablet Delayed Release Oral 03/25/2023 Active Rexulti 1 mg Tablet Oral 03/25/2023 Active Citalopram Hydrobromide 40 MG Tablet Oral 03/25/2023 Active Eliquis 5 MG Tablet Oral 03/25/2023 Active Tolterodine Tartrate ER 2 MG Capsule Extended Release 24 Hour Oral 03/25/2023 Active Naltrexone HCl 50 MG Tablet Oral 03/25/2023 Active HYDROcodone-Acetamino phen 5-325 MG Tablet Oral 03/25/2023 Active amLODIPine Besylate 5 MG Tablet Oral 03/25/2023 Active Celecoxib 200 MG Capsule Oral 03/25/2023 Active Losartan Potassium-HCTZ 100-25 MG Tablet Oral 03/25/2023 Active LORazepam 0.5 MG Tablet Oral 03/25/2023 Active Vilazodone HCl 20 MG Tablet Oral 03/25/2023 Active DULoxetine HCl 30 MG Capsule Delayed Release Particles Oral 03/25/2023 Active Vilazodone HCl 40 MG Tablet Oral 03/25/2023 Active Atomoxetine HCl 25 MG Capsule Oral 03/25/2023 Active Meloxicam 15 MG Tablet Oral 03/25/2023 Active Auvelity 45-105 MG Tablet Extended Release Oral *Reorder from charming charlie for eRx and Interaction Alerts* 03/25/2023 Active Social History Social History Additional Details Category Social Info Options Details Migrated Social History Migrated Social History Alcohol Intake: Occasional 03/25/2023,Tobacco Years: Former smoker 12/05/2020 Plan Of Treatment No Information Insurance Providers Payer Name Payer Address Payer Phone Subscriber Number Group Number Insured Name Patient Relationship to Insured Coverage Start Date Coverage End Date [employer] [employer] [address] [place] [address] [id number] Self - patient is the insured Medical (General) History Surgical History Surgery Date(Month/Year) Any surgical history 07/27/2007 Neurosurgery 03/27/2018
--- OUTSIDE RECORDS SUMMARY | 2025-03-28 09:50 | XMS_ITS | Clinical Summary ---
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 Gender Identity Not on file Sexual Orientation Not on file Obstetrics History Last Filed Vital Signs Vital Sign Reading Time Taken Comments Blood Pressure 164/98 06/16/2024 6:21 PM CAR WASHER Pulse 100 06/16/2024 6:25 PM CAR WASHER Temperature 36.6 C (97.9 F) 06/16/2024 6:21 PM CAR WASHER Respiratory Rate 20 06/16/2024 6:21 PM CAR WASHER Oxygen Saturation 99% 06/16/2024 6:21 PM CAR WASHER Inhaled Oxygen Concentration - - Weight 90.7 kg (200 lb) 06/16/2024 6:21 PM CAR WASHER Height 165.1 cm (5' 5) 06/16/2024 6:21 PM CAR WASHER Body Mass Index 33.28 06/16/2024 6:21 PM CAR WASHER Plan of Treatment Health Maintenance Due Date Last Done Comments Breast Cancer Screening-Mammogram 1972 Cervical Cancer Screening 1972 Colon Cancer Screening-Colonoscopy 1972 Depression Screening 1972 Regular Well Visit/Exam 18-64 1990 Pneumococcal vaccine <65 (1 of 2 - PCV) 1991 DTaP/Tdap/Td Vaccine (2 - Td or Tdap) 07/27/202107/2011 Zoster Vaccine (1 of 2) 2022 Influenza Vaccine (#1) 2025 05/01/2012 Hepatitis C Screening Completed 09/29/2012 Hepatitis B Screening Completed 07/27/2013 Procedures Procedure Name Priority Date/Time Associated Diagnosis Comments SERUM HEPATITIS C AB Routine 09/29/2012 3:29 PM CAR WASHER from Last 3 Months or Most Recently Relevant to Health Maintenance Results * Serum Hepatitis C ab (09/29/2012 3:29 PM CAR WASHER) HCV ab Non-Reacti ve Non-Reacti ve HISTORICAL RESULTS Serum 09/29/2012 3:29 PM CAR WASHER Dex Mitchell MD LAB BLOOD ORDERABLES Final Result HISTORICAL RESULTS from Last 3 Months or Most Recently Relevant to Health Maintenance Insurance [employer] Care Teams Soap Slabber Relationship Specialty Start Date End Date Dex Mitchell MD PCP - General 01/23/15
--- NOTE | 2025-03-28 09:58 | ED_ITS ---
HPI - Back Pain/Injury General Chief Complaint: Back Pain/Injury Stated Complaint: back issues Time Seen by Provider: 03/28/25 09:12 Source: patient Mode of arrival: ambulatory Limitations: no limitations History of Present Illness HPI Narrative: Patient is a 54-year-old female, with PMH of HTN, shunt r/t Chiari malformation, who presents the ED with report lower back and leg pain. Patient reports having diffuse pain throughout her lower back into bilateral buttock regions, worse on the left. Pain radiates into left lower leg, down to almost her foot. Reports she had a severe episode of pain around 1 month ago. Saw her primary care doctor for this and was placed on a steroid pack which helped the symptoms. Pain began again a couple of days ago. She has been on a Medrol Dosepak for the past 3 days without much improvement. Has also had her gabapentin increased without improvement. Has not taken anything further for pain today. Denies saddle anesthesia, bowel or bladder incontinence. Does complain of some intermittent tingling in her left lower leg, but otherwise denies numbness. Denies abdominal pain, difficulty urinating. Related Data Home Medications ?Medication ?Instructions ?Recorded ?Confirmed ?Last Taken ?Type dextroamphetamine-amphetamine 20 20 mg PO BID 12/01/23 02/21/25 Unknown History mg tablet (Adderall) tacrolimus 0.1 % topical ointment 1 applic topical BID 12/01/23 02/21/25 Unknown History Allergies Allergy/AdvReac Type Severity Reaction Status Date / Time ibuprofen Allergy Severe shunt Verified 02/21/25 09:07 ketorolac Allergy Intermediate Joint Pain Verified 02/21/25 09:07 Sulfa (Sulfonamide Allergy Intermediate general Verified 02/21/25 09:07 Antibiotics) pain Review of Systems Review of Systems: All systems reviewed & are unremarkable except as noted in HPI. All systems reviewed & are unremarkable except as noted in HPI and below PMFSH Past Medical History Medical History Hypertension Attention deficit hyperactivity disorder Chiari malformation Status post surgical decompression and shunt insertion. Marijuana use Anemia Anxiety Depression Asthma Migraine Surgical History Surgical History History of craniotomy Surgical decompression and shunt placement for Chiari malformation. History of dilatation and curettage History of tubal ligation Family History Family History Father Hypertension Depression Heart disease Alcohol abuse Mother Hypertension Depression Alcohol abuse Sibling Hypertension Alcohol abuse Depression Grandparent Alcohol abuse Hypertension Heart disease Son Alcohol abuse Depression Heart disease Social History Social History Social History: Surrogate medical decision maker: Marta Oshea, mother. Code status: Full code. Smoking packs per day: 1 Smoking cigarettes per day: 20.0 Years smoked: 3 Smoking pack-years: 3.00 Smoking status: Former smoker Second hand tobacco smoke exposure: Yes (smokes weed) Smoking end date: 02/06/22 Alcohol intake: former Alcohol use details: Drink heavily in the past. 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 HEAD: Normocephalic, atraumatic. RESPIRATORY: Airway patent, respirations nonlabored. Clear to auscultation bilaterally, no rales, rhonchi, wheezing. CARDIOVASCULAR: Regular rate and rhythm without murmurs, rubs, or gallops. Pedal pulses intact. ABDOMINAL: Soft, nontender, nondistended. Normoactive BS. MUSCULOSKELETAL: Moves all extremities. No gross deformities. Mild diffuse tenderness throughout lumbosacral region. More focal tenderness over left SI region, reproducing pain. Positive straight leg raise on left. Diffuse tenderness throughout left lower leg. Sensation intact. SKIN: Warm, dry, normal color. NEURO: A&O X3. Speech clear. Cranial nerves II-XII grossly intact. No ataxic movements. PSYCHIATRIC: Appropriate mood and affect. Normal interaction. Course Vital Signs Vital signs: Vital Signs Temperature 97.9 F 03/28/25 09:12 Pulse Rate 82 03/28/25 09:12 Respiratory Rate 24 H 03/28/25 09:12 Blood Pressure 200/97 H 03/28/25 09:12 Pulse Oximetry 98 03/28/25 09:12 Oxygen Delivery Room Air 03/28/25 09:12 Temperature 97.9 F 03/28/25 09:12 Pulse Rate 82 03/28/25 09:12 Respiratory Rate 24 H 03/28/25 09:12 Blood Pressure 200/97 H 03/28/25 09:12 Pulse Oximetry 98 03/28/25 09:12 Oxygen Delivery Room Air 03/28/25 09:12 MDM - Back Pain/Injury MDM Narrative Medical decision making narrative: Patient?s pain is positional and localized to paraspinal muscles without signs of cord compression or cauda equina. Normal neurologic exams. No red flag symptoms. No fever noted and no significant risk factors for osteomyelitis or spinal epidural abscess. No symptoms or signs to suggest pain is referred from abdominal or source. CT abd/pelvis w/ lumbar spine obtained, showing mild to moderate lumbar spondylosis changes. No acute fracture or malalignment. No intra-abdominal findings. Patient was given pain control in the ED. On re- evaluation, she is feeling significantly better. Patient ambulates with a steady gait and is felt to be a reasonable candidate for continued outpatient management. Discussed high likelihood of lumbar strain, lumbar radiculopathy. Will refer to neurosurgery for further evaluation. Will discharge with short course of muscle relaxers and Livingston for home use. Advised close follow-up with PCP, given strict return precautions. Patient in agreement with plan. Feels comfortable going home. Discharged in stable condition. Medical Records Attestation: I reviewed the patient's medical records. Imaging Data Attestation: I personally reviewed and interpreted this imaging study as fo llows: Radiologist's impression: ITS Impressions Miscellaneous CT Procedure 03/28/25 10:23 IMPRESSION: 1. No acute intra-abdominal/pelvic process. 2. Interval progression of moderate lower lumbar predominant spondylosis. Discharge Plan Discharge Clinical Impression: Lumbar disc disease with radiculopathy Strain of lumbar region Qualifiers: Encounter type: initial encounter Qualified Code(s): S39.012A - Strain of muscle, fascia and tendon of lower back, initial encounter Patient Disposition: Home Condition: Stable Instructions: Antibiotic Form, Acute Low Back Pain (ED), Lumbar Radiculopathy (ED) Additional Instructions: Continue steroid pack and Tylenol as needed for pain. Livingston as needed for more severe pain. You may use ice/heat, lidocaine patches to area of pain. Take muscle relaxers as needed and prescribed. Recommend taking these at night as they may cause sedation. Do not drive, operate heavy machinery, drink alcohol while on muscle relaxers as this may cause further sedation. Follow-up with your primary care doctor and neurosurgery for further evaluation. Call office to make appointment. Return to the ED if you experience worsening or severe pain, fall or injury, numbness in groin or legs, going to the bathroom without meaning to, unable to keep down food or drink, or any other symptoms of concern. Patient Language: Belgian Prescriptions: New hydrocodone-acetaminophen 5-325 mg tablet 1 tablet PO Q6H PRN (Reason: pain) Qty: 7 0RF methocarbamol 750 mg tablet 1,500 mg PO TID PRN (Reason: muscle spasm) Qty: 15 0RF lidocaine 5 % adhesive patch,medicated 1 patch topical DAILY Qty: 15 0RF Rx Instructions: leave on most painful area for up to 12 hrs No Action dextroamphetamine-amphetamine [Adderall] 20 mg tablet 20 mg PO BID Rx Instructions: administer doses at least 4-6 hours apart tacrolimus 0.1 % ointment 1 applic topical BID acetaminophen 500 mg tablet 1,000 mg PO TID PRN (Reason: manuel) 7 Days Qty: 42 0RF celecoxib 200 mg capsule 200 mg PO DAILY Qty: 90 1RF losartan-hydrochlorothiazide 100-25 mg tablet 1 tablet PO DAILY Qty: 90 2RF amlodipine 5 mg tablet 5 mg PO DAILY Qty: 90 3RF Patient Comments: x4 days ago potassium chloride [Klor-Con 10] 10 mEq tablet extended release 10 meq PO DAILY Qty: 90 1RF Rx Instructions: Take with food methylprednisolone [Medrol (Juaquin)] 4 mg tablets,dose pack See Rx Instructions PO PER PKG DIR Qty: 21 0RF Rx Instructions: PO PER PKG DIR gabapentin 300 mg capsule 300 mg PO BID Qty: 60 2RF Follow-up/Referrals: Barbara Singh MD [Physician, Neurosurgery] Referral Note: NEUROSURGERY Marco A Amador DO [Primary Care Provider, Internal Medicine] Time of Disposition: 11:25
[2025-03-28] MEDS: HYDROcodone/acetaminophen (*CRX) 5-325 MG TABLET 1 TAB PO (10:20)
[2025-03-28] MEDS: LIDOCAINE 5% PATCH 1 PATCH TRANSDERM (10:21)
[2025-03-28 11:32] VITALS: BP 164/99; PULSE 78; RESP 18; TEMP 36.8; O2SAT 97
== END 2025-03-28 12:04 | disposition home or self-care (01) ==
PROVIDERS: Emergency Provider Physician Assistant; PCP Internal Medicine
DX: S39.012A Strain of muscle, fascia and tendon of lower back, initial encounter (principal); I10 Essential (primary) hypertension; F41.8 Other specified anxiety disorders; J45.909 Unspecified asthma, uncomplicated; Z98.890 Other specified postprocedural states; Z87.891 Personal history of nicotine dependence
CPT/HCPCS: 72131; 74176; 96372; 99284; A9270; J2919

== ENCOUNTER 2025-06-15 14:49 | Emergency (ER) | payer OTHER, SELFPAY ==
--- OUTSIDE RECORDS SUMMARY | 2025-06-14 10:12 | XMS_ITS | Encounter Summary ---
Author Organization [facility] Address [address] [place] [address] Care Team Providers Care Cloth Layer Name Role Phone Marco A Amador Primary Care Provider [phone] Reason for Referral * Consultation (Routine) - Closed Specialty Diagnoses / Procedures Referred By Contac t Referred To Contact Pain Management Diagnoses Lumbar disc disease with radiculopathy Procedures OR NJX AA&/STRD TFRML EPI LUMBAR/SACRAL 1 LEVEL OR NJX AA&/STRD TFRML EPI LUMBAR/SACRAL EA ADDL Schedule left transforaminal L4 and L5 Reinaldo Marie MD [address] [place] [phone] Phone: tel: fax: [facility] [address] [place] [phone] Phone: tel: fax: Referral ID Status Reason Start Date Expiration Date V isits Requested Visits Authorized [id number] Closed Specialty Services Required 04/24/2025 04/24/2026 1 1 Scheduling Instructions Schedule left transforaminal L4 and L5 OPERATIONS INTELLIGENCE OFFICER Reason for Visit * Consultation (Routine) - Closed Specialty Diagnoses / Procedures Referred By Contac t Referred To Contact Pain Management Diagnoses Lumbar disc disease with radiculopathy Procedures OR NJX AA&/STRD TFRML EPI LUMBAR/SACRAL 1 LEVEL OR NJX AA&/STRD TFRML EPI LUMBAR/SACRAL EA ADDL Schedule left transforaminal L4 and L5 Reinaldo Marie MD [address] [place] [address] Phone: tel: fax: [facility] [address] [place] [phone] Phone: tel: fax: Referral ID Status Reason Start Date Expiration Date V isits Requested Visits Authorized [id number] Closed Specialty Services Required 04/24/2025 04/24/2026 1 1 Encounter Details Date Type Department Care Team (Latest Contact Info) Description 06/14/2025 10:12 AM AOC OPERATIONS INTELLIGENCE OFFICER - 06/14/2025 11:59 PM AOC OPERATIONS INTELLIGENCE OFFICER Hospital Encounter [facility] [address] [place] [phone] Rachana Thompson, LATENT FINGERPRINT EXAMINER-MANAGER MULTICULTURAL [address] [place] [address] Discharge Disposition: Home or Self Care Social History Tobacco Use Types Packs/Day Years Used Date Smoking Tobacco: Former Cigarettes 30.9 S tarted: 1994 Smokeless Tobacco: Never Alcohol Use Standard Drinks/Week Comments No 0 (1 standard drink = 0.6 oz pur e alcohol) Sober since 04/19/23. AUDIT-C Answer Date Recorded Q1: How often do you have a drink containing alcohol? Never 04/05/2025 Q2: How many drinks containi ng alcohol do you have on a typical day when you are drinking? Patient does not drink Q3: How often do you have si x or more drinks on one occasion? Never 04/05/2025 Overall Financial Resource Strain (CARDIA) Answe r Date Recorded How hard is it for you to pa y for the very basics like food, housing, medical care, and heating? Very hard 04/05/2025 [employer] - Occupational Stress Questionnaire Answer Date Recorded Do you feel stress - tense, restless, nervous, or anxious, or unable to sleep at night because your mind is troubled all the time - these days? To some extent 04/05/2025 Hunger Vital Sign Answer Date Recorded Within the past 12 months, y ou worried that your food would run out before you got the money to buy more. Sometimes true Within the past 12 months, t he food you bought just didn't last and you didn't have money to get more. Sometimes true 04/2025 PRAPARE - Transportation Answer Date Re corded In the past 12 months, has l ack of transportation kept you from medical appointments or from getting medications? No 03/27 In the past 12 months, has l ack of transportation kept you from meetings, work, or from getting things needed for daily living? No 04/05/2025 Housing Stability Vital Sign Answer Ashwin e Recorded In the last 12 months, was t here a time when you were not able to pay the mortgage or rent on time? Yes 04/05/2025 In the past 12 months, how m any times have you moved where you were living? 0 04/05/2025 At any time in the past [address] [facility], were you homeless or living in a halfway (including now)? No 04/05/2025 Comments No Sex and Gender Information Value Date Recorded Sex Assigned at Not on file Legal Sex Female 5:19 PM AOC OPERATIONS INTELLIGENCE OFFICER Gender Identity Not on file Sexual Orientation Not on file documented as of this encounter Last Filed Vital Signs Vital Sign Reading Time Taken Comments Blood Pressure 106/105 06/14/2025 10:27 AM AOC OPERATIONS INTELLIGENCE OFFICER 132/96, HR97 (retake at 1043) Pulse 99 06/14/2025 10:27 AM AOC OPERATIONS INTELLIGENCE OFFICER Temperature 36.8 C (98.3 F) 06/14/2025 10:27 AM AOC OPERATIONS INTELLIGENCE OFFICER Respiratory Rate 20 06/14/2025 10:2 7 AM AOC OPERATIONS INTELLIGENCE OFFICER Oxygen Saturation - - Inhaled Oxygen Concentration - - Weight 90.7 kg (200 lb) 06/14/2025 10:2 7 AM AOC OPERATIONS INTELLIGENCE OFFICER Height 165.1 cm (5' 5) 06/14/2025 10:2 7 AM AOC OPERATIONS INTELLIGENCE OFFICER Body Mass Index 33.28 06/14/2025 10:27 AM AOC OPERATIONS INTELLIGENCE OFFICER documented in this encounter Functional Status * Is person deaf or have serious hearing difficulty? Answer Date of Assessment Author No 04/05/2025 10:45 PM Raisa Smart RN * Is person blind or have serious difficulty seeing? Answer Date of Assessment Author No 04/05/2025 10:45 PM Raisa Smart RN * Does person have serious difficulty walking/climbing stairs? Answer Date of Assessment Author Yes 04/05/2025 10:45 PM Raisa Smart RN * Does person have difficulty dressing/bathing? Answer Date of Assessment Author No 04/05/2025 10:45 PM Raisa Smart RN * Does person have difficulty doing errands alone? Answer Date of Assessment Author No 04/05/2025 10:45 PM Raisa Smart RN documented as of this encounter Mental Status * Does person have difficulty concentrating/remembering/making decisions? Answer Entry Date Author No 04/05/2025 10:45 PM Raisa Smart RN documented in this encounter Discharge Instructions * Patient Instructions* Louise Lee RN - 06/14/2025 10:14 AM AOC OPERATIONS INTELLIGENCE OFFICER PAIN [facility]NA[facility]EMENT CENTER DISCHARGE INSTRUCTIONS for: Malissa Weeks You had the following procedure:Lumbar Epidural Steroid Injection Left Transforaminal L4 and L5 Special Instructions: No soaking in water for 48 hours. This includes tub baths, swimming pools or hot-tubs. Use ice pack today, 15 minutes out of every hour until bedtime as needed. In the morning use a heating pad on low or warm shower, as needed. Then use ice or heat whichever works best for you. Your pain may become worse during the next 24 to 48 hours. The injection may not take effect for 1 to 7 days with the average of about 72 hours. If you have fever, chills, severe headache, or any other problems, please call [phone] or the after hours answering service at [phone] and tell them your physician's name. The exchange willalert the physician plant operations engineer. May remove band-aid in the morning on June 15, 2025. If you are diabetic, your blood sugar can elevate for the next several days due to the steroid you received with your injection. This is normal. Contact your primary care physician for medication adjustments as needed. If you take blood thinners you may resume your dose beginning after your injection today. If you are prone to swelling, the steroid may cause this to increase for the next few days. Call your primary care physician if it is significant. You may develop a red, flushed face. This can also be caused by the steroid and is normal. It should dissipate over the next several days. Continue all of your current medications as prescribed by your physician. You will be contacted by a Pain Center staff member in the next 5 - 7 days to see how you are doing. If you received sedation: Do NOT make any important decisions such as signing any legal papers for 24 hours. Do NOT drink any alcoholic beverages, including beer for [address] a car or operate machinery or power tools for 24 hours. For Your Next Visit: may repeat in 3 months as needed Please do the following:arrive 15 to 30 minutes prior to your appointment time for your admission, take your medications with a sip of water at your normal times, and if you are diabetic or on blood thinners(i.e. Plavix, Coumadin) please check with your physician for special instructions . Please notify us prior to your next scheduled injection if you have had a recent fever, diagnosed infection, or generalized illness. Please note that any medication refill request requires 72 hours to process and will only be managed during normal business hours. Our office hours are Thursday through Thursday from 8:30am to 4:00pm. [facility] closed weekends and holidays. IF YOU FEEL YOU ARE EXPERIENCING A MEDICAL EMERGENCY, PLEASE CALL 911 OR GO TO THE NEAREST EMERGENCY ROOM. These instructions have been reviewed with me and my questions have been answered. Patient verbalized understanding with above instructions. 06/14/2025 OPERATIONS INTELLIGENCE OFFICER OPERATIONS INTELLIGENCE OFFICER documented in this encounter Medications at Time of Discharge acetaminophen (Tylenol) 500 MG tablet Take 1 (one) tablet by mouth every 4 hours as needed for Fever or Pain Maximum allowable Acetaminophen amount = 4 Grams (4000 mg) / 24 hours. amLODIPine (NORVASC) 5 MG tablet Take 1 (one) tablet by mouth once daily amphetamine-dext roamphetamine (Adderall) 20 MG tablet Take 1 (one) tablet by mouth 2 times daily 04/14/2025 calcium carbonate (TUMS EXTRA STRENGTH 750) 750 MG chew tablet Take 1 (one) tablet by mouth as needed for Heartburn (acid reflux) DULoxetine (Cymbalta) 30 MG capsule Take 1 (one) capsule by mouth once daily for 90 days 30 capsule 2 04/07/2025 5 gabapentin (Neurontin) 300 MG capsule Take 2 (two) capsules by mouth 3 times daily for 90 days 180 capsule 2 04/06/2025 5 Glucosamine-Carl droit-Vit C-Mn (Glucosamine 1500 Complex) CAPS Take 1,500 mg by mouth once daily HYDROcodone-acet aminophen (Windsor) 5-325 MG tablet Take 1 (one) tablet by mouth every 6 hours as needed pain 04/21/2025 ketoconazole (Nizoral) 2 % cream Apply to affected area 2 times daily as needed (When rash on lips occurs) lidocaine (Lidoderm) 5 % patch Apply 1 (one) patch to skin once daily Apply patch to most painful area and remove after 12 hours. May reapply a new patch 12 hours later. losartan-hydroCH LOROthiazide (HYZAAR) 100-25 MG tablet Take 1 (one) tablet by mouth once daily MAGNESIUM LACTATE PO Take 1 tablet by mouth once daily medical marijuana Use 1 Dose as needed (Back pain) mometasone (Elocon) 0.1 % ointment Apply to affected area once daily as needed Multiple Vitamins-Mineral s (ONE-A-DAY 50 PLUS PO) Take 1 tablet by mouth once daily nystatin (MYCOSTATIN) 829301 UNIT/GM creamIndications :under breast prn Apply to affected area as needed under breast prn rash Reasons: under breast prn potassium chloride ER (Klor-Con M) 10 MEQ tablet Take 1 (one) tablet by mouth once daily documented as of this encounter H&P Notes * Reinaldo Marie MD - 06/14/2025 12:50 PM CST Subjective: 06/14/2025 HPI: Malissa Weeks is a 55 year old White/ female referred by Reinaldo Marie MD (PCP is Marco A Amador DO) The patients history is reviewed and indication for today procedure is congruent with proposed procedure and procedure level The patient continues with their prescribed home exercise program as tolerated The pain continues to interfere with ADLs Allergies[1] Past Medical History[2] Past Surgical History[3] Family History[4] Medications[5] Blood Thinning Medications reviewed (such as Plavix, Coumadin, Warfarin, Aggrenox, Heparin, or Aspirin): Social History Socioeconomic History Marital status: Spouse name: Not on file Number of children: Not on file Years of education: Not on file Highest education level: Not on file Occupational History Not on file Tobacco Use Smoking status: Former Types: Cigarettes Start date: 1994 Smokeless tobacco: Never Vaping Use Vaping status: Every Day Substance and Sexual Activity Alcohol use: No Comment: Sober since 04/19/23. Drug use: Yes Types: Marijuana Comment: Vapes marijuana multiple times a day for pain and anxiety. Sexual activity: Not on file Other Topics Concern Not on file Social History Narrative Not on file Social Drivers of Health Financial Resource Strain: High Risk (04/05/2025) Overall Financial Resource Strain (CARDIA) Difficulty of Paying Living Expenses: Very hard Food Insecurity: Food Insecurity Present (04/05/2025) Hunger Vital Sign Worried About Running Out of Food in the Last Year: Sometimes true Ran Out of Food in the Last Year: Sometimes true Transportation Needs: No Transportation Needs (04/05/2025) PRAPARE - Transportation Lack of Transportation (Medical): No Lack of Transportation (Non-Medical): No Stress: Stress Concern Present (04/05/2025) [employer] - Occupational Stress Questionnaire Feeling of Stress : To some extent Housing Stability: High Risk (04/05/2025) Housing Stability Vital Sign Unable to Pay for Housing in the Last Year: Yes Number of Times Moved in the Last Year: 0 Homeless in the Last Year: No REVIEW OF SYSTEMS: General: Denies fever, eating and drinking well. Eyes: No tearing or discharge reported. ENT: Denies runny nose or ear pain. Cardiac: Denies chest pain, palpitations, orthoponea, edema Pulmonary: Denies any cough, SOB, or difficulty breathing. Gastro: Denies nausea, vomiting, diarrhea or abdominal pain. : Reports normal urine output with no c/o pain or discomfort. Skin: Denies itching, rashes or other lesions. Endocrine: Denies Diabetes, Thyroid disease Neuro: Denies Seizures, TIAs, Hx stroke, weakness,numbness Psych: Denies Depression, Anxiety, History of drug abuse or addiction EXAM: BP (!) 106/105 Comment: 132/96, HR97 (retake at 1043) Pulse 99 Temp 98.3 ??F (36.8 ??C) Resp 20 Ht 1.651 m (5' 5) Wt 90.7 kg (200 lb) General appearance: alert, cooperative, no distress Skin: no rashes or other abnormalities are noted Eyes: sclera and conjunctiva clear, EOMI lids normal Ears: canals clear hearing intact to voice Nose: nares open; no septal deviation is noted Throat: no mucous membrane abnormalities Airway adequate for sedation Neck: range of motion is grossly normal Lungs: breath sounds normal Abdomen: soft without guarding, non-tender Heart: regular rhythm, normal Circulation: adequate perfusion grossly Joints: ranges of motion appear normal Neuro: Full strength and sensation grossly Assessment: Lumbar radiculopathy Plan: Proceed with procedure as planned as in Consent which is reviewed with patient and signed Then the patient was marked in preop area Sedation explained to the patient ASA 2 Airway adequate for sedation Mallimpati scare appropriate for sedation Explained procedure Questions elicited and answered I examined the patient independantly from the resident. I have reviewed the labs and notes that arepertinent to the patient. I have discussed the plan with the patient and/or family. I have discussed the case with the resident and ask the you refer to their notes for details. After review of theirnotes and our discussion, if there are any additions, they will follow.I was present , directed, and participated in this evaluation / procedure. I agree with diagnosis and treatment as stated above. Reinaldo Marie MD @ 06/14/2025 12:50 PM [1] Allergies Allergen Reactions Ibuprofen Other Pt has shunt Ketorolac Myalgias and Unknown Sulfa Drugs Nausea and/or Vomiting and Other Reaction: Unknown, , , Reaction: pain, Percocet [Oxycodone-Acetaminophen] Vision Changes Hallucinations Codiene [Codeine] Other extra pain makes me fill like I'm going out of my head Oxycodone-Acetaminophen Vision Changes Hallucinations Pollen Extract Other Seasonal itchy eyes, runny nose, sneezing Bee Pollen Other Seasonal itchy eyes, runny nose, sneezing Codeine Other extra pain makes me fill like I'm going out of my head Ketorolac Tromethamine Nausea and/or Vomiting also cause physical pain commonly known as toradol [2] Past Medical History: Diagnosis Date Anxiety Erythromelalgia 1994 GERD (gastroesophageal reflux disease) ocassional tums H/O colonoscopy Hx of migraines Hypertension Sleep apnea did not prusure CPAP waiting to see if surgery is the reason of SOB (shortness of breath) ocassioanlly with 2 city [address] limited due to diagonsis [3] Past Surgical History: Procedure Laterality Date Bilateral Tubal Ligation (BTL) BIOPSY Left nerve left foot Cerebrospinal Fluid (CSF) Shunt Right 04/12/2018 Right; INSERTION VENTRICULO-ATRIAL SHUNT Craniotomy N/A 01/19/2018 N/A; CRANIOTOMY POSTERIOR FOSSA FOR ARNOLD-CHIARI MALFORMATION Craniotomy N/A 02/24/2018 N/A; SUBOCCIPITAL WOUND REVISION / REPAIR CSF LEAK, Dilation and Curettage LAPAROSCOPY, DIAGNOSTIC N/A 03/22/2018 N/A; EXPLORATORY LAPAROSCOPIC ADJUSTMENT OF INTRA-PERITONEAL SHUNT VENTRICULAR SHUNT TO ABDOMEN Right 03/01/2018 Right; INSERTION VENTRICULO-PERITONEAL SHUNT-RIGHT, LUMBAR DRAIN REMOVAL [4] No family history on file. [5] Current Outpatient Medications Medication Sig Dispense Refill acetaminophen (Tylenol) 500 MG tablet Take 1 (one) tablet by mouth every 4 hours as needed for Fever or Pain Maximum allowable Acetaminophen amount = 4 Grams (4000 mg) / 24 hours. amLODIPine (NORVASC) 5 MG tablet Take 1 (one) tablet by mouth once daily amphetamine-dextroamphetamine (Adderall) 20 MG tablet Take 1 (one) tablet by mouth 2 times daily calcium carbonate (TUMS EXTRA STRENGTH 750) 750 MG chew tablet Take 1 (one) tablet by mouth as needed for Heartburn (acid reflux) DULoxetine (Cymbalta) 30 MG capsule Take 1 (one) capsule by mouth once daily for 90 days 30 capsule2 gabapentin (Neurontin) 300 MG capsule Take 2 (two) capsules by mouth 3 times daily for 90 days 180 capsule 2 Rxdjsocalhp-Mxovsbpmh-Whd C-Mn (Glucosamine 1500 Complex) CAPS Take 1,500 mg by mouth once daily HYDROcodone-acetaminophen (Windsor) 5-325 MG tablet Take 1 (one) tablet by mouth every 6 hours as needed pain ketoconazole (Nizoral) 2 % cream Apply to affected area 2 times daily as needed (When rash on lips occurs) lidocaine (Lidoderm) 5 % patch Apply 1 (one) patch to skin once daily Apply patch to most painful area and remove after 12 hours. May reapply a new patch 12 hours later. (Patient taking differently: Apply 1 (one) patch to skin once daily as needed Apply patch to most painful area and remove after 12 hours. May reapply a new patch 12 hours later.) losartan-hydroCHLOROthiazide (HYZAAR) 100-25 MG tablet Take 1 (one) tablet by mouth once daily MAGNESIUM LACTATE PO Take 1 tablet by mouth once daily medical marijuana Use 1 Dose as needed (Back pain) mometasone (Elocon) 0.1 % ointment Apply to affected area once daily as needed Multiple Vitamins-Minerals (ONE-A-DAY 50 PLUS PO) Take 1 tablet by mouth once daily nystatin (MYCOSTATIN) 536022 UNIT/GM cream Apply to affected area as needed under breast prn rash Reasons: under breast prn potassium chloride ER (Klor-Con M) 10 MEQ tablet Take 1 (one) tablet by mouth once daily Current Facility-Administered Medications Medication Dose Route Frequency Provider Last Rate Last Admin dexAMETHasone (Decadron) injection 10 mg 10 mg Epidural intra-Procedure multiple Reinaldo Marie MD 10mg at 06/14/25 1051 lidocaine PF (Xylocaine MPF) 1 % injection Infiltration intra-Procedure multiple Reinaldo Marie MD 50mg at 06/14/25 1049 lidocaine PF (Xylocaine MPF) 1 % injection Epidural intra-Procedure multiple Reinaldo Marie MD 50 mg at 06/14/25 1049 OPERATIONS INTELLIGENCE OFFICER documented in this encounter Procedure Notes * Reinaldo Marie MD - 06/14/2025 12:51 PM CSTAssociated Order(s): PAIN MANAGEMENT PROCEDURE TIME 06/14/2025 Transforaminal Lumbar Epidural and Nerve Root Steroid Injection on Left L4 and L5 Level(s) Dx: M54.16 - Lumbar Radiculopathy Consent: The patient was identified in the holding area and the operative permit was explained and signed. Ihave discussed with the patient the risks, benefits, side effects and complications of a fluoroscopically guided transforaminal lumbar nerve root steroid injection. I have answered the patient's questions regarding the procedure and have given the patient the opportunity to refuse the procedure. I also have discussed alternative methods of treatment. The patient stated understanding of the procedure and wished to proceed with a fluoroscopically guided transforaminal lumbar nerve root steroid injection. Monitoring: The patient was taken to the fluoroscopic suite and placed on a C-arm table in the prone position. Noninvasive blood pressure, pulse oximetry, and an EKG tracing were used to monitor the patient continuously throughout the procedure. A nurse was in attendance for the duration of the procedure to carefully monitor the patient. Please refer to the nursing record for vital sign documentation and forany doses of sedatives and medications. I was present and gave the order for any medications given to the patient. Preparation: Chloroprep preparation was performed twice, then sterile drapes were applied to the lower region ofthe back. Procedure: The procedure was performed at the above mentioned level(s).The C-arm was positioned in the obliqueview until the pedicle and articulating processes were clearly visible. Using fluoroscopic guidance, a 22 gauge 3.5 inch needle was placed on the six o'clock position of the pedicle. The needle was then slowly walked off the lamina into the nerve root foramen at left L 4. The same was performed at Left L 5. A lateral flouroscopic projection showed the needle tip entering the superior posterior aspect of the respective intervertebral foramen. Using AP fluoroscopic projection, 0.4 ml of Omnipaque(240mg/ml) was injected through the needle and a neurogram was produced. There was clear dye spread through the nerve root sheath and into the epidural space. There was no cerebrospinal fluid or blood aspirated from the needle. A preservative free solution of 5ml Dexamethasone and 2 ml of 0.5% Lidocaine was injected at each level.There were no signs or symptoms of intrathecal or intravascular injection. The needle was removed intact. The patient tolerated the procedure well and there were no complications. EBL < 1ml Recovery: The patient was taken to the recovery area where they remained in stable condition. Postprocedure instructions were given to the patient and a follow up appointment was confirmed. The patient was also discharged with information on how to reach the clinic or plant operations engineer physician at anytime for questions or complaints. OPERATIONS INTELLIGENCE OFFICER documented in this encounter Plan of Treatment Upcoming Encounters Date Type Department Care Team (Late st Contact Info) Description 06/29/2025 10:00 AM AOC OPERATIONS INTELLIGENCE OFFICER Office Visit [facility] - Orthopedics [address] [place] [address], [place] [address] Addison Castaneda MD [address] [place] [address] [place] [address] 07/06/2025 10:00 AM AOC OPERATIONS INTELLIGENCE OFFICER Office Visit [facility] - Neurosurgery [address] [place] [address], [place] [address] Pooja Alanis MD [address] [place] [address] [place] [address] Scheduled Referrals Name Type Priority Associated Diagnoses Order Schedule AMB REFERRAL TO PAIN MANAGEMENT PROCEDURE Outpatient Referral Routine 1 Occurrence s starting 06/14/2025 until 06/14/2025 documented as of this encounter Procedures Procedure Name Priority Date/Time Associated Diagnosis Comments PAIN MANAGEMENT PROCEDURE TIME Routine 06/14/2025 10:56 AM AOC OPERATIONS INTELLIGENCE OFFICER Lumbar radiculopathy documented in this encounter Results * Pain Management Procedure Time (06/14/2025 10:56 AM AOC OPERATIONS INTELLIGENCE OFFICER) Anatomical Region Laterality Modality Radio Fluoroscop y Narrative 06/14/2025 12:51 PM AOC OPERATIONS INTELLIGENCE OFFICER Reinaldo Marie MD 06/14/2025 12:51 PM 06/14/2025 Transforaminal Lumbar Epidural and Nerve Root Steroid Injection on Left L4 and L5 Level(s) Dx: M54.16 - Lumbar Radiculopathy Consent: The patient was identified in the holding area and the operative permit was explained and signed. I have discussed with the patient the risks, benefits, side effects and complications of a fluoroscopically guided transforaminal lumbar nerve root steroid injection. I have answered the patient's questions regarding the procedure and have given the patient the opportunity to refuse the procedure. I also have discussed alternative methods of treatment. The patient stated understanding of the procedure and wished to proceed with a fluoroscopically guided transforaminal lumbar nerve root steroid injection. Monitoring: The patient was taken to the fluoroscopic suite and placed on a C-arm table in the prone position. Noninvasive blood pressure, pulse oximetry, and an EKG tracing were used to monitor the patient continuously throughout the procedure. A nurse was in attendance for the duration of the procedure to carefully monitor the patient. Please refer to the nursing record for vital sign documentation and for any doses of sedatives and medications. I was present and gave the order for any medications given to the patient. Preparation: Chloroprep preparation was performed twice, then sterile drapes were applied to the lower region of the back. Procedure: The procedure was performed at the above mentioned level(s).The C-arm was positioned in the oblique view until the pedicle and articulating processes were clearly visible. Using fluoroscopic guidance, a 22 gauge 3.5 inch needle was placed on the six o'clock position of the pedicle. The needle was then slowly walked off the lamina into the nerve root foramen at left L 4. The same was performed at Left L 5. A lateral flouroscopic projection showed the needle tip entering the superior posterior aspect of the respective intervertebral foramen. Using AP fluoroscopic projection, 0.4 ml of Omnipaque (240mg/ml) was injected through the needle and a neurogram was produced. There was clear dye spread through the nerve root sheath and into the epidural space. There was no cerebrospinal fluid or blood aspirated from the needle. A preservative free solution of 5ml Dexamethasone and 2 ml of 0.5% Lidocaine was injected at each level.There were no signs or symptoms of intrathecal or intravascular injection. The needle was removed intact. The patient tolerated the procedure well and there were no complications. EBL < 1ml Recovery: The patient was taken to the recovery area where they remained in stable condition. Postprocedure instructions were given to the patient and a follow up appointment was confirmed. The patient was also discharged with information on how to reach the clinic or plant operations engineer physician at anytime for questions or complaints. Reinaldo Marie MD DIAGNOSTIC IMAGING ORDERABLES Fi nal Result documented in this encounter Visit Diagnoses Diagnosis Lumbar radiculopathy Thoracic or lumbosacral neuritis or radiculitis, unspecified documented in this encounter Administered Medications Inactive Administered Medications - up to 3 most recent administrations Medication Order MAR Action Action Date Dose Rate Site dexAMETHasone (Decadron) 10 mg/ml PF injection ADS Med 1 dose, Starting on Thu06/14/25 at 1026, Until Thu06/14/25 at 1050, Created by cabinet override dexAMETHasone (Decadron) injection 10 mg 10 mg, Epidural, INTRA-PROCEDURE MULTIPLE, Starting on Thu06/14/25 at 1023, Until Flakita 06/15/25 at 0135, Administer per physician direction $ Given 06/14/2025 10:51 AM [facility] OPERATIONS INTELLIGENCE OFFICER 10 mg Back $ Given 06/14/2025 10:50 AM [facility] OPERATIONS INTELLIGENCE OFFICER 10 mg B ack iopamidol (Isovue M 200) 41 % contrast Intraspinal, INTRA-PROCEDURE ONCE, 1 dose, On Thu06/14/25 at 1030, Intra-epidural Administer per physician direction. $ Given - Contrast 06/14/2025 10:50 AM [facility] OPERATIONS INTELLIGENCE OFFICER 3 mL Back lidocaine (Xylocaine PF) 1% injection ADS Med 1 dose, Starting on Thu06/14/25 at 1026, Until Thu06/14/25 at 1049, Created by cabinet override lidocaine PF (Xylocaine MPF) 1 % injection Infiltration, INTRA-PROCEDURE MULTIPLE, Starting on Thu06/14/25 at 1023, Until Flakita 06/15/25 at 0135, Administer per physician direction. $ Given 06/14/2025 10:49 AM [facility] OPERATIONS INTELLIGENCE OFFICER 50 mg Back lidocaine PF (Xylocaine MPF) 1 % injection Epidural, INTRA-PROCEDURE MULTIPLE, Starting on Thu06/14/25 at 1023, Until Flakita 06/15/25 at 0135, Administer per physician direction. $ Given 06/14/2025 10:49 AM [facility] OPERATIONS INTELLIGENCE OFFICER 50 mg Back documented in this encounter Care Teams Cloth Layer Relationship Specialty Start Date End Date Marco A Amador DO [address] [place] [address] PCP - General Internal Medicine 05/04/25 documented as of this encounter
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
[2025-06-15 15:08] VITALS: BP 161/99; PULSE 90; RESP 12; TEMP 36.8; O2SAT 97
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
[2025-06-15] MEDS: HYDROmorphone HCL INJ (*CRX) 1 MG/ML SYR IV PUSH (17:39)
[2025-06-15] MEDS: CYCLOBENZAPRINE HCL 10 MG TABLET PO (17:39)
--- OUTSIDE RECORDS SUMMARY | 2025-06-15 18:23 | XMS_ITS | Clinical Summary ---
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 This disclosure is being madepursuant to the Care Everywhere program and may not contain all information available regarding this patient. Last updated 18.[facility] Signdat Allergies Active Allergy Reactions Criticality Noted Date Comments Bee Pollen Other Low 01/13/2018 Seasonal itchy eyes, runny nose, sneezing Codeine Other Low 02/24/2018 extra pain makes me fill like I'm going out of my head Codeine Other 02/24/2018 extra pain makes me fill like I'm going out of my head Ibuprofen Other High 09/28/2024 Pt has shunt Ketorolac Myalgias,Unknown High 09/26/2007 Ketorolac Tromethamine Nausea and/or Vomiting Low 05/07/2017 also cause physical pain commonly known as toradol Oxycodone-Acetaminophen Vision Changes Medium 03/02/20 18 Hallucinations Oxycodone-Acetaminophen Vision Changes Medium 03/02/20 18 Hallucinations Pollen Extract Other 01/13/2018 Seasonal itchy eyes, runny nose, sneezing Sulfa Drugs Nausea and/or Vomiting,Other High 05/07/2017 Reaction: Unknown, , , Reaction: pain, Medications * Be aware that medications may not be up to date on this document. Alwaysverify current medications with the patient. nystatin (MYCOSTATIN) [id number] UNIT/GM creamIndicatio ns:under breast prn Apply to affected area as needed under breast prn rash Reasons: under breast prn Active amLODIPine (NORVASC) 5 MG tablet Take 1 (one) tablet by mouth once daily Active calcium carbonate (TUMS EXTRA STRENGTH 750) 750 MG chew tablet Take 1 (one) tablet by mouth as needed for Heartburn (acid reflux) Active losartan-hydro CHLOROthiazide (HYZAAR) 100-25 MG tablet Take 1 (one) tablet by mouth once daily Active acetaminophen (Tylenol) 500 MG tablet Take 1 (one) tablet by mouth every 4 hours as needed for Fever or Pain Maximum allowable Acetaminophen amount = 4 Grams (4000 mg) / 24 hours. Active lidocaine (Lidoderm) 5 % patch Apply 1 (one) patch to skin once daily Apply patch to most painful area and remove after 12 hours. May reapply a new patch 12 hours later. Active potassium chloride ER (Klor-Con M) 10 MEQ tablet Take 1 (one) tablet by mouth once daily Active ketoconazole (Nizoral) 2 % cream Apply to affected area 2 times daily as needed (When rash on lips occurs) Active medical marijuana Use 1 Dose as needed (Back pain) Active DULoxetine (Cymbalta) 30 MG capsule Take 1 (one) capsule by mouth once daily for 90 days 30 capsule 2 5 07/06/20 25 Active gabapentin (Neurontin) 300 MG capsule Take 2 (two) capsules by mouth 3 times daily for 90 days 180 capsule 2 5 07/05/20 25 Active mometasone (Elocon) 0.1 % ointment Apply to affected area once daily as needed Active HYDROcodone-ac etaminophen (Limerick) 5-325 MG tablet Take 1 (one) tablet by mouth every 6 hours as needed pain 5 Active amphetamine-de xtroamphetamin e (Adderall) 20 MG tablet Take 1 (one) tablet by mouth 2 times daily 5 Active Multiple Vitamins-Pipeline Executive als (ONE-A-DAY 50 PLUS PO) Take 1 tablet by mouth once daily Active Glucosamine-Ch ondroit-Vit C-Mn (Glucosamine 1500 Complex) CAPS Take 1,500 mg by mouth once daily Active MAGNESIUM LACTATE PO Take 1 tablet by mouth once daily Active Active Problems Problem Noted Date Diagnosed Date Depression 04/20/2025 Cat bite 04/20/2025 Backache 04/20/2025 Anxiety-like symptoms 04/20/2025 Acute respiratory alkalosis 04/20/2025 Abdominal pain, RUQ (right upper quadrant) 04/20 Acute exacerbation of chronic low back pain 03/28 Anxiety 04/20/2025 Arthralgia 04/20/2025 Chest pain 04/20/2025 Complex posttraumatic stress disorder 04/20/2025 Dental infection 04/20/2025 UMANZOR (dyspnea on exertion) 04/20/2025 Dermatitis 04/20/2025 Leukocytosis 04/20/2025 Memory loss 04/20/2025 Mouth pain 04/20/2025 Screening for breast cancer 04/20/2025 Pulmonary embolism 04/20/2025 Migraine 04/20/2025 Obesity with body mass index 30 or greater 04/20 Marijuana use 04/20/2025 Esophagitis 04/20/2025 Elevated liver function tests 04/20/2025 Single subsegmental pulmonar y embolism without acute cor pulmonale 04/20/2025 Strain of lumbar region 04/20/2025 Lt facial pain 04/20/2025 Urinary incontinence 04/20/2025 Near syncope 04/20/2025 Intractable nausea and vomiting 04/20/2025 Intractable vomiting 04/20/2025 Lumbar radiculopathy 04/20/2025 History of Chiari malformation 04/20/2025 Overview (04/20/2025): Status post surgical decompression and shunt insertion. Hypomagnesemia 04/05/2025 Assessment & Plan (04/05/2025 6:23 PM CDT): -Repleted Numbness and tingling 04/04/2025 Assessment & Plan (04/05/2025 6:23 PM CDT): -follow MRI and based on MRI results we will decide about spine surgery vs NSGY -consult neurology in AM to help with diagnosis and to work up for neuropathy -fall precautions, PT/OT, PRN bladder scans -PRN symptom control as below Assessment & Plan (04/05/2025 7:07 AM CDT): -follow MRI and based on MRI results we will decide about spine surgery vs NSGY -consult neurology in AM to help with diagnosis and to work up for neuropathy -fall precautions, PT/OT, PRN bladder scans -PRN symptom control as below Incontinence of feces, unspecified fecal inconti nence type 04/04/2025 Assessment & Plan (04/05/2025 6:23 PM CDT): -follow MRI and based on MRI results we will decide about spine surgery vs NSGY -consult neurology in AM to help with diagnosis and to work up for neuropathy -fall precautions, PT/OT, PRN bladder scans -PRN symptom control as below Assessment & Plan (04/05/2025 7:07 AM CDT): -follow MRI and based on MRI results we will decide about spine surgery vs NSGY -consult neurology in AM to help with diagnosis and to work up for neuropathy -fall precautions, PT/OT, PRN bladder scans -PRN symptom control as below Nausea and vomiting, unspecified vomiting type 0 04/04/2025 Assessment & Plan (04/05/2025 6:23 PM CDT): -follow MRI and based on MRI results we will decide about spine surgery vs NSGY -consult neurology in AM to help with diagnosis and to work up for neuropathy -fall precautions, PT/OT, PRN bladder scans -PRN symptom control as below Assessment & Plan (04/05/2025 7:07 AM CDT): -follow MRI and based on MRI results we will decide about spine surgery vs NSGY -consult neurology in AM to help with diagnosis and to work up for neuropathy -fall precautions, PT/OT, PRN bladder scans -PRN symptom control as below Pain in both lower extremities 04/04/2025 Assessment & Plan (04/05/2025 6:23 PM CDT): -follow MRI and based on MRI results we will decide about spine surgery vs NSGY -consult neurology in AM to help with diagnosis and to work up for neuropathy -fall precautions, PT/OT, PRN bladder scans -PRN symptom control as below Assessment & Plan (04/05/2025 7:07 AM CDT): -follow MRI and based on MRI results we will decide about spine surgery vs NSGY -consult neurology in AM to help with diagnosis and to work up for neuropathy -fall precautions, PT/OT, PRN bladder scans -PRN symptom control as below Attention deficit hyperactivity disorder 025 Assessment & Plan (04/05/2025 6:23 PM CDT): -pt states she was off meds for many months as she did not have insurance but now that has been resolved so she will start taking adderal after discharge Assessment & Plan (04/05/2025 7:07 AM CDT): -pt states she was off meds for many months as she did not have insurance but now that has been resolved so she will start taking adderal after discharge History of craniotomy 04/04/2025 Overview (04/04/2025): Surgical decompression and shunt placement for Chiari malformation. External hemorrhoid 04/04/2025 Hx of pulmonary embolus 04/04/2025 Assessment & Plan (04/05/2025 6:23 PM CDT): -states she was on AC but then it was dced and she was never put back on -No recent dispenses in her chart -Currently asymp so will defer to OP work up Assessment & Plan (04/05/2025 7:07 AM CDT): -states she was on AC but then it was dced and she was never put back on -No recent dispenses in her chart -Currently asymp so will defer to OP work up Hypertension 04/04/2025 Assessment & Plan (04/05/2025 6:23 PM CDT): -continue home meds with Kcl that he takes at home Assessment & Plan (04/05/2025 7:07 AM CDT): -continue home meds with Kcl that he takes at home Lumbar disc disease with radiculopathy 5 Assessment & Plan (04/05/2025 6:23 PM CDT): -PRN pain control with tylenol, robaxin, lidocaine patch, celebrex and scheduled gabapentin - Increased gabapentin from 300mg BID to 600mg TID, can uptitrate over coming days -held steroids owing to their risk profile -added ultram PRN for 3 days. Will decide only about continuation based on response Assessment & Plan (04/05/2025 7:07 AM CDT): -PRN pain control with tylenol, robaxin, lidocaine patch, celebrex and scheduled gabapentin -held steroids owing to their risk profile -added ultram PRN for 3 days. Will decide only about continuation based on response Dizziness 02/21/2021 GOLD RECLAIMER (ventriculoperitoneal) shunt status 8 Nausea & vomiting 03/24/2018 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 Syncope and collapse 03/20/2018 S/P ventriculoperitoneal shunt 03/03/2018 Overview (02/21/2021): 03/01/18 GOLD RECLAIMER shunt placed, Strata II @ 1.5 03/20/18 Strata II valve set to 1.0 03/22/18 Distal revision, strata II @ 1.0 04/12/18 revised to V-atrial shunt 04/13/18 strata II adjusted to 1.5 JU 04/16/18 stata II adjusted to 1.0 02/21/21 1.0 lesley Assessment & Plan (04/05/2025 6:23 PM CDT): -follow MRI and based on MRI results we will decide about spine surgery vs NSGY -consult neurology in AM to help with diagnosis and to work up for neuropathy -fall precautions, PT/OT, PRN bladder scans -PRN symptom control as below Assessment & Plan (04/05/2025 7:07 AM CDT): -follow MRI and based on MRI results we will decide about spine surgery vs NSGY -consult neurology in AM to help with diagnosis and to work up for neuropathy -fall precautions, PT/OT, PRN bladder scans -PRN symptom control as below 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 Acute intractable headache 02/24/2018 Headache, unspecified headache type 01/23/2018 Arnold-Chiari malformation 01/19/2018 Assessment & Plan (04/05/2025 6:23 PM CDT): -follow MRI and based on MRI results we will decide about spine surgery vs NSGY -consult neurology in AM to help with diagnosis and to work up for neuropathy -fall precautions, PT/OT, PRN bladder scans -PRN symptom control as below Assessment & Plan (04/05/2025 7:07 AM CDT): -follow MRI and based on MRI results we will decide about spine surgery vs NSGY -consult neurology in AM to help with diagnosis and to work up for neuropathy -fall precautions, PT/OT, PRN bladder scans -PRN symptom control as below Resolved Problems Problem Noted Date Diagnosed Date Resolved Date Dehydration 04/20/2025 05/04/2025 Vomiting and diarrhea 04/20/20252024 S/P GOLD RECLAIMER shunt 03/20/2018 04/16/2018 Encounters Date Type Department Care Team Description 06/14/2025 10:12 AM DIVING SUPERVISOR - 06/14/2025 11:59 PM DIVING SUPERVISOR Hospital Encounter [facility] [address] [place] [phone] Rachana Thompson, ROLL HAULER-CRAFT COORDINATOR Discharge Disposition: Home or Self Care 06/14/2025 Travel 05/18/2025 Travel 05/04/2025 12:13 PM CDT - 05/04/2025 11:59 PM CDT Hospital Encounter [facility] [address] [facility] [place] [address] Addison Castaneda MD Discharge Disposition: Home or Self Care 05/04/2025 12:00 PM CDT Office Visit [facility] - Orthopedics [address] [place] [address], [place] [phone] Addison Castaneda MD Lumbar pain (Primary Dx); Spinal stenosis, lumbar region with neurogenic claudication 05/04/2025 Travel 04/28/2025 Orders Only [facility] - Orthopedics [address] [place] [phone] Addison Castaneda MD Lumbar pain 04/24/2025 10:30 AM CDT Office Visit [facility] [address] [place] [phone] Rachana Thompson, DONIS-CRAFT COORDINATOR Lumbar disc disease with radiculopathy (Primary Dx) 04/24/2025 Travel 04/18/2025 2:30 PM CDT Office Visit Transitional Care at [address] [phone] Racquel Reid, DONIS-CRAFT COORDINATOR Hospital discharge follow-up (Primary Dx); Lumbar disc disease with radiculopathy; Neural foraminal stenosis of lumbar spine 04/13/2025 Telephone Transitional Care at [address] [phone] Natalie Phoenix MA Scheduling 04/13/2025 Travel 04/10/2025 Telephone Transitional Care at [address] [phone] Wanda Johnson, strategic partner development manager 04/07/2025 Transitional Care Transitional Care at [address] [phone] Yanet Mai RNstrategic partner development manager 04/04/2025 5:20 PM CDT - 04/06/2025 12:46 PM CDT Hospital Encounter [facility] [address] [place] [phone] Luis Fernando, MD Chidi Bailey Hadil, MD Fazeel, MD Tico Macias, MD Melinda Wood Joshua, MD Internal Medicine Discharge Disposition: Home or Self Care 04/04/2025 Travel from Last 3 Months Immunizations Immunization Administration Dates Next Due INFLUENZA VACCINE, TRIV. (AF LURIA, FLUZONE TRIVALENT; 6MO+) (IIV3) 05/01/2012 Covid Pfizer primary monoval ent 12+ yr 0.3mL Purple cap 11/06/2020,10/16/2020 HEP A/HEP B 07/27/2013 INFLUENZA VACCINE 08/09/2024 TDAP (7yrs+) 07/27/2011 Family History Relation Name Status Comments Father Mother Alive Social History Tobacco Use Types Packs/Day Years Used Date Smoking Tobacco: Former Cigarettes 30.9 S tarted: 1994 Smokeless Tobacco: Never Tobacco Cessation:Counseling Given: Not Answered Alcohol Use Standard Drinks/Week Comments No 0 [...] medical care, and heating? Very hard 04/05/2025 [facility] [place] [facility] Occupat ional Health - Occupational Stress [...] any time in the past 12 m [facility], were you homeless or living in a half-way (including now)? No 04/05/2025 Comments No Sex and Gender Information Value Date Recorded Sex Assigned at Not on file Legal Sex Female 5:19 PM DIVING SUPERVISOR Gender Identity Not on file Sexual Orientation Not on file Last Filed Vital Signs Vital Sign Reading Time Taken Comments Blood Pressure 106/105 06/14/2025 10:27 AM DIVING SUPERVISOR 132/96, HR97 (retake at 1043) Pulse 99 06/14/2025 10:27 AM DIVING SUPERVISOR Temperature 36.8 C (98.3 F) 06/14/2025 10:27 AM DIVING SUPERVISOR Respiratory Rate 20 06/14/2025 10:2 7 AM DIVING SUPERVISOR Oxygen Saturation 94% 04/18/2025 2:1 4 PM CDT Inhaled Oxygen Concentration 28% 03/22/2018 10:00 AM CDT Weight 90.7 kg (200 lb) 06/14/2025 10:2 7 AM DIVING SUPERVISOR Height 165.1 cm (5' 5) 06/14/2025 10:2 7 AM DIVING SUPERVISOR Body Mass Index 33.28 06/14/2025 10:27 AM DIVING SUPERVISOR Plan of Treatment Upcoming Encounters Date Type Department Care Team (Late st Contact Info) Description 06/29/2025 10:00 AM DIVING SUPERVISOR Office Visit [facility] - Orthopedics [address] [place] [address], [place] [phone] Addison Castaneda MD [address] [place] [address] [place] [address] 07/06/2025 10:00 AM DIVING SUPERVISOR Office Visit [facility] - Neurosurgery [address] [place] [address], [place] [phone] Pooja Alanis MD [address] [place] [address] [place] [address] Health Maintenance Due Date Last Done Comments COLOGUARD (AGES 45-75) - COLON CA SCREENING 1972 COLON MONITORING 1972 COLONOSCOPY - COLON CA SCREENING 1972 CT COLONOGRAPHY - COLON CA SCREENING 1972 Colorectal Cancer Screening 1972 FIT - COLON CA SCREENING 1972 FLEX SIG - COLON CA SCREENING 1972 LIPID TESTING 1972 MAMMOGRAM 1972 Cervical Cancer Screening 1993 PAP SMEAR 1993 PAP with HPV 2002 HEPATITIS B VACCINE (2 of 3 - Hep B Twinrix 3-dose series) 08/24/2013 07/27/2013 DTAP/TDAP/TD VACCINES (2 - Td or Tdap) 07/27/2021 07/27/2011 PNEUMOCOCCAL VACCINE 50+ (1 of 1 - PCV) 2022 ZOSTER VACCINE (1 of 2) 2022 DEPRESSION SCREENING 07/27/2024 COVID-19 VACCINE (3 - 2024- season) 2025 11/06/2020, 10/16/2020 INFLUENZA VACCINE (#1) 2025 08/09/2024, 2011 SCREENING FOR DIABETES 04/06/2028 5, 04/05/2025, 04/05/2025, Additional history exists HEPATITIS C SCREENING Completed 04/08/2018 HIV SCREENING [...] this topic Medical Devices Implanted Type Area Industrial Garage Servicer Device Identifier Shelf Expiration Date Model / Serial / Lot Graft Tissue Intgr Bvn Pricrd Rsrb Dura Implanted:Qty: 1 on 01/19/2018 by Pooja Alanis MD at [facility] N/A: Brain Integra [employer] Robi 12/24/2021 [id number] / / [id number] Slnt Dura Duraseal Pg Trilysine Amine 5 Implanted:Qty: 1 on 01/19/2018 by Pooja Alanis MD at [facility] N/A: Brain Integra [employer] Robi 12/24/2018 [id number] / / [id number] Slnt Dura Duraseal Pg Trilysine Amine 5 Implanted:Qty: 1 on 02/24/2018 by Pooja Alanis MD at [facility] N/A: Other (See Descriptio n) Integra Lifesci[employer]Cart Robi 12/24/2018 [id number] / / [id number] Description:suboccipital spa ce Clip Srg Std Rt Ang Implanted:Qty: 1 on 03/01/2018 by Pooja Alanis MD at [facility] [employer] Medical 09/23/2022 [id number] / / [id number] Valve Shnt Strt2 Reg Csf Prgm Flw Cntrl Implanted:Qty: 1 on 03/01/2018 by Pooja Alanis MD at [facility] Med[employer] Ps Medical 07/26/2020 [id number] / / [id number] Kit Yeni Ba Bctsl Hkm Cath Shnt Strl Implanted:Qty: 1 on 03/01/2018 by Pooja Alanis MD at [facility] Inte[employer] 10/24/2018 [id number] / / [id number] Cath Drn 120cm Prtnl Cdmn Bctsl Ba Yeni Implanted:Qty: 1 on 04/12/2018 by John Howard MD at [facility] [employer] 07/26/2018 [id number] / / [id number] Procedures Procedure Name Priority Date/Time Associated Diagnosis Comments PAIN MANAGEMENT PROCEDURE TIME Routine 06/14/2025 10:56 AM DIVING SUPERVISOR Lumbar radiculopathy XR LUMBAR SPINE 4VW OR MORE Routine 05/04/2025 12:22 PM CDT Lumbar pain MAGNESIUM BLOOD Routine 04/06/2025 12:41 AM CDT BASIC METABOLIC PANEL (CALCIUM TOTAL) AM Draw 04/06/2025 12:41 AM CDT CBC W/O DIFFERENTIAL AM Draw 04/06/2025 12:41 AM CDT GLUCOSE - POINT OF CARE Routine 04/05/2025 7:17 PM CDT PT EVAL AND TREAT Routine 04/05/2025 7:0 4 AM CDT OT EVAL AND TREAT Routine 04/05/2025 7:0 4 AM CDT MAGNESIUM BLOOD STAT 04/05/2025 5:42 AM CDT Numbness and tingling COMPREHENSIVE METABOLIC PANEL STAT 04/05/2025 5:42 AM CDT Numbness and tingling CBC W/O DIFFERENTIAL STAT 04/05/2025 5:42 AM CDT Numbness and tingling MRI LUMBAR SPINE WO CONTRAST STAT 04/05/2025 4:03 AM CDT Incontinence of feces, unspecified fecal incontinence type Pain in both lower extremities Numbness and tingling MRI THORACIC SPINE WO CONTRAST STAT 04/05/2025 4:03 AM CDT Incontinence of feces, unspecified fecal incontinence type Pain in both lower extremities Numbness and tingling MRI CERVICAL SPINE WO CONTRAST STAT 04/05/2025 4:03 AM CDT Incontinence of feces, unspecified fecal incontinence type Pain in both lower extremities Numbness and tingling BLOOD GASES EMILIANO + COOX PANEL STAT 04/04/2025 11:45 PM CDT Numbness and tingling B-TYPE NATRIURETIC PEPTIDE STAT 04/04/2025 11:45 PM CDT Numbness and tingling PT-INR STAT 04/04/2025 11:45 PM CDT Numbness and tingling MAGNESIUM BLOOD STAT 04/04/2025 11:45 PM CDT Numbness and tingling LACTIC ACID BLOOD STAT 04/04/2025 11: 45 PM CDT Numbness and tingling COMPREHENSIVE METABOLIC PANEL STAT 04/04/2025 2:07 PM CDT CBC W AUTO DIFFERENTIAL STAT 04/04/2025 2:07 PM CDT XR SHUNT SERIES STAT 04/04/2025 1:29 PM CDT Nausea and vomiting, unspecified vomiting type HEPATITIS C AB SCREEN RFLX NAAT QUANT STAT 04/08/2018 3:24 PM CDT HIV-1 HIV-2 ANTIGEN/ANTIBODY STAT 04/08/2018 3:24 PM CDT from Last 3 Months or Most Recently Relevant to Health Maintenance Results * Pain Management Procedure Time (06/14/2025 10:56 AM DIVING SUPERVISOR) Anatomical Region Laterality Modality Radio Fluoroscop y Narrative 06/14/2025 12:51 PM DIVING SUPERVISOR Reinaldo Marie MD 06/14/2025 12:51 PM 06/14/2025 [...] on how to reach the clinic or national sales executive physician at anytime for questions or complaints. Reinaldo Marie MD DIAGNOSTIC IMAGING ORDERABLES Fi nal Result * XR Lumbar Spine 4Vw or More (05/04/2025 12:22 PM CDT) Anatomical Region Laterality Modality Spine Radiographic Celina ging 05/04/2025 1:26 PM CDT Impressions 05/04/2025 2:16 PM CDT IMPRESSION: Mild to moderate degenerative changes in the lumbar spine. > Dictated by Codey Mitchell MD, (residential treatment counselor). > Dictated by Solid Glass Rod Dowel Machine Operator Charbel, Oscar Zapien MD have personally reviewed and interpreted this examination/study. > Interpreting Provider: Oscar Zapien MD on 05/04/2025 2:16 PM Narrative 05/04/2025 2:16 PM CDT PROCEDURE: XR LUMBAR SPINE 4VW OR MORE, DATE/TIME OF EXAM: 05/04/2025 12:22 PM, LOCATION [facility] INDICATION: M54.50: Lumbar pain ADDITIONAL CLINICAL INFORMATION: Ordering Provider Reason For Exam: Office visit Technologist Note: Additional: COMPARISON: MRI of lumbar spine from 04/05/2025 TECHNIQUE: Frontal and lateral views of the lumbar spine. FINDINGS: There is grade 1 anterolisthesis of L4 on L5, slightly increased during flexion and unchanged during extension. Otherwise, the vertebral alignment is normal. No acute fracture. Mild multilevel disc disease, most conspicuous at L4-L5. There is moderate multilevel facet arthropathy. Tubal ligation clips. Procedure Note Oscar Zapien MD - 05/04/2025 PROCEDURE: XR LUMBAR SPINE 4VW OR MORE, DATE/TIME OF EXAM: 05/04/2025 12:22 PM, LOCATION [facility] INDICATION: M54.50: Lumbar pain ADDITIONAL CLINICAL INFORMATION: Ordering Provider Reason For Exam: Office visit Technologist Note: Additional: COMPARISON: MRI of lumbar spine from 04/05/2025 TECHNIQUE: Frontal and lateral views of the lumbar spine. FINDINGS: There is grade 1 anterolisthesis of L4 on L5, slightly increased during flexion and unchanged during extension. Otherwise, the vertebralalignment is normal. No acute fracture. Mild multilevel disc disease, most conspicuous at L4-L5. There is moderate multilevel facet arthropathy.Tubal ligation clips. IMPRESSION: Mild to moderate degenerative changes in the lumbar spine. > Dictated by Codey Mitchell MD, (residential treatment counselor). > Dictated by Solid Glass Rod Dowel Machine Operator Charbel, Oscar Zapien MD have personally reviewed and interpreted this examination/study. > Interpreting Provider: Oscar Zapien MD on 05/04/2025 2:16 PM Addison Castaneda MD DIAGNOSTIC IMAGING ORDERABLES Fi nal Result * CBC W/O DIFFERENTIAL (04/06/2025 12:41 AM CDT) Only the most recent of2 resultswithin the time period is included. WBC 8.9 4.0 - 10.7 x10E9/L 04/06/2025 2:24 AM [facility] RBC Count 5.09 3.90 - 5.20 x10E12/L 04/06/2025 2:24 AM [facility] Hemoglobin 15.0 11.9 - 15.8 g/dL 04/06/2025 2:24 AM [facility] Hematocrit 45.4 34.8 - 46.1 % 04/06/2025 2:24 AM [facility] MCV 89.2 80.0 - 98.0 fL 04/06/2025 2:24 AM [facility] MCH 29.5 26.7 - 33.6 pg 04/06/2025 2:24 AM [facility] MCHC 33.0 31.7 - 36.3 g/dL 04/06/2025 2:24 AM [facility] RDW-CV 13.4 11.3 - 14.8 % 04/06/2025 2:24 AM [facility] Platelet Count 306 150 - 420 x10E9/L 04/06/2025 2:24 AM [facility] MPV 9.5 7.8 - 11.4 fL 04/06/2025 2:24 AM [facility] Blood BLOOD SPECIMEN / Unknown Lab Venipuncture / Unknown 04/06/2025 12:41 AM CDT 04/06/2025 2:14 AM T Oren Doshi MD LAB - HEMATOLOGY ORDER LUCINA Final Result [facility] [address] [place] [phone], [facility] [phone] * (ABNORMAL) BASIC METABOLIC PANEL (CALCIUM TOTAL) (04/06/2025 12:41 AM CDT) BUN 25 7 - 26 mg/dL 04/06/2025 2:40 AM [facility] Creatinine 1.00(H) 0.56 - 0.96 mg/dL 04/06/2025 2:40 AM [facility] Sodium 139 136 - 145 mmol/L 04/06/2025 2:40 AM [facility] Potassium 3.8 3.5 - 4.5 mmol/L 04/06/2025 2:40 AM [facility] Chloride 101 98 - 107 mmol/L 04/06/2025 2:40 AM [facility] CO2 26 22 - 29 mmol/L 04/06/2025 2:40 AM [facility] Glucose 79 70 - 99 mg/dL 04/06/2025 2:40 AM [facility] Calcium 9.7 8.4 - 10.2 mg/dL 04/06/2025 2:40 AM [facility] Anion Gap 12 6 - 16 04/06/2025 2:40 AM [facility] BUN/Creatinine Ratio 25(H) 7 - 23 04/06/2025 2:40 AM [facility] Osmolality Calculated 291 275 - 295 mOsm/kg 04/06/2025 2:40 AM [facility] eGFR by CKD-EPI 68(L) >=90 mL/min/1.7 3 m2 04/06/2025 2:40 AM [facility] Comment:Estimated Glomerular Filtration Rate (eGFR) calculated using the CKD-EPI Creatinine Equation (2020), per the [employer] and [place] [employer] recommendations. Blood BLOOD SPECIMEN / Unknown Lab Venipuncture / Unknown 04/06/2025 12:41 AM CDT 04/06/2025 2:12 AM T us Oren Doshi MD LAB - CHEMISTRY ORDERA BLES Final Result [facility] [address] [place] [address], [facility] [phone] * MAGNESIUM BLOOD (04/06/2025 12:41 AM CDT) Only the most recent of3 resultswithin the time period is included. Magnesium 2.5 1.6 - 2.6 mg/dL 04/06/2025 2:40 AM CDT [facility] Blood BLOOD SPECIMEN / Unknown Lab Venipuncture / Unknown 04/06/2025 12:41 AM CDT 04/06/2025 2:12 AM CDT us Oren Doshi MD LAB - CHEMISTRY ORDERA BLES Final Result [address] [address], [facility] [phone] * GLUCOSE - POINT OF CARE (04/05/2025 7:17 PM CDT) [facility] Glucose WB/POC 99 70 - 99 mg/dL 04/05/2025 7:20 PM CDT [facility] Specimen Type Arterial/C apillary 04/05/2025 7:20 PM CDT [facility] Blood BLOOD SPECIMEN / Unknown 04/05/2025 7:17 PM CDT 04/05/2025 7:20 PM CDT us Oren Doshi MD LAB - POINT OF CARE OR DERABLES Final Result [address] [address], [facility] [phone] * (ABNORMAL) COMPREHENSIVE METABOLIC PANEL (04/05/2025 5:42 AM CDT) Only the most recent of2 resultswithin the time period is included. BUN 15 7 - 26 mg/dL 04/05/2025 7:20 AM CDT [facility] Creatinine 0.86 0.56 - 0.96 mg/dL 04/05/2025 7:20 AM CDT [facility] Sodium 134(L) 136 - 145 mmol/L 04/05/2025 7:20 AM [facility] Potassium 3.7 3.5 - 4.5 mmol/L 04/05/2025 7:20 AM [facility] Chloride 97(L) 98 - 107 mmol/L 04/05/2025 7:20 AM [facility] CO2 24 22 - 29 mmol/L 04/05/2025 7:20 AM [facility] Glucose 132(H) 70 - 99 mg/dL 04/05/2025 7:20 AM [facility] Calcium 10.0 8.4 - 10.2 mg/dL 04/05/2025 7:20 AM [facility] Protein Total 7.9 6.0 - 8.3 g/dL 04/05/2025 7:20 AM [facility] Albumin 4.6 3.4 - 5.0 g/dL 04/05/2025 7:20 AM [facility] Bilirubin Total 0.7 0.2 - 1.2 mg/dL 04/05/2025 7:20 AM [facility] Alkaline Phosphatase 76 40 - 150 U/L 04/05/2025 7:20 AM [facility] ALT 17 5 - 55 U/L 04/05/2025 7:20 AM [facility] AST 20 5 - 34 U/L 04/05/2025 7:20 AM [facility] Anion Gap 13 6 - 16 04/05/2025 7:20 AM [facility] BUN/Creatinine Ratio 17 7 - 23 04/05/2025 7:20 AM [facility] Osmolality Calculated 281 275 - 295 mOsm/kg 04/05/2025 7:20 AM [facility] Albumin/Globulin Ratio 1.4 1.1 - 2.3 04/05/2025 7:20 AM [facility] eGFR by CKD-EPI 81(L) >=90 mL/min/1.7 3 m2 04/05/2025 7:20 AM [facility] Comment:Estimated Glomerular Filtration Rate (eGFR) calculated using the CKD-EPI Creatinine Equation (2020), per the [employer] Kid[employer] and [place] [employer] recommendations. Blood BLOOD SPECIMEN / Unknown Venipuncture / Unknown 04/05/2025 5:42 AM CDT 04/05/2025 6:37 AM CDT Andrey Obrien MD LAB - CHEMISTRY ORDERAB LES Final Result [address] [address], [facility] [phone] * MRI Lumbar Spine Wo Contrast (04/05/2025 4:03 AM CDT) Anatomical Region Laterality Modality Spine Magnetic Resonan ce 04/05/2025 9:01 AM CDT Impressions 04/05/2025 11:41 AM CDT IMPRESSION: Cervical spine: Mild degenerative changes in the mid to lower cervical spine with slight progression at C4-C5 and C5-C6 compared to the cervical spine MRI from 06/04/2017. Thoracic spine: Mild multilevel degenerative changes without high-grade spinal canal or foraminal stenosis. Lumbar spine: Mild to moderate multilevel degenerative changes are present throughout the lumbar spine resulting in moderate spinal canal stenosis at L4-L5. Severe left foraminal narrowing is present at L4-L5 with impingement of the exiting left L4 nerve root. The report is dictated by Landry Enriquez MD, ([employer]) > Dictated by [employer] I, Jade Telles MD have personally reviewed and interpreted this examination/study. > Interpreting Provider: Jade Telles MD on 04/05/2025 11:41 AM Narrative 04/05/2025 11:41 AM CDT PROCEDURE: MRI CERVICAL SPINE WO CONTRAST, MRI LUMBAR SPINE WO CONTRAST, MRI THORACIC SPINE WO CONTRAST, DATE/TIME OF EXAM: 04/05/2025 4:03 AM, LOCATION [facility] INDICATION: R15.9: Incontinence of feces, unspecified fecal incontinence type M79.604: Pain in both lower extremities M79.605: Pain in both lower extremities R20.0: Numbness and tingling R20.2: Numbness and tingling ADDITIONAL CLINICAL INFORMATION: Ordering Provider Reason For Exam: eval for cord compression (accession [id number]), eval for cauda equina (accession [id number]), eval for cord compression (accession [id number]) EXAMINATION: Magnetic resonance imaging (MRI) of the cervical, thoracic, lumbar spine without contrast TECHNIQUE: MRI of the cervical, thoracic, lumbar spine was performed without intravenous contrast according to standard protocol. Comparison: Cervical spine CT from 03/20/2018, cervical spine MRI from 06/04/2017. FINDINGS: Cervical spine: The cervical spine is straightened with loss of cervical lordosis. Grade 1 anterolisthesis of C2-C3 measures 2 to 3 mm, stable. Vertebral bodies are normal in height without evidence of compression fractures. Other than mild degenerative endplate changes at multiple levels, the bone marrow signal is normal. Other than middle atlantoaxial joint osteoarthritis, the craniocervical junction appears normal. The spinal cord appears normal. There is mild disc height loss at multiple levels. No soft tissue abnormality is identified. The right vertebral artery is dominant. No flow void seen in the left vertebral artery. Postsurgical changes from suboccipital craniectomy and C1 laminectomy. C2-3: There is no disc bulge. There is no central canal stenosis. There is no facet osteoarthritis. There is no uncovertebral joint osteoarthritis. There is no neural foraminal stenosis. C3-4: There is no disc bulge. There is no central canal stenosis. There is no facet osteoarthritis. There is no uncovertebral joint osteoarthritis. There is no neural foraminal stenosis. C4-5: There is minimal posterior central disc bulge. There is no central canal stenosis. There is mild left facet osteoarthritis. There is mild bilateral uncovertebral joint osteoarthritis. There is mild left neural foraminal stenosis. These findings have slightly progressed compared to the cervical spine MRI from 06/04/2017. C5-6: There is mild posterior central and subarticular disc protrusion. There is mild central canal stenosis. There is mild right and moderate left facet osteoarthritis. There is mild bilateral uncovertebral joint osteoarthritis, worse on the left. There is moderate left and mild right neural foraminal stenosis. These findings have progressed. C6-7: There is no disc bulge. There is no central canal stenosis. There is no facet osteoarthritis. There is no uncovertebral joint osteoarthritis. There is no neural foraminal stenosis. C7-T1: There is no disc bulge. There is no central canal stenosis. There is no facet osteoarthritis. There is no uncovertebral joint osteoarthritis. There is no neural foraminal stenosis. Thoracic spine: The alignment is normal. Vertebral bodies are normal in height without evidence of acute fracture. The visible bone marrow is normal. The thoracic spinal cord appears normal. Mild disc height loss is seen at all thoracic levels. Small disc bulges/herniations are seen in the mid to lower thoracic spine. However, there is no high-grade spinal canal stenosis. No spinal cord impingement is appreciated. The facets appear normal. No neural foraminal stenosis is seen. No soft tissue abnormality is identified. Lumbar spine: Grade 1 anterolisthesis at L4-L5 measures 2 mm. No bone marrow edema is seen. Small chronic Schmorl's nodes are noted at L1-L2 and L2-L3. The conus medullaris terminates at the level of L1 and the distal spinal cord signal intensity is normal. Mild disc height loss is seen at L4-L5. No soft tissue abnormality is identified. L1-L2: There is no disc bulge. There is no central canal stenosis. There is no facet osteoarthritis. There is no neural foraminal stenosis. L2-L3: There is mild posterior central disc bulge. Ligamentum flavum infolding is noted. There is mild central canal stenosis. There is mild bilateral facet osteoarthritis. There is moderate left and mild right neural foraminal stenosis. L3-L4: There is mild posterior central disc bulge. There is mild central canal stenosis secondary to disc bulge, ligamentum flavum thickening, and dorsal epidural fat. There is mild bilateral facet osteoarthritis. There is moderate neural foraminal stenosis. L4-L5: There is mild posterior central disc bulge. There is moderate central canal stenosis secondary to disc bulge and ligamentum flavum thickening. There is moderate facet osteoarthritis with bilateral facet joint effusions. There is severe left and moderate right neural foraminal stenosis. Impingement of the exiting left L4 nerve root is noted. L5-S1: There is no disc bulge. There is no central canal stenosis. There is moderate left and mild right facet osteoarthritis. There is no neural foraminal stenosis. Procedure Note Jade Telles MD - 04/05/2025 PROCEDURE: MRI CERVICAL SPINE WO CONTRAST, MRI LUMBAR SPINE WOCONTRAST, MRI THORACIC SPINE WO CONTRAST, DATE/TIME OF EXAM: 04/05/2025 4:03 AM, LOCATION [facility] INDICATION: R15.9: Incontinence of feces, unspecified fecal incontinence type M79.604: Pain in both lower extremities M79.605: Pain in both lower extremities R20.0: Numbness and tingling R20.2: Numbness and tingling ADDITIONAL CLINICAL INFORMATION: Ordering Provider Reason For Exam: eval for cord compression (accession [id number]), eval for cauda equina (accession [id number]), eval for cord compression (accession [id number]) EXAMINATION: Magnetic resonance imaging (MRI) of the cervical, thoracic, lumbar spine without contrast TECHNIQUE: MRI of the cervical, thoracic, lumbar spine was performed without intravenous contrast according to standard protocol. Comparison: Cervical spine CT from 03/20/2018, cervical spine MRI from 06/04/2017. FINDINGS: Cervical spine: The cervical spine is straightened with loss of cervical lordosis. Grade1 anterolisthesis of C2-C3 measures 2 to 3 mm, stable. Vertebral bodiesare normal in height without evidence of compression fractures. Other thanmild degenerative endplate changes at multiple levels, the bone marrow signalis normal. Other than middle atlantoaxial joint osteoarthritis, the craniocervical junction appears normal. The spinal cord appears normal. There is mild disc height loss at multiple levels. No soft tissue abnormality is identified. The right vertebral artery is dominant. No flow void seen in the left vertebral artery. Postsurgical changes from suboccipital craniectomy and C1 laminectomy. C2-3: There is no disc bulge. There is no central canal stenosis. Thereis no facet osteoarthritis. There is no uncovertebral joint osteoarthritis. There is no neural foraminal stenosis. C3-4: There is no disc bulge. There is no central canal stenosis. Thereis no facet osteoarthritis. There is no uncovertebral joint osteoarthritis. There is no neural foraminal stenosis. C4-5: There is minimal posterior central disc bulge. There is no central canal stenosis. There is mild left facet osteoarthritis. There is mild bilateral uncovertebral joint osteoarthritis. There is mild left neural foraminal stenosis. These findings have slightly progressed compared tothe cervical spine MRI from 06/04/2017. C5-6: There is mild posterior central and subarticular disc protrusion. There is mild central canal stenosis. There is mild right and moderateleft facet osteoarthritis. There is mild bilateral uncovertebral joint osteoarthritis, worse on the left. There is moderate left and mild right neural foraminal stenosis. These findings have progressed. C6-7: There is no disc bulge. There is no central canal stenosis. Thereis no facet osteoarthritis. There is no uncovertebral joint osteoarthritis. There is no neural foraminal stenosis. C7-T1: There is no disc bulge. There is no central canal stenosis. Thereis no facet osteoarthritis. There is no uncovertebral joint osteoarthritis. There is no neural foraminal stenosis. Thoracic spine: The alignment is normal. Vertebral bodies are normal in height without evidence of acute fracture. The visible bone marrow is normal. Thethoracic spinal cord appears normal. Mild disc height loss is seen at all thoracic levels. Small disc bulges/herniations are seen in the mid to lower thoracic spine. However, there is no high-grade spinal canal stenosis. No spinal cord impingementis appreciated. The facets appear normal. No neural foraminal stenosis is seen. No soft tissue abnormality is identified. Lumbar spine: Grade 1 anterolisthesis at L4-L5 measures 2 mm. No bone marrow edema is seen. Small chronic Schmorl's nodes are noted at L1-L2 and L2-L3. Theconus medullaris terminates at the level of L1 and the distal spinal cordsignal intensity is normal. Mild disc height loss is seen at L4-L5. No softtissue abnormality is identified. L1-L2: There is no disc bulge. There is no central canal stenosis. Thereis no facet osteoarthritis. There is no neural foraminal stenosis. L2-L3: There is mild posterior central disc bulge. Ligamentum flavum infolding is noted. There is mild central canal stenosis. There is mild bilateral facet osteoarthritis. There is moderate left and mild right neural foraminal stenosis. L3-L4: There is mild posterior central disc bulge. There is mild central canal stenosis secondary to disc bulge, ligamentum flavum thickening,and dorsal epidural fat. There is mild bilateral facet osteoarthritis. Thereis moderate neural foraminal stenosis. L4-L5: There is mild posterior central disc bulge. There is moderate central canal stenosis secondary to disc bulge and ligamentum flavum thickening. There is moderate facet osteoarthritis with bilateral facet joint effusions. There is severe left and moderate right neuralforaminal stenosis. Impingement of the exiting left L4 nerve root is noted. L5-S1: There is no disc bulge. There is no central canal stenosis. Thereis moderate left and mild right facet osteoarthritis. There is no neural foraminal stenosis. IMPRESSION: Cervical spine: Mild degenerative changes in the mid to lower cervical spine with slight progression at C4-C5 and C5-C6 compared to thecervical spine MRI from 06/04/2017. Thoracic spine: Mild multilevel degenerative changes without high-grade spinal canal or foraminal stenosis. Lumbar spine: Mild to moderate multilevel degenerative changes arepresent throughout the lumbar spine resulting in moderate spinal canal stenosisat L4-L5. Severe left foraminal narrowing is present at L4-L5 withimpingement of the exiting left L4 nerve root. The report is dictated by Landry Enriquez MD, ([employer]) > Dictated by [employer] I, Jade Telles MD have personally reviewed and interpreted this examination/study. > Interpreting Provider: Jade Telles MD on 04/05/2025 11:41 AM us Nimco Gould MD MR ORDERABLES Final Result * MRI Thoracic Spine Wo Contrast (04/05/2025 4:03 AM CDT) Anatomical Region Laterality Modality Chest Magnetic Resonan ce 04/05/2025 9:01 AM CDT Impressions 04/05/2025 11:41 AM CDT IMPRESSION: Cervical spine: Mild degenerative changes in the mid to lower cervical spine with slight progression at C4-C5 and C5-C6 compared to the cervical spine MRI from 06/04/2017. Thoracic spine: Mild multilevel degenerative changes without high-grade spinal canal or foraminal stenosis. Lumbar spine: Mild to moderate multilevel degenerative changes are present throughout the lumbar spine resulting in moderate spinal canal stenosis at L4-L5. Severe left foraminal narrowing is present at L4-L5 with impingement of the exiting left L4 nerve root. The report is dictated by Landry Enriquez MD, ([employer]) > Dictated by [employer] I, Jade Telles MD have personally reviewed and interpreted this examination/study. > Interpreting Provider: Jade Telles MD on 04/05/2025 11:41 AM Narrative 04/05/2025 11:41 AM CDT PROCEDURE: MRI CERVICAL SPINE WO CONTRAST, MRI LUMBAR SPINE WO CONTRAST, MRI THORACIC SPINE WO CONTRAST, DATE/TIME OF EXAM: 04/05/2025 4:03 AM, LOCATION [facility] INDICATION: R15.9: Incontinence of feces, unspecified fecal incontinence type M79.604: Pain in both lower extremities M79.605: Pain in both lower extremities R20.0: Numbness and tingling R20.2: Numbness and tingling ADDITIONAL CLINICAL INFORMATION: Ordering Provider Reason For Exam: eval for cord compression (accession [id number]), eval for cauda equina (accession [id number]), eval for cord compression (accession [id number]) EXAMINATION: Magnetic resonance imaging (MRI) of the cervical, thoracic, lumbar spine without contrast TECHNIQUE: MRI of the cervical, thoracic, lumbar spine was performed without intravenous contrast according to standard protocol. Comparison: Cervical spine CT from 03/20/2018, cervical spine MRI from 06/04/2017. FINDINGS: Cervical spine: The cervical spine is straightened with loss of cervical lordosis. Grade 1 anterolisthesis of C2-C3 measures 2 to 3 mm, stable. Vertebral bodies are normal in height without evidence of compression fractures. Other than mild degenerative endplate changes at multiple levels, the bone marrow signal is normal. Other than middle atlantoaxial joint osteoarthritis, the craniocervical junction appears normal. The spinal cord appears normal. There is mild disc height loss at multiple levels. No soft tissue abnormality is identified. The right vertebral artery is dominant. No flow void seen in the left vertebral artery. Postsurgical changes from suboccipital craniectomy and C1 laminectomy. C2-3: There is no disc bulge. There is no central canal stenosis. There is no facet osteoarthritis. There is no uncovertebral joint osteoarthritis. There is no neural foraminal stenosis. C3-4: There is no disc bulge. There is no central canal stenosis. There is no facet osteoarthritis. There is no uncovertebral joint osteoarthritis. There is no neural foraminal stenosis. C4-5: There is minimal posterior central disc bulge. There is no central canal stenosis. There is mild left facet osteoarthritis. There is mild bilateral uncovertebral joint osteoarthritis. There is mild left neural foraminal stenosis. These findings have slightly progressed compared to the cervical spine MRI from 06/04/2017. C5-6: There is mild posterior central and subarticular disc protrusion. There is mild central canal stenosis. There is mild right and moderate left facet osteoarthritis. There is mild bilateral uncovertebral joint osteoarthritis, worse on the left. There is moderate left and mild right neural foraminal stenosis. These findings have progressed. C6-7: There is no disc bulge. There is no central canal stenosis. There is no facet osteoarthritis. There is no uncovertebral joint osteoarthritis. There is no neural foraminal stenosis. C7-T1: There is no disc bulge. There is no central canal stenosis. There is no facet osteoarthritis. There is no uncovertebral joint osteoarthritis. There is no neural foraminal stenosis. Thoracic spine: The alignment is normal. Vertebral bodies are normal in height without evidence of acute fracture. The visible bone marrow is normal. The thoracic spinal cord appears normal. Mild disc height loss is seen at all thoracic levels. Small disc bulges/herniations are seen in the mid to lower thoracic spine. However, there is no high-grade spinal canal stenosis. No spinal cord impingement is appreciated. The facets appear normal. No neural foraminal stenosis is seen. No soft tissue abnormality is identified. Lumbar spine: Grade 1 anterolisthesis at L4-L5 measures 2 mm. No bone marrow edema is seen. Small chronic Schmorl's nodes are noted at L1-L2 and L2-L3. The conus medullaris terminates at the level of L1 and the distal spinal cord signal intensity is normal. Mild disc height loss is seen at L4-L5. No soft tissue abnormality is identified. L1-L2: There is no disc bulge. There is no central canal stenosis. There is no facet osteoarthritis. There is no neural foraminal stenosis. L2-L3: There is mild posterior central disc bulge. Ligamentum flavum infolding is noted. There is mild central canal stenosis. There is mild bilateral facet osteoarthritis. There is moderate left and mild right neural foraminal stenosis. L3-L4: There is mild posterior central disc bulge. There is mild central canal stenosis secondary to disc bulge, ligamentum flavum thickening, and dorsal epidural fat. There is mild bilateral facet osteoarthritis. There is moderate neural foraminal stenosis. L4-L5: There is mild posterior central disc bulge. There is moderate central canal stenosis secondary to disc bulge and ligamentum flavum thickening. There is moderate facet osteoarthritis with bilateral facet joint effusions. There is severe left and moderate right neural foraminal stenosis. Impingement of the exiting left L4 nerve root is noted. L5-S1: There is no disc bulge. There is no central canal stenosis. There is moderate left and mild right facet osteoarthritis. There is no neural foraminal stenosis. Procedure Note Jade Telles MD - 04/05/2025 PROCEDURE: MRI CERVICAL SPINE WO CONTRAST, MRI LUMBAR SPINE WOCONTRAST, MRI THORACIC SPINE WO CONTRAST, DATE/TIME OF EXAM: 04/05/2025 4:03 AM, LOCATION [facility] INDICATION: R15.9: Incontinence of feces, unspecified fecal incontinence type M79.604: Pain in both lower extremities M79.605: Pain in both lower extremities R20.0: Numbness and tingling R20.2: Numbness and tingling ADDITIONAL CLINICAL INFORMATION: Ordering Provider Reason For Exam: eval for cord compression (accession [id number]), eval for cauda equina (accession [id number]), eval for cord compression (accession [id number]) EXAMINATION: Magnetic resonance imaging (MRI) of the cervical, thoracic, lumbar spine without contrast TECHNIQUE: MRI of the cervical, thoracic, lumbar spine was performed without intravenous contrast according to standard protocol. Comparison: Cervical spine CT from 03/20/2018, cervical spine MRI from 06/04/2017. FINDINGS: Cervical spine: The cervical spine is straightened with loss of cervical lordosis. Grade1 anterolisthesis of C2-C3 measures 2 to 3 mm, stable. Vertebral bodiesare normal in height without evidence of compression fractures. Other thanmild degenerative endplate changes at multiple levels, the bone marrow signalis normal. Other than middle atlantoaxial joint osteoarthritis, the craniocervical junction appears normal. The spinal cord appears normal. There is mild disc height loss at multiple levels. No soft tissue abnormality is identified. The right vertebral artery is dominant. No flow void seen in the left vertebral artery. Postsurgical changes from suboccipital craniectomy and C1 laminectomy. C2-3: There is no disc bulge. There is no central canal stenosis. Thereis no facet osteoarthritis. There is no uncovertebral joint osteoarthritis. There is no neural foraminal stenosis. C3-4: There is no disc bulge. There is no central canal stenosis. Thereis no facet osteoarthritis. There is no uncovertebral joint osteoarthritis. There is no neural foraminal stenosis. C4-5: There is minimal posterior central disc bulge. There is no central canal stenosis. There is mild left facet osteoarthritis. There is mild bilateral uncovertebral joint osteoarthritis. There is mild left neural foraminal stenosis. These findings have slightly progressed compared tothe cervical spine MRI from 06/04/2017. C5-6: There is mild posterior central and subarticular disc protrusion. There is mild central canal stenosis. There is mild right and moderateleft facet osteoarthritis. There is mild bilateral uncovertebral joint osteoarthritis, worse on the left. There is moderate left and mild right neural foraminal stenosis. These findings have progressed. C6-7: There is no disc bulge. There is no central canal stenosis. Thereis no facet osteoarthritis. There is no uncovertebral joint osteoarthritis. There is no neural foraminal stenosis. C7-T1: There is no disc bulge. There is no central canal stenosis. Thereis no facet osteoarthritis. There is no uncovertebral joint osteoarthritis. There is no neural foraminal stenosis. Thoracic spine: The alignment is normal. Vertebral bodies are normal in height without evidence of acute fracture. The visible bone marrow is normal. Thethoracic spinal cord appears normal. Mild disc height loss is seen at all thoracic levels. Small disc bulges/herniations are seen in the mid to lower thoracic spine. However, there is no high-grade spinal canal stenosis. No spinal cord impingementis appreciated. The facets appear normal. No neural foraminal stenosis is seen. No soft tissue abnormality is identified. Lumbar spine: Grade 1 anterolisthesis at L4-L5 measures 2 mm. No bone marrow edema is seen. Small chronic Schmorl's nodes are noted at L1-L2 and L2-L3. Theconus medullaris terminates at the level of L1 and the distal spinal cordsignal intensity is normal. Mild disc height loss is seen at L4-L5. No softtissue abnormality is identified. L1-L2: There is no disc bulge. There is no central canal stenosis. Thereis no facet osteoarthritis. There is no neural foraminal stenosis. L2-L3: There is mild posterior central disc bulge. Ligamentum flavum infolding is noted. There is mild central canal stenosis. There is mild bilateral facet osteoarthritis. There is moderate left and mild right neural foraminal stenosis. L3-L4: There is mild posterior central disc bulge. There is mild central canal stenosis secondary to disc bulge, ligamentum flavum thickening,and dorsal epidural fat. There is mild bilateral facet osteoarthritis. Thereis moderate neural foraminal stenosis. L4-L5: There is mild posterior central disc bulge. There is moderate central canal stenosis secondary to disc bulge and ligamentum flavum thickening. There is moderate facet osteoarthritis with bilateral facet joint effusions. There is severe left and moderate right neuralforaminal stenosis. Impingement of the exiting left L4 nerve root is noted. L5-S1: There is no disc bulge. There is no central canal stenosis. Thereis moderate left and mild right facet osteoarthritis. There is no neural foraminal stenosis. IMPRESSION: Cervical spine: Mild degenerative changes in the mid to lower cervical spine with slight progression at C4-C5 and C5-C6 compared to thecervical spine MRI from 06/04/2017. Thoracic spine: Mild multilevel degenerative changes without high-grade spinal canal or foraminal stenosis. Lumbar spine: Mild to moderate multilevel degenerative changes arepresent throughout the lumbar spine resulting in moderate spinal canal stenosisat L4-L5. Severe left foraminal narrowing is present at L4-L5 withimpingement of the exiting left L4 nerve root. The report is dictated by Landry Enriquez MD, ([employer] Machine Operator) > Dictated by [employer] Machine Operator I, Jade Telles MD have personally reviewed and interpreted this examination/study. > Interpreting Provider: Jade Telles MD on 04/05/2025 11:41 AM us Nimco Gould MD MR ORDERABLES Final Result * MRI Cervical Spine Wo Contrast (04/05/2025 4:03 AM CDT) Anatomical Region Laterality Modality Pelvis Magnetic Resonan ce 04/05/2025 9:01 AM CDT Impressions 04/05/2025 11:41 AM CDT IMPRESSION: Cervical spine: Mild degenerative changes in the mid to lower cervical spine with slight progression at C4-C5 and C5-C6 compared to the cervical spine MRI from 06/04/2017. Thoracic spine: Mild multilevel degenerative changes without high-grade spinal canal or foraminal stenosis. Lumbar spine: Mild to moderate multilevel degenerative changes are present throughout the lumbar spine resulting in moderate spinal canal stenosis at L4-L5. Severe left foraminal narrowing is present at L4-L5 with impingement of the exiting left L4 nerve root. The report is dictated by Landry Enriquez MD, ([employer] Machine Operator) > Dictated by [employer] Machine Operator I, Jade Telles MD have personally reviewed and interpreted this examination/study. > Interpreting Provider: Jade Telles MD on 04/05/2025 11:41 AM Narrative 04/05/2025 11:41 AM CDT PROCEDURE: MRI CERVICAL SPINE WO CONTRAST, MRI LUMBAR SPINE WO CONTRAST, MRI THORACIC SPINE WO CONTRAST, DATE/TIME OF EXAM: 04/05/2025 4:03 AM, LOCATION [facility] INDICATION: R15.9: Incontinence of feces, unspecified fecal incontinence type M79.604: Pain in both lower extremities M79.605: Pain in both lower extremities R20.0: Numbness and tingling R20.2: Numbness and tingling ADDITIONAL CLINICAL INFORMATION: Ordering Provider Reason For Exam: eval for cord compression (accession [id number]), eval for cauda equina (accession [id number]), eval for cord compression (accession [id number]) EXAMINATION: Magnetic resonance imaging (MRI) of the cervical, thoracic, lumbar spine without contrast TECHNIQUE: MRI of the cervical, thoracic, lumbar spine was performed without intravenous contrast according to standard protocol. Comparison: Cervical spine CT from 03/20/2018, cervical spine MRI from 06/04/2017. FINDINGS: Cervical spine: The cervical spine is straightened with loss of cervical lordosis. Grade 1 anterolisthesis of C2-C3 measures 2 to 3 mm, stable. Vertebral bodies are normal in height without evidence of compression fractures. Other than mild degenerative endplate changes at multiple levels, the bone marrow signal is normal. Other than middle atlantoaxial joint osteoarthritis, the craniocervical junction appears normal. The spinal cord appears normal. There is mild disc height loss at multiple levels. No soft tissue abnormality is identified. The right vertebral artery is dominant. No flow void seen in the left vertebral artery. Postsurgical changes from suboccipital craniectomy and C1 laminectomy. C2-3: There is no disc bulge. There is no central canal stenosis. There is no facet osteoarthritis. There is no uncovertebral joint osteoarthritis. There is no neural foraminal stenosis. C3-4: There is no disc bulge. There is no central canal stenosis. There is no facet osteoarthritis. There is no uncovertebral joint osteoarthritis. There is no neural foraminal stenosis. C4-5: There is minimal posterior central disc bulge. There is no central canal stenosis. There is mild left facet osteoarthritis. There is mild bilateral uncovertebral joint osteoarthritis. There is mild left neural foraminal stenosis. These findings have slightly progressed compared to the cervical spine MRI from 06/04/2017. C5-6: There is mild posterior central and subarticular disc protrusion. There is mild central canal stenosis. There is mild right and moderate left facet osteoarthritis. There is mild bilateral uncovertebral joint osteoarthritis, worse on the left. There is moderate left and mild right neural foraminal stenosis. These findings have progressed. C6-7: There is no disc bulge. There is no central canal stenosis. There is no facet osteoarthritis. There is no uncovertebral joint osteoarthritis. There is no neural foraminal stenosis. C7-T1: There is no disc bulge. There is no central canal stenosis. There is no facet osteoarthritis. There is no uncovertebral joint osteoarthritis. There is no neural foraminal stenosis. Thoracic spine: The alignment is normal. Vertebral bodies are normal in height without evidence of acute fracture. The visible bone marrow is normal. The thoracic spinal cord appears normal. Mild disc height loss is seen at all thoracic levels. Small disc bulges/herniations are seen in the mid to lower thoracic spine. However, there is no high-grade spinal canal stenosis. No spinal cord impingement is appreciated. The facets appear normal. No neural foraminal stenosis is seen. No soft tissue abnormality is identified. Lumbar spine: Grade 1 anterolisthesis at L4-L5 measures 2 mm. No bone marrow edema is seen. Small chronic Schmorl's nodes are noted at L1-L2 and L2-L3. The conus medullaris terminates at the level of L1 and the distal spinal cord signal intensity is normal. Mild disc height loss is seen at L4-L5. No soft tissue abnormality is identified. L1-L2: There is no disc bulge. There is no central canal stenosis. There is no facet osteoarthritis. There is no neural foraminal stenosis. L2-L3: There is mild posterior central disc bulge. Ligamentum flavum infolding is noted. There is mild central canal stenosis. There is mild bilateral facet osteoarthritis. There is moderate left and mild right neural foraminal stenosis. L3-L4: There is mild posterior central disc bulge. There is mild central canal stenosis secondary to disc bulge, ligamentum flavum thickening, and dorsal epidural fat. There is mild bilateral facet osteoarthritis. There is moderate neural foraminal stenosis. L4-L5: There is mild posterior central disc bulge. There is moderate central canal stenosis secondary to disc bulge and ligamentum flavum thickening. There is moderate facet osteoarthritis with bilateral facet joint effusions. There is severe left and moderate right neural foraminal stenosis. Impingement of the exiting left L4 nerve root is noted. L5-S1: There is no disc bulge. There is no central canal stenosis. There is moderate left and mild right facet osteoarthritis. There is no neural foraminal stenosis. Procedure Note Jade Telles MD - 04/05/2025 PROCEDURE: MRI CERVICAL SPINE WO CONTRAST, MRI LUMBAR SPINE WOCONTRAST, MRI THORACIC SPINE WO CONTRAST, DATE/TIME OF EXAM: 04/05/2025 4:03 AM, LOCATION [facility] INDICATION: R15.9: Incontinence of feces, unspecified fecal incontinence type M79.604: Pain in both lower extremities M79.605: Pain in both lower extremities R20.0: Numbness and tingling R20.2: Numbness and tingling ADDITIONAL CLINICAL INFORMATION: Ordering Provider Reason For Exam: eval for cord compression (accession [id number]), eval for cauda equina (accession [id number]), eval for cord compression (accession [id number]) EXAMINATION: Magnetic resonance imaging (MRI) of the cervical, thoracic, lumbar spine without contrast TECHNIQUE: MRI of the cervical, thoracic, lumbar spine was performed without intravenous contrast according to standard protocol. Comparison: Cervical spine CT from 03/20/2018, cervical spine MRI from 06/04/2017. FINDINGS: Cervical spine: The cervical spine is straightened with loss of cervical lordosis. Grade1 anterolisthesis of C2-C3 measures 2 to 3 mm, stable. Vertebral bodiesare normal in height without evidence of compression fractures. Other thanmild degenerative endplate changes at multiple levels, the bone marrow signalis normal. Other than middle atlantoaxial joint osteoarthritis, the craniocervical junction appears normal. The spinal cord appears normal. There is mild disc height loss at multiple levels. No soft tissue abnormality is identified. The right vertebral artery is dominant. No flow void seen in the left vertebral artery. Postsurgical changes from suboccipital craniectomy and C1 laminectomy. C2-3: There is no disc bulge. There is no central canal stenosis. Thereis no facet osteoarthritis. There is no uncovertebral joint osteoarthritis. There is no neural foraminal stenosis. C3-4: There is no disc bulge. There is no central canal stenosis. Thereis no facet osteoarthritis. There is no uncovertebral joint osteoarthritis. There is no neural foraminal stenosis. C4-5: There is minimal posterior central disc bulge. There is no central canal stenosis. There is mild left facet osteoarthritis. There is mild bilateral uncovertebral joint osteoarthritis. There is mild left neural foraminal stenosis. These findings have slightly progressed compared tothe cervical spine MRI from 06/04/2017. C5-6: There is mild posterior central and subarticular disc protrusion. There is mild central canal stenosis. There is mild right and moderateleft facet osteoarthritis. There is mild bilateral uncovertebral joint osteoarthritis, worse on the left. There is moderate left and mild right neural foraminal stenosis. These findings have progressed. C6-7: There is no disc bulge. There is no central canal stenosis. Thereis no facet osteoarthritis. There is no uncovertebral joint osteoarthritis. There is no neural foraminal stenosis. C7-T1: There is no disc bulge. There is no central canal stenosis. Thereis no facet osteoarthritis. There is no uncovertebral joint osteoarthritis. There is no neural foraminal stenosis. Thoracic spine: The alignment is normal. Vertebral bodies are normal in height without evidence of acute fracture. The visible bone marrow is normal. Thethoracic spinal cord appears normal. Mild disc height loss is seen at all thoracic levels. Small disc bulges/herniations are seen in the mid to lower thoracic spine. However, there is no high-grade spinal canal stenosis. No spinal cord impingementis appreciated. The facets appear normal. No neural foraminal stenosis is seen. No soft tissue abnormality is identified. Lumbar spine: Grade 1 anterolisthesis at L4-L5 measures 2 mm. No bone marrow edema is seen. Small chronic Schmorl's nodes are noted at L1-L2 and L2-L3. Theconus medullaris terminates at the level of L1 and the distal spinal cordsignal intensity is normal. Mild disc height loss is seen at L4-L5. No softtissue abnormality is identified. L1-L2: There is no disc bulge. There is no central canal stenosis. Thereis no facet osteoarthritis. There is no neural foraminal stenosis. L2-L3: There is mild posterior central disc bulge. Ligamentum flavum infolding is noted. There is mild central canal stenosis. There is mild bilateral facet osteoarthritis. There is moderate left and mild right neural foraminal stenosis. L3-L4: There is mild posterior central disc bulge. There is mild central canal stenosis secondary to disc bulge, ligamentum flavum thickening,and dorsal epidural fat. There is mild bilateral facet osteoarthritis. Thereis moderate neural foraminal stenosis. L4-L5: There is mild posterior central disc bulge. There is moderate central canal stenosis secondary to disc bulge and ligamentum flavum thickening. There is moderate facet osteoarthritis with bilateral facet joint effusions. There is severe left and moderate right neuralforaminal stenosis. Impingement of the exiting left L4 nerve root is noted. L5-S1: There is no disc bulge. There is no central canal stenosis. Thereis moderate left and mild right facet osteoarthritis. There is no neural foraminal stenosis. IMPRESSION: Cervical spine: Mild degenerative changes in the mid to lower cervical spine with slight progression at C4-C5 and C5-C6 compared to thecervical spine MRI from 06/04/2017. Thoracic spine: Mild multilevel degenerative changes without high-grade spinal canal or foraminal stenosis. Lumbar spine: Mild to moderate multilevel degenerative changes arepresent throughout the lumbar spine resulting in moderate spinal canal stenosisat L4-L5. Severe left foraminal narrowing is present at L4-L5 withimpingement of the exiting left L4 nerve root. The report is dictated by Landry Enriquez MD, ([employer] Machine Operator) > Dictated by [employer] Machine Operator I, Jade Telles MD have personally reviewed and interpreted this examination/study. > Interpreting Provider: Jade Telles MD on 04/05/2025 11:41 AM us Nimco Gould MD MR ORDERABLES Final Result * (ABNORMAL) BLOOD GASES EMILIANO + COOX PANEL (04/04/2025 11:45 PM CDT) pH Venous 7.43(H) 7.32 - 7.42 pH 04/04/2025 11:52 PM CDT [facility] pO2 Venous 55(H) 35 - 40 mmHg 04/04/2025 11:52 PM [facility] pCO2 Venous 42 40 - 50 mmHg 04/04/2025 11:52 PM [facility] HCO3 Venous 27.9 20 - 30 mmol/L 04/04/2025 11:52 PM [facility] Base Excess Venous 3.1(H) -2.0 - 2.0 mmol/L 04/04/2025 11:52 PM [facility] Oxyhemoglobin Venous 86.3 % 03/2025 11:52 PM [facility] Deoxyhemoglobin (HHB) Venous % 11.2 % 04/04/2025 11:52 PM [facility] Methemoglobin 1.1 0.0 - 2.0 % 04/04/2025 11:52 PM [facility] Carboxyhemoglobin 1.4 0.0 - 2.0 % 2024 11:52 PM [facility] O2 Content Venous 17.8 Interpret within clinical context ml/dL 04/04/2025 11:52 PM [facility] Hemoglobin by COOX 14.7 12.0 - 15.6 g/dL 04/04/2025 11:52 PM [facility] O2 Saturation Venous 89 >=70 % 03/2025 11:52 PM [facility] FI O2 Mixed Venous 21.0 % 2024 11:52 PM [facility] Blood BLOOD SPECIMEN / Unknown Venipuncture / Unknown 04/04/2025 11:45 PM CDT 04/04/2025 11:48 PM [facility] - 04/04/2025 11:52 PM [facility] Carboxyhemoglobin Normal Concentration: Non-smokers: 0-2%; Smokers: 0-9%; Toxic: >20% us Andrey Obrien MD LAB - BLOOD GASES ORDER LUCINA Final Result [facility] [address] [place] [address], [facility] [phone] * PT-INR (04/04/2025 11:45 PM CDT) PT 12.3 12.1 - 14.8 Seconds 04/05/2025 12:17 AM CDT [facility] INR 0.9 See Comment 04/05/2025 12:17 AM CDT [facility] Comment:The suggested therap eutic range for standard coumadin (warfarin) therapy is an INR of 2.0-3.0. For high-risk patients (Mechanical Mitral Valve Prosthesis, etc.), the suggested prophylactic therapeutic range is an INR of 2.5-3.5. Blood BLOOD SPECIMEN / Unknown Venipuncture / Unknown 04/04/2025 11:45 PM CDT 04/04/2025 11:50 PM CDT us Andrey Obrien MD LAB - COAGULATION ORDER LUCINA Final Result [address] [id number] [phone] * B-TYPE NATRIURETIC PEPTIDE (04/04/2025 11:45 PM CDT) Pathologist [facility] BNP <10 <100 pg/mL 04/05/2025 12:28 AM CDT [facility] Comment: A decision threshold of 100 pg/mL has been demonstrated to provide the maximal combination of sensitivity, specificity and predictive value for the diagnosis of congestive heart failure (CHF). Virtually all patients with no evidence of CHF have BNP values less than 100 pg/mL. A BNP value greater than 100 pg/mL is consistent with the diagnosis of CHF in the appropriate clinical setting. In a study of 693 patients (male and female) with diagnosed CHF, the following values were determined based on the NYHA functional classification system: NYHA Functional Class Mean Valule (pg/mL) % >100 pg/mL I 320 58.1 II 432 73.0 III 656 79.0 IV 1635 98.3 Blood BLOOD SPECIMEN / Unknown Venipuncture / Unknown 04/04/2025 11:45 PM CDT 04/04/2025 11:50 PM CDT us Andrey Obrien MD LAB - CHEMISTRY ORDERAB LES Final Result [address] [address], [facility] [phone] * LACTIC ACID BLOOD (04/04/2025 11:45 PM CDT) [facility] Lactic Acid-Stat 0.9 <=2.0 mmol/L 04/05/2025 12:33 AM CDT [facility] Blood BLOOD SPECIMEN / Unknown Venipuncture / Unknown 04/04/2025 11:45 PM CDT 04/04/2025 11:50 PM CDT us Andrey Obrien MD LAB - CHEMISTRY ORDERAB LES Final Result Performing Organization Address [facility] Co de Phone Number [address] [address], [facility] [phone] * (ABNORMAL) CBC W AUTO DIFFERENTIAL (04/04/2025 2:07 PM CDT) [facility] WBC 10.4 4.0 - 10.7 x10E9/L 04/04/2025 2:16 PM [facility] RBC Count 4.97 3.90 - 5.20 x10E12/L 04/04/2025 2:16 PM [facility] Hemoglobin 14.5 11.9 - 15.8 g/dL 04/04/2025 2:16 PM [facility] Hematocrit 43.6 34.8 - 46.1 % 04/04/2025 2:16 PM [facility] MCV 87.7 80.0 - 98.0 fL 04/04/2025 2:16 PM T [facility] MCH 29.2 26.7 - 33.6 pg 04/04/2025 2:16 PM T [facility] MCHC 33.3 31.7 - 36.3 g/dL 04/04/2025 2:16 PM T [facility] RDW-CV 13.2 11.3 - 14.8 % 04/04/2025 2:16 PM [facility] Platelet Count 305 150 - 420 x10E9/L 04/04/2025 2:16 PM [facility] MPV 10.2 7.8 - 11.4 fL 04/04/2025 2:16 PM [facility] Neutrophil % 87.0(H) 41.0 - 74.0 % 04/04/2025 2:16 PM [facility] Lymphocyte % 9.5(L) 17.0 - 47.0 % 04/04/2025 2:16 PM [facility] Monocyte % 3.1 3.0 - 11.0 % 04/04/2025 2:16 PM [facility] Eosinophil % 0.0 0.0 - 7.0 % 04/04/2025 2:16 PM [facility] Basophil % 0.1 0.0 - 1.6 % 04/04/2025 2:16 PM [facility] Immature Granulocytes % 0.3 0.0 - 1.0 % 04/04/2025 2:16 PM [facility] Neutrophil Absolute 9.08(H) 1.60 - 7.50 x10E9/L 04/04/2025 2:16 PM [facility] Lymphocyte Absolute 0.99(L) 1.00 - 4.40 x10E9/L 04/04/2025 2:16 PM [facility] Monocyte Absolute 0.32 0.15 - 1.00 x10E9/L 04/04/2025 2:16 PM [facility] Eosinophil Absolute 0.00 0.00 - 0.60 x10E9/L 04/04/2025 2:16 PM [facility] Basophil Absolute 0.01 0.00 - 0.13 x10E9/L 04/04/2025 2:16 PM [facility] Blood BLOOD SPECIMEN / Unknown Venipuncture / Unknown 04/04/2025 2:07 PM CDT 04/04/2025 2:11 PM CDT us Selene De León PA-C LAB - HEMATOLOGY ORDERABLES Final Result [facility] [address] [place] [address], [facility] [phone] * XR Shunt Series (04/04/2025 1:29 PM CDT) Anatomical Region Laterality Modality Abdomen, Pelvis Digital Radiogra phy 04/04/2025 2:57 PM CDT Impressions 04/04/2025 3:33 PM CDT IMPRESSION: Right parietal approach ventriculostomy with GOLD RECLAIMER shunt looping in the right neck and terminating in the right superior mediastinal area compared to mid thorax on prior imaging. Please note that this study only assesses mechanical continuity of the shunt, and does not exclude shunt malfunction. Report dictated by Saeid Dawn MD (residential treatment counselor). > Dictated by [employer] Machine Operator I, Oscar Zapien MD have personally reviewed and interpreted this examination/study. > Interpreting Provider: Oscar Zapien MD on 04/04/2025 3:33 PM Narrative 04/04/2025 3:33 PM CDT PROCEDURE: XR SHUNT SERIES, DATE/TIME OF EXAM: 04/04/2025 1:29 PM, LOCATION [facility] INDICATION: R11.2: Nausea and vomiting, unspecified vomiting type Ordering Provider Reason For Exam: Hx of GOLD RECLAIMER shunt, new headaches, n/v Technologist Note: Additional: None. ADDITIONAL CLINICAL INFORMATION: COMPARISON: Prior x-ray shunt series on 11/24/2024. TECHNIQUE: Frontal and lateral radiographs of the skull and frontal radiographs of the chest and abdomen. FINDINGS: A right parietal approach ventriculostomy is present. The draining catheter loops within the right neck and terminates in the region of the superior mediastinum. This differs from the prior study where the shunt terminated in the mid thorax. No acute calvarial abnormality is present. The neck soft tissues are normal. The heart and pulmonary silhouette is normal. The lungs are clear. No acute bone abnormality is seen. Procedure Note Oscar Zapien MD - 04/04/2025 PROCEDURE: XR SHUNT SERIES, DATE/TIME OF EXAM: 04/04/2025 1:29 PM,LOCATION [facility] INDICATION: R11.2: Nausea and vomiting, unspecified vomiting type Ordering Provider Reason For Exam: Hx of GOLD RECLAIMER shunt, new headaches, n/v Technologist Note: Additional: None. ADDITIONAL CLINICAL INFORMATION: COMPARISON: Prior x-ray shunt series on 11/24/2024. TECHNIQUE: Frontal and lateral radiographs of the skull and frontal radiographs of the chest and abdomen. FINDINGS: A right parietal approach ventriculostomy is present. The drainingcatheter loops within the right neck and terminates in the region of the superior mediastinum. This differs from the prior study where the shuntterminated in the mid thorax. No acute calvarial abnormality is present. The neck soft tissues are normal. The heart and pulmonary silhouette is normal. The lungs are clear. No acute bone abnormality is seen. IMPRESSION: Right parietal approach ventriculostomy with GOLD RECLAIMER shunt looping in theright neck and terminating in the right superior mediastinal area compared tomid thorax on prior imaging. Please note that this study only assesses mechanical continuity of the shunt, and does not exclude shunt malfunction. Report dictated by Saeid Dawn MD (residential treatment counselor). > Dictated by Solid Glass Rod Dowel Machine Operator I, Oscar Zapien MD have personally reviewed and interpreted this examination/study. > Interpreting Provider: Oscar Zapien MD on 04/04/2025 3:33 PM us Selene De León PA-C DIAGNOSTIC IMAGING ORDERABL ES Final Result * HIV-1 HIV-2 ANTIGEN/ANTIBODY (04/08/2018 3:24 PM CDT) HIV Antigen/Antibod y 1 & 2 Non-reacti ve Non-react clayton 04/08/2018 4:14 PM CDT [facility] Comment: Neither HIV-1 p24 Antigen nor HIV-1/HIV-2 Antibodies are detected. Blood BLOOD SPECIMEN / Unknown Venipuncture / Unknown 04/08/2018 3:24 PM CDT 04/08/2018 3:30 PM CDT Simon Saldana MD LAB - HEMATOLOGY ORDERAB [place] [address], [facility] [phone] * HEPATITIS C AB SCREEN RFLX NAAT QUANT (04/08/2018 3:24 PM CDT) Hepatitis C Antibody Non-react claytonerica Enriquez-reac tive 04/08/2018 4:21 PM CDT [facility] Comment: Hepatitis C Antibody [...] LAB - CHEMISTRY ORDERABL ES Final Result [address] [phone] from Last 3 Months or Most Recently Relevant to Health Maintenance Insurance [employer] [place] [id number] Advance Directives Documents on File Type Date Recorded Patient Box Spring Maker Expl anation Adv Directive/Living Will/POA 01/25/2018 8:39 AM * Full Code (Latest Code Status on File) Date Activated Date Inactivated Comments 04/04/2025 11:32 PM 04/06/2025 1:52 PM * Full Code Date Activated Date Inactivated Comments 04/14/2018 2:21 PM 04/17/2018 1:08 PM * Full Code Date Activated Date Inactivated Comments 04/09/2018 12:31 AM 04/12/2018 5:44 PM * Full Code Date Activated Date Inactivated Comments 04/08/2018 10:20 PM 04/09/2018 12:31 AM * Full Code Date Activated Date Inactivated Comments 04/08/2018 8:56 PM 04/08/2018 10:20 PM Care Teams Ductfixing Plumber Relationship Specialty Start Date End Date Marco A Amador DO [address] [place], [place] [id number] PCP - General Internal Medicine 05/04/25
--- OUTSIDE RECORDS SUMMARY | 2025-06-15 18:23 | XMS_ITS | Encounter Summary ---
Author Organization [facility] Address [address] [place] [address] Care Team Providers Care Photocomposing Machine Operator Name Role Phone Marco A Amador DO Primary Care Provider [phone] Encounter Details Date Type Department Care Team (Latest Contact Info) Description 06/14/2025 Travel Social History Tobacco Use Types Packs/Day Years [...] medical care, and heating? Very hard 04/05/2025 [facility] of Occupat ional Health - Occupational Stress [...] any time in the past 12 m [facility], were you homeless or living in a usp (including now)? No 04/05/2025 Comments No Sex and Gender Information Value Date Recorded Sex Assigned at Not on file Legal Sex Female 5:19 PM DENTAL SALES REPRESENTATIVE Gender Identity Not on file Sexual Orientation Not on file documented as of this encounter Functional Status * Is person [...] Raisa Smart RN documented in this encounter Plan of Treatment Upcoming Encounters Date Type Department Care Team (Late st Contact Info) Description 06/29/2025 10:00 AM DENTAL SALES REPRESENTATIVE Office Visit [facility] - Orthopedics [address] [place] [address], [place] [address] Addison Castaneda MD [facility] [facility] DIV [place] [address] 07/06/2025 10:00 AM DENTAL SALES REPRESENTATIVE Office Visit [facility] - Neurosurgery [address] [place] [address], [place] [address] Pooja Alanis MD [address] [place] [address] [place] [address] documented as of this encounter Visit Diagnoses Not on filedocumented in this encounter Care Teams Photocomposing Machine Operator Relationship Specialty Start Date End Date Marco A Amador DO [address] [place] [address] PCP - General Internal Medicine 05/04/25 documented as of this encounter
--- OUTSIDE RECORDS SUMMARY | 2025-06-15 18:23 | XMS_ITS | Patient Health Record ---
Author Organization [facility] Address [address] [place] [address] Care Team Providers Care Health Information Tech Name Role Phone Pooja Webster Unavailable [phone] Reason For Referral No Information Medications Medication [...] MG Tablet Extended Release Oral *Reorder from [employer] for eRx and Interaction Alerts* 03/25/2023 Active [...] Date [employer] [employer] [address] [place] [address] [id number] Self - patient is the insured Medical (General) History Surgical History Surgery Date(Month/Year) Any surgical history 07/27/2007 Neurosurgery 03/27/2018
--- OUTSIDE RECORDS SUMMARY | 2025-06-15 18:23 | XMS_ITS | Clinical Summary ---
Author Organization [facility] [address] Address [address] [place] [id number] Care Team Providers Care Dairy Nutritionist Name Role Phone Dex Mitchell MD Primary [...] on file Legal Sex Female 11:04 AM COAT OPERATOR Gender Identity Not on file Sexual Orientation Not on file Last Filed Vital Signs Vital Sign Reading Time Taken Comments Blood Pressure 164/98 06/16/2024 6:21 PM COAT OPERATOR Pulse 100 06/16/2024 6:25 PM COAT OPERATOR Temperature 36.6 C (97.9 F) 06/16/2024 6:21 PM COAT OPERATOR Respiratory Rate 20 06/16/2024 6:21 PM COAT OPERATOR Oxygen Saturation 99% 06/16/2024 6:21 PM COAT OPERATOR Inhaled Oxygen Concentration - - Weight 90.7 kg (200 lb) 06/16/2024 6:21 PM COAT OPERATOR Height 165.1 cm (5' 5) 06/16/2024 6:21 PM COAT OPERATOR Body Mass Index 33.28 06/16/2024 6:21 PM COAT OPERATOR Plan of Treatment Health Maintenance Due Date [...] HEPATITIS C AB Routine 09/29/2012 3:29 PM COAT OPERATOR from Last 3 Months or Most Recently Relevant to Health Maintenance Results * Serum Hepatitis C ab (09/29/2012 3:29 PM COAT OPERATOR) HCV ab Non-Reacti ve Non-Reacti ve HISTORICAL RESULTS Serum 09/29/2012 3:29 PM COAT OPERATOR us Dex Mitchell MD LAB BLOOD ORDERABLES Final Result HISTORICAL RESULTS from Last 3 Months or Most Recently Relevant to Health Maintenance Insurance [facility] [employer] Care Teams Dairy Nutritionist Relationship Specialty Start Date End Date Dex Mitchell MD PCP - General 01/23/15
[2025-06-15 18:54] VITALS: BP 160/89; PULSE 93; RESP 12; O2SAT 99
[2025-06-15 19:32] VITALS: BP 160/89; PULSE 93; RESP 12; O2SAT 99
== END 2025-06-15 19:35 | disposition home or self-care (01) ==
PROVIDERS: Emergency Provider Emergency Medicine; PCP Internal Medicine
DX: M54.2 Cervicalgia (principal); M54.9 Dorsalgia, unspecified; V89.2XXA Person injured in unspecified motor-vehicle accident, traffic, initial encounter; W22.10XA Striking against or struck by unspecified automobile airbag, initial encounter; I10 Essential (primary) hypertension; F90.9 Attention-deficit hyperactivity disorder, unspecified type
CPT/HCPCS: 70450; 71250; 72125; 74176; 96374; 99284; A9270; J1171